=== PATIENT | female | born 1970 | race African-American/Black ===

== ENCOUNTER 2017-11-14 21:54 | Emergency (ER) | payer OTHER ==
[2017-11-14 22:06] VITALS: BP 122/67; PULSE 110; TEMP 98.4; BMI 34.1
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
== END 2017-11-14 22:31 | disposition home or self-care (01) ==
LOC: JERFT 21:54
DX: S29.012A Strain of muscle and tendon of back wall of thorax, initial encounter (principal); S39.011A Strain of muscle, fascia and tendon of abdomen, initial encounter; X50.9XXA Other and unspecified overexertion or strenuous movements or postures, initial encounter; Y93.89 Activity, other specified; Y92.118 Other place in children's home and orphanage as the place of occurrence of the external cause; Y99.0 Civilian activity done for income or pay; I10 Essential (primary) hypertension; E78.5 Hyperlipidemia, unspecified; J45.909 Unspecified asthma, uncomplicated; Z79.82 Long term (current) use of aspirin
CPT/HCPCS: 99281-25

== ENCOUNTER 2018-01-19 10:21 | Emergency (ER) | payer OTHER ==
[2018-01-19 10:33] VITALS: BP 156/93; PULSE 99; TEMP 98.7; BMI 35.1
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
[2018-01-19 12:04] LABS: BASO % 2.1 % (0-2.0); EOS % 3.9 % (0-4.5); HEMATOCRIT 31.5 % (32.4-45.2); LYMPH % 26.4 % (8-40); MCH 24.5 pg (25.7-33.7); MCHC 31.8 g/dl (32.0-36.0); MEAN PLT VOLUME 8.8 fl (7.5-11.1); MONO % 7.7 % (3.8-10.2); NEUT % 59.9 % (42.8-82.8); PLATELET COUNT 195 K/MM3 (134-434); RBC 4.09 M/mm3 (3.60-5.2); RDW 19.9 % (11.6-15.6)
[2018-01-19 13:19] LABS: ALBUMIN 3.8 g/dl (3.4-5.0); ALK PHOS 106 U/L (45-117); ANION GAP 10 (8-16); BILIRUBIN,TOTAL 0.5 mg/dL (0.2-1.0); BLOOD UREA NITROGEN 13 mg/dL (7-18); CALCIUM 9.4 mg/dL (8.5-10.1); CHLORIDE 106 mmol/L (98-107); CHOLESTEROL 228 mg/dL (50-200); CO2 24 mmol/L (21-32); CREATININE 0.9 mg/dL (0.55-1.02); GAMMA GLUTAMYL TRANSPEPTIDASE 30 U/L (5-85); GLUCOSE,RANDOM 92 mg/dL (74-106); LDH 156 U/L (84-246); POTASSIUM 4.1 mmol/L (3.5-5.1); SGOT/AST 21 U/L (15-37); SGPT/ALT 21 U/L (12-78); SODIUM 140 mmol/L (136-145); TOT PROT 8.7 g/dl (6.4-8.2)
[2018-01-20 06:06] LABS: HBsAG SCREEN Negative (Negative)
== END 2018-01-19 12:22 | disposition home or self-care (01) ==
LOC: JERFT 10:21
DX: Z77.21 Contact with and (suspected) exposure to potentially hazardous body fluids (principal); S63.502A Unspecified sprain of left wrist, initial encounter; X58.XXXA Exposure to other specified factors, initial encounter; Y93.89 Activity, other specified; Y92.10 Unspecified residential institution as the place of occurrence of the external cause; Y99.0 Civilian activity done for income or pay; E78.5 Hyperlipidemia, unspecified; F17.210 Nicotine dependence, cigarettes, uncomplicated; Z79.82 Long term (current) use of aspirin
CPT/HCPCS: 36415; 73110-TC-LR-FY; 80053; 82465; 82977; 83615; 85025; 86317; 86706; 86803; 87340; 87389; 99282-25

== ENCOUNTER 2019-04-12 04:41 | Inpatient (IN) | payer OTHER ==
[2019-04-06 15:34] VITALS: BMI 31.6
[2019-04-12] MEDS ORDERED: PHENAZOPYRIDINE HCL 100 MG TABLET (FP) PO ONE ×2 (07:13→07:21)
[2019-04-12] MEDS ORDERED: CEFAZOLIN 2 GM/D5W 2 GM/50 ML ML IVPB ONE (07:13)
[2019-04-12] MEDS ORDERED: PHENAZOPYRIDINE HCL 100 MG TABLET (FP) ONE (07:17)
[2019-04-12] MEDS ORDERED: ONDANSETRON 4 MG/2 ML VIAL IVPUSH PRN ×4 (07:21→18:38)
[2019-04-12] MEDS ORDERED: oxyCODONE HCL 5 MG TABLET PO PRN ×6 (07:21→18:38)
[2019-04-12] MEDS ORDERED: LACTATED RINGERS SOLUTION 1,000 ML IV SCH ×3 (07:30→18:38)
[2019-04-12] MEDS ORDERED: BUPIVACAINE HCL/PF 0.5% (5 MG/ML) 30 ML VIAL IJ ONE ×3 (07:32→10:30)
--- NOTE | 2019-04-12 08:03 | HP ---
History & Physical Update - History History: No Change - Physical Physical: No Change - Assessment Assessment: No Change - Plan Plan: No Change
[2019-04-12] MEDS ORDERED: HEPARIN NA (PORCINE) 5,000 UNITS/ML 1ML VIAL SQ ONE ×3 (08:04→08:38)
[2019-04-12] MEDS ORDERED: ceFAZolin SODIUM 1 GM VIAL IVPB ONE (08:15)
[2019-04-12] MEDS ORDERED: SIMETHICONE 80 MG TAB.CHEW (FP) PO PRN ×2 (11:12→18:38)
[2019-04-12] MEDS ORDERED: BISACODYL 5 MG TABLET.DR (FP) PO PRN ×2 (11:12→18:38)
[2019-04-12] MEDS ORDERED: IBUPROFEN 800 MG/8 ML IJ IVPB PRN ×2 (11:12→18:38)
[2019-04-12] MEDS ORDERED: ACETAMINOPHEN 1000 MG/100 ML VIAL (NON FORMULARY) IVPB ONE (11:16)
--- NOTE | 2019-04-12 11:27 | OP ---
Operative Note - Note: Operative Date: 04/12/19 Pre-Operative Diagnosis: leiomyoma, menorrhagia Operation: robotic assisted hysterectomy and b/l salpingectomy Surgeon: Randi Zuniga Esl Teacher: Isabel Newman Anesthesiologist/ELEVATOR REPAIRER HELPER: Ankit Jordan Anesthesia: General Specimens Removed: uterus/cervix, bilateral saplingx Estimated Blood Loss (mls): 50 Drains, Volume Out (mls): 50 (whitehead) Fluid Volume Replaced (mls): 1,000 Operative Report Dictated: Yes
--- NOTE | 2019-04-12 11:28 | SURG ---
Surgery Cafeteria Or Lunchroom Checker Note Cafeteria Or Lunchroom Checker: Isabel Newman PA-C Date of Service: 04/12/19 Diagnosis: leiomyoma, menorrhagia Procedure: robotic assisted hysterectomy and b/l salpingectomy I was present for the entirety of the operative procedure. For further detail, please refer to operative report. Visit type - Case Type Case Type: Scheduled - Emergency Emergency Visit: No - New patient This patient is new to me today: Yes Date on this admission: 04/12/19
[2019-04-12] MEDS ORDERED: ACETAMINOPHEN INJECTION 100 ML IVPB ONE (11:37)
--- NOTE | 2019-04-12 13:52 | OP ---
DATE OF OPERATION: 04/12/2019 PREOPERATIVE DIAGNOSIS: Leiomyomatous uterus, menorrhagia. OPERATION: Laparoscopic robotic total abdominal hysterectomy and bilateral salpingectomy. SURGEON: Shon Garcia MD WAREHOUSE ASSOCIATE: URBANO Freed. MD segundo. ANESTHESIOLOGIST: Ankit Trinh ANESTHESIA: General. SPECIMEN REMOVED: Uterus, cervix, and bilateral tubes. ESTIMATED BLOOD LOSS: Approximately 50 mL. PROCEDURE: Patient was taken to the operating room. Placed in dorsal lithotomy position, prepped and draped in the usual sterile fashion. Time-out was performed in accordance with hospital regulation. Speculum was placed in the vagina. Anterior lip of the cervix was grasped with single-tooth tenaculum. A large uterine manipulator cannula was then inserted, and cervix was covered with the manipulator. Banks catheter was then inserted. Attention was then drawn to the umbilicus where an 8-mm umbilical incision. Veress needle was inserted into the cavity. Approximately 3-4 L of CO2 was insufflated in the cavity. Veress needle was then removed. An 8-mm trocar was then inserted. Laparoscope and camera revealed normal placement of the trocar without injury to the underlying viscera. Attention was then drawn to the left side where 2 incisions were made, 1 parallel approximately 10 cm apart from the umbilicus. An 8-mm incision was then made, and upper abdomen incision 5 cm was made. AirSeal cannula was inserted into the 5-mm incision, and robotic trocar was inserted into the 8-mm incision. Two trocars were then placed on the right side both parallel to each other about 10 cm apart under direct visualization without injury to the underlying viscera. Da Caleb robot was side docked to the patient's bedside, and trocars were then inserted onto the robot. Placement was then confirmed. Instruments were then placed. Endo Jesse and tenaculum were placed on the right side, and fenestrated bipolar was placed on the left side. AirSeal cannula was then activated. Attention was then drawn to the console where control of the da Caleb robot was then done. Tenaculum was then used to elevate and tilt the uterus to the right side. Utero-ovarian ligament was identified and was clamped using fenestrated bipolar and cut. Round ligament was identified, clamped, and cut. Vesicouterine reflection was then entered, and bladder was bluntly dissected out of the operative field. Uterine artery was identified, coagulated, and cut along with cardinal ligaments down to the level of the cervix. Endo Jesse were then used to open the vagina in a circumferential manner. The same procedure was repeated on the other side, and bladder was bluntly dissected out of the operative field. Ureters were identified and found to have peristalsis bilaterally. The circumferential incision around the vagina was then done, and vagina was cut away from the cervix. Uterus was then removed from the vagina. Tubes were bilaterally grasped and coagulated and cut, and both tubes were also submitted for pathology from the vagina. The 2-0 V- Lock suture was then introduced into the abdomen cavity. Robot was then used to close the vagina in a continuous fashion. Hemostasis was achieved. Ureters identified and both again found to have peristalsis. All bleeding was found to be hemostatic. Needle was then removed through a No. 1 trocar, and all trocars were then removed. Incisions were then closed using 4-0 Biosyn suture in subcuticular fashion after CO2 had been removed from the abdomen. Wound was washed and dressed. The patient had tolerated procedure well. Estimated blood loss was about 50 mL. SHON GARCIA M.D. [id number]
[2019-04-12] MEDS ORDERED: PATIENT'S OWN MEDICATION (NON-FORMULARY) (Iron [Iron] 18 MG) PO SCH (14:00)
--- NOTE | 2019-04-12 15:31 | CON.CARD ---
Consult Consult Specialty:: Cardiology - History of Present Illness History of Present Illness: s/p JOSE developed vpcs PMH elevated tnis [address] as per patient cleared by dr. Boyd 2 weeks ago neg stress test - History Source History Provided By: Patient, Medical Record - Past Medical History ...LMP: 06/18/16 ...LMP Comment: constant ...: No - Alcohol/Substance Use Hx Alcohol Use: No - Smoking History Smoking history: Current every day smoker Have you smoked in the past 12 months: Yes Aproximately how many cigarettes per day: 4 - Social History History of Recent Travel: No Home Medications - Allergies Allergies/Adverse Reactions: Allergies Allergy/AdvReac Type Severity Reaction Status Date / Time No Known Drug Allergies Allergy Verified 01/19/18 10:52 - Home Medications Home Medications: Ambulatory Orders Aspirin [ASA -] 81 mg PO DAILY #30 tab.chew 07/24/16 Iron 18 mg PO TID 04/06/19 Omeprazole 20 mg PO BID 04/06/19 Docusate Sodium [Colace -] 100 mg PO BID #14 capsule 04/12/19 Oxycodone HCl/Acetaminophen [Percocet 5-325 mg Tablet] 1 - 2 tab PO Q6H PRN #30 tab MDD 8 04/12/19 Review of Systems - Review of Systems Constitutional: reports: No Symptoms Eyes: reports: No Symptoms HENT: reports: No Symptoms Neck: reports: No Symptoms Cardiovascular: reports: No Symptoms Respiratory: reports: No Symptoms Gastrointestinal: reports: No Symptoms Genitourinary: reports: No Symptoms Breasts: reports: No Symptoms Reported Musculoskeletal: reports: No Symptoms Integumentary: reports: No Symptoms Neurological: reports: No Symptoms Endocrine: reports: No Symptoms Hematology/Lymphatic: reports: No Symptoms Psychiatric: reports: No Symptoms Vital Signs: Vital Signs Temperature 98.2 F 04/12/19 13:20 Pulse Rate 90 04/12/19 13:20 Respiratory Rate 16 04/12/19 13:20 Blood Pressure 104/65 04/12/19 13:20 O2 Sat by Pulse Oximetry (%) 100 04/12/19 13:20 Constitutional: Yes: Well Nourished, No Distress, Calm Eyes: Yes: WNL, Conjunctiva Clear, EOM Intact HENT: Yes: WNL, Atraumatic, Normocephalic Neck: Yes: WNL, Supple, Trachea Midline Respiratory: Yes: WNL, Regular, CTA Bilaterally Gastrointestinal: Yes: WNL, Normal Bowel Sounds Renal/: Yes: WNL Cardiovascular: Yes: Pulse Irregular Heart Sounds: Yes: S1, S2 Murmur: Yes: Systolic Murmur Musculoskeletal: Yes: WNL Extremities: Yes: WNL Integumentary: Yes: WNL Neurological: Yes: WNL, Alert, Oriented ...Motor Strength: WNL Psychiatric: Yes: WNL, Alert, Oriented Imaging - Results EKG: Image Reviewed (sr rbbb bifascicular block LPHB vpcs) Problem List - Problems (1) Abdominal muscle strain Code(s): S39.011A - STRAIN OF MUSCLE, FASCIA AND TENDON OF ABDOMEN, INIT ENCNTR (2) Anemia Code(s): D64.9 - ANEMIA, UNSPECIFIED (3) Asthma Code(s): J45.909 - UNSPECIFIED ASTHMA, UNCOMPLICATED (4) Back pain Code(s): M54.9 - DORSALGIA, UNSPECIFIED (5) Chronic back pain Code(s): M54.9 - DORSALGIA, UNSPECIFIED; G89.29 - OTHER CHRONIC PAIN (6) Exposure to blood or body fluid Code(s): Z77.21 - CONTACT W AND EXPOSURE TO POTENTIALLY HAZARDOUS BODY FLUIDS (7) Menometrorrhagia Code(s): N92.1 - EXCESSIVE AND FREQUENT MENSTRUATION WITH IRREGULAR CYCLE (8) Multiple thyroid nodules Code(s): E04.2 - NONTOXIC MULTINODULAR GOITER (9) Myocardial infarction Code(s): I21.3 - ST ELEVATION (STEMI) MYOCARDIAL INFARCTION OF [facility] SITE (10) Near syncope Code(s): R55 - SYNCOPE AND COLLAPSE (11) Obesity Code(s): E66.9 - OBESITY, UNSPECIFIED (12) RBBB Code(s): I45.10 - UNSPECIFIED RIGHT BUNDLE-BRANCH BLOCK (13) Sprain of wrist, left Code(s): S63.502A - UNSPECIFIED SPRAIN OF LEFT WRIST, INITIAL ENCOUNTER (14) Strain of mid-back Code(s): S29.012A - STRAIN OF MUSCLE AND TENDON OF BACK WALL OF THORAX, INIT Assessment/Plan s/p JOSE 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 Boyd 2 weeks ago neg stress test Plan transfer to telemetry awaiting records from dr. Boyd office echo f/u ekgs
[2019-04-12 15:36] LABS: BASO % 0.4 % (0-2.0); HEMOGLOBIN 8.5 GM/dL (10.7-15.3); LYMPH % 9.8 % (8-40); MCH 22.5 pg (25.7-33.7); MCHC 29.4 g/dl (32.0-36.0); MEAN CELL VOLUME 76.5 fl (80-96); MEAN PLT VOLUME 9.9 fl (7.5-11.1); MONO % 2.1 % (3.8-10.2); NEUT % 87.7 % (42.8-82.8); PLATELET COUNT 206 K/MM3 (134-434); RBC 3.79 M/mm3 (3.60-5.2); RDW 22.4 % (11.6-15.6); WHITE BLOOD COUNT 6.7 K/mm3 (4.0-10.0)
--- NOTE | 2019-04-12 15:45 | EKG ---
Test Reason : Blood Pressure : / mmHG Vent. Rate : 089 BPM Atrial Rate : 089 BPM P-R Int : 184 ms QRS Dur : 174 ms QT Int : 472 ms P-R-T Axes : 073 -61 087 degrees QTc Int : 574 ms SINUS RHYTHM WITH FREQUENT PREMATURE VENTRICULAR COMPLEXES POSSIBLE LEFT ATRIAL ENLARGEMENT RIGHT BUNDLE BRANCH BLOCK LEFT ANTERIOR FASCICULAR BLOCK BIFASCICULAR BLOCK ABNORMAL ECG WHEN COMPARED WITH ECG OF 23-JUL-2016 06:21, PREMATURE VENTRICULAR COMPLEXES ARE NOW PRESENT T WAVE VARIATION Confirmed by CONOR CASPER MD ([id number]) on 04/12/2019 3:44:33 PM Referred By: Randi Zuniga Confirmed By:CONOR CASPER MD
[2019-04-12] MEDS ORDERED: CEFAZOLIN 1 GM in DEXTROSE 5%-WATER - 50 ML IVPB SCH (16:00)
[2019-04-12 16:11] LABS: BLOOD UREA NITROGEN 9.9 mg/dL (7-18); CALCIUM 8.7 mg/dL (8.5-10.1); CREATININE 0.8 mg/dL (0.55-1.3); POTASSIUM 3.4 mmol/L (3.5-5.1)
[2019-04-12] MEDS ORDERED: ASPIRIN 325 MG TABLET PO ONE (16:48)
[2019-04-12] MEDS ORDERED: ASPIRIN 325 MG ENTERIC COATED TABLET (FP) PO STA (16:50)
--- NOTE | 2019-04-12 16:54 | RAPID ---
Physical Examination Vital Signs: Vital Signs Temperature 97.8 F 04/12/19 13:45 Pulse Rate 86 04/12/19 13:45 Respiratory Rate 20 04/12/19 13:45 Blood Pressure 96/58 L 04/12/19 13:45 O2 Sat by Pulse Oximetry (%) 100 04/12/19 13:45 afeb, HR 93, BP 87/63, 100%(2L) Findings/Remarks: 48F w/ pmh of HLD, OA, Asthma, POD#0 robo-assisted hysterectom + bl salphingectomy complaining of sudden onset substernal CP. Rapid response called for CP + SOB. Described as a crushing pressure radiating to back and Left shoulder. Thinks that her pre-op stress test 2weeks pre-op was normal. Has had neg cath 2ys prior. Cardiology consulted from earlier today for EKG changes post -op(PVCs w/ bifasicular block compared to EKG from 2017). Cardiology recommended cardiac enzymes, echo, transfer to tele. Constitutional: Yes: Mild Distress Eyes: Yes: Conjunctiva Clear. No: Sclera Icterus HENT: Yes: Atraumatic, Normocephalic Neck: Yes: Trachea Midline. No: Lymphadenopathy Cardiovascular: Yes: Regular Rate and Rhythm. No: Murmur, Rub Respiratory: Yes: CTA Bilaterally, On Nasal O2 (2L). No: Accessory Muscle Use Gastrointestinal: Yes: Soft, Abdomen, Obese. No: Hepatomegaly Renal/: Yes: Other (Banks in place with dark orange output(pyridium given earlier)) Extremities: No: Calf Tenderness Edema: No Peripheral Pulses: Left Radial: 2+, Right Radial: 2+ Integumentary: No: Erythema Neurological: Yes: Alert, Oriented Labs: CBC, BMP 04/12/19 15:05 04/12/19 15:05 Rapid Response - Rapid Response Assessment: 48F w/ pmh of HLD, OA, Asthma, POD#0 robo-assisted hysterectomy + bl salphingectomy with CP + SOB concerning for cardiovascular event Outcome: - fu CXR - fu CTA to r/o aortic dissection, PE - stat ASA, - pain control: morphine 2mg, famotidine 20mg BID - electrolyte repletion: MgSO4 2g, KCl 10mEQ x3
[2019-04-12] MEDS ORDERED: MORPHINE SULFATE 2 MG/ML VIAL IVPUSH ONE (16:58)
[2019-04-12] MEDS ORDERED: MAGNESIUM SULF 50% (8.12 MEQ/2 ML-1 GM VIAL) IVPB ONE (17:11)
[2019-04-12] MEDS ORDERED: FAMOTIDINE 20 MG/50 ML IVPB 20 MG/50 ML MG IVPB ONE (17:16)
[2019-04-12 18:00] LABS: ANISOCYTOSIS 2+; MACROCYTOSIS 0; PLATELET ESTIMATE NORMAL
[2019-04-12] MEDS ORDERED: ACETAMINOPHEN 325 MG TABLET (FP) PO SCH (18:00)
--- NOTE | 2019-04-12 18:32 | CONSULT ---
Consultation: REQUESTING PROVIDER: CONSULT REQUEST: We have been asked to medically evaluate this patient for ICU monitoring. HISTORY OF PRESENT ILLNESS: REVIEW OF SYSTEMS: CONSTITUTIONAL: Absent: fever, chills, diaphoresis, generalized weakness, malaise, loss of appetite, weight change HEENT: Absent: rhinorrhea, nasal congestion, throat pain, throat swelling, difficulty swallowing, mouth swelling, ear pain, eye pain, visual changes CARDIOVASCULAR: Absent: chest pain, syncope, palpitations, irregular heart rate, lightheadedness , peripheral edema RESPIRATORY: Absent: cough, shortness of breath, dyspnea with exertion, orthopnea, wheezing, stridor, hemoptysis GASTROINTESTINAL: Absent: abdominal pain, abdominal distension, nausea, vomiting, diarrhea, constipation, melena, hematochezia GENITOURINARY: Absent: dysuria, frequency, urgency, hesitancy, hematuria, flank pain, genital pain MUSCULOSKELETAL: Absent: myalgia, arthralgia, joint swelling, back pain, neck pain SKIN: Absent: rash, itching, pallor HEMATOLOGIC/IMMUNOLOGIC: Absent: easy bleeding, easy bruising, lymphadenopathy, frequent infections ENDOCRINE: Absent: unexplained weight gain, unexplained weight loss, heat intolerance, cold intolerance NEUROLOGIC: Absent: headache, focal weakness or paresthesias, dizziness, unsteady gait, seizure, mental status changes, bladder or bowel incontinence PSYCHIATRIC: Absent: anxiety, depression, suicidal or homicidal ideation, hallucinations. PHYSICAL EXAMINATION Vital Signs - 24 hr 04/12/19 04/12/19 04/12/19 06:35 11:18 11:30 Temperature 98.9 F 97.5 F L Pulse Rate 100 H 88 89 Respiratory 20 18 16 Rate Blood Pressure 113/66 97/58 L 101/60 O2 Sat by Pulse 100 96 99 Oximetry (%) 04/12/19 04/12/19 04/12/19 11:45 12:00 12:15 Temperature Pulse Rate 90 88 89 Respiratory 16 14 16 Rate Blood Pressure 102/54 L 102/60 100/72 O2 Sat by Pulse 98 100 100 Oximetry (%) 04/12/19 04/12/19 04/12/19 12:30 12:45 13:00 Temperature Pulse Rate 85 86 87 Respiratory 16 14 16 Rate Blood Pressure 101/57 L 100/63 105/60 O2 Sat by Pulse 100 100 100 Oximetry (%) 04/12/19 04/12/19 13:20 13:45 Temperature 98.2 F 97.8 F Pulse Rate 90 86 Respiratory 16 20 Rate Blood Pressure 104/65 96/58 L O2 Sat by Pulse 100 100 Oximetry (%) GENERAL: Awake, alert, and fully oriented, in no acute distress. HEAD: Normal with no signs of trauma. EYES: Pupils equal, round and reactive to light, extraocular movements intact, sclera anicteric, conjunctiva clear. No lid lag. EARS, NOSE, THROAT: Ears normal, nares patent, oropharynx clear without exudates. Moist mucous membranes. NECK: Normal range of motion, supple without lymphadenopathy, JVD, or masses. LUNGS: Breath sounds equal, clear to auscultation bilaterally. No wheezes, and no crackles. No accessory muscle use. HEART: Regular rate and rhythm, normal S1 and S2 without murmur, rub or gallop. ABDOMEN: Soft, nontender, not distended, normoactive bowel sounds, no guarding, no rebound, no masses. No hepatomegaly or splenomegaly. MUSCULOSKELETAL: Normal range of motion at all joints. No bony deformities or tenderness. No CVA tenderness. UPPER EXTREMITIES: 2+ pulses, warm, well-perfused. No cyanosis. No clubbing. Cap refill <2 seconds. No peripheral edema. LOWER EXTREMITIES: 2+ pulses, warm, well-perfused. No calf tenderness. No peripheral edema. NEUROLOGICAL: Cranial nerves II-XII intact. Normal speech. Normal gait. PSYCHIATRIC: Cooperative. Good eye contact. Appropriate mood and affect. SKIN: Warm, dry, normal turgor, no rashes or lesions noted. Laboratory Results - last 24 hr 04/12/19 04/12/19 04/12/19 06:10 06:10 15:05 WBC RBC Hgb Hct MCV MCH MCHC RDW Plt Count MPV Absolute Neuts (auto) Neutrophils % Lymphocytes % Monocytes % Eosinophils % Basophils % Nucleated RBC % Hypochromia Platelet Estimate Polychromasia Poikilocytosis Anisocytosis Microcytosis Macrocytosis Sodium 139 Potassium 3.4 L Chloride 105 Carbon Dioxide 26 Anion Gap 8 BUN 9.9 Creatinine 0.8 Est GFR (CKD-EPI)AfAm 101.04 Est GFR (CKD-EPI)NonAf 87.18 Random Glucose 146 H Calcium 8.7 Creatine Kinase 56 Troponin I 0.30 H Beta HCG, Quant < 1.0 Blood Type O POSITIVE Antibody Screen Negative 04/12/19 15:05 WBC 6.7 RBC 3.79 Hgb 8.5 L Hct 29.0 L MCV 76.5 L MCH 22.5 L MCHC 29.4 L RDW 22.4 H Plt Count 206 MPV 9.9 D Absolute Neuts (auto) 5.9 Neutrophils % 87.7 H D Lymphocytes % 9.8 D Monocytes % 2.1 L Eosinophils % 0.0 D Basophils % 0.4 Nucleated RBC % 0 Hypochromia 2+ Platelet Estimate Normal Polychromasia 1+ Poikilocytosis 0 Anisocytosis 2+ Microcytosis 2+ Macrocytosis 0 Sodium Potassium Chloride Carbon Dioxide Anion Gap BUN Creatinine Est GFR (CKD-EPI)AfAm Est GFR (CKD-EPI)NonAf Random Glucose Calcium Creatine Kinase Troponin I Beta HCG, Quant Blood Type Antibody Screen Active Medications Generic Name Dose Route Start Last Admin Trade Name Freq PRN Reason Stop Dose Admin Acetaminophen 650 mg 04/12/19 18:00 Tylenol - PO 04/13/19 02:01 Q4H FILEMON Bisacodyl 10 mg 04/12/19 11:12 Dulcolax - PO ONCE PRN CONSTIPATION Docusate Sodium 100 mg 04/12/19 22:00 Colace - PO TID FILEMON Enoxaparin Sodium 40 mg 04/13/19 10:00 Lovenox - SQ DAILY FILEMON Fentanyl 50 mcg 04/12/19 07:21 04/12/19 11:40 Sublimaze Injection - IVPUSH 50 mcg [id number] PRN Administration PAIN-PACU ORDER X 4 DOSES ONLY Lactated Ringer's 1,000 mls @ 75 mls/hr 04/12/19 07:30 Lactated Ringers Solution IV ASDIR FILEMON Cefazolin Sodium 1 gm/ 50 mls @ 100 mls/hr 04/12/19 16:00 Dextrose IVPB 04/13/19 00:29 Q8H FILEMON Lactated Ringer's 1,000 mls @ 100 mls/hr 04/12/19 11:30 04/12/19 13:20 Lactated Ringers Solution IV 0 mls ASDIR FILEMON Administration Potassium Chloride 10 meq in 100 mls @ 100 mls/hr 04/12/19 17:15 Potassium Chloride 10 Meq Premix Ivpb - IVPB 04/12/19 20:14 Q60M FIELMON Famotidine/Sodium Chloride 20 mg in 50 mls @ 100 mls/hr 04/12/19 22:00 Pepcid 20 Mg Premixed Ivpb - IVPB BID [facility] Ibuprofen 800 mg 04/12/19 11:12 04/12/19 14:15 Caldolor Injection - IVPB 800 mg Q8H PRN Administration PAIN LEVEL 1-5 Non-Formulary Medication 18 mg 04/12/19 14:00 Iron [Iron] PO TID [facility] Ondansetron HCl 4 mg 04/12/19 07:21 Zofran Injection IVPUSH Q6H PRN NAUSEA AND/OR VOMITING Ondansetron HCl 4 mg 04/12/19 11:12 Zofran Injection IVPUSH Q4H PRN NAUSEA AND/OR VOMITING Oxycodone HCl 10 mg 04/12/19 07:21 Roxicodone - PO Q4H PRN PAIN LEVEL 6-10 Oxycodone HCl 5 mg 04/12/19 07:21 Roxicodone - PO Q4H PRN PAIN LEVEL 1-5 Pantoprazole Sodium 20 mg 04/12/19 22:00 Protonix - PO BID [facility] Simethicone 80 mg 04/12/19 11:12 Mylicon - PO Q4H PRN GAS ASSESSMENT/PLAN: Dispo: We will continue to follow the patient. Thank you for this consultative opportunity. Visit type - Emergency Visit Emergency Visit: No - New Patient This patient is new to me today: Yes Date on this admission: 04/12/19 - Critical Care Critical Care patient: Yes Total Critical Care Time (in minutes): 36 Critical Care Statement: The care of this patient involved high complexity decision making to prevent further life threatening deterioration of the patient 's condition and/or to evaluate & treat vital organ system(s) failure or risk of failure. ATTENDING PHYSICIAN STATEMENT I saw and evaluated the patient. I reviewed the resident's note and discussed the case with the resident. I agree with the resident's findings and plan as documented. SUBJECTIVE: OBJECTIVE: ASSESSMENT AND PLAN:
--- NOTE | 2019-04-12 19:07 | CONSULT ---
Consultation: REQUESTING PROVIDER: CONSULT REQUEST: We have been asked to medically evaluate this patient for ICU management. HISTORY OF PRESENT ILLNESS: 48 y/o/f with PMhx of HLD, HTN, GERD, anemia, Fibroids, [place] in 2017 with cardiac cath but no stent placement POD#0 for total abdominal hysterectomy sent to the ICU due to hypotension and chest/back pain. Patient had a total abdominal hysterectomy due to vaginal bleeding that has been ongoing since January of this year. After the surgery the patient was hypotensive and was complaining of chest pain radiating to her back and left shoulder. Patient now complains of intermittent burning/sharp pain under her left breast that is a 7/10 in pain. The pain is worse with deep breaths. She states the back pain and left shoulder pain have resolved. Patient feels better now compared to post-operatively. Patient also complains of some abd pain. Denies SOB, weakness, chills, lightheadedness, headache, rash. As per surgical PA, during surgery the patient was placed in deep trendelenburg and was hypotensive but became more normotensive after being placed in normal position. Patient was hypotensive and complaining of chest pain radiating to her back and left shoulder post-operatively so an EKG was ordered which showed RBBB which is old and a new? left anterior fascicular block. Patient's BP responded well to fluids. Due to patients PMHx and concern for dissection and PE a chest/abd CTA was ordered and Dr. Zambrano was consulted. PMHx: HLD, HTN, GERD, anemia, Fibroids, [place] in 2017 with cardiac cath but no stent placement PSHx: Hernia repair age 6 Social: Tobacco: smokes 1/2 a pack of cigarettes daily Alcohol: social Drugs: denies REVIEW OF SYSTEMS: as per HPI PHYSICAL EXAMINATION Vital Signs - 24 hr 04/12/19 04/12/19 04/12/19 06:35 11:18 11:30 Temperature 98.9 F 97.5 F L Pulse Rate 100 H 88 89 Respiratory 20 18 16 Rate Blood Pressure 113/66 97/58 L 101/60 O2 Sat by Pulse 100 96 99 Oximetry (%) 04/12/19 04/12/19 04/12/19 11:45 12:00 12:15 Temperature Pulse Rate 90 88 89 Respiratory 16 14 16 Rate Blood Pressure 102/54 L 102/60 100/72 O2 Sat by Pulse 98 100 100 Oximetry (%) 04/12/19 04/12/19 04/12/19 12:30 12:45 13:00 Temperature Pulse Rate 85 86 87 Respiratory 16 14 16 Rate Blood Pressure 101/57 L 100/63 105/60 O2 Sat by Pulse 100 100 100 Oximetry (%) 04/12/19 04/12/19 04/12/19 13:20 13:45 18:35 Temperature 98.2 F 97.8 F 98.3 F Pulse Rate 90 86 80 Respiratory 16 20 23 H Rate Blood Pressure 104/65 96/58 L 104/71 O2 Sat by Pulse 100 100 Oximetry (%) GENERAL: mild discomfort due to pain. Awake, alert, and fully oriented HEAD: Normal with no signs of trauma. EYES: PERRL, EOMI, no scleral icterus EARS, NOSE, THROAT: Dry mucous membranes. nares patent NECK: supple, no cervical lymphadenopathy LUNGS: Breath sounds equal, clear to auscultation bilaterally. No wheezes, and no crackles. No accessory muscle use. HEART: systolic murmur noted. Regular rate and rhythm ABDOMEN: Dressings in place over abdominal surgical incisions, mild diffuse tenderness to palpation. hypoactive bowel sounds. soft, non distended. MUSCULOSKELETAL: No bony deformities or tenderness. UPPER EXTREMITIES: 2+ pulses, warm, well-perfused. No cyanosis. No clubbing. Cap refill <2 seconds. No peripheral edema. LOWER EXTREMITIES: 2+ pulses, warm, well-perfused. No calf tenderness. No peripheral edema. NEUROLOGICAL: Cranial nerves II-XII intact. Normal speech. grossly normal sensation. 5/5 strength upper extremities. gait not observed. SKIN: Warm, dry Laboratory Results - last 24 hr 04/12/19 04/12/19 04/12/19 06:10 06:10 15:05 WBC RBC Hgb Hct MCV MCH MCHC RDW Plt Count MPV Absolute Neuts (auto) Neutrophils % Lymphocytes % Monocytes % Eosinophils % Basophils % Nucleated RBC % Hypochromia Platelet Estimate Polychromasia Poikilocytosis Anisocytosis Microcytosis Macrocytosis Sodium 139 Potassium 3.4 L Chloride 105 Carbon Dioxide 26 Anion Gap 8 BUN 9.9 Creatinine 0.8 Est GFR (CKD-EPI)AfAm 101.04 Est GFR (CKD-EPI)NonAf 87.18 Random Glucose 146 H Calcium 8.7 Creatine Kinase 56 Troponin I 0.30 H Beta HCG, Quant < 1.0 Blood Type O POSITIVE Antibody Screen Negative 04/12/19 15:05 WBC 6.7 RBC 3.79 Hgb 8.5 L Hct 29.0 L MCV 76.5 L MCH 22.5 L MCHC 29.4 L RDW 22.4 H Plt Count 206 MPV 9.9 D Absolute Neuts (auto) 5.9 Neutrophils % 87.7 H D Lymphocytes % 9.8 D Monocytes % 2.1 L Eosinophils % 0.0 D Basophils % 0.4 Nucleated RBC % 0 Hypochromia 2+ Platelet Estimate Normal Polychromasia 1+ Poikilocytosis 0 Anisocytosis 2+ Microcytosis 2+ Macrocytosis 0 Sodium Potassium Chloride Carbon Dioxide Anion Gap BUN Creatinine Est GFR (CKD-EPI)AfAm Est GFR (CKD-EPI)NonAf Random Glucose Calcium Creatine Kinase Troponin I Beta HCG, Quant Blood Type Antibody Screen Active Medications Generic Name Dose Route Start Last Admin Trade Name Freq PRN Reason Stop Dose Admin Acetaminophen 650 mg 04/12/19 22:00 Tylenol - PO 04/13/19 10:01 Q4HWA FILEMON Bisacodyl 10 mg 04/12/19 18:38 Dulcolax - PO ONCE PRN CONSTIPATION Docusate Sodium 100 mg 04/12/19 22:00 Colace - PO TID FILEMON Enoxaparin Sodium 40 mg 04/13/19 10:00 Lovenox - SQ DAILY FILE[facility] Potassium Chloride 10 meq in 100 mls @ 100 mls/hr 04/12/19 17:15 Potassium Chloride 10 Meq Premix Ivpb - IVPB 04/12/19 20:14 Q60M FILEMON Famotidine/Sodium Chloride 20 mg in 50 mls @ 100 mls/hr 04/12/19 22:00 Pepcid 20 Mg Premixed Ivpb - IVPB BID FILE[facility] Cefazolin Sodium 1 gm/ 50 mls @ 100 mls/hr 04/13/19 00:00 Dextrose IVPB 04/13/19 00:29 Q8H FILEMON Lactated Ringer's 1,000 mls @ 100 mls/hr 04/12/19 18:38 Lactated Ringers Solution IV ASDIR FILEMON Ibuprofen 800 mg 04/12/19 18:38 Caldolor Injection - IVPB Q8H PRN PAIN LEVEL 1-5 Non-Formulary Medication 18 mg 04/12/19 22:00 Iron [Iron] PO TID FILEMON Ondansetron HCl 4 mg 04/12/19 18:38 Zofran Injection IVPUSH Q6H PRN NAUSEA AND/OR VOMITING Oxycodone HCl 10 mg 04/12/19 18:38 Roxicodone - PO Q4H PRN PAIN LEVEL 6-10 Oxycodone HCl 5 mg 04/12/19 18:38 Roxicodone - PO Q4H PRN PAIN LEVEL 1-5 Pantoprazole Sodium 20 mg 04/12/19 22:00 Protonix - PO BID FILE[facility] Simethicone 80 mg 04/12/19 18:38 Mylicon - PO Q4H PRN GAS ASSESSMENT/PLAN: 48 y/o/f with PMhx of HLD, GERD, Fibroids, [place] in 2017 with cardiac cath but no stent placement POD#0 for total abdominal hysterectomy sent to the ICU due to hypotension and chest/back pain. #Neuro - AAOx3. Continue to monitor #Cardio - EKG: shows old RBBB (present in previous EKGs from 2017), new left anterior fascicular and PVCs. - No pre and post op changes in EKG noted - Stress test on 04/06/19 - ETT 5:01 + 2:27 edvin, no cp, no sob, ecg neg, 4 beats SVT - Chest CTA completed, no evidence of PE or dissection - Troponin elevated at 0.3, however this is lower than the patient's baseline troponin which has been 0.4+ in the past. Will trend - Repeat EKG in the morning - ASA given after the surgery - Spoke with Dr. Zambrano, recommended continuing patient on ASA. - Echocardiogram ordered - cardio on board #Respiratory - Encourage incentive spirometry - On Chest/abd CTA bibasilar opacities consistent with atelectasis and/or infiltrates are seen. #ID - Cefazolin started - give 3 doses post-op - Patient has been afebrile and without a white count #GI - Colace as needed for constipation - Chest/Abd CTA significant for free intraperitoneal air noted in the abdomen, also with visualization of air in the anterior abdominal wall bilaterally. - Findings discussed with Dr. Rhoades, [employer] MANAGER. Confirmed that presence of free air is normal due to recent surgery. # - LMP: 02/16/19 - Last pap smear on 09/10/18 with normal results #Prophylaxis - Lovenox - SCDs #FEN - regular diet - LR @ 100mls/hr - K+ at 3.4, replete & monitor #Disposition - Continue to monitor in ICU overnight Visit type - Emergency Visit Emergency Visit: No - New Patient This patient is new to me today: Yes Date on this admission: 04/13/19 - Critical Care Critical Care patient: Yes Total Critical Care Time (in minutes): 36 Critical Care Statement: The care of this patient involved high complexity decision making to prevent further life threatening deterioration of the patient 's condition and/or to evaluate & treat vital organ system(s) failure or risk of failure. ATTENDING PHYSICIAN STATEMENT I saw and evaluated the patient. I reviewed the resident's note and discussed the case with the resident. I agree with the resident's findings and plan as documented. SUBJECTIVE: OBJECTIVE: ASSESSMENT AND PLAN:
[2019-04-12] MEDS: KCL 10 MEQ IVPB 10 MEQ/100 ML INFUS.BAG IVPB SCH (20:00)
[2019-04-12] MEDS: CEFAZOLIN 1 GM in DEXTROSE 5%-WATER - 50 ML IVPB SCH (21:00)
[2019-04-12] MEDS ORDERED: ceFAZolin SODIUM 1 GM VIAL ONE (21:13)
[2019-04-12] MEDS ORDERED: DEXTROSE 5%-WATER - 50 ML IVPB ONE (21:13)
[2019-04-12] MEDS ORDERED: PANTOPRAZOLE SODIUM 40 MG VIAL IVPUSH ONE (21:15)
[2019-04-12 21:37] LABS: MAGNESIUM 1.8 mg/dL (1.8-2.4); PHOSPHOROUS 4.2 mg/dL (2.5-4.9)
[2019-04-12] MEDS ORDERED: DOCUSATE SODIUM 100 MG CAPSULE (FP) PO SCH (22:00)
[2019-04-12] MEDS ORDERED: PANTOPRAZOLE 20 MG TABLET (FP) PO SCH ×2 (22:00)
[2019-04-12] MEDS: DOCUSATE SODIUM 100 MG CAPSULE (FP) PO SCH (22:06)
[2019-04-12] MEDS: ACETAMINOPHEN 325 MG TABLET (FP) PO SCH (22:06)
[2019-04-12] MEDS ORDERED: ALBUTEROL SO4 2.5/IPRATROPIUM 0.5 INH SOL 3 ML VIAL.NEB. NEB PRN (22:34)
[2019-04-12] MEDS: FAMOTIDINE 20 MG/50 ML IVPB 20 MG/50 ML MG IVPB SCH (22:49)
--- NOTE | 2019-04-12 23:27 | CONSULT ---
Consult - History of Present Illness History of Present Illness: Pt is a 48 y/o female with PMh significant for HLD, HTN, GERD, anemia, uterine fibroids, and [place] in 2017 with cardiac cath but no stent placement. Pt underwent total abdominal hysterectomy sent to the ICU due to hypotension and chest/back pain. Patient had a total abdominal hysterectomy due to vaginal bleeding that has been ongoing since January of this year. After the surgery the patient was hypotensive and was complaining of chest pain radiating to her back and left shoulder. Patient complains of intermittent burning/sharp pain under her left breast that is a 7/10 in pain and is pleuritic in nature. The pain is worse with deep breaths. She states the back pain and left shoulder pain have resolved. As per surgical PA, during surgery the patient was placed in deep trendelenburg and was hypotensive but became more normotensive after being placed in normal position. Post-op a EKG was ordered which showed LBBB. Cardiology was called and pt transferred to ICU. - Past Medical History Cardio/Vascular: Yes: HTN, Hyperlipdemia, [place] Gastrointestinal: Yes: GERD ...LMP: 06/18/16 ...LMP Comment: constant ...: No - Past Surgical History Past Surgical History: Yes: Hysterectomy - Alcohol/Substance Use Hx Alcohol Use: No - Smoking History Smoking history: Current every day smoker Have you smoked in the past 12 months: Yes Aproximately how many cigarettes per day: 4 - Social History History of Recent Travel: No Home Medications - Allergies Allergies/Adverse Reactions: Allergies Allergy/AdvReac Type Severity Reaction Status Date / Time No Known Drug Allergies Allergy Verified 01/19/18 10:52 - Home Medications Home Medications: Ambulatory Orders Aspirin [ASA -] 81 mg PO DAILY #30 tab.chew 07/24/16 Iron 18 mg PO TID 04/06/19 Omeprazole 20 mg PO BID 04/06/19 Docusate Sodium [Colace -] 100 mg PO BID #14 capsule 04/12/19 Oxycodone HCl/Acetaminophen [Percocet 5-325 mg Tablet] 1 - 2 tab PO Q6H PRN #30 tab MDD 8 04/12/19 Family Medical History Family History: Unremarkable Review of Systems - Review of Systems Constitutional: reports: No Symptoms Eyes: reports: No Symptoms HENT: reports: No Symptoms Neck: reports: No Symptoms Cardiovascular: reports: Chest Pain Respiratory: reports: No Symptoms Gastrointestinal: reports: Abdominal Pain Genitourinary: reports: No Symptoms Physical Exam Vital Signs: Vital Signs Temperature 98.3 F 04/12/19 18:35 Pulse Rate 75 04/12/19 19:36 Respiratory Rate 25 H 04/12/19 19:36 Blood Pressure 104/74 04/12/19 19:36 O2 Sat by Pulse Oximetry (%) 100 04/12/19 19:36 Constitutional: Yes: Well Nourished HENT: Yes: WNL Neck: Yes: WNL, Supple Cardiovascular: Yes: WNL, Regular Rate and Rhythm Respiratory: Yes: WNL, Regular, CTA Bilaterally Gastrointestinal: Yes: Other (generalized incisional tenderness (-) guarding/ rebound) Extremities: Yes: WNL Edema: No Labs: CBC, BMP 04/12/19 15:05 04/12/19 15:05 Problem List - Problems (1) Chest pain Assessment/Plan: S/P JOSE Monitor on tele Serial cpk/troponin As per cardio New onset LBBB w/ PVC's Check CTA chest/ct scan abd Code(s): R07.9 - CHEST PAIN, UNSPECIFIED (2) HTN (hypertension) Assessment/Plan: Hold antihpertensives due to hypotension and monitor Code(s): I10 - ESSENTIAL (PRIMARY) HYPERTENSION (3) HLD (hyperlipidemia) Code(s): E78.5 - HYPERLIPIDEMIA, UNSPECIFIED (4) GERD (gastroesophageal reflux disease) Code(s): K21.9 - GASTRO-ESOPHAGEAL REFLUX DISEASE WITHOUT ESOPHAGITIS (5) Asthma Assessment/Plan: Duoneb prn Code(s): J45.909 - UNSPECIFIED ASTHMA, UNCOMPLICATED
[2019-04-13] MEDS: KCL 10 MEQ IVPB 10 MEQ/100 ML INFUS.BAG IVPB SCH ×2 (04:06→04:07)
[2019-04-13] MEDS ORDERED: ceFAZolin SODIUM 1 GM VIAL ONE (05:36)
[2019-04-13] MEDS ORDERED: DEXTROSE 5%-WATER - 50 ML IVPB ONE (05:37)
[2019-04-13] MEDS: DOCUSATE SODIUM 100 MG CAPSULE (FP) PO SCH ×2 (05:40→14:06)
[2019-04-13] MEDS: ACETAMINOPHEN 325 MG TABLET (FP) PO SCH ×2 (05:40→10:30)
[2019-04-13] MEDS: CEFAZOLIN 1 GM in DEXTROSE 5%-WATER - 50 ML IVPB SCH (05:40)
[2019-04-13 06:48] LABS: BASO % 0.7 % (0-2.0); EOS % 0.7 % (0-4.5); HEMATOCRIT 28.5 % (32.4-45.2); HEMOGLOBIN 8.5 GM/dL (10.7-15.3); LYMPH % 34.6 % (8-40); MCH 22.9 pg (25.7-33.7); MCHC 29.7 g/dl (32.0-36.0); MEAN PLT VOLUME 9.8 fl (7.5-11.1); MONO % 6.8 % (3.8-10.2); NEUT % 57.2 % (42.8-82.8); PLATELET COUNT 192 K/MM3 (134-434); RDW 22.6 % (11.6-15.6); WHITE BLOOD COUNT 4.7 K/mm3 (4.0-10.0)
[2019-04-13 07:19] LABS: BLOOD UREA NITROGEN 8.2 mg/dL (7-18); CREATININE 0.7 mg/dL (0.55-1.3); POTASSIUM 3.8 mmol/L (3.5-5.1)
--- NOTE | 2019-04-13 07:30 | PN ---
Physical Exam: SUBJECTIVE: Patient seen and examined by the bedside. Endorses mild chest pain on deep inspiration. OBJECTIVE: Vital Signs Period Temp Pulse Resp BP Sys/Cardenas Pulse Ox Last 24 Hr 97.5 F-98.4 F 75-98 14-25 96-127/54-97 96-100 GENERAL: AOx3, complaining of pain on inspiration HEAD: Normal with no signs of trauma. EYES: PERRL, EOMI, no scleral icterus EARS, NOSE, THROAT: Dry mucous membranes. nares patent NECK: supple, no cervical lymphadenopathy LUNGS: Breath sounds equal, clear to auscultation bilaterally. No wheezes, and no crackles. No accessory muscle use. HEART: 3/6 systolic murmur on right sternal border, Regular rate and rhythm ABDOMEN: Mild diffuse tenderness to palpation. hypoactive bowel sounds. soft, non distended. MUSCULOSKELETAL: No bony deformities or tenderness. UPPER EXTREMITIES: 2+ pulses, warm, well-perfused. No cyanosis. No clubbing. Cap refill <2 seconds. No peripheral edema. LOWER EXTREMITIES: 2+ pulses, warm, well-perfused. No calf tenderness. No peripheral edema. NEUROLOGICAL: Cranial nerves II-XII intact. Normal speech. grossly normal sensation. 5/5 strength upper extremities. gait not observed. SKIN: Warm, dry Laboratory Results - last 24 hr 04/12/19 04/12/19 04/12/19 06:10 15:05 15:05 WBC 6.7 RBC 3.79 Hgb 8.5 L Hct 29.0 L MCV 76.5 L MCH 22.5 L MCHC 29.4 L RDW 22.4 H Plt Count 206 MPV 9.9 D Absolute Neuts (auto) 5.9 Neutrophils % 87.7 H D Lymphocytes % 9.8 D Monocytes % 2.1 L Eosinophils % 0.0 D Basophils % 0.4 Nucleated RBC % 0 Hypochromia 2+ Platelet Estimate Normal Polychromasia 1+ Poikilocytosis 0 Anisocytosis 2+ Microcytosis 2+ Macrocytosis 0 Sodium 139 Potassium 3.4 L Chloride 105 Carbon Dioxide 26 Anion Gap 8 BUN 9.9 Creatinine 0.8 Est GFR (CKD-EPI)AfAm 101.04 Est GFR (CKD-EPI)NonAf 87.18 Random Glucose 146 H Calcium 8.7 Phosphorus 4.2 Magnesium 1.8 Creatine Kinase 56 Troponin I 0.30 H Blood Type O POSITIVE Antibody Screen Negative 04/12/19 04/13/19 04/13/19 21:10 06:00 06:00 WBC 4.7 RBC 3.70 Hgb 8.5 L Hct 28.5 L MCV 77.0 L MCH 22.9 L MCHC 29.7 L RDW 22.6 H Plt Count 192 MPV 9.8 Absolute Neuts (auto) 2.7 Neutrophils % 57.2 D Lymphocytes % 34.6 D Monocytes % 6.8 D Eosinophils % 0.7 D Basophils % 0.7 Nucleated RBC % 0 Hypochromia Platelet Estimate Polychromasia Poikilocytosis Anisocytosis Microcytosis Macrocytosis Sodium 139 Potassium 3.8 Chloride 106 Carbon Dioxide 27 Anion Gap 7 L BUN 8.2 Creatinine 0.7 Est GFR (CKD-EPI)AfAm 118.74 Est GFR (CKD-EPI)NonAf 102.45 Random Glucose 90 Calcium 9.0 Phosphorus Magnesium Creatine Kinase 56 Troponin I 0.29 H Blood Type Antibody Screen Active Medications Generic Name Dose Route Start Last Admin Trade Name Freq PRN Reason Stop Dose Admin Acetaminophen 650 mg 04/12/19 22:00 04/13/19 05:40 Tylenol - PO 04/13/19 10:01 650 mg Q4HWA [facility] Administration Albuterol/Ipratropium 1 amp 04/12/19 22:34 Duoneb - NEB Q6H PRN SHORTNESS OF BREATH Aspirin 81 mg 04/13/19 10:00 Ecotrin - PO DAILY [facility] Bisacodyl 10 mg 04/12/19 18:38 Dulcolax - PO ONCE PRN CONSTIPATION Docusate Sodium 100 mg 04/12/19 22:00 04/13/19 05:40 Colace - PO 100 mg TID [facility] Administration Enoxaparin Sodium 40 mg 04/13/19 10:00 Lovenox - SQ DAILY [facility] Famotidine/Sodium Chloride 20 mg in 50 mls @ 100 mls/hr 04/12/19 22:00 22:49 Pepcid 20 Mg Premixed Ivpb - IVPB 100 mls/hr BID [facility] Administration Lactated Ringer's 1,000 mls @ 100 mls/hr 04/12/19 18:38 04/12/19 19:33 Lactated Ringers Solution IV 100 mls/hr ASDIR [facility] Administration Ibuprofen 800 mg 04/12/19 18:38 Caldolor Injection - IVPB Q8H PRN PAIN LEVEL 1-5 Non-Formulary Medication 18 mg 04/12/19 22:00 Iron [Iron] PO TID [facility] Ondansetron HCl 4 mg 04/12/19 18:38 Zofran Injection IVPUSH Q6H PRN NAUSEA AND/OR VOMITING Oxycodone HCl 10 mg 04/12/19 18:38 04/12/19 22:47 Roxicodone - PO 10 mg Q4H PRN Administration PAIN LEVEL 6-10 Oxycodone HCl 5 mg 04/12/19 18:38 Roxicodone - PO Q4H PRN PAIN LEVEL 1-5 Simethicone 80 mg 04/12/19 18:38 Mylicon - PO Q4H PRN GAS ASSESSMENT/PLAN: 48 year old female with PMH of HLD, GERD, Fibroids, [place] in 2017 (s/p angio, no stents). She is POD#1 after elective total abdominal hysterectomy, and was admitted to the ICU after complaints of hypotension and non specific chest/back pain. #Cardio - EKG: shows old RBBB (present in previous EKGs from 2017), new left anterior fascicular and PVCs - Trops 0.30 -> 0.29 -> 6AM Trops pending - On ASA 81mg PO OD - No pre and post op changes in EKG noted - Stress test (04/06) ETT 5:01 + 2:27 edvin, no cp, no sob, ecg neg, 4 beats SVT - Chest CTA: no evidence of PE or dissection - Spoke with Dr. Owen, approves transfer to med/surg - Echocardiogram ordered #Respiratory - Incentive spirometry - Chest CTA: bibasilar opacities consistent with atelectasis and/or infiltrates are seen - Duonebs Q6H PRN #ID - Cefazolin 3x post-op - Afebrile, WBC wnl #GI - Colace 100mg PO TID - Chest/Abd CTA: Free intraperitoneal air noted in the abdomen, also with visualization of air in the anterior abdominal wall bilaterally. - Findings discussed with Dr. Rhoades, [employer]. Confirmed that presence of free air is normal due to recent surgery. # - LMP: 02/16/19 - Last pap smear on 09/10/18 with normal results #Prophylaxis - Lovenox 40mg SQ OD - SCDs #FEN - RL @ 100 - Regular diet #Disposition - Transfer to med/surg Visit type - Emergency Visit Emergency Visit: No - New Patient This patient is new to me today: Yes Date on this admission: 04/13/19 - Critical Care Critical Care patient: Yes Total Critical Care Time (in minutes): 39 Critical Care Statement: The care of this patient involved high complexity decision making to prevent further life threatening deterioration of the patient 's condition and/or to evaluate & treat vital organ system(s) failure or risk of failure. ATTENDING PHYSICIAN STATEMENT I saw and evaluated the patient. I reviewed the resident's note and discussed the case with the resident. I agree with the resident's findings and plan as documented. SUBJECTIVE: OBJECTIVE: ASSESSMENT AND PLAN:
--- NOTE | 2019-04-13 07:43 | PN ---
Progress Note (short form) - Note Progress Note: Anesthesia Post op Note Pt seen s/p GA for JOSE Pt awake alert denies vomiting -- does have mild nausea tolerating po meds with sips Pt report good pain control VSS Pt has not ambulated yet and whitehead in situ no apparent anesthesia complications Rosio Liu.
--- NOTE | 2019-04-13 09:25 | PN ---
Progress Note (short form) - Note Progress Note: POD 1, s/p robotic assisted hysterectomy and b/l salpingectomy Pt s/p RR yesterday evening for chest pain. Troponins .3, second set trending down to .29. EKG with old RBBB (present in previous EKGs from 2017), new left anterior fascicular and PVCs. Chest CTA with no dissection or PE Pt boarded in ICU for observation. Pt seen and examined. Reports chest pain has improved since yesterday. Currently has minimal cp with deep inhalation. Has not been oob, whitehead still in place. Tolerating clears. Passing flatus. Denies n/v/d. Vital Signs Temp 98.1 F 04/13/19 06:00 Pulse 93 H 04/13/19 08:00 Resp 14 04/13/19 08:00 BP 109/77 04/13/19 08:00 Pulse Ox 100 04/12/19 21:00 Intake & Output 04/12/19 04/12/19 04/13/19 11:59 23:59 11:59 Intake Total 7793 721 4762 Output Total 100 220 Balance 1600 30 1400 Weight 209 lb 8 oz Intake: IV 1700 0 1200 Lactated Ringers Solution 1200 1,000 ml @ 100 mls/hr IV ASDIR FILEMON Rx#: [id number] IVPB 250 200 Output: Urine 50 220 Estimated Blood Loss 50 Other: Voiding Method Indwelling Catheter Weight Measurement Method Built in [facility] CBC, BMP 04/13/19 06:00 04/13/19 06:00 Gen: awake, alert, nad, resting in bed appears comfortable Resp: unlabored on RA Abdo: soft, + ttp at port sites, all bandaids c/d/i with no erythema or drainage noted. + bowel sounds Ext: b/l scds in place and on A/P: 48 y/o F w/ PMHx HLD, GERD, Fibroids, [place] in 2017 with cardiac cath, no stent placement now POD#1 for total abdominal hysterectomy sent to the ICU due to hypotension and chest/back pain. afebrile, bp remains low 100s CP improved per pt Labs stable -Echo pending -Appreciate Cardiology reccs, awaiting plan pending echo -Pain management with Ibuprofen IV 800mg q8h, Oxy 5/10 q4h prn, Tylenol 650mg q4hrs prn -Whitehead out when pt is oob -Low cholestrol diet -OOB with assistance -Zofran 4mg q6hrs prn nausea -Bowel regimen as ordered -Monitor I&Os -VS per prtocol -Incentive spirometer strongly encouraged -DVT prophylaxis with Lovenox 40 qd, scds and early ambulation d/w attending Dr Zuniga
[2019-04-13] MEDS: FAMOTIDINE 20 MG/50 ML IVPB 20 MG/50 ML MG IVPB SCH (09:55)
[2019-04-13] MEDS ORDERED: ASPIRIN COATED 81 MG TABLET.EC PO SCH (10:00)
[2019-04-13] MEDS ORDERED: PT OWN MED DRAWER 7, Y5N ONE (10:00)
[2019-04-13] MEDS ORDERED: ENOXAPARIN NA (PORCINE) 40 MG/0.4 ML DISP.SYRIN SQ SCH ×2 (10:00)
--- NOTE | 2019-04-13 11:04 | EKG ---
Test Reason : Blood Pressure : / mmHG Vent. Rate : 091 BPM Atrial Rate : 091 BPM P-R Int : 170 ms QRS Dur : 162 ms QT Int : 434 ms P-R-T Axes : 060 -40 026 degrees QTc Int : 533 ms NORMAL SINUS RHYTHM LEFT AXIS DEVIATION RIGHT BUNDLE BRANCH BLOCK ABNORMAL ECG WHEN COMPARED WITH ECG OF 12-APR-2019 16:55, NO SIGNIFICANT CHANGE WAS FOUND Confirmed by Calvin Hernandes MD ([id number]) on 04/13/2019 11:04:04 AM Referred By: Randi Zuniga Confirmed By:Calvin Hernandes MD
--- NOTE | 2019-04-13 11:29 | PN ---
Teaching Attending Note Name of Resident: Rui Norman ATTENDING PHYSICIAN STATEMENT I saw and evaluated the patient. I reviewed the resident's note and discussed the case with the resident. I agree with the resident's findings and plan as documented. SUBJECTIVE: Pt seen and examined in the ICU. Chest pain largely resolved, reproducible with palpation. Denies shortness of breath. OBJECTIVE: Vital Signs Period Temp Pulse Resp BP Sys/Cardenas Pulse Ox Last 24 Hr 97.6 F-98.4 F 75-98 14-25 96-127/54-97 98-100 Intake & Output 04/10/19 04/11/19 04/12/19 04/13/19 23:59 23:59 23:59 23:59 Intake Total 1950 1400 Output Total 320 Balance 1630 1400 Weight 95.028 kg Gen: NAD at rest Heart: RRR Lung: decreased breath sounds at the bases Abd: soft, nontender, dressings clean Ext: no edema CBC, BMP 04/13/19 06:00 04/13/19 06:00 Active Medications Albuterol/Ipratropium (Duoneb -) 1 amp NEB Q6H PRN PRN Reason: SHORTNESS OF BREATH Aspirin (Ecotrin -) 81 mg PO DAILY [facility] Bisacodyl (Dulcolax -) 10 mg PO ONCE PRN PRN Reason: CONSTIPATION Docusate Sodium (Colace -) 100 mg PO TID [facility] Last Admin: 04/13/19 05:40 Dose: 100 mg Enoxaparin Sodium (Lovenox -) 40 mg SQ DAILY [facility] Last Admin: 04/13/19 09:57 Dose: 40 mg Famotidine/Sodium Chloride (Pepcid 20 Mg Premixed Ivpb -) 20 mg in 50 mls @ 100 mls/hr IVPB BID [facility] Last Admin: 04/13/19 09:55 Dose: 100 mls/hr Lactated Ringer's (Lactated Ringers Solution) 1,000 mls @ 100 mls/hr IV ASDIR [facility] Last Admin: 04/12/19 19:33 Dose: 100 mls/hr Ibuprofen (Caldolor Injection -) 800 mg IVPB Q8H PRN PRN Reason: PAIN LEVEL 1-5 Last Admin: 04/13/19 09:55 Dose: 800 mg Non-Formulary Medication (Iron [Iron]) 18 mg PO TID [facility] Ondansetron HCl (Zofran Injection) 4 mg IVPUSH Q6H PRN PRN Reason: NAUSEA AND/OR VOMITING Oxycodone HCl (Roxicodone -) 10 mg PO Q4H PRN PRN Reason: PAIN LEVEL 6-10 Last Admin: 04/12/19 22:47 Dose: 10 mg Oxycodone HCl (Roxicodone -) 5 mg PO Q4H PRN PRN Reason: PAIN LEVEL 1-5 Simethicone (Mylicon -) 80 mg PO Q4H PRN PRN Reason: GAS Last Admin: 04/13/19 10:01 Dose: 80 mg ASSESSMENT AND PLAN: Fibroid Uterus s/p Robotic Total Abdominal Hysterectomy CAD +Troponins likely Demand Ischemia Hyperlipidemia GERD Atelectasis Anemia - pain control - incentive spirometry - echocardiogram - IVF - PO as tolerated - DVT prophylaxis - can monitor on floor
--- NOTE | 2019-04-13 12:28 | ECHO ---
Version: 1 Name: MELISSA CH Exam: Adult Echocardiogram Study Date: 04/13/2019, 11:18 AM Age: 48 Years MMode/2D Measurements & Calculations IVSd: 0.92 cm LVIDs: 4.8 cm LVIDd: 6.0 cm LVPWd: 0.84 cm LVOT diam: 2.16 cm Ao root diam: 2.7 cm LA dimension: 4.0 cm Doppler Measurements & Calculations MV E max curtis: 121.4 cm/sec Med E/e': 14.7 MV A max curtis: 23.7 cm/sec Med Peak E' Curtis: 8.3 cm/sec MV E/A: 5.1 Lat E/e': 10.1 Lat Peak E' Curtis: 12.0 cm/sec MR max P.8 mmHg Ao max P.1 mmHg JAMEL(I,D): 0.74 cm Ao mean P.7 mmHg LV V1 mean: 41.8 cm/sec Ao V2 max: 260.4 cm/sec LV V1 mean P.84 mmHg AI P1/2t: 408.9 msec PI end-d curtis: 127.7 cm/sec TR max curtis: 224.0 cm/sec TR max P.2 mmHg Left Ventricle The left ventricle is mildly dilated. Left ventricular systolic function is mildly reduced. Ejection Fraction = 45%.. The transmitral spectral Doppler flow pattern is suggestive of impaired LV relaxation. Parad oxical septal motion. Right Ventricle The right ventricle is normal in size and function. Atria The left atrium is mildly dilated. Right atrial size is normal. Mitral Valve There is moderate mitral valve thickening. There is moderate mitral regurgitation. The mitral regurg itant jet is eccentrically directed. Tricuspid Valve The tricuspid valve is not well visualized, but is grossly normal. There is moderate tricuspid regur gitation. Right ventricular systolic pressure is 27 mmhg. Assuming the RA pressure is 5 mmHg. Aortic Valve Fibrocalcified aortic valve with severe stenosis and moderate regurgitation. JAMEL = 0.9 cm2. Peak gradient 28 mmHg, Mean gradient 18 mmHg. Pulmonic Valve The pulmonic valve is not well seen, but is grossly normal. Great Vessels The aortic root is normal size. Pericardium/Pleura There is no pericardial effusion. Summary Statements The left ventricle is mildly dilated. Paradoxical septal motion. Left ventricular systolic function is mildly reduced. Ejection Fraction = 45%. The right ventricle is normal in size and function. The left atrium is mildly dilated. Right atrial size is normal. Fibrocalcified aortic valve with severe stenosis and moderate regurgitation. JAMEL = 0.9 cm2. Peak gradient 28 mmHg, Mean gradient 18 mmHg. There is moderate mitral valve thickening. There is moderate mitral regurgitation. The mitral regurg itant jet is eccentrically directed. There is moderate tricuspid regurgitation. MD Sharon Glass04/13/2019, 11:27 AM Ordering Physician: Kb Zambrano Referring Physician: LAKIA DUMONT Performed By: Phylicia Trejo
--- NOTE | 2019-04-13 12:48 | PN ---
Progress Note, Physician History of Present Illness: Pt is a 48 y/o black woman with PMh significant for moderate systolic LV dysfunction (nonobstructive CAD on angiogram), HLD, HTN, GERD, anemia, uterine fibroids, and [place] in 2017 with cardiac cath but no stent placement. Pt underwent total abdominal hysterectomy sent to the ICU due to hypotension and chest/back pain. Patient had a total abdominal hysterectomy due to vaginal bleeding that has been ongoing since January of this year. After the surgery the patient was hypotensive and was complaining of chest pain radiating to her back and left shoulder. Patient complains of intermittent burning/sharp pain under her left breast that is a 7/10 in pain and is pleuritic in nature. The pain is worse with deep breaths. She states the back pain and left shoulder pain have resolved. As per surgical PA, during surgery the patient was placed in deep trendelenburg and was hypotensive but became more normotensive after being placed in normal position. Post-op a EKG was ordered which showed LBBB. Cardiology was called and pt transferred to ICU. - Current Medication List Current Medications: Active Medications Albuterol/Ipratropium (Duoneb -) 1 amp NEB Q6H PRN PRN Reason: SHORTNESS OF BREATH Aspirin (Ecotrin -) 81 mg PO DAILY [facility] Bisacodyl (Dulcolax -) 10 mg PO ONCE PRN PRN Reason: CONSTIPATION Docusate Sodium (Colace -) 100 mg PO TID [facility] Last Admin: 04/13/19 05:40 Dose: 100 mg Enoxaparin Sodium (Lovenox -) 40 mg SQ DAILY [facility] Last Admin: 04/13/19 09:57 Dose: 40 mg Famotidine/Sodium Chloride (Pepcid 20 Mg Premixed Ivpb -) 20 mg in 50 mls @ 100 mls/hr IVPB BID [facility] Last Admin: 04/13/19 09:55 Dose: 100 mls/hr Lactated Ringer's (Lactated Ringers Solution) 1,000 mls @ 100 mls/hr IV ASDIR [facility] Last Admin: 04/12/19 19:33 Dose: 100 mls/hr Ibuprofen (Caldolor Injection -) 800 mg IVPB Q8H PRN PRN Reason: PAIN LEVEL 1-5 Last Admin: 04/13/19 09:55 Dose: 800 mg Non-Formulary Medication (Iron [Iron]) 18 mg PO TID [facility] Ondansetron HCl (Zofran Injection) 4 mg IVPUSH Q6H PRN PRN Reason: NAUSEA AND/OR VOMITING Oxycodone HCl (Roxicodone -) 10 mg PO Q4H PRN PRN Reason: PAIN LEVEL 6-10 Last Admin: 04/12/19 22:47 Dose: 10 mg Oxycodone HCl (Roxicodone -) 5 mg PO Q4H PRN PRN Reason: PAIN LEVEL 1-5 Simethicone (Mylicon -) 80 mg PO Q4H PRN PRN Reason: GAS Last Admin: 04/13/19 10:01 Dose: 80 mg - Objective Vital Signs: Vital Signs Temperature 97.6 F 04/13/19 10:00 Pulse Rate 89 04/13/19 10:00 Respiratory Rate 21 H 04/13/19 10:00 Blood Pressure 102/66 04/13/19 10:00 O2 Sat by Pulse Oximetry (%) 100 04/12/19 21:00 Labs: CBC, BMP 04/13/19 06:00 04/13/19 06:00 Problem List - Problems (1) S/P hysterectomy Code(s): Z90.710 - ACQUIRED ABSENCE OF BOTH CERVIX AND UTERUS (2) Nonischemic cardiomyopathy Assessment/Plan: Per pt's adult ministries director (Dr. Haro), pt is to start lisinopril, and, later, metoprolol, post-hysterectomy. Code(s): I42.8 - OTHER CARDIOMYOPATHIES (3) Elevated troponin Assessment/Plan: hx midlly elevated TNI, known since at least 2017, engendering coronary angiogram at that time (nonobstrucitve CAD). Code(s): R79.89 - OTHER SPECIFIED ABNORMAL FINDINGS OF BLOOD CHEMISTRY (4) HLD (hyperlipidemia) Assessment/Plan: f/u lipid profile (LDL> 140 mg/dl in 2017) and start statin if necessary. Code(s): E78.5 - HYPERLIPIDEMIA, UNSPECIFIED (5) HTN (hypertension) Code(s): I10 - ESSENTIAL (PRIMARY) HYPERTENSION (6) Obesity Code(s): E66.9 - OBESITY, UNSPECIFIED (7) RBBB Code(s): I45.10 - UNSPECIFIED RIGHT BUNDLE-BRANCH BLOCK Assessment/Plan CCU time spent: 35 minutes.
[2019-04-13] MEDS ORDERED: RAPID SEQUENCE INTUBATION KIT NR ONE (20:05)
[2019-04-13] MEDS ORDERED: BISACODYL 5 MG TABLET.DR (FP) PO PRN (23:04)
[2019-04-13] MEDS ORDERED: IBUPROFEN 800 MG/8 ML IJ IVPB PRN (23:04)
[2019-04-13] MEDS ORDERED: ALBUTEROL SO4 2.5/IPRATROPIUM 0.5 INH SOL 3 ML VIAL.NEB. NEB PRN (23:04)
[2019-04-13] MEDS ORDERED: ONDANSETRON 4 MG/2 ML VIAL IVPUSH PRN (23:04)
[2019-04-13] MEDS ORDERED: SIMETHICONE 80 MG TAB.CHEW (FP) PO PRN (23:04)
[2019-04-13] MEDS ORDERED: oxyCODONE HCL 5 MG TABLET PO PRN (23:04)
--- NOTE | 2019-04-13 23:30 | PN ---
Progress Note (SOAP) - Subjective Chief Complaint: Pt without chest pain. pt see at bedside - Current Medications Current Medications: Active Medications Albuterol/Ipratropium (Duoneb -) 1 amp NEB Q6H PRN PRN Reason: SHORTNESS OF BREATH Aspirin (Ecotrin -) 81 mg PO DAILY [facility] Bisacodyl (Dulcolax -) 10 mg PO ONCE PRN PRN Reason: CONSTIPATION Docusate Sodium (Colace -) 100 mg PO TID [facility] Enoxaparin Sodium (Lovenox -) 40 mg SQ DAILY [facility] Famotidine/Sodium Chloride (Pepcid 20 Mg Premixed Ivpb -) 20 mg in 50 mls @ 100 mls/hr IVPB BID [facility] Ibuprofen (Caldolor Injection -) 800 mg IVPB Q8H PRN PRN Reason: PAIN LEVEL 1-5 Non-Formulary Medication (Iron [Iron]) 18 mg PO TID [facility] Ondansetron HCl (Zofran Injection) 4 mg IVPUSH Q6H PRN PRN Reason: NAUSEA AND/OR VOMITING Oxycodone HCl (Roxicodone -) 10 mg PO Q4H PRN PRN Reason: PAIN LEVEL 6-10 Oxycodone HCl (Roxicodone -) 5 mg PO Q4H PRN PRN Reason: PAIN LEVEL 1-5 Simethicone (Mylicon -) 80 mg PO Q4H PRN PRN Reason: GAS - Objective Vital Signs: Vital Signs Temperature 97.9 F 04/13/19 23:05 Pulse Rate 90 04/13/19 23:05 Respiratory Rate 21 H 04/13/19 23:05 Blood Pressure 92/49 L 04/13/19 23:05 O2 Sat by Pulse Oximetry (%) 100 04/13/19 16:00 Constitutional: Yes: Well Nourished, No Distress Labs Lab Results: CBC, BMP 04/13/19 06:00 04/13/19 06:00 Assessment/Plan POD 1 SP robotic Laparoscopic hysterectomy bilateral salpingectomy Plan continue present management
--- NOTE | 2019-04-13 23:49 | PN ---
Progress Note, Physician - Current Medication List Current Medications: Active Medications Albuterol/Ipratropium (Duoneb -) 1 amp NEB Q6H PRN PRN Reason: SHORTNESS OF BREATH Aspirin (Ecotrin -) 81 mg PO DAILY [facility] Bisacodyl (Dulcolax -) 10 mg PO ONCE PRN PRN Reason: CONSTIPATION Last Admin: 04/13/19 23:40 Dose: 10 mg Docusate Sodium (Colace -) 100 mg PO TID [facility] Enoxaparin Sodium (Lovenox -) 40 mg SQ DAILY [facility] Famotidine/Sodium Chloride (Pepcid 20 Mg Premixed Ivpb -) 20 mg in 50 mls @ 100 mls/hr IVPB BID [facility] Ibuprofen (Caldolor Injection -) 800 mg IVPB Q8H PRN PRN Reason: PAIN LEVEL 1-5 Non-Formulary Medication (Iron [Iron]) 18 mg PO TID [facility] Ondansetron HCl (Zofran Injection) 4 mg IVPUSH Q6H PRN PRN Reason: NAUSEA AND/OR VOMITING Oxycodone HCl (Roxicodone -) 10 mg PO Q4H PRN PRN Reason: PAIN LEVEL 6-10 Oxycodone HCl (Roxicodone -) 5 mg PO Q4H PRN PRN Reason: PAIN LEVEL 1-5 Last Admin: 04/13/19 23:40 Dose: 5 mg Simethicone (Mylicon -) 80 mg PO Q4H PRN PRN Reason: GAS Last Admin: 04/13/19 23:42 Dose: 80 mg - Objective Vital Signs: Vital Signs Temperature 97.9 F 04/13/19 23:05 Pulse Rate 90 04/13/19 23:05 Respiratory Rate 21 H 04/13/19 23:05 Blood Pressure 92/49 L 04/13/19 23:05 O2 Sat by Pulse Oximetry (%) 100 04/13/19 16:00 Labs: CBC, BMP 04/13/19 06:00 04/13/19 06:00 Problem List - Problems (1) Chest pain Code(s): R07.9 - CHEST PAIN, UNSPECIFIED (2) HTN (hypertension) Code(s): I10 - ESSENTIAL (PRIMARY) HYPERTENSION (3) HLD (hyperlipidemia) Code(s): E78.5 - HYPERLIPIDEMIA, UNSPECIFIED (4) GERD (gastroesophageal reflux disease) Code(s): K21.9 - GASTRO-ESOPHAGEAL REFLUX DISEASE WITHOUT ESOPHAGITIS (5) Asthma Code(s): J45.909 - UNSPECIFIED ASTHMA, UNCOMPLICATED
[2019-04-14] MEDS: oxyCODONE HCL 5 MG TABLET PO PRN ×2 (05:43→21:46)
[2019-04-14] MEDS: DOCUSATE SODIUM 100 MG CAPSULE (FP) PO SCH ×4 (05:44→21:41)
[2019-04-14] MEDS ORDERED: PATIENT'S OWN MEDICATION (NON-FORMULARY) (Iron [Iron] 18 MG) PO SCH (06:00)
[2019-04-14] MEDS: PATIENT'S OWN MEDICATION (NON-FORMULARY) (Iron [Iron] 18 MG) PO SCH (07:59)
[2019-04-14] MEDS: FAMOTIDINE 20 MG/50 ML IVPB 20 MG/50 ML MG IVPB SCH ×3 (08:00→21:41)
[2019-04-14 08:46] LABS: BASO % 0.9 % (0-2.0); EOS % 0.6 % (0-4.5); HEMATOCRIT 26.7 % (32.4-45.2); HEMOGLOBIN 8.2 GM/dL (10.7-15.3); MCH 23.2 pg (25.7-33.7); MCHC 30.9 g/dl (32.0-36.0); MEAN CELL VOLUME 75.2 fl (80-96); MEAN PLT VOLUME 10.1 fl (7.5-11.1); MONO % 5.8 % (3.8-10.2); NEUT % 52.7 % (42.8-82.8); PLATELET COUNT 202 K/MM3 (134-434); RBC 3.55 M/mm3 (3.60-5.2); RDW 22.1 % (11.6-15.6); WHITE BLOOD COUNT 4.1 K/mm3 (4.0-10.0)
--- NOTE | 2019-04-14 08:58 | DS ---
"Physical Exam: SUBJECTIVE: Patient seen and examined POD# 3, s/p robotic assisted hysterectomy and b/l salpingectomy Pt s/p RR POD #0 evening for chest pain. Troponins .3, second set trending down to .29. EKG with old RBBB (present in previous EKGs from 2017), new left anterior fascicular and PVCs. Chest CTA with no dissection or PE Pt boarded in ICU for observation, moved to the floor POD#1. Pt seen and examined at bedside states the pleuritic pain is improved. Patient has been OOb ambulating to bathroom, voiding and moving her bowels. She is tolerating her diet and her pain is controlled. She denies any CP, SOB, N/V, fever or chills. Vital Signs Temp 99.1 F 04/14/19 05:00 Pulse 102 H 04/14/19 05:00 Resp 21 H 04/14/19 05:00 BP 119/68 04/14/19 05:00 Pulse Ox 100 04/13/19 23:00 Intake & Output 04/13/19 04/13/19 04/14/19 11:59 23:59 11:59 Intake Total 1400 1950 Output Total 575 Balance 1400 1375 Weight 209 lb 8 oz 219 lb 6.4 oz Intake: IV 1200 800 Lactated Ringers Solution 1200 800 1,000 ml @ 100 mls/hr IV ASDIR FILEMON Rx#: [id number] IVPB 200 100 Oral 1050 Output: Urine 575 Banks 275 Void 300 Other: Voiding Method Indwelling Catheter Toilet # Unmeasured Voids Void 1 1 Bowel Movement No Yes Height 5 ft 9 in Weight Measurement Method [facility] Built in [facility] Standing Scale CBC, BMP 04/14/19 06:55 04/14/19 06:55 GENERAL: The patient is awake, alert, and fully oriented, in no acute distress. HEAD: Normal with no signs of trauma. Unlabored resp on RA EYE: sclera anicteric, conjunctiva clear. ABDOMEN: Obese, Soft, nontender, nondistended, no guarding, no rebound, no hepatosplenomegaly, no masses. bandaids C/D/I with surrounding tissue intact with no tracking erythema or d/c. EXTREMITIES: 2+ pulses, warm, well-perfused, no edema. NEUROLOGICAL: Cranial nerves II through XII grossly intact. Normal speech, gait not observed. PSYCH: Normal mood, normal affect. SKIN: Warm, dry, normal turgor, no rashes or lesions noted. HOSPITAL COURSE: Date of Admission:04/12/19 The patient was admitted to the Med-Surg Unit after an elective repair of her leiomyomas/pelvic pain. Now, s/p Robotic Assisted laparocsopic abdominal hysterectomy, Bilateral Salpingectomy. POD #0 a rapid response was called on the patient in the evening for chest pain. Troponins .3, second set trending down to .29. EKG with old RBBB (present in previous EKGs from 2017), new left anterior fascicular and PVCs. Chest CTA with no dissection or PE. Pt was moved to the ICU for observation, then moved to the floor POD #1. Cardiology worked up the patient and signed off. POD #2 patient reported pleuritic chest pain and had a RPT chest CTA which was negative for PE however it showed mediastinal lymphadenopathy and b/l pleural effusions. Dr Ybarra evaluated the patient in the evening and spoke to her at length regarding CT findings and that she will need to f/u with pulmonology as out patient. Pain management was achieved with a narcotic and non-narcotic oral and IV regimen. POD #1, the patient passed flatus and diet was advanced. Hemoglobin and hematocrit were monitored as well as vitals and remained stable throughout admission. Alicia-operative IV ABX were administered. DVT prophylaxis was achieved with Lovenox 40mg qd, SCDs and early ambulation. The patient had a PT evaluation and ambulated the halls without issue. Narcotic scripts were checked with [facility] prior to escribe. The discharge instructions and an oral pain management plan were reviewed with the patient. All questions answered. Above plan discussed with Dr. Zuniga and agreed. Date of Discharge: 04/14/19 Minutes to complete discharge: 25 Discharge Summary Problems reviewed: Yes Reason For Visit: FIBROIDS/MENNORHAGIA Current Active Problems Chest pain (Acute) Elevated troponin (Acute) GERD (gastroesophageal reflux disease) (Acute) HLD (hyperlipidemia) (Acute) HTN (hypertension) (Acute) Nonischemic cardiomyopathy (Acute) S/P hysterectomy (Acute) Condition: Good - Instructions Diet, Activity, Other Instructions: Dr. Randi Zuniga Enterprise Architect discharge instructions Physical activity Resume your normal everyday activity as tolerated no heavy lifting or exercise until seen by your surgeon. You may walk unlimited aj of and climb stairs. You may resume driving the car when you feel safe and comfortable behind the wheel. No sexual activity as instructed by Dr. Zuniga. Wound care If you have a bandage, leave it on, and keep dry for 48-72 hours. After that time discard the outer bandage. If they are tapes on the skin under the out of bandage leave them in place. They will peel off in the next 7 to 10 days. Do Not Peel them off. You may shower the day after surgery. If there are tapes present on the skin, you may shower over them. Diet There are no dietary restrictions. Eat healthy, high-fiber foods. Drink 6 to 8 glasses of liquid each day. This will assist in keeping your bowels are regular. Pain management You may take Tylenol or acetaminophen or Ibuprofen (for example, Motrin, Advil etc.) from my pain prescription medication is ordered should be taken as prescribed for moderate to severe pain. Call Dr. Zuniga for any of the following: Severe pain not relieved by medication Fever of 101 or higher Excessive bleeding or drainage on dressing Inability to urinate Follow up with Dr. Ybarra as an outpatient. Call the office at [phone] for an appointment in seven days. This report was requested by: Isabel Newman | Reference #: [id number] Referrals: Melisa Ybarra MD [Staff Physician] - Disposition: HOME - Home Medications Comprehensive Discharge Medication List: Ambulatory Orders Aspirin [ASA -] 81 mg PO DAILY #30 tab.chew 07/24/16 Iron 18 mg PO TID 04/06/19 Omeprazole 20 mg PO BID 04/06/19 Docusate Sodium [Colace -] 100 mg PO BID #14 capsule 04/12/19 Oxycodone HCl/Acetaminophen [Percocet 5-325 mg Tablet] 1 - 2 tab PO Q6H PRN #30 tab MDD 8 04/12/19 Problem List - Problems (1) S/P hysterectomy Assessment/Plan: A/P: 48 y/o F w/ PMHx HLD, GERD, Fibroids, [place] in 2017 with cardiac cath, no stent placement now POD#2 for total abdominal hysterectomy sent to the ICU due to hypotension and chest/back pain. bp stable Labs stable -F/u with Cardiology as outpatient -F/U with pulmonogy as out patient -Pain management as ordered -Low cholestrol diet -OOB as tolerated -Zofran 4mg q6hrs prn nausea -Bowel regimen as ordered -Monitor I&Os -VS per prtocol -Incentive spirometer strongly encouraged -DVT prophylaxis with Lovenox 40 qd, scds and early ambulation -Augmentin 500 once now and BID x 7 days -d/c home today Evaluation and plan discussed with Dr Zuniga Problems reviewed: Yes Code(s): Z90.710 - ACQUIRED ABSENCE OF BOTH CERVIX AND UTERUS This patient is new to me today: Yes Date on this admission: 04/16/19 Emergency Visit: No Critical Care patient: No - Discharge Referral Referred to [facility] No"
[2019-04-14 09:16] LABS: ALBUMIN 2.7 g/dl (3.4-5.0); BILIRUBIN,TOTAL 0.4 mg/dL (0.2-1); BLOOD UREA NITROGEN 9.9 mg/dL (7-18); CALCIUM 8.4 mg/dL (8.5-10.1); CREATININE 0.7 mg/dL (0.55-1.3); MAGNESIUM 1.6 mg/dL (1.8-2.4); PHOSPHOROUS 3.2 mg/dL (2.5-4.9); POTASSIUM 3.8 mmol/L (3.5-5.1); TOT PROT 6.7 g/dl (6.4-8.2)
[2019-04-14] MEDS: diphenhydrAMINE HCL 25 MG CAPSULE (FP) PO PRN (09:32)
[2019-04-14] MEDS: ASPIRIN COATED 81 MG TABLET.EC PO SCH (10:54)
[2019-04-14] MEDS: FERROUS SO4 325 MG TABLET (FP) PO SCH ×2 (10:54→21:41)
[2019-04-14] MEDS: ENOXAPARIN NA (PORCINE) 40 MG/0.4 ML DISP.SYRIN SQ SCH (10:54)
--- NOTE | 2019-04-14 11:35 | PN ---
Progress Note, Physician History of Present Illness: s/p JOSE developed vpcs PMH elevated tnis [address] as per patient cleared by dr. Boyd 2 weeks ago neg stress test - Current Medication List Current Medications: Active Medications Albuterol/Ipratropium (Duoneb -) 1 amp NEB Q6H PRN PRN Reason: SHORTNESS OF BREATH Aspirin (Ecotrin -) 81 mg PO DAILY [facility] Last Admin: 04/14/19 10:54 Dose: 81 mg Bisacodyl (Dulcolax -) 10 mg PO ONCE PRN PRN Reason: CONSTIPATION Last Admin: 04/13/19 23:40 Dose: 10 mg Diphenhydramine HCl (Benadryl -) 25 mg PO Q6H PRN PRN Reason: FOR ITCHING Last Admin: 04/14/19 09:32 Dose: 25 mg Docusate Sodium (Colace -) 100 mg PO TID [facility] Last Admin: 04/14/19 05:44 Dose: 100 mg Enoxaparin Sodium (Lovenox -) 40 mg SQ DAILY [facility] Last Admin: 04/14/19 10:54 Dose: 40 mg Ferrous Sulfate (Feosol -) 325 mg PO BID [facility] Last Admin: 04/14/19 10:54 Dose: 325 mg Famotidine/Sodium Chloride (Pepcid 20 Mg Premixed Ivpb -) 20 mg in 50 mls @ 100 mls/hr IVPB BID [facility] Last Admin: 04/14/19 10:54 Dose: 100 mls/hr Ibuprofen (Caldolor Injection -) 800 mg IVPB Q8H PRN PRN Reason: PAIN LEVEL 1-5 Ondansetron HCl (Zofran Injection) 4 mg IVPUSH Q6H PRN PRN Reason: NAUSEA AND/OR VOMITING Oxycodone HCl (Roxicodone -) 10 mg PO Q4H PRN PRN Reason: PAIN LEVEL 6-10 Last Admin: 04/14/19 05:43 Dose: 10 mg Oxycodone HCl (Roxicodone -) 5 mg PO Q4H PRN PRN Reason: PAIN LEVEL 1-5 Last Admin: 04/13/19 23:40 Dose: 5 mg Simethicone (Mylicon -) 80 mg PO Q4H PRN PRN Reason: GAS Last Admin: 04/13/19 23:42 Dose: 80 mg - Objective Vital Signs: Vital Signs Temperature 98.9 F 04/14/19 09:00 Pulse Rate 108 H 04/14/19 09:00 Respiratory Rate 20 04/14/19 09:00 Blood Pressure 121/75 04/14/19 09:00 O2 Sat by Pulse Oximetry (%) 100 04/13/19 23:00 Eyes: Yes: WNL, Conjunctiva Clear, EOM Intact HENT: Yes: WNL, Atraumatic, Normocephalic Neck: Yes: WNL, Supple, Trachea Midline Cardiovascular: Yes: WNL, Regular Rate and Rhythm Respiratory: Yes: WNL, Regular, CTA Bilaterally Gastrointestinal: Yes: WNL, Normal Bowel Sounds Genitourinary: Yes: WNL Musculoskeletal: Yes: WNL Extremities: Yes: WNL Edema: No Integumentary: Yes: WNL Neurological: Yes: WNL, Alert, Oriented ...Motor Strength: WNL Psychiatric: Yes: WNL Labs: CBC, BMP 04/14/19 06:55 04/14/19 06:55 Problem List - Problems (1) Abdominal muscle strain Code(s): S39.011A - STRAIN OF MUSCLE, FASCIA AND TENDON OF ABDOMEN, INIT ENCNTR (2) Anemia Code(s): D64.9 - ANEMIA, UNSPECIFIED (3) Asthma Code(s): J45.909 - UNSPECIFIED ASTHMA, UNCOMPLICATED (4) Back pain Code(s): M54.9 - DORSALGIA, UNSPECIFIED (5) Chronic back pain Code(s): M54.9 - DORSALGIA, UNSPECIFIED; G89.29 - OTHER CHRONIC PAIN (6) Exposure to blood or body fluid Code(s): Z77.21 - CONTACT W AND EXPOSURE TO POTENTIALLY HAZARDOUS BODY FLUIDS (7) Menometrorrhagia Code(s): N92.1 - EXCESSIVE AND FREQUENT MENSTRUATION WITH IRREGULAR CYCLE (8) Multiple thyroid nodules Code(s): E04.2 - NONTOXIC MULTINODULAR GOITER (9) Myocardial infarction Code(s): I21.3 - ST ELEVATION (STEMI) MYOCARDIAL INFARCTION OF UNSP SITE (10) Near syncope Code(s): R55 - SYNCOPE AND COLLAPSE (11) Obesity Code(s): E66.9 - OBESITY, UNSPECIFIED (12) RBBB Code(s): I45.10 - UNSPECIFIED RIGHT BUNDLE-BRANCH BLOCK (13) Sprain of wrist, left Code(s): S63.502A - UNSPECIFIED SPRAIN OF LEFT WRIST, INITIAL ENCOUNTER (14) Strain of mid-back Code(s): S29.012A - STRAIN OF MUSCLE AND TENDON OF BACK WALL OF THORAX, INIT Assessment/Plan - Problems (1) S/P hysterectomy Code(s): Z90.710 - ACQUIRED ABSENCE OF BOTH CERVIX AND UTERUS (2) Nonischemic cardiomyopathy Assessment/Plan: Per pt's hand shoes sewer (Dr. Haro), pt is to start lisinopril, and, later, metoprolol, post-hysterectomy. Code(s): I42.8 - OTHER CARDIOMYOPATHIES (3) Elevated troponin Assessment/Plan: hx midlly elevated TNI, known since at least 2017, engendering coronary angiogram at that time (nonobstrucitve CAD). Code(s): R79.89 - OTHER SPECIFIED ABNORMAL FINDINGS OF BLOOD CHEMISTRY (4) HLD (hyperlipidemia) Assessment/Plan: f/u lipid profile (LDL> 140 mg/dl in 2017) and start statin if necessary. Code(s): E78.5 - HYPERLIPIDEMIA, UNSPECIFIED (5) HTN (hypertension) Code(s): I10 - ESSENTIAL (PRIMARY) HYPERTENSION (6) Obesity Code(s): E66.9 - OBESITY, UNSPECIFIED (7) RBBB Code(s): I45.10 - UNSPECIFIED RIGHT BUNDLE-BRANCH BLOCK
[2019-04-14] MEDS ORDERED: MAGNESIUM OXIDE 400 MG TABLET (FP) PO ONE (15:27)
--- NOTE | 2019-04-14 16:18 | PN ---
Progress Note (short form) - Note Progress Note: Patient seen and examined this morning on rounds @ 7:30am Patient seen and examined POD# 2, s/p robotic assisted hysterectomy and b/l salpingectomy Pt s/p RR POD #0 evening for chest pain. Troponins .3, second set trending down to .29. EKG with old RBBB (present in previous EKGs from 2017), new left anterior fascicular and PVCs. Chest CTA with no dissection or PE Pt boarded in ICU for observation, moved to the floor yesterday. Pt seen and examined c/o itching. Patient has been OOb ambulating to bathroom, voiding and moving her bowels. She is tolerating her diet and her pain is controlled. She denies any CP, SOB, N/V, fever or chills. Vital Signs Temp 99.1 F 04/14/19 05:00 Pulse 102 H 04/14/19 05:00 Resp 21 H 04/14/19 05:00 BP 119/68 04/14/19 05:00 Pulse Ox 100 04/13/19 23:00 Intake & Output 04/13/19 04/13/19 04/14/19 11:59 23:59 11:59 Intake Total 1400 1950 Output Total 575 Balance 1400 1375 Weight 209 lb 8 oz 219 lb 6.4 oz Intake: IV 1200 800 Lactated Ringers Solution 1200 800 1,000 ml @ 100 mls/hr IV ASDIR FILEMON Rx#: [id number] IVPB 200 100 Oral 1050 Output: Urine 575 Banks 275 Void 300 Other: Voiding Method Indwelling Catheter Toilet # Unmeasured Voids Void 1 1 Bowel Movement No Yes Height 5 ft 9 in Weight Measurement Method [facility] Standing Scale CBC, BMP 04/14/19 06:55 04/14/19 06:55 GENERAL: The patient is awake, alert, and fully oriented, in no acute distress. HEAD: Normal with no signs of trauma. EYE: sclera anicteric, conjunctiva clear. ABDOMEN: Obese, Soft, nontender, nondistended, no guarding, no rebound, no hepatosplenomegaly, no masses. bandaids C/D/I with surrounding tissue intact with no tracking erythema or d/c. EXTREMITIES: 2+ pulses, warm, well-perfused, no edema. NEUROLOGICAL: Cranial nerves II through XII grossly intact. Normal speech, gait not observed. PSYCH: Normal mood, normal affect. SKIN: Warm, dry, normal turgor, no rashes or lesions noted. Problem List - Problems (1) S/P hysterectomy Assessment/Plan: A/P: 48 y/o F w/ PMHx HLD, GERD, Fibroids, [place] in 2017 with cardiac cath, no stent placement now POD#2 for total abdominal hysterectomy sent to the ICU due to hypotension and chest/back pain. afebrile, bp stable Labs stable -F/u with Cardiology as outpatient -Pain management as ordered -Low cholestrol diet -OOB as tolerated -Zofran 4mg q6hrs prn nausea -Bowel regimen as ordered -Monitor I&Os -VS per prtocol -Incentive spirometer strongly encouraged -DVT prophylaxis with Lovenox 40 qd, scds and early ambulation Evaluation and plan discussed with Dr Zuniga Code(s): Z90.710 - ACQUIRED ABSENCE OF BOTH CERVIX AND UTERUS
--- NOTE | 2019-04-14 21:18 | PN ---
Progress Note, Physician History of Present Illness: Pt complains of lt sided pleuritic chest pain - Current Medication List Current Medications: Active Medications Albuterol/Ipratropium (Duoneb -) 1 amp NEB Q6H PRN PRN Reason: SHORTNESS OF BREATH Aspirin (Ecotrin -) 81 mg PO DAILY [facility] Last Admin: 04/14/19 10:54 Dose: 81 mg Bisacodyl (Dulcolax -) 10 mg PO ONCE PRN PRN Reason: CONSTIPATION Last Admin: 04/13/19 23:40 Dose: 10 mg Diphenhydramine HCl (Benadryl -) 25 mg PO Q6H PRN PRN Reason: FOR ITCHING Last Admin: 04/14/19 09:32 Dose: 25 mg Docusate Sodium (Colace -) 100 mg PO TID [facility] Last Admin: 04/14/19 15:17 Dose: 100 mg Enoxaparin Sodium (Lovenox -) 40 mg SQ DAILY [facility] Last Admin: 04/14/19 10:54 Dose: 40 mg Ferrous Sulfate (Feosol -) 325 mg PO BID [facility] Last Admin: 04/14/19 10:54 Dose: 325 mg Famotidine/Sodium Chloride (Pepcid 20 Mg Premixed Ivpb -) 20 mg in 50 mls @ 100 mls/hr IVPB BID [facility] Last Admin: 04/14/19 10:54 Dose: 100 mls/hr Ibuprofen (Caldolor Injection -) 800 mg IVPB Q8H PRN PRN Reason: PAIN LEVEL 1-5 Ondansetron HCl (Zofran Injection) 4 mg IVPUSH Q6H PRN PRN Reason: NAUSEA AND/OR VOMITING Oxycodone HCl (Roxicodone -) 10 mg PO Q4H PRN PRN Reason: PAIN LEVEL 6-10 Last Admin: 04/14/19 05:43 Dose: 10 mg Oxycodone HCl (Roxicodone -) 5 mg PO Q4H PRN PRN Reason: PAIN LEVEL 1-5 Last Admin: 04/13/19 23:40 Dose: 5 mg Simethicone (Mylicon -) 80 mg PO Q4H PRN PRN Reason: GAS Last Admin: 04/13/19 23:42 Dose: 80 mg - Objective Vital Signs: Vital Signs Temperature 98.4 F 04/14/19 18:00 Pulse Rate 101 H 04/14/19 18:00 Respiratory Rate 20 04/14/19 18:00 Blood Pressure 118/80 04/14/19 18:00 O2 Sat by Pulse Oximetry (%) 97 04/14/19 09:00 Neck: Yes: WNL, Supple Cardiovascular: Yes: WNL, Regular Rate and Rhythm Respiratory: Yes: WNL, Regular, CTA Bilaterally Gastrointestinal: Yes: Normal Bowel Sounds, Soft, Other ((+) incisional tenderness) Musculoskeletal: Yes: Other ((+) tenderness on palpation of lt ant chest wall) Labs: CBC, BMP 04/14/19 06:55 04/14/19 06:55 Problem List - Problems (1) Chest pain Assessment/Plan: S/P JOSE Probable muscular skeletal in origin Repeat CT scan chest negative for PE however it showed mediastinal lymphadenopathy and b/l pleural effusions Spoke to pt at length and will need to see pulomonary as outpt Pt medically cleared for discharge Code(s): R07.9 - CHEST PAIN, UNSPECIFIED (2) HTN (hypertension) Assessment/Plan: Hold antihpertensives due to hypotension and monitor Code(s): I10 - ESSENTIAL (PRIMARY) HYPERTENSION (3) HLD (hyperlipidemia) Code(s): E78.5 - HYPERLIPIDEMIA, UNSPECIFIED (4) GERD (gastroesophageal reflux disease) Code(s): K21.9 - GASTRO-ESOPHAGEAL REFLUX DISEASE WITHOUT ESOPHAGITIS (5) Asthma Assessment/Plan: Duoneb prn Code(s): J45.909 - UNSPECIFIED ASTHMA, UNCOMPLICATED
[2019-04-15] MEDS: diphenhydrAMINE HCL 25 MG CAPSULE (FP) PO PRN (00:55)
[2019-04-15] MEDS: DOCUSATE SODIUM 100 MG CAPSULE (FP) PO SCH ×2 (06:24→15:19)
[2019-04-15] MEDS ORDERED: AMOX TR/POT CLAV 500MG/125MG TABLETS (FP) PO ONE (08:15)
[2019-04-15] MEDS: FAMOTIDINE 20 MG/50 ML IVPB 20 MG/50 ML MG IVPB SCH (11:31)
[2019-04-15] MEDS: ENOXAPARIN NA (PORCINE) 40 MG/0.4 ML DISP.SYRIN SQ SCH (11:31)
[2019-04-15] MEDS: FERROUS SO4 325 MG TABLET (FP) PO SCH (11:32)
--- NOTE | 2019-04-15 11:33 | PN ---
Progress Note (short form) - Note Progress Note: Breathing feels better but still with some reproducible chest discomfort with palpation. Denies shortness of breath. CTA: No PE, bilateral pleural effusions, mediastinal goiter, mediastinal adenopathy. Patient reports no previous CT imaging outside the hospital. OBJECTIVE: Intake & Output 04/12/19 04/13/19 04/14/19 04/15/19 23:59 23:59 23:59 23:59 Intake Total 1950 3350 1750 680 Output Total 320 575 Balance 1630 2775 1750 680 Weight 209 lb 8 oz 219 lb 6.4 oz Last Vital Signs Temp Pulse Resp BP Pulse Ox 100.3 F H 103 H 20 104/60 97 04/15/19 05:42 04/15/19 05:42 04/15/19 05:42 04/15/19 05:42 04/14/19 21:00 Active Medications Albuterol/Ipratropium (Duoneb -) 1 amp NEB Q6H PRN PRN Reason: SHORTNESS OF BREATH Aspirin (Ecotrin -) 81 mg PO DAILY [facility] Last Admin: 04/15/19 11:34 Dose: 81 mg Bisacodyl (Dulcolax -) 10 mg PO ONCE PRN PRN Reason: CONSTIPATION Last Admin: 04/13/19 23:40 Dose: 10 mg Diphenhydramine HCl (Benadryl -) 25 mg PO Q6H PRN PRN Reason: FOR ITCHING Last Admin: 04/15/19 00:55 Dose: 25 mg Docusate Sodium (Colace -) 100 mg PO TID [facility] Last Admin: 04/15/19 06:24 Dose: 100 mg Enoxaparin Sodium (Lovenox -) 40 mg SQ DAILY [facility] Last Admin: 04/15/19 11:31 Dose: 40 mg Ferrous Sulfate (Feosol -) 325 mg PO BID [facility] Last Admin: 04/15/19 11:32 Dose: 325 mg Famotidine/Sodium Chloride (Pepcid 20 Mg Premixed Ivpb -) 20 mg in 50 mls @ 100 mls/hr IVPB BID [facility] Last Admin: 04/15/19 11:31 Dose: 100 mls/hr Ibuprofen (Caldolor Injection -) 800 mg IVPB Q8H PRN PRN Reason: PAIN LEVEL 1-5 Ondansetron HCl (Zofran Injection) 4 mg IVPUSH Q6H PRN PRN Reason: NAUSEA AND/OR VOMITING Oxycodone HCl (Roxicodone -) 10 mg PO Q4H PRN PRN Reason: PAIN LEVEL 6-10 Last Admin: 04/14/19 21:46 Dose: 10 mg Oxycodone HCl (Roxicodone -) 5 mg PO Q4H PRN PRN Reason: PAIN LEVEL 1-5 Last Admin: 04/13/19 23:40 Dose: 5 mg Simethicone (Mylicon -) 80 mg PO Q4H PRN PRN Reason: GAS Last Admin: 04/13/19 23:42 Dose: 80 mg Gen: NAD at rest Heart: RRR Lung: decreased breath sounds at the bases Abd: soft, nontender, dressings clean Ext: no edema ASSESSMENT AND PLAN: Fibroid Uterus s/p Robotic Total Abdominal Hysterectomy CAD +Troponins likely Demand Ischemia Hyperlipidemia GERD Atelectasis Anemia Mediastinal Goiter Bilateral pleural effusions Mediastinal Lymphadenopathy: etiology to be determined - Discussed CT findings with the patient at length. I advised follow up with a Thoracic surgeon and can follow with me in the office to help with referral - pain control - incentive spirometry - PO as tolerated - She is currently comfortable on RA. There is no Pulmonary contraindication for DC home. - Should have repeat CT chest as an outpatient Dr Enrique
[2019-04-15] MEDS: ASPIRIN COATED 81 MG TABLET.EC PO SCH (11:34)
[2019-04-15 15:21] VITALS: BP 109/67; PULSE 106; TEMP 99.3
--- NOTE | 2019-04-16 10:15 | PATH ---
Surgical Pathology Report Patient Name: MELISSA CH [facility]. Rec. #: [id number] /Age/Gender: 1970 (Age: 48) / F Account: [id number] Location: [address] [place] [address]/[facility] Taken: 04/12/2019 Received: 04/12/2019 Reported: 04/16/2019 Physicians: Randi Zuniga M.D. Specimen(s) Received A: UTERUS AND CERVIX B: FALLOPIAN TUBE RIGHT C: FALLOPIAN TUBE LEFT Clinical History FIBROIDS, MENORRHAGIA Final Diagnosis A. UTERUS AND CERVIX, ROBOTIC LAPAROSCOPIC TOTAL HYSTERECTOMY: 336 G UTERUS. LEIOMYOMA(TA), INTRAMURAL AND SUBMUCOSAL. MYOMETRIUM WITH ADENOMYOSIS. CERVIX WITH FOCAL SQUAMOUS METAPLASIA. B. FALLOPIAN TUBE, RIGHT, SALPINGECTOMY: UNREMARKABLE FALLOPIAN TUBE (INCLUDING FIMBRIATED END AND FULL LUMINAL PORTION). C. FALLOPIAN TUBE, LEFT, SALPINGECTOMY: FALLOPIAN TUBE WITH PARATUBAL CYSTS (INCLUDING FIMBRIATED END AND FULL LUMINAL PORTION). Electronically Signed Elsa Bermudez M.D. Gross Description A. Received in formalin labeled "uterus and cervix," is a 336 g uterus with an attached cervix and no attached adnexa. The specimen measures 11 cm from superior to inferior, 8 cm from left to right and 8 cm from anterior to posterior. The serosa is guaman-mast and smooth. The attached cervix measures 3 cm in length and averages 3 cm in diameter. The ectocervix is guaman, smooth and glistening. The endocervix is unremarkable. The endometrial cavity measures 6.5 cm in length and measures 4 cm from cornu to cornu. The endometrium is red and averages 0.1 cm in thickness. There are multiple submucosal and intramural nodules present. The largest intramural nodule measures 5.4 cm in greatest dimension. The cut surface of the nodules is guaman and rubbery with whorled architecture. No areas of hemorrhage or necrosis are identified. The remaining myometrium is guaman-pink and measures up to 4.5 cm in thickness. Ironer sections are submitted in 11 cassettes as follows: 1-anterior cervix; 2-posterior cervix; 4-8-jqdybypv endomyometrium; 6-9-sbdqslqet endomyometrium; 5-0-pqxkrgoycq nodules; 5-53-ebbdkxokee nodules; 11-largest intramural nodule. B. Received in formalin labeled "right fallopian tube," is a 2.7 cm in length fimbriated fallopian tube. The outer surface is guaman-mast and smooth. Sectioning reveals an unremarkable lumen. Ironer sections are submitted in 2 cassettes as follows: 1-fimbria; 2-cross sections of fallopian tube. C. Received in formalin labeled "left fallopian tube," is a 3 cm in length fimbriated fallopian tube. The outer surface is guaman lemons and smooth. Sectioning reveals an unremarkable lumen. Ironer sections are submitted in 2 cassettes as follows: 1-fimbria; 2-cross sections of fallopian tube. 04/13/2019 [facility]04/13/2019
== END 2019-04-15 15:58 | disposition home health service (06) | DRG 519 ==
LOC: JASUSAT 04:41 → J3W 13:49 → JASUSAT 13:49 → JICU 13:49 → J5S 04-13 22:58
PROVIDERS: ADMIT Obstetrics & Gynecology; ATTEND Obstetrics & Gynecology
PROC: 8E0W0CZ Robotic Assisted Procedure of Trunk Region, Open Approach (ICD-10-PCS; 2019-04-12)
PROC: 0UT90ZZ Resection of Uterus, Open Approach (ICD-10-PCS; principal; 2019-04-12 08:00)
PROC: 0UT70ZZ Resection of Bilateral Fallopian Tubes, Open Approach (ICD-10-PCS; 2019-04-12 08:00)
DX: D25.1 Intramural leiomyoma of uterus (principal); N92.0 Excessive and frequent menstruation with regular cycle; E78.5 Hyperlipidemia, unspecified; J45.909 Unspecified asthma, uncomplicated; R07.89 Other chest pain; K21.9 Gastro-esophageal reflux disease without esophagitis; D64.9 Anemia, unspecified; I25.10 Atherosclerotic heart disease of native coronary artery without angina pectoris; J98.11 Atelectasis; I95.81 Postprocedural hypotension; I45.10 Unspecified right bundle-branch block; R59.1 Generalized enlarged lymph nodes; I42.8 Other cardiomyopathies; I24.8 Other forms of acute ischemic heart disease; J90 Pleural effusion, not elsewhere classified; E04.8 Other specified nontoxic goiter; E66.9 Obesity, unspecified; Z68.32 Body mass index [BMI] 32.0-32.9, adult; I44.4 Left anterior fascicular block; I25.2 Old myocardial infarction; R79.89 Other specified abnormal findings of blood chemistry; Z90.710 Acquired absence of both cervix and uterus
CPT/HCPCS: 36415; 71045-TC-FY; 71275-TC; 74175-TC; 80048; 80053; 80061; 82550; 83721; 83735; 84100; 84484; 84702; 85025; 86850; 86900; 86901; 88302-TC; 88307-TC; 93005; 93010; 93306-TC; 94010; 94760; 97116-GP; 97161-GP; J0131; J1644; Q9967

== ENCOUNTER 2019-05-05 16:56 | Emergency (ER) | payer OTHER ==
--- NOTE | 2019-05-05 17:00 | PDOC ---
Rapid Medical Evaluation Chief Complaint: Diarrhea Time Seen by Provider: 05/05/19 16:58 Medical Evaluation: Allergies Allergy/AdvReac Type Severity Reaction Status Date / Time No Known Drug Allergies Allergy Verified 01/19/18 10:52 05/05/19 16:59 Pt with complaints of: diarrhea and weakness since last night, no gi hx, recent abx for uti ( finished last week) unable to recall name Pt on brief exam: vss (slightly tachy) pt ordered for: labs, urine pt to proceed to the ED 05/05/19 17:01 Discharge Disposition - Diagnosis Diarrhea Qualifiers: Diarrhea type: unspecified type Qualified Code(s): R19.7 - Diarrhea, unspecified - Discharge Dispostion Disposition: HOME Condition at time of disposition: Fair - Referrals Referrals: Mauro Leon [Primary Care Provider] - - Patient Instructions Additional Instructions: Rest, drink lots of fluids: Teas, water, soups Tara sharon, carbonated beverages for the bubbles May try peppermint teas Avoid heavy , spicy or fatty foods until symptoms have resolved Eat lots of whole grains, fruits and vegetables. Avoid contact with others until fevers and symptoms resolved Lots of handwashing and good hygiene Continue ewyk-yww-[id number] medications for symptomatic relief-Preparation H Tylenol or Motrin for fever and pain Followup with private physician in one to 2 days as needed Return to emergency department for worsened symptoms, fevers, dehydration - Post Discharge Activity
[2019-05-05 17:02] VITALS: BMI 29.8
[2019-05-05] MEDS ORDERED: SODIUM CHLORIDE 1,000 ML IV STA ×2 (17:17→18:57)
[2019-05-05 17:26] LABS: EPI CELLS 5.1 /HPF (0-5/HPF); HYALINE CASTS 10 /lpf (0-8); URINE APPEARANCE CLEAR; URINE BACTERIA 9.6 /hpf (NEGATIVE); URINE BILIRUBIN NEGATIVE (NEGATIVE); URINE COLOR YELLOW; URINE GLUCOSE (UA) NEGATIVE (NEGATIVE); URINE KETONE TRACE (NEGATIVE); URINE LEUK ESTERASE NEGATIVE (NEGATIVE); URINE NITRITE NEGATIVE (NEGATIVE); URINE PROTEIN 1+ (NEGATIVE); URINE RBC 1 /hpf (0-4); URINE UROBILINOGEN 0.2 mg/dL (0.2-1.0); URINE WBC 2 /hpf (0-5)
[2019-05-05 17:31] LABS: RBC 4.16 M/mm3 (3.60-5.2); WHITE BLOOD COUNT 3.8 K/mm3 (4.0-10.0)
[2019-05-05 17:32] LABS: BASO % 1.5 % (0-2.0); EOS % 1.6 % (0-4.5); HEMATOCRIT 32.4 % (32.4-45.2); HEMOGLOBIN 9.9 GM/dL (10.7-15.3); MCH 23.7 pg (25.7-33.7); MCHC 30.4 g/dl (32.0-36.0); MEAN CELL VOLUME 77.8 fl (80-96); MEAN PLT VOLUME 9.4 fl (7.5-11.1); MONO % 6.7 % (3.8-10.2); NEUT % 53.2 % (42.8-82.8); PLATELET COUNT 186 K/MM3 (134-434); RDW 24.5 % (11.6-15.6)
--- NOTE | 2019-05-05 17:35 | PDOC ---
History of Present Illness - General Chief Complaint: Diarrhea Stated Complaint: DIARRHEA/LOW BP Time Seen by Provider: 05/05/19 16:58 History Source: Patient, Old Records Exam Limitations: No Limitations - History of Present Illness Travel History: No Initial Comments: 05/05/19 17:28 HISTORY OF PRESENT ILLNESS: Is a 48-year-old woman presents to the emergency department for evaluation of 30 episodes of dark brown nonbloody stool since this morning. Patient is status post total abdominal hysterectomy 04/12 and was discharged on Augmentin. Patient developed subsequent urinary tract infection was treated with "an antibiotic that begins with an S" (Bactrim on external med review). Patient finished last dose of antibiotics 7 days ago. Patient reports she woke up at approximately 3:00 this morning with some abdominal cramping and loose dark brown stools. 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 Patient was seen by visiting nurse service today for physical therapy and was noted to have hypotension with 90/60 when they discussed with her primary doctor- Dr. Leon, she was referred to the emergency department for evaluation. She denies fevers or chills. No recent travel or sick contacts. PAST MEDICAL HISTORY: See HPI SURGICAL HISTORY: Denies ALLERGIES: No known drug allergies REVIEW OF SYSTEMS General/Constitutional: Denies fever or chills. Denies weakness, weight change. HEENT: Denies change in vision. Denies ear pain or discharge. Denies sore throat. Cardiovascular: Denies chest pain or shortness of breath. Respiratory: Denies cough, wheezing, or hemoptysis. Gastrointestinal: See HPI Genitourinary: Denies dysuria, frequency, or change in urination. Musculoskeletal: Denies joint or muscle swelling or pain. Denies neck or back pain. Skin and breasts: Denies rash or easy bruising. Neurologic: Denies headache, vertigo, loss of consciousness, or loss of sensation. Psychiatric: Denies depression or anxiety. Endocrine: Denies increased thirst. Denies abnormal weight change. Hematologic/Lymphatic: Denies anemia, easy bleeding, or history of blood clots. Allergic/Immunologic: Denies hives or skin allergy. Denies latex allergy. PHYSICAL EXAM General Appearance: Well-appearing, appropriately dressed. No apparent distress , no intoxication. HEENT: EOMI, PERRLA, normal ENT inspection, normal voice, TMs normal, pharynx normal. No conjunctival pallor. No photophobia, scleral icterus. Neck: Supple. Trachea midline. No tenderness, rigidity, carotid bruit, stridor , lymphadenopathy, or thyromegaly. Respiratory/Chest: Lungs CTAB. No shortness of breath, chest tenderness, respiratory distress, accessory muscle use. No crackles, rales, rhonchi, stridor , wheezing, dullness Cardiovascular: RRR. S1, S2. No JVD, murmur, bradycardia, tachycardia. Vascular Pulses: Dorsalis-Pedis (R): 2+, Dorsalis-Pedis (L): 2+ Gastrointestinal/Abdominal: Normal bowel sounds. Abdomen soft, non-distended. LLQ tenderness without guarding. No rebound tenderness. No organomegaly, pulsatile mass, guarding, hernia, hepatomegaly, splenomegaly. Trocar sites without e/o infection. Lymphatic: No adenopathy, tenderness. Musculoskeletal/Extremities: Normal inspection. FROM of all extremities, normal capillary refill. Pelvis Stable. No CVA tenderness. No tenderness to extremities, pedal edema, swelling, erythema or deformity. Integumentary: Appropriate color, dry, warm. 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 Fully oriented, alert. Appropriate mood/affect. Motor strength 5/5. No appreciable EOM palsy, facial droop or sensory deficit. 05/05/19 17:52 Past History - Past Medical History Allergies/Adverse Reactions: Allergies Allergy/AdvReac Type Severity Reaction Status Date / Time No Known Drug Allergies Allergy Verified 05/05/19 17:02 Home Medications: Ambulatory Orders Aspirin [ASA -] 81 mg PO DAILY #30 tab.chew 07/24/16 Iron 18 mg PO TID 04/06/19 Omeprazole 20 mg PO BID 04/06/19 Docusate Sodium [Colace -] 100 mg PO BID #14 capsule 04/12/19 Metoprolol Succinate 12.5 mg PO DAILY 05/05/19 Anemia: Yes Asthma: Yes (exercise induced) Cancer: No Cardiac Disorders: Yes ([place] 2015) CVA: No COPD: No CHF: No Dementia: No Diabetes: No GI Disorders: No Disorders: No HTN: No Hypercholesterolemia: Yes Liver Disease: No Seizures: No Thyroid Disease: No - Surgical History Abdominal Surgery: Yes (HERNIA AT 6 YEARS OLD) Appendectomy: No Cardiac Surgery: Yes (cardiac cath.) Cholecystectomy: No Lung Surgery: No Neurologic Surgery: No Orthopedic Surgery: No - Immunization History Immunization Up to Date: Yes - Psycho Social/Smoking Cessation Hx Smoking History: Current every day smoker Have you smoked in the past 12 months: Yes Number of Cigarettes Smoked Daily: 4 Information on smoking cessation initiated: Yes 'Breaking Loose' booklet given: 04/13/19 Hx Alcohol Use: No Drug/Substance Use Hx: No Substance Use Type: Alcohol Hx Substance Use Treatment: No *Physical Exam - Vital Signs Last Vital Signs Temp Pulse Resp BP Pulse Ox 98.4 F 115 H 18 126/75 100 05/05/19 16:59 05/05/19 16:59 05/05/19 16:59 05/05/19 16:59 05/05/19 16:59 ED Treatment Course - LABORATORY CBC & Chemistry Diagram: 05/05/19 17:11 05/05/19 17:11 - ADDITIONAL ORDERS Additional order review: Laboratory Results 05/05/19 17:11 Urine Color Yellow Urine Appearance Clear Urine pH 5.0 Ur Specific [place] 1.027 Urine Protein 1+ H Urine Glucose (UA) Negative Urine Ketones Trace H Urine Blood Negative Urine Nitrite Negative Urine Bilirubin Negative Urine Urobilinogen 0.2 Ur Leukocyte Esterase Negative Urine WBC (Auto) 2 Urine RBC (Auto) 1 Urine Casts (Auto) 10 U Epithel Cells (Auto) 5.1 Urine Bacteria (Auto) 9.6 Medical Decision Making - Medical Decision Making 05/05/19 17:36 A/P: 48-year-old woman with left lower quadrant pain and multiple episodes of diarrhea throughout the day today Differential diagnosis includes but is not limited to-colitis, diverticulitis, obstruction, appendicitis, perforation, ZEINA, electrolyte abnormality Labs including lipase Urinalysis, urine culture Stool studies EKG Normal saline 1 L IV bolus now Patient is refusing analgesia at this time. Reassess-low threshold for imaging 05/05/19 17:42 EKG sinus rhythm with rate of 98. Frequent PVCs noted. No ischemic changes present. QTc 513 ms. No significant change from EKG performed 04/13/2019. 05/05/19 17:54 05/05/19 20:33 Patient reports stools are starting to form up. Laboratory testing is unremarkable. Patient feels safe going home and understands that she may receive a phone call regarding her C. difficile testing and may be placed on antibiotics going forward. Patient has verbalized understanding of discharge instructions were satisfied with the care received today. Discharge - Discharge Information Problems reviewed: Yes Clinical Impression/Diagnosis: Diarrhea Qualifiers: Diarrhea type: unspecified type Qualified Code(s): R19.7 - Diarrhea, unspecified Condition: Fair Disposition: HOME - Admission No - Follow up/Referral - Patient Discharge Instructions Additional Instructions: Rest, drink lots of fluids: Teas, water, soups Tara sharon, carbonated beverages for the bubbles May try peppermint teas Avoid heavy , spicy or fatty foods until symptoms have resolved Eat lots of whole grains, fruits and vegetables. Avoid contact with others until fevers and symptoms resolved Lots of handwashing and good hygiene Continue [id number] medications for symptomatic relief-Preparation H Tylenol or Motrin for fever and pain Followup with private physician in one to 2 days as needed Return to emergency department for worsened symptoms, fevers, dehydration - Post Discharge Activity
[2019-05-05 17:53] LABS: ALBUMIN 3.1 g/dl (3.4-5.0); BILIRUBIN,TOTAL 0.4 mg/dL (0.2-1); BLOOD UREA NITROGEN 10.5 mg/dL (7-18); CALCIUM 8.9 mg/dL (8.5-10.1); CREATININE 0.7 mg/dL (0.55-1.3); MAGNESIUM 1.8 mg/dL (1.8-2.4); POTASSIUM 3.6 mmol/L (3.5-5.1); TOT PROT 7.4 g/dl (6.4-8.2)
[2019-05-05 18:26] LABS: ANISOCYTOSIS 2+; PLATELET ESTIMATE NORMAL
[2019-05-05 20:29] VITALS: BP 108/73; PULSE 96; TEMP 97.5
--- NOTE | 2019-05-06 12:41 | EKG ---
Test Reason : Blood Pressure : / mmHG Vent. Rate : 098 BPM Atrial Rate : 098 BPM P-R Int : 166 ms QRS Dur : 152 ms QT Int : 402 ms P-R-T Axes : 000 -70 068 degrees QTc Int : 513 ms SINUS RHYTHM WITH FREQUENT PREMATURE VENTRICULAR COMPLEXES RIGHT BUNDLE BRANCH BLOCK LEFT ANTERIOR FASCICULAR BLOCK BIFASCICULAR BLOCK ABNORMAL ECG WHEN COMPARED WITH ECG OF 13-APR-2019 10:19, PREMATURE VENTRICULAR COMPLEXES ARE NOW PRESENT NONSPECIFIC T WAVE ABNORMALITY NO LONGER EVIDENT IN INFERIOR LEADS Confirmed by KANG MISTRY MD ([id number]) on 05/06/2019 12:40:34 PM Referred By: Confirmed By:KANG MISTRY MD
== END 2019-05-05 20:59 | disposition home or self-care (01) ==
LOC: JER 16:56
PROC: 3E0337Z Introduction of Electrolytic and Water Balance Substance into Peripheral Vein, Percutaneous Approach (ICD-10-PCS; principal; 2019-05-05)
DX: R19.7 Diarrhea, unspecified (principal)
CPT/HCPCS: 36415; 80053; 81003; 83735; 85025; 87045; 87046; 87086; 87177; 87209; 87324; 87449; 93005; 93010; 96360; 96361; 99284-25; J7030

== ENCOUNTER 2019-05-17 07:27 | Emergency (ER) | payer OTHER ==
[2019-05-17 07:40] VITALS: BMI 29.9
[2019-05-17] MEDS ORDERED: SODIUM CHLORIDE IV ONE (07:53)
[2019-05-17] MEDS ORDERED: ACETAMINOPHEN 1000 MG/100 ML VIAL (NON FORMULARY) IVPB ONE (07:54)
--- NOTE | 2019-05-17 08:04 | PDOC ---
History of Present Illness - General Chief Complaint: SIRS, Suspected/Possible Stated Complaint: HEADACHE,WEAKNESS Time Seen by Provider: 05/17/19 07:51 History Source: Patient Exam Limitations: No Limitations Past History - Past Medical History Allergies/Adverse Reactions: Allergies Allergy/AdvReac Type Severity Reaction Status Date / Time No Known Drug Allergies Allergy Verified 05/17/19 07:40 Home Medications: Ambulatory Orders Iron 18 mg PO TID 04/06/19 Omeprazole 20 mg PO BID 04/06/19 Docusate Sodium [Colace -] 100 mg PO BID #14 capsule 04/12/19 Metoprolol Succinate 12.5 mg PO DAILY 05/05/19 Albuterol Sulfate Inhaler - [Ventolin HFA Inhaler -] 1 puff IH Q6H PRN #1 inhaler 05/18/19 Anemia: Yes Asthma: Yes (exercise induced) Cancer: No Cardiac Disorders: Yes ([place] 2015) CVA: No COPD: No CHF: No Dementia: No Diabetes: No GI Disorders: No Disorders: No HTN: No Hypercholesterolemia: Yes Liver Disease: No Seizures: No Thyroid Disease: No - Surgical History Abdominal Surgery: Yes (HERNIA AT 6 YEARS OLD) Appendectomy: No Cardiac Surgery: Yes (cardiac cath.) Cholecystectomy: No Lung Surgery: No Neurologic Surgery: No Orthopedic Surgery: No - Immunization History Immunization Up to Date: Yes - Psycho Social/Smoking Cessation Hx Smoking History: Former smoker Have you smoked in the past 12 months: No Number of Cigarettes Smoked Daily: 4 Information on smoking cessation initiated: No 'Breaking Loose' booklet given: 04/13/19 Hx Alcohol Use: No Drug/Substance Use Hx: No Substance Use Type: Alcohol Hx Substance Use Treatment: No *Physical Exam - Vital Signs Last Vital Signs Temp Pulse Resp BP Pulse Ox 99.1 F 118 H 18 115/64 100 05/17/19 07:37 05/17/19 07:37 05/17/19 07:37 05/17/19 07:37 05/17/19 07:37 ED Treatment Course - LABORATORY CBC & Chemistry Diagram: 05/17/19 08:50 05/17/19 08:50 Discharge - Discharge Information Problems reviewed: Yes Clinical Impression/Diagnosis: Shortness of breath, URI (upper respiratory infection), Elevated troponin Condition: Improved Disposition: HOME - Admission No - Additional Discharge Information Prescriptions: Albuterol Sulfate Inhaler - [Ventolin HFA Inhaler -] 1 puff IH Q6H PRN #1 inhaler PRN Reason: Asthma - Follow up/Referral Referrals: Sarath Leon MD [Primary Care Provider] - Mandy Boyd MD [Non Staff, Medical] - - Patient Discharge Instructions Patient Printed Discharge Instructions: DI for Shortness of Breath, DI for Chest Pain Additional Instructions: You were seen for the evaluation of your fever, chest pain, and groin pain. Your imaging was negative for an acute process. There is a cyst on your left ovary without compromise to the blood flow. 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 Please keep to that appointment. Please return to the emergency department if you have worsening symptoms or new concerning symptoms such as worsening chest pain, nausea with vomiting, and worsening shortness of breath. Thank you. Please see your catalyst operator chief within 24 hours after discharge. - Post Discharge Activity
[2019-05-17] MEDS ORDERED: PIPERACILLIN/TAZOB 3.375 GM 3.375 GM in DEXTROSE 5%-WATER - 50 ML IVPB ONE (08:47)
--- NOTE | 2019-05-17 08:50 | PDOC ---
Attending Attestation - Resident Resident Name: HarrisonMicheal - ED Attending Attestation I have performed the following: I have examined & evaluated the patient, The case was reviewed & discussed with the resident, I agree w/resident's findings & plan, Exceptions are as noted - HPI HPI: 05/17/19 09:06 48 years old with past medical history significant for hysterectomy 1028 presents to the emergency department with several day history of fever chills mild headache congestion cough as well as lower abdominal discomfort maximal in the left lower quadrant sharp sudden onset persistent constant however also with no bowel movement x1 week symptoms are persistent constant no exacerbating or alleviating factors subjective fevers at home febrile here in the emergency department 101 - Physicial Exam PE: 1 Vitals: Triage Vital signs reviewed General Appearance: No acute distress, well nourished well developed, Head: Atraumatic, Cardiac: Regular rate and rhythym, no murmurs, no rubs, no gallops, Lungs: Clear to auscultation bilateral, good air movement bilaterally, Abdomen: Soft, non distended, normal bowel sounds, abdomen extremities: Full range of motion to all extremities, no cyanosis, clubbing, or edema Skin: Warm and dry, no rashes or lesions, no rash, no petechiae Left lower quadrant tenderness palpation Psych: Normal mood, normal affect - Medical Decision Making 05/17/19 09:07 48 years old with fever tachycardia abdominal discomfort and URI symptoms Patient meets criteria for sepsis evaluation Sepsis order set initiated Patient given fluids IV Tylenol antibiotics will require chest x-ray as well as CT abdomen pelvis Will observe and reassess. 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
[2019-05-17] MEDS ORDERED: ACETAMINOPHEN INJECTION 100 ML IVPB ONE (08:58)
[2019-05-17 09:06] LABS: BASO % 0.9 % (0-2.0); EOS % 1.3 % (0-4.5); HEMATOCRIT 31.3 % (32.4-45.2); HEMOGLOBIN 9.9 GM/dL (10.7-15.3); LYMPH % 27.6 % (8-40); MCH 24.6 pg (25.7-33.7); MCHC 31.7 g/dl (32.0-36.0); MEAN CELL VOLUME 77.5 fl (80-96); MEAN PLT VOLUME 9.3 fl (7.5-11.1); MONO % 5.6 % (3.8-10.2); NEUT % 64.6 % (42.8-82.8); PLATELET COUNT 241 K/MM3 (134-434); RBC 4.05 M/mm3 (3.60-5.2); RDW 25.8 % (11.6-15.6); WHITE BLOOD COUNT 5.6 K/mm3 (4.0-10.0)
[2019-05-17 09:13] LABS: VENOUS PC02 37.2 mmHg (38-52); VENOUS PH 7.42 (7.31-7.41)
[2019-05-17 09:16] LABS: VENOUS PO2 < 49 mmHg (28-48)
[2019-05-17 09:25] LABS: INR 1.28 (0.83-1.09); PROTHROMBIN TIME (PATIENT) 15.1 SEC (9.7-13.0)
[2019-05-17 09:28] LABS: ACTIVATED PTT 31.1 SECONDS (25.2-36.5)
[2019-05-17 09:34] LABS: ALBUMIN 2.9 g/dl (3.4-5.0); BLOOD UREA NITROGEN 8.6 mg/dL (7-18); CALCIUM 8.6 mg/dL (8.5-10.1); CREATININE 0.7 mg/dL (0.55-1.3); POTASSIUM 4.1 mmol/L (3.5-5.1); TOT PROT 7.5 g/dl (6.4-8.2)
[2019-05-17] MEDS ORDERED: PIPERACILLIN/TAZOB 3.375 GM 3.375 GM/50 ML BAG IVPB ONE (09:34)
--- NOTE | 2019-05-17 10:19 | EKG ---
Test Reason : Blood Pressure : / mmHG Vent. Rate : 102 BPM Atrial Rate : 102 BPM P-R Int : 104 ms QRS Dur : 152 ms QT Int : 524 ms P-R-T Axes : -08 -73 071 degrees QTc Int : 682 ms SINUS TACHYCARDIA WITH SHORT HI RIGHT BUNDLE BRANCH BLOCK LEFT ANTERIOR FASCICULAR BLOCK BIFASCICULAR BLOCK ABNORMAL ECG WHEN COMPARED WITH ECG OF 05-MAY-2019 17:38, PREMATURE VENTRICULAR COMPLEXES ARE NO LONGER PRESENT Confirmed by CONOR CASPER MD ([id number]) on 05/17/2019 10:19:20 AM Referred By: Confirmed By:CONOR CASPER MD
[2019-05-17 11:47] LABS: EPI CELLS 4.3 /HPF (0-5/HPF); HYALINE CASTS 2 /lpf (0-8); PH,URINE 6.5 (5.0-8.0); URINE APPEARANCE CLEAR; URINE BACTERIA 46.1 /hpf (NEGATIVE); URINE BILIRUBIN NEGATIVE (NEGATIVE); URINE COLOR YELLOW; URINE GLUCOSE (UA) NEGATIVE (NEGATIVE); URINE KETONE NEGATIVE (NEGATIVE); URINE LEUK ESTERASE NEGATIVE (NEGATIVE); URINE NITRITE NEGATIVE (NEGATIVE); URINE PROTEIN 1+ (NEGATIVE); URINE RBC 1 /hpf (0-4); URINE WBC 2 /hpf (0-5)
[2019-05-17] MEDS ORDERED: ALBUTEROL SO4 2.5/IPRATROPIUM 0.5 INH SOL 3 ML VIAL.NEB. NEB ONE ×2 (12:17→13:18)
[2019-05-17 13:06] LABS: ANISOCYTOSIS 1+; MACROCYTOSIS 1+; OVALOCYTE 1+; PLATELET ESTIMATE NORMAL; TARGET CELLS 1+
[2019-05-17 16:11] VITALS: BP 130/82; PULSE 90; TEMP 98.5
== END 2019-05-17 16:11 | disposition home or self-care (01) ==
LOC: JER 07:27
PROC: 3E0F7GC Introduction of Other Therapeutic Substance into Respiratory Tract, Via Natural or Artificial Opening (ICD-10-PCS; principal; 2019-05-17)
PROC: 3E0337Z Introduction of Electrolytic and Water Balance Substance into Peripheral Vein, Percutaneous Approach (ICD-10-PCS; 2019-05-17)
PROC: 3E03329 Introduction of Other Anti-infective into Peripheral Vein, Percutaneous Approach (ICD-10-PCS; 2019-05-17)
PROC: 3E033NZ Introduction of Analgesics, Hypnotics, Sedatives into Peripheral Vein, Percutaneous Approach (ICD-10-PCS; 2019-05-17)
DX: J06.9 Acute upper respiratory infection, unspecified (principal); R06.02 Shortness of breath; R74.8 Abnormal levels of other serum enzymes; J45.990 Exercise induced bronchospasm; Z87.891 Personal history of nicotine dependence; E78.00 Pure hypercholesterolemia, unspecified; I25.10 Atherosclerotic heart disease of native coronary artery without angina pectoris; I25.2 Old myocardial infarction; Z98.61 Coronary angioplasty status; N83.202 Unspecified ovarian cyst, left side
CPT/HCPCS: 36415; 71045-TC-FY; 71275-TC; 74177-TC; 76830-TC; 80053; 81003; 82803; 83605; 84484; 85025; 85610; 85730; 87040; 87086; 87186; 87804; 93005; 93010; 94640; 96361; 96365; 96375; 99285-25; J0131; J7030; Q9967

== ENCOUNTER 2019-05-23 14:26 | Emergency (ER) | payer OTHER ==
[2019-05-23 14:33] VITALS: BP 120/74; PULSE 100; TEMP 97.9; BMI 30.8
--- NOTE | 2019-05-23 15:21 | PDOC ---
History of Present Illness - General Chief Complaint: Revisit, Lab Variance Stated Complaint: HEADACHE Time Seen by Provider: 05/23/19 15:07 History Source: Patient - History of Present Illness Initial Comments: 05/23/19 15:40 Chief complaint: Called back for blood culture Patient is a 48-year-old female with a history of hysterectomy in March, and [place] who was seen here on May 17 for fever and chills, had sepsis work-up, CT imaging and was discharged home with working diagnosis of viral upper respiratory infection. Patient was called today because one blood culture was positive for staph epididymis. Patient came back to the ER for reevaluation, repeat blood cultures. Patient feels well, no fever and symptoms have resolved. Patient has followed up with her doctor. GENERAL/CONSTITUTIONAL: No fever, weakness. dizziness HEAD, EYES, EARS, NOSE AND THROAT: No change in vision. No ear pain or discharge. No sore throat. CARDIOVASCULAR: No chest pain RESPIRATORY: No shortness of breath or cough GASTROINTESTINAL: No pain, nausea, vomiting, diarrhea or constipation GENITOURINARY: No dysuria MUSCULOSKELETAL: No neck or back pain SKIN: No rash NEUROLOGIC: No headache, vertigo, loss of consciousness, or loss of sensation. GENERAL: The patient is awake, alert, and fully oriented, in no acute distress. HEAD: Normal with no signs of trauma. EYES: Pupils equal, round and reactive to light, sclera anicteric, conjunctiva clear. ENT: pharynx: no erythema, no exudate, uvula midline NECK: supple CHEST: clear, nontender, rr ABD: soft, nontender BACK: no tenderness or signs of injury EXTREMITIES: Normal range of motion, no edema. NEUROLOGICAL: Normal speech, normal gait. SKIN: Warm, Dry Past History - Past Medical History Allergies/Adverse Reactions: Allergies Allergy/AdvReac Type Severity Reaction Status Date / Time No Known Drug Allergies Allergy Verified 05/23/19 14:32 Home Medications: Ambulatory Orders Iron 18 mg PO TID 04/06/19 Omeprazole 20 mg PO BID 04/06/19 Metoprolol Succinate 12.5 mg PO DAILY 05/05/19 Albuterol Sulfate Inhaler - [Ventolin HFA Inhaler -] 1 puff IH Q6H PRN #1 inhaler 05/18/19 Aspirin 81 mg PO DAILY 05/23/19 Anemia: Yes Asthma: Yes (exercise induced) Cancer: No Cardiac Disorders: Yes ([place] 2015) CVA: No COPD: No CHF: No Dementia: No Diabetes: No GI Disorders: No Disorders: No HTN: No Hypercholesterolemia: Yes Liver Disease: No Seizures: No Thyroid Disease: No - Surgical History Abdominal Surgery: Yes (HERNIA AT 6 YEARS OLD) Appendectomy: No Cardiac Surgery: Yes (cardiac cath.) Cholecystectomy: No Lung Surgery: No Neurologic Surgery: No Orthopedic Surgery: No - Immunization History Immunization Up to Date: Yes - Psycho Social/Smoking Cessation Hx Smoking History: Current every day smoker Have you smoked in the past 12 months: No Number of Cigarettes Smoked Daily: 4 Information on smoking cessation initiated: No 'Breaking Loose' booklet given: 04/13/19 Hx Alcohol Use: No Drug/Substance Use Hx: No Substance Use Type: Alcohol Hx Substance Use Treatment: No *Physical Exam - Vital Signs Last Vital Signs Temp Pulse Resp BP Pulse Ox 97.9 F 100 H 18 120/74 98 05/23/19 14:30 05/23/19 14:30 05/23/19 14:30 05/23/19 14:30 05/23/19 14:30 Medical Decision Making - Medical Decision Making 05/23/19 15:52 48-year-old female with history of hysterectomy in March, who was seen here for sepsis work-up on May 17. Patient feels well. She had one blood culture that was positive, other showed no growth. No indication for further work-up other than repeating blood cultures. Patient's heart rate was 100 but patient is not ill Discussed issues, findings, results, applicable medications and treatments and follow-up. All these were understood and all questions were answered Discharge - Discharge Information Problems reviewed: Yes Clinical Impression/Diagnosis: Positive blood culture Condition: Stable Disposition: HOME - Admission No - Follow up/Referral Referrals: Sarath Leon MD [Primary Care Provider] - - Patient Discharge Instructions Additional Instructions: You will get a phone call if there is any abnormal result. You should return to the ER if you have any fever or feel ill If you have not heard by next Friday and you still feel well, you can call me at [phone] after 11 AM - Post Discharge Activity
== END 2019-05-23 15:51 | disposition home or self-care (01) ==
LOC: JER 14:26 → JERFT 14:26
DX: R79.9 Abnormal finding of blood chemistry, unspecified (principal); I25.2 Old myocardial infarction
CPT/HCPCS: 87040; 99282-25

== ENCOUNTER 2019-07-20 22:04 | Inpatient (IN) | payer OTHER ==
[2019-07-20 23:01] VITALS: BMI 39.9
--- NOTE | 2019-07-20 23:48 | PDOC ---
Documentation entered by Denise Clemente SCRIBE, acting as scribe for Kalee Michelle MD. Kalee Michelle MD: This documentation has been prepared by the Bryn mendoza Nirvannie, SCRIBE, under my direction and personally reviewed by me in its entirety. I confirm that the documentation accurately reflects all work, treatment, procedures, and medical decision making performed by me. Attending Attestation - Resident Resident Name: Rom Harris - ED Attending Attestation I have performed the following: I have examined & evaluated the patient, The case was reviewed & discussed with the resident, I agree w/resident's findings & plan, Exceptions are as noted - HPI HPI: 07/20/19 23:46 48-year-old female presents with constipation and abdominal pain last bowel movement was 1 week ago HPI she had a total hysterectomy for menorrhagia fibroids in March and since then has had issues with constipation. Typically she will take stool softeners and enema in the past for constipation 07/20/19 23:47 - Physicial Exam PE: 07/20/19 23:48 Alert and conversant 48-year-old female with complaint of constipation Abdomen tympanic distended and tender - Medical Decision Making 07/21/19 00:51 CAT scan abdomen and pelvis without contrast findings small bilateral pleural effusions Heart is enlarged Small to moderate amount of ascites No fluid loculation or free air Liver is not cirrhotic There are small bilateral renal stones Normal unenhanced liver, gallbladder, pancreas, spleen, adrenal glands Stomach and abdominal small and large bowels are normal Is no aortic aneurysm There is no significant retroperitoneal lymphadenopathy No evidence of appendicitis that is post hysterectomy Urinary bladder is unremarkable No discrete pelvic lymphadenopathy identified Diffuse subcutaneous edema may represent anasarca 07/21/19 03:07 This 48-year-old female who initially presented with complaint of constipation was found to have elevated liver function tests, elevated total bili, elevated troponin, acute renal failure with a creatinine equal to 1.6 Reviewing her old reports it appears in 2017 she did have an [facility] lab that was positive CAT scan does show ascites Patient needs to be admitted to trend her troponin, for GI consult and further medical evaluation
[2019-07-21 01:02] LABS: MEAN CELL VOLUME 76.6 fl (80-96); MEAN PLT VOLUME 9.4 fl (7.5-11.1); WHITE BLOOD COUNT 4.6 K/mm3 (4.0-10.0)
[2019-07-21 01:10] LABS: BASO % 1.7 % (0-2.0); EOS % 0.6 % (0-4.5); HEMOGLOBIN 8.9 GM/dL (10.7-15.3); LYMPH % 40.6 % (8-40); MCH 23.6 pg (25.7-33.7); MCHC 30.8 g/dl (32.0-36.0); MONO % 7.9 % (3.8-10.2); NEUT % 49.2 % (42.8-82.8); PLATELET COUNT 174 K/MM3 (134-434); RBC 3.79 M/mm3 (3.60-5.2)
[2019-07-21 01:19] LABS: INR 1.47 (0.83-1.09); PROTHROMBIN TIME (PATIENT) 17.4 SEC (9.7-13.0)
[2019-07-21 01:33] LABS: ALBUMIN 2.9 g/dl (3.4-5.0); BILIRUBIN,TOTAL 1.9 mg/dL (0.2-1); BLOOD UREA NITROGEN 30.7 mg/dL (7-18); CALCIUM 8.4 mg/dL (8.5-10.1); CREATININE 1.6 mg/dL (0.55-1.3); POTASSIUM 3.7 mmol/L (3.5-5.1); TOT PROT 7.8 g/dl (6.4-8.2)
--- NOTE | 2019-07-21 01:38 | PDOC ---
History of Present Illness - General Chief Complaint: Pain Stated Complaint: ABDOMINAL PAIN Time Seen by Provider: 07/20/19 23:39 History Source: Patient Exam Limitations: No Limitations - History of Present Illness Initial Comments: 07/21/19 01:52 48 yo F with a hx of asthma, CAD (2015), HLD, and anemia presents to the emergency department with 1 week of inability to defecate. Pt states she took laxatives and an enema without relief. Pt admits to her abdomen being diffusely distended and painful, daughter at bedside agrees the abdomen appears distended. Pt denies CP, SOB, back pain, F/C/N/V, recent travel or sick contacts Past History - Past Medical History Allergies/Adverse Reactions: Allergies Allergy/AdvReac Type Severity Reaction Status Date / Time No Known Drug Allergies Allergy Verified 07/20/19 23:01 Home Medications: Ambulatory Orders Iron 18 mg PO TID 04/06/19 Omeprazole 20 mg PO BID 04/06/19 Metoprolol Succinate 12.5 mg PO DAILY 05/05/19 Albuterol Sulfate Inhaler - [Ventolin HFA Inhaler -] 1 puff IH Q6H PRN #1 inhaler 05/18/19 Aspirin 81 mg PO DAILY 05/23/19 Furosemide [Lasix -] 0 mg PO DAILY 07/21/19 Anemia: Yes Asthma: Yes (exercise induced) Cancer: No Cardiac Disorders: Yes ([place] 2015) CVA: No COPD: No CHF: No Dementia: No Diabetes: No GI Disorders: No Disorders: No HTN: No Hypercholesterolemia: Yes Liver Disease: No Seizures: No Thyroid Disease: No - Surgical History Abdominal Surgery: Yes (HERNIA AT 6 YEARS OLD) Appendectomy: No Cardiac Surgery: Yes (cardiac cath.) Cholecystectomy: No Lung Surgery: No Neurologic Surgery: No Orthopedic Surgery: No - Immunization History Immunization Up to Date: Yes - Psycho Social/Smoking Cessation Hx Smoking History: Never smoked Have you smoked in the past 12 months: No Number of Cigarettes Smoked Daily: 4 'Breaking Loose' booklet given: 04/13/19 Hx Alcohol Use: No Drug/Substance Use Hx: No Substance Use Type: Alcohol Hx Substance Use Treatment: No Review of Systems - Review of Systems Constitutional: Yes: See HPI HEENTM: Yes: See HPI Respiratory: Yes: See HPI Cardiac (ROS): Yes: See HPI ABD/GI: Yes: See HPI : Yes: See HPI Musculoskeletal: Yes: See HPI Integumentary: Yes: See HPI Neurological: Yes: See HPI *Physical Exam - Vital Signs Last Vital Signs Temp Pulse Resp BP Pulse Ox 98.8 F 110 H 19 138/82 99 07/20/19 22:10 07/20/19 22:10 07/20/19 22:10 07/20/19 22:10 07/20/19 22:10 - Physical Exam General Appearance: Yes: Nourished, Appropriately Dressed HEENT: positive: EOMI Neck: positive: Supple. negative: Carotid bruit Respiratory/Chest: positive: Lungs Clear, Normal Breath Sounds. negative: Respiratory Distress, Accessory Muscle Use, Crackles, Rales, Rhonchi, Stridor, Wheezing Cardiovascular: positive: Regular Rhythm, S1, S2, Tachycardia. negative: Edema , JVD, Murmur Vascular Pulses: Dorsalis-Pedis (R): 4+, Doralis-Pedis (L): 4+ Gastrointestinal/Abdominal: positive: Protuberent, Distended, Tenderness ( diffuse). negative: Guarding, Rebound Musculoskeletal: negative: CVA Tenderness Extremity: positive: Normal Capillary Refill, Normal Inspection Integumentary: positive: Normal Color, Dry, Warm Neurologic: positive: Fully Oriented, Alert, Normal Mood/Affect ED Treatment Course - LABORATORY CBC & Chemistry Diagram: 07/21/19 00:30 07/21/19 00:30 - ADDITIONAL ORDERS Additional order review: Laboratory Results 07/21/19 07/21/19 07/21/19 00:30 00:30 00:30 PT with INR 17.40 H INR 1.47 H Sodium 138 Potassium 3.7 Chloride 104 Carbon Dioxide 26 Anion Gap 8 BUN 30.7 H Creatinine 1.6 H Est GFR (CKD-EPI)AfAm 43.71 Est GFR (CKD-EPI)NonAf 37.71 Random Glucose 91 Lactic Acid 2.0 Calcium 8.4 L Total Bilirubin 1.9 H AST 122 H ALT 103 H Alkaline Phosphatase 166 H Creatine Kinase 99 Troponin I 0.44 H Total Protein 7.8 Albumin 2.9 L 07/21/19 00:30 RBC 3.79 MCV 76.6 L MCHC 30.8 L RDW 21.0 H MPV 9.4 Neutrophils % 49.2 D Lymphocytes % 40.6 H D Monocytes % 7.9 Eosinophils % 0.6 Basophils % 1.7 - RADIOLOGY Radiology Studies Ordered: Category Date Time Status ABDOMEN & PELVIS CT W/O CONTR [CT] Stat CT Scan 07/21/19 00:04 Ordered ABDOMEN FLAT & UPRIGHT [RAD] Stat Radiology 07/20/19 23:47 Taken CHEST X-RAY PORTABLE* [RAD] Stat Radiology 07/21/19 00:04 Taken Medical Decision Making - Medical Decision Making 07/21/19 01:52 48 yo F with a hx of asthma, CAD ([place] 2015), HLD, and anemia presents to the emergency department with 1 week of inability to defecate. Pt states she took laxatives and an enema without relief. Pt admits to her abdomen being diffusely distended and painful, daughter at bedside agrees the abdomen appears distended. Pt denies CP, SOB, back pain, F/C/N/V, recent travel or sick contacts vitals show elevated HR otherwise WNL Abdomen protuberant and distended, tympanic. Rushed to flat and upright and CT CT scan shows ascities (new onset) Labs show ZEINA, elevated LFTs and bumped trop (pt always has mild elevation in trop, more so today) Discussed with pt regarding past hx of potential autoimmune disorder after ANCA blood work in system found positive, states blood work prior to hysterectomy should possible lupus, never completely worked up and not treated Pt has multiple organ disfunction requiring admission for complete workup likely renal, GI and Rheum 07/21/19 07:[address] Ybarra, will see in the AM, would like Cards consult placed in the ED Discharge - Discharge Information Problems reviewed: Yes Clinical Impression/Diagnosis: Constipation, Abdominal pain Condition: Fair - Admission Yes - Follow up/Referral - Patient Discharge Instructions - Post Discharge Activity
[2019-07-21 02:25] LABS: ANISOCYTOSIS 2+; TEAR DROP CELLS OCCASIONAL
[2019-07-21 02:26] LABS: PLATELET ESTIMATE ADEQUATE
[2019-07-21] MEDS ORDERED: ALBUTEROL SO4 HFA INHALER IH PRN (02:32)
[2019-07-21] MEDS ORDERED: PATIENT'S OWN MEDICATION (NON-FORMULARY) (Iron [Iron] 18 MG) PO SCH (06:00)
[2019-07-21 07:01] LABS: BASO % 0.6 % (0-2.0); EOS % 0.3 % (0-4.5); HEMATOCRIT 27.4 % (32.4-45.2); HEMOGLOBIN 8.6 GM/dL (10.7-15.3); LYMPH % 40.7 % (8-40); MCH 23.9 pg (25.7-33.7); MCHC 31.4 g/dl (32.0-36.0); MEAN CELL VOLUME 76.3 fl (80-96); MEAN PLT VOLUME 9.1 fl (7.5-11.1); MONO % 8.4 % (3.8-10.2); PLATELET COUNT 168 K/MM3 (134-434); RDW 21.3 % (11.6-15.6); WHITE BLOOD COUNT 4.5 K/mm3 (4.0-10.0)
[2019-07-21] MEDS ORDERED: SODIUM PHOSPHATE/NA BIPHOS 133 ML ENEMA PR ONE (07:05)
[2019-07-21 07:29] LABS: ALBUMIN 2.8 g/dl (3.4-5.0); BILIRUBIN,TOTAL 1.8 mg/dL (0.2-1); BLOOD UREA NITROGEN 30.2 mg/dL (7-18); CALCIUM 8.4 mg/dL (8.5-10.1); CREATININE 1.5 mg/dL (0.55-1.3); POTASSIUM 3.6 mmol/L (3.5-5.1); TOT PROT 7.7 g/dl (6.4-8.2)
[2019-07-21 08:14] LABS: ERYTHROCYTE SEDIMENTATION RATE 26 mm/hr (0-20)
[2019-07-21] MEDS: ASPIRIN 81 MG CHEWABLE TABLETS PO SCH (10:58)
[2019-07-21] MEDS: HEPARIN NA (PORCINE) 5,000 UNITS/ML 1ML VIAL SQ SCH (10:58)
[2019-07-21] MEDS: PANTOPRAZOLE 20 MG TABLET PO SCH (10:58)
[2019-07-21] MEDS: metoPROLOL SUCCINATE 25 MG TAB.SR.24H (FP) PO SCH (10:59)
--- NOTE | 2019-07-21 11:35 | CON.CARD ---
Consult Consult Specialty:: Cardiology - History of Present Illness Chief Complaint: constipation /leg swelling History of Present Illness: 48 yo F with a hx of asthma, CAD ([place] 2015),Non-obstructive CAD, HLD, and anemia presents to the emergency department with 1 week of inability to defecate. Pt states she took laxatives and an enema without relief. Pt admits to her abdomen being diffusely distended and painful, daughter at bedside agrees the abdomen appears distended. Pt denies CP, SOB, back pain, F/C/N/V, recent travel or sick contacts. - History Source History Provided By: Patient, Medical Record - Past Medical History Cardio/Vascular: Yes: HTN, Hyperlipdemia, [place] Gastrointestinal: Yes: GERD ...LMP: 02/12/19 - Past Surgical History Past Surgical History: Yes: Hysterectomy - Alcohol/Substance Use Hx Alcohol Use: No - Smoking History Smoking history: Never smoked Have you smoked in the past 12 months: No Aproximately how many cigarettes per day: 4 - Social History History of Recent Travel: No Home Medications - Allergies Allergies/Adverse Reactions: Allergies Allergy/AdvReac Type Severity Reaction Status Date / Time No Known Drug Allergies Allergy Verified 07/20/19 23:01 - Home Medications Home Medications: Ambulatory Orders Iron 18 mg PO TID 04/06/19 Omeprazole 20 mg PO BID 04/06/19 Metoprolol Succinate 12.5 mg PO DAILY 05/05/19 Albuterol Sulfate Inhaler - [Ventolin HFA Inhaler -] 1 puff IH Q6H PRN #1 inhaler 05/18/19 Aspirin 81 mg PO DAILY 05/23/19 Furosemide [Lasix -] 0 mg PO DAILY 07/21/19 Review of Systems - Review of Systems Constitutional: reports: No Symptoms Eyes: reports: No Symptoms HENT: reports: No Symptoms Neck: reports: No Symptoms Cardiovascular: reports: Edema Respiratory: reports: No Symptoms Gastrointestinal: reports: Constipation Genitourinary: reports: No Symptoms Breasts: reports: No Symptoms Reported Musculoskeletal: reports: No Symptoms Integumentary: reports: No Symptoms Neurological: reports: No Symptoms Endocrine: reports: No Symptoms Hematology/Lymphatic: reports: No Symptoms Psychiatric: reports: No Symptoms Vital Signs: Vital Signs Temperature 98.6 F 07/21/19 08:00 Pulse Rate 98 H 07/21/19 08:00 Respiratory Rate 20 07/21/19 08:00 Blood Pressure 110/80 07/21/19 08:00 O2 Sat by Pulse Oximetry (%) 99 07/21/19 06:01 Constitutional: Yes: Well Nourished, No Distress, Calm Eyes: Yes: WNL, Conjunctiva Clear, EOM Intact HENT: Yes: WNL, Atraumatic, Normocephalic Neck: Yes: WNL, Supple, Trachea Midline Respiratory: Yes: WNL, Regular, CTA Bilaterally Gastrointestinal: Yes: WNL, Normal Bowel Sounds Renal/: Yes: WNL Cardiovascular: Yes: WNL, Regular Rate and Rhythm Murmur: Yes: Systolic Murmur, Grade 2 Musculoskeletal: Yes: WNL Edema: Yes Edema: LLE: 2+, RLE: 2+ Integumentary: Yes: WNL Neurological: Yes: WNL, Alert, Oriented ...Motor Strength: WNL Psychiatric: Yes: WNL, Alert, Oriented - Other Data Labs, Other Data: CBC, BMP 07/21/19 06:08 07/21/19 06:08 INR, PTT INR 1.47 (0.83-1.09) H 07/21/19 00:30 Troponin, BNP 07/21/19 07/21/19 00:30 04:05 Troponin I 0.44 H 0.41 H Troponin, BNP 07/21/19 07/21/19 00:30 04:05 Troponin I 0.44 H 0.41 H Imaging - Results Chest X-ray: Image Reviewed (no i/e) EKG: Pending Problem List - Problems (1) Abdominal pain Code(s): R10.9 - UNSPECIFIED ABDOMINAL PAIN (2) Constipation Code(s): K59.00 - CONSTIPATION, UNSPECIFIED (3) Elevated LFTs Code(s): R94.5 - ABNORMAL RESULTS OF LIVER FUNCTION STUDIES (4) Abdominal muscle strain Code(s): S39.011A - STRAIN OF MUSCLE, FASCIA AND TENDON OF ABDOMEN, INIT ENCNTR (5) Anemia Code(s): D64.9 - ANEMIA, UNSPECIFIED (6) Asthma Code(s): J45.909 - UNSPECIFIED ASTHMA, UNCOMPLICATED (7) Back pain Code(s): M54.9 - DORSALGIA, UNSPECIFIED (8) Chest pain Code(s): R07.9 - CHEST PAIN, UNSPECIFIED (9) Chronic back pain Code(s): M54.9 - DORSALGIA, UNSPECIFIED; G89.29 - OTHER CHRONIC PAIN (10) Diarrhea Code(s): R19.7 - DIARRHEA, UNSPECIFIED Qualifiers: Diarrhea type: unspecified type Qualified Code(s): R19.7 - Diarrhea, unspecified (11) Elevated troponin Code(s): R79.89 - OTHER SPECIFIED ABNORMAL FINDINGS OF BLOOD CHEMISTRY (12) Exposure to blood or body fluid Code(s): Z77.21 - CONTACT W AND EXPOSURE TO POTENTIALLY HAZARDOUS BODY FLUIDS (13) GERD (gastroesophageal reflux disease) Code(s): K21.9 - GASTRO-ESOPHAGEAL REFLUX DISEASE WITHOUT ESOPHAGITIS (14) HLD (hyperlipidemia) Code(s): E78.5 - HYPERLIPIDEMIA, UNSPECIFIED (15) HTN (hypertension) Code(s): I10 - ESSENTIAL (PRIMARY) HYPERTENSION (16) Menometrorrhagia Code(s): N92.1 - EXCESSIVE AND FREQUENT MENSTRUATION WITH IRREGULAR CYCLE (17) Multiple thyroid nodules Code(s): E04.2 - NONTOXIC MULTINODULAR GOITER (18) Myocardial infarction Code(s): I21.3 - ST ELEVATION (STEMI) MYOCARDIAL INFARCTION OF UNS SITE (19) Near syncope Code(s): R55 - SYNCOPE AND COLLAPSE (20) Nonischemic cardiomyopathy Code(s): I42.8 - OTHER CARDIOMYOPATHIES (21) Obesity Code(s): E66.9 - OBESITY, UNSPECIFIED (22) Positive blood culture Code(s): R78.81 - BACTEREMIA (23) RBBB Code(s): I45.10 - UNSPECIFIED RIGHT BUNDLE-BRANCH BLOCK (24) S/P hysterectomy Code(s): Z90.710 - ACQUIRED ABSENCE OF BOTH CERVIX AND UTERUS (25) Shortness of breath Code(s): R06.02 - SHORTNESS OF BREATH (26) Sprain of wrist, left Code(s): S63.502A - UNSPECIFIED SPRAIN OF LEFT WRIST, INITIAL ENCOUNTER (27) Strain of mid-back Code(s): S29.012A - STRAIN OF MUSCLE AND TENDON OF BACK WALL OF THORAX, INIT (28) URI (upper respiratory infection) Code(s): J06.9 - ACUTE UPPER RESPIRATORY INFECTION, UNSPECIFIED Assessment/Plan 48 yo F with a hx of asthma, CAD ([place] 2016),Non-obstructive CAD, CRI, HLD, and anemia presents to the emergency department with 1 week of inability to defecate. Also reports l ext edema. Was found to have elevated TNIs (seen in the past) and severely reduced systolic function as well as worsening aortic stenosis with mean gradient of 23 mmHg. EKG pending Plan; BNP telemetry serial CE if bnp elevated will need lasix May need repeated c. cath and evaluation for AVR
--- NOTE | 2019-07-21 11:42 | CON.GI ---
Consult Consult Specialty:: Gastroenterology Reason for Consultation:: Elevated LFTs - History of Present Illness Chief Complaint: Abdominal pain History of Present Illness: 48yo female h/o hysterectomy presenting with increased abdominal pain and distension asked to evaluate for elevated LFTs. Pt reports altered bowel pattern since hysterectomy in 03/2019. Previously reported regular daily bm, now more constipation, moving bowels every 4-5 days, last bm 1 week ago per pt, denies blood in stools. Took laxatives at home without significant relief (unclear which one she took). Just received enema in ED and had small loose bm, feels she may need to move bowels again soon. Also reporting increased abdominal pain and distension over the past week prompting ED evaluation, mostly gas and bloating sensation. Notes increased LE edema also. Denies nausea/vomiting, fever/chills. Denies prior endoscopy. States she has been undergoing evaluation for possible lupus in view of complaints of dry mouth and eye irritation. No known prior h/o liver disease. Drinks 2-3 vodkas/juice every 2 weeks, uses cocaine (last used 3 days ago), smokes 1-2 cigarettes daily, denies IVDA. No known family h/o GI or liver disease. - History Source History Provided By: Patient, Family Member, Medical Record - Past Medical History Cardio/Vascular: Yes: HTN, Hyperlipdemia, [place] Gastrointestinal: Yes: GERD ...LMP: 02/12/19 - Past Surgical History Past Surgical History: Yes: Hysterectomy - Alcohol/Substance Use Hx Alcohol Use: No - Smoking History Smoking history: Never smoked Have you smoked in the past 12 months: No Aproximately how many cigarettes per day: 4 - Social History History of Recent Travel: No Home Medications - Allergies Allergies/Adverse Reactions: Allergies Allergy/AdvReac Type Severity Reaction Status Date / Time No Known Drug Allergies Allergy Verified 07/20/19 23:01 - Home Medications Home Medications: Ambulatory Orders Iron 18 mg PO TID 04/06/19 Omeprazole 20 mg PO BID 04/06/19 Metoprolol Succinate 12.5 mg PO DAILY 05/05/19 Albuterol Sulfate Inhaler - [Ventolin HFA Inhaler -] 1 puff IH Q6H PRN #1 inhaler 05/18/19 Aspirin 81 mg PO DAILY 05/23/19 Furosemide [Lasix -] 0 mg PO DAILY 07/21/19 Review of Systems - Review of Systems Constitutional: reports: Weakness Cardiovascular: reports: No Symptoms Respiratory: reports: No Symptoms Physical Exam-GI Vital Signs: Vital Signs Temperature 98.6 F 07/21/19 08:00 Pulse Rate 98 H 07/21/19 08:00 Respiratory Rate 20 07/21/19 08:00 Blood Pressure 110/80 07/21/19 08:00 O2 Sat by Pulse Oximetry (%) 99 07/21/19 06:01 Constitutional: Yes: No Distress, Calm Cardiovascular: Yes: WNL, Regular Rate and Rhythm Respiratory: Yes: WNL, Regular, CTA Bilaterally ...Palpate: Yes: Other (Abd softly distended, mildly tender in lower abdomen on palpation, flank dullness appreciated, no rebound, guarding or rigidity) ...Rectal Exam: Yes: Other (pt refused rectal exam and attempt for possible disimpaction) Edema: Yes (+LE pitting edema b/l) Labs: CBC, BMP 07/21/19 06:08 07/21/19 06:08 INR, PTT INR 1.47 (0.83-1.09) H 07/21/19 00:30 Imaging - Results Cat Scan: Report Reviewed, Image Reviewed Problem List - Problems (1) Elevated LFTs Assessment/Plan: 48yo female h/o hysterectomy presenting with increased abdominal pain and distension asked to evaluate for elevated LFTs with mixed hepatocellular/ cholestatic pattern. CT imaging revealing enlarged liver and ascites. LFTs normal in 05/2019, no prior h/o liver disease. Exact etiology unclear and may be multifactorial, including congestive hepatopathy, medications, alcoholic vs nonalcoholic fatty liver disease, cannot exclude underlying early cirrhosis based on imaging and lab parameters. -Recommend continue to closely monitor LFT trend -Check hepatitis serologies -Check ASMA, and await PAM for ongoing workup for underlying possible autoimmune disease -Await echo and further cardiology recommendations -Pt should undergo diagnostic paracentesis when able and send studies for cell count, albumin, total protein, cytology, to further elucidate etiologies including cardiac or renal dysfunction -Start miralax for constipation and monitor bms Code(s): R94.5 - ABNORMAL RESULTS OF LIVER FUNCTION STUDIES
--- NOTE | 2019-07-21 13:39 | CONSULT ---
Consult Consult Specialty:: Nephrology Reason for Consultation:: ZEINA - History of Present Illness Chief Complaint: constipation History of Present Illness: Pt is a 48 year old female with pmhx of asthma, anemia, cad, and hld who presents to the ER with contipation. SHe says that she has not had a bowel movement in over a week. SHe says that she has taken enemas and laxitives without help. She was found to be in acute renal failure and I was called to evaluate her. She denies dysuria or hematuria. She denies history of ckd. She denies nsaid use. - History Source History Provided By: Patient - Past Medical History Cardio/Vascular: Yes: HTN, Hyperlipdemia, [place] Gastrointestinal: Yes: GERD ...LMP: 02/12/19 - Past Surgical History Past Surgical History: Yes: Hysterectomy - Alcohol/Substance Use Hx Alcohol Use: No - Smoking History Smoking history: Never smoked Have you smoked in the past 12 months: No Aproximately how many cigarettes per day: 4 - Social History History of Recent Travel: No Home Medications - Allergies Allergies/Adverse Reactions: Allergies Allergy/AdvReac Type Severity Reaction Status Date / Time No Known Drug Allergies Allergy Verified 07/20/19 23:01 - Home Medications Home Medications: Ambulatory Orders Iron 18 mg PO TID 04/06/19 Omeprazole 20 mg PO BID 04/06/19 Metoprolol Succinate 12.5 mg PO DAILY 05/05/19 Albuterol Sulfate Inhaler - [Ventolin HFA Inhaler -] 1 puff IH Q6H PRN #1 inhaler 05/18/19 Aspirin 81 mg PO DAILY 05/23/19 Furosemide [Lasix -] 0 mg PO DAILY 07/21/19 Family Medical History Family History: Denies Review of Systems - Review of Systems Constitutional: reports: No Symptoms Eyes: reports: No Symptoms HENT: reports: No Symptoms Neck: reports: No Symptoms Cardiovascular: reports: No Symptoms Respiratory: reports: No Symptoms Gastrointestinal: reports: Bloating, Constipation Genitourinary: reports: No Symptoms Musculoskeletal: reports: No Symptoms Integumentary: reports: No Symptoms Neurological: reports: No Symptoms Endocrine: reports: No Symptoms Hematology/Lymphatic: reports: No Symptoms Psychiatric: reports: No Symptoms Physical Exam Vital Signs: Vital Signs Temperature 98.6 F 07/21/19 08:00 Pulse Rate 98 H 07/21/19 08:00 Respiratory Rate 20 07/21/19 08:00 Blood Pressure 110/80 07/21/19 08:00 O2 Sat by Pulse Oximetry (%) 99 07/21/19 06:01 Constitutional: Yes: Calm Eyes: Yes: Conjunctiva Clear HENT: Yes: Atraumatic Cardiovascular: Yes: S1, S2 Respiratory: Yes: CTA Bilaterally Gastrointestinal: Yes: Distention Renal/: Yes: WNL Musculoskeletal: Yes: WNL Edema: Yes Edema: LLE: 1+, RLE: 1+ Neurological: Yes: Oriented Psychiatric: Yes: Oriented Labs: CBC, BMP 07/21/19 06:08 07/21/19 06:08 Laboratory Tests 05/17/19 07/21/19 07/21/19 08:50 00:30 06:08 Hgb 8.6 L Creatinine 0.7 1.6 H DANI Screen 07/21/19 07/21/19 06:08 06:08 Hgb Creatinine 1.5 H DANI Screen Pending Imaging - Results Cat Scan: Report Reviewed Ultrasound: Report Reviewed Problem List - Problems (1) ZEINA (acute kidney injury) Code(s): N17.9 - ACUTE KIDNEY FAILURE, UNSPECIFIED (2) Abdominal pain Code(s): R10.9 - UNSPECIFIED ABDOMINAL PAIN (3) Constipation Code(s): K59.00 - CONSTIPATION, UNSPECIFIED Assessment/Plan Current Medications Generic Name Dose Route Start Last Admin Trade Name Freq PRN Reason Stop Dose Admin Albuterol Sulfate 1 puff 07/21/19 02:32 Ventolin Hfa Inhaler - IH Q6H PRN ASTHMA Aspirin 81 mg 07/21/19 10:00 07/21/19 10:58 Asa - PO 81 mg DAILY FILEMON Administration Heparin Sodium (Porcine) 5,000 unit 07/21/19 10:00 07/21/19 10:58 Heparin - SQ 5,000 unit BID FILEMON Administration Metoprolol Succinate 12.5 mg 07/21/19 10:00 07/21/19 10:59 Toprol Xl - PO 12.5 mg DAILY FILEMON Administration Non-Formulary Medication 18 mg 07/21/19 06:00 Iron [Iron] PO TID FILEMON Pantoprazole Sodium 20 mg 07/21/19 10:00 07/21/19 10:58 Protonix - PO 20 mg BID FILEMON Administration Impression 1. ZEINA 2. constipation 3. anasarca 4. asthma 5. 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
--- NOTE | 2019-07-21 13:51 | ECHO ---
Version: 1 Name: MELISSA CH Exam: Adult Echocardiogram Study Date: 07/21/2019, 12:01 PM Age: 48 Years MMode/2D Measurements & Calculations IVSd: 1.14 cm LVIDs: 5.1 cm LVIDd: 6.0 cm LVPWd: 1.16 cm LAV (MOD-bp): 129.0 ml ACS: 1.11 cm Ao root diam: 2.8 cm LVOT diam: 1.77 cm LA dimension: 5.0 cm Doppler Measurements & Calculations MV E max curtis: 72.6 cm/sec Med E/e': 28.6 MV A max curtis: 125.4 cm/sec Med Peak E' Curtis: 2.5 cm/sec MV E/A: 0.58 Lat E/e': 4.7 Lat Peak E' Curtis: 15.6 cm/sec MR max P.7 mmHg Ao max P.9 mmHg JAMEL(I,D): 0.39 cm Ao mean P.5 mmHg LV V1 mean: 44.1 cm/sec Ao V2 max: 275.5 cm/sec LV V1 mean P.91 mmHg TR max curtis: 174.7 cm/sec TR max P.4 mmHg Procedure The study was technically difficult with many images being suboptimal in quality. Left Ventricle The left ventricle is normal in size. Left ventricular systolic function is severely reduced. Ejecti on Fraction = 25%. The transmitral spectral Doppler flow pattern is suggestive of restrictive physiolog y. There is septal dyskinesis. Right Ventricle The right ventricle is moderately dilated. The right ventricular systolic function is normal. Atria The left atrium is moderately dilated. The right atrium is moderately dilated. Mitral Valve There is moderate mitral annular calcification. There is moderate mitral regurgitation. Tricuspid Valve There is mild to moderate tricuspid valve thickening. There is moderate tricuspid regurgitation. Aortic Valve The aortic valve is not heavily calcified. Moderate valvular aortic stenosis. Pulmonic Valve The pulmonic valve is not well seen, but is grossly normal. Great Vessels The aortic root is normal size. Normal aortic arch, descending and ascending aorta. Pericardium/Pleura There is a mild pericardial effusion. Summary Statements The study was technically difficult with many images being suboptimal in quality. The left ventricle is normal in size. Left ventricular systolic function is severely reduced. Ejection Fraction = 25%. The transmitral spectral Doppler flow pattern is suggestive of restrictive physiology. There is septal dyskinesis. The right ventricle is moderately dilated. The right ventricular systolic function is normal. The left atrium is moderately dilated. The right atrium is moderately dilated. There is moderate mitral annular calcification. There is moderate mitral regurgitation. There is mild to moderate tricuspid valve thickening. There is moderate tricuspid regurgitation. The aortic valve is not heavily calcified. Moderate valvular aortic stenosis. The pulmonic valve is not well seen, but is grossly normal. The aortic root is normal size. Normal aortic arch, descending and ascending aorta There is a mild pericardial effusion. Aortic max pressure gradient= 22.5 [place] 07/21/2019, 1:50 PM Ordering Physician: Melisa Ybarra Referring Physician: MELISA YBARRA Performed By: Dana Spicer
--- NOTE | 2019-07-21 14:40 | HP ---
Admitting History and Physical - Admission History of Present Illness: Pt is a 48 year old female with pmhx of asthma, anemia, cad, and hld who presents to the ER with contipation. SHe says that she has not had a bowel movement in over a week. SHe says that she has taken enemas and laxitives without help. Pt states that since she had JOSE in 05/04 she hasn't been feeling fine. In the ER pt found to have elevated BNP/troponin/LFTS. Pt had ct scan abd wc showed ascites. She was also found to be in acute renal failure. Pt states that she has noted increased dyspnea in the past 1-2 weeks. Pt admitted to [facility]. - Past Medical History Cardiovascular: Yes: HTN, Hyperlipdemia, IN Gastrointestinal: Yes: GERD ...LMP: 02/12/19 Heme/Onc: Yes: Anemia - Past Surgical History Past Surgical History: Yes: Hysterectomy - Smoking History Smoking history: Never smoked Have you smoked in the past 12 months: No Aproximately how many cigarettes per day: 4 - Alcohol/Substance Use Hx Alcohol Use: No - Social History History of Recent Travel: No Home Medications - Allergies Allergies/Adverse Reactions: Allergies Allergy/AdvReac Type Severity Reaction Status Date / Time No Known Drug Allergies Allergy Verified 07/20/19 23:01 - Home Medications Home Medications: Ambulatory Orders Iron 18 mg PO TID 04/06/19 Omeprazole 20 mg PO BID 04/06/19 Metoprolol Succinate 12.5 mg PO DAILY 05/05/19 Albuterol Sulfate Inhaler - [Ventolin HFA Inhaler -] 1 puff IH Q6H PRN #1 inhaler 05/18/19 Aspirin 81 mg PO DAILY 05/23/19 Furosemide [Lasix -] 0 mg PO DAILY 07/21/19 Family Medical History Family History: Unremarkable Review of Systems - Review of Systems Constitutional: reports: Loss of Appetite, Weakness Eyes: reports: No Symptoms HENT: reports: No Symptoms Neck: reports: No Symptoms Cardiovascular: reports: Shortness of Breath Respiratory: reports: SOB Gastrointestinal: reports: Bloating Genitourinary: reports: No Symptoms Physical Examination Vital Signs: Vital Signs Temperature 98.6 F 07/21/19 08:00 Pulse Rate 98 H 07/21/19 08:00 Respiratory Rate 20 07/21/19 08:00 Blood Pressure 110/80 07/21/19 08:00 O2 Sat by Pulse Oximetry (%) 99 07/21/19 06:01 Constitutional: Yes: Obese Eyes: Yes: WNL HENT: Yes: WNL Neck: Yes: WNL, Supple Cardiovascular: Yes: Tachycardia Respiratory: Yes: Rales Gastrointestinal: Yes: WNL, Normal Bowel Sounds, Soft, Abdomen, Obese Edema: LLE: 1+, RLE: 1+ Neurological: Yes: WNL, Alert, Oriented ...Motor Strength: WNL Labs: CBC, BMP 07/21/19 06:08 07/21/19 06:08 Problem List - Problems (1) Acute on chronic systolic heart failure Assessment/Plan: Will speak to cardio about IV lasix BNP > 4000 Echo showed EF of 25% Code(s): I50.23 - ACUTE ON CHRONIC SYSTOLIC (CONGESTIVE) HEART FAILURE (2) Elevated troponin Assessment/Plan: Cont asa Monitor troponin Echo showed EF 25% Code(s): R79.89 - OTHER SPECIFIED ABNORMAL FINDINGS OF BLOOD CHEMISTRY (3) ZEINA (acute kidney injury) Assessment/Plan: Renal US unremarkable Cont to monitor labs As per renal Code(s): N17.9 - ACUTE KIDNEY FAILURE, UNSPECIFIED (4) Constipation Code(s): K59.00 - CONSTIPATION, UNSPECIFIED (5) Elevated LFTs Assessment/Plan: LFT's remain elevated GI consult noted CT scan abd showed ascites Will need paracentesis(diagnostic) once stable Code(s): R94.5 - ABNORMAL RESULTS OF LIVER FUNCTION STUDIES (6) Morbid obesity Code(s): E66.01 - MORBID (SEVERE) OBESITY DUE TO EXCESS CALORIES (7) Anemia Code(s): D64.9 - ANEMIA, UNSPECIFIED (8) Asthma Code(s): J45.909 - UNSPECIFIED ASTHMA, UNCOMPLICATED (9) HLD (hyperlipidemia) Code(s): E78.5 - HYPERLIPIDEMIA, UNSPECIFIED (10) Cocaine abuse Code(s): F14.10 - COCAINE ABUSE, UNCOMPLICATED
[2019-07-21 20:10] LABS: METHADONE, UR NEGATIVE ng/ml (CUTOFF=300); OPIATES, URI NEGATIVE ng/ml (CUTOFF=300); PHENCYCLIDINE,URINE NEGATIVE ng/ml (CUTOFF=25); URINE AMPHETAMINES NEGATIVE ng/ml (CUTOFF=500); URINE BARBITURATES NEGATIVE ng/ml (CUTOFF=200); URINE BENZODIAZEPINES NEGATIVE ng/ml (CUTOFF=200)
[2019-07-21 20:18] LABS: COCAINE, UR POSITIVE ng/ml (CUTOFF=300)
[2019-07-22] MEDS: HEPARIN NA (PORCINE) 5,000 UNITS/ML 1ML VIAL SQ SCH ×3 (00:31→21:07)
[2019-07-22] MEDS: PANTOPRAZOLE 20 MG TABLET PO SCH ×3 (00:31→21:07)
[2019-07-22] MEDS ORDERED: ASPIRIN 81 MG CHEWABLE TABLETS PO ONE (01:04)
--- NOTE | 2019-07-22 01:06 | PN ---
Progress Note (short form) - Note Progress Note: Paged by RN that patient was experiencing chest pain. Physical examination: Tachycardic, S1S2 CTAB Obese, NDNT 2+ pitting edema bilaterally VS upon examination: 100/73 21 RR 100 HR 97% O2 STAT EKG ordered. Troponin ordered. EKG: Unchanged from previous EKG Troponin pending Ordered one time dose of ASA 162 in meantime.
[2019-07-22 06:39] LABS: BASO % 0.6 % (0-2.0); EOS % 0.1 % (0-4.5); HEMOGLOBIN 8.8 GM/dL (10.7-15.3); LYMPH % 46.5 % (8-40); MCHC 31.3 g/dl (32.0-36.0); MEAN CELL VOLUME 76.7 fl (80-96); MEAN PLT VOLUME 9.6 fl (7.5-11.1); MONO % 10.3 % (3.8-10.2); NEUT % 42.5 % (42.8-82.8); PLATELET COUNT 167 K/MM3 (134-434); RBC 3.66 M/mm3 (3.60-5.2); RDW 21.5 % (11.6-15.6); WHITE BLOOD COUNT 4.8 K/mm3 (4.0-10.0)
[2019-07-22 07:14] LABS: ALBUMIN 2.9 g/dl (3.4-5.0); BILIRUBIN,TOTAL 1.9 mg/dL (0.2-1); BLOOD UREA NITROGEN 33.8 mg/dL (7-18); CALCIUM 8.4 mg/dL (8.5-10.1); CREATININE 1.7 mg/dL (0.55-1.3); POTASSIUM 3.9 mmol/L (3.5-5.1); TOT PROT 7.6 g/dl (6.4-8.2)
[2019-07-22] MEDS: metoPROLOL SUCCINATE 25 MG TAB.SR.24H (FP) PO SCH (09:32)
[2019-07-22] MEDS: ASPIRIN 81 MG CHEWABLE TABLETS PO SCH (09:33)
--- NOTE | 2019-07-22 13:02 | PN ---
Progress Note, Physician Chief Complaint: Pt A&OX3; wants to eat; denies chest pain, dyspnea, palpitations, or dizziness. History of Present Illness: 48 yo black woman with a hx of severely reduced LVEF--systolic CHF (2019: ECHO also showed moderate , which may be underestimated due to poor LVEF; moderately dilated RV with normal RVEF; mild pericardial effusion), substance abuse (+cocaine on tox screen 07/2019), "asthma", CAD (VT 2015; reportedly non- obstructive CAD on angiogram at [facility] then), HLD, and anemia, now presents to the emergency department with 1 week of inability to defecate. Pt states she took laxatives and an enema without relief. Pt admits to her abdomen being diffusely distended and painful, daughter at bedside agrees the abdomen appears distended. Pt denies CP, SOB, back pain, F/C/N/V, recent travel or sick contacts. - Current Medication List Current Medications: Active Medications Albuterol Sulfate (Ventolin Hfa Inhaler -) 1 puff IH Q6H PRN PRN Reason: ASTHMA Aspirin (Asa -) 81 mg PO DAILY [facility] Last Admin: 07/22/19 09:33 Dose: 81 mg Heparin Sodium (Porcine) (Heparin -) 5,000 unit SQ BID [facility] Last Admin: 07/22/19 09:33 Dose: 5,000 unit Metoprolol Succinate (Toprol Xl -) 12.5 mg PO DAILY [facility] Last Admin: 07/22/19 09:32 Dose: 12.5 mg Pantoprazole Sodium (Protonix -) 20 mg PO BID [facility] Last Admin: 07/22/19 09:32 Dose: 20 mg - Objective Vital Signs: Vital Signs Temperature 98.1 F 07/22/19 09:00 Pulse Rate 96 H 07/22/19 09:00 Respiratory Rate 18 07/22/19 09:00 Blood Pressure 95/56 L 07/22/19 09:00 O2 Sat by Pulse Oximetry (%) 88 L 07/22/19 00:55 Constitutional: Yes: Calm Eyes: Yes: WNL Cardiovascular: Yes: Varicosities Respiratory: Yes: Regular Gastrointestinal: Yes: Soft. No: Tenderness ...Rectal Exam: Yes: Deferred Genitourinary: No: Anuria Breast(s): Yes: WNL Musculoskeletal: Yes: Muscle Weakness Extremities: Yes: Cool Edema: Yes Edema: LLE: 1+, RLE: 1+ Peripheral Pulses WNL: Yes Integumentary: Yes: WNL Neurological: Yes: Alert, Oriented Psychiatric: Yes: Alert, Oriented, Other (substance abuse) Labs: CBC, BMP 07/22/19 05:25 07/22/19 05:25 INR, PTT INR 1.47 (0.83-1.09) H 07/21/19 00:30 Abnormal Lab Results 07/21/19 07/22/19 07/22/19 06:08 01:40 05:25 BUN 33.8 H Creatinine 1.7 H Calcium 8.4 L Iron 27 L Iron Saturation 8 L Unsaturated IBC 308 H Total Bilirubin 1.9 H AST 134 H ALT 102 H Alkaline Phosphatase 151 H Troponin I 0.44 H Albumin 2.9 L HDL Cholesterol Urine Protein Ur Random Potassium Ur Random Chloride PAM Screen Positive H PAM Nuclear Membr Pat 1:320 H PAM Centromere Pattern >1:1280 H 07/22/19 07/22/19 07/22/19 05:25 21:15 21:15 BUN Creatinine Calcium Iron Iron Saturation Unsaturated IBC Total Bilirubin AST ALT Alkaline Phosphatase Troponin I 0.44 H Albumin HDL Cholesterol 22 L Urine Protein 2+ H Ur Random Potassium 21.0 L Ur Random Chloride 85 L PAM Screen PAM Nuclear Membr Pat PAM Centromere Pattern 07/23/19 07/23/19 05:20 05:20 BUN 38.2 H Creatinine 1.8 H Calcium 8.4 L Iron Iron Saturation Unsaturated IBC Total Bilirubin 2.2 H AST 174 H ALT 121 H Alkaline Phosphatase 148 H Troponin I 0.56 H Albumin 2.9 L HDL Cholesterol Urine Protein Ur Random Potassium Ur Random Chloride PAM Screen PAM Nuclear Membr Pat PAM Centromere Pattern - ....Imaging Chest X-ray: Image Reviewed EKG: Image Reviewed Other: Image Reviewed (telemetry: NSR) Problem List - Problems (1) Chronic systolic CHF (congestive heart failure) Assessment/Plan: Pt has been on metoprolol ER, but needs to be stopped due to active cocaine abuser. Will start lisinopril; f/u BUN/Cr, electrolytes, and BP. Is and Os, daily weight. Discussed pt with her fine craft artist, Dr. Boyd. LVEF has apparently worsened, and is now severely reduced, with at least moderate , as well as moderately dilated RV. Pt had planned to undergo repeat coronary angiogram, as well as right-sided cath , aortic valve evaluation, and possible MRI. I have put out call to [facility], where procedures are to be done, for possible transfer. Addendum: Pt will be transferred to [facility] for above workup. Code(s): I50.22 - CHRONIC SYSTOLIC (CONGESTIVE) HEART FAILURE (2) Aortic stenosis Assessment/Plan: "moderate" , which may be underestimated due to poor LVEF. Being followed for this by Dr. Mandy Boyd, fine craft artist. Code(s): I35.0 - NONRHEUMATIC AORTIC (VALVE) STENOSIS (3) Constipation Code(s): K59.00 - CONSTIPATION, UNSPECIFIED (4) Asthma Code(s): J45.909 - UNSPECIFIED ASTHMA, UNCOMPLICATED (5) Back pain Code(s): M54.9 - DORSALGIA, UNSPECIFIED (6) HLD (hyperlipidemia) Code(s): E78.5 - HYPERLIPIDEMIA, UNSPECIFIED (7) HTN (hypertension) Code(s): I10 - ESSENTIAL (PRIMARY) HYPERTENSION (8) Myocardial infarction Code(s): I21.3 - ST ELEVATION (STEMI) MYOCARDIAL INFARCTION OF [facility] SITE (9) Nonischemic cardiomyopathy Code(s): I42.8 - OTHER CARDIOMYOPATHIES (10) Obesity Code(s): E66.9 - OBESITY, UNSPECIFIED (11) S/P hysterectomy Code(s): Z90.710 - ACQUIRED ABSENCE OF BOTH CERVIX AND UTERUS (12) Cocaine abuse Assessment/Plan: + Code(s): F14.10 - COCAINE ABUSE, UNCOMPLICATED (13) Morbid obesity Code(s): E66.01 - MORBID (SEVERE) OBESITY DUE TO EXCESS CALORIES Assessment/Plan + cocaine in tox screen.; Will discontinue metoprolol, despite its benefit with systolic CHF> Would start lisinopril; consider hydralazine + Imdur. As discussed today with pt's caridologist, pt was to be catheterized to reassess coronary arteries (though nonischemic in the past; and may be due to cocaine abuse). Once issue of constipation is resolved, pt will be followed as an outpatient by her cardiac team.
--- NOTE | 2019-07-22 14:26 | EKG ---
Test Reason : Blood Pressure : / mmHG Vent. Rate : 098 BPM Atrial Rate : 098 BPM P-R Int : 152 ms QRS Dur : 158 ms QT Int : 434 ms P-R-T Axes : 068 -64 084 degrees QTc Int : 554 ms NORMAL SINUS RHYTHM RIGHT BUNDLE BRANCH BLOCK LEFT ANTERIOR FASCICULAR BLOCK BIFASCICULAR BLOCK T WAVE ABNORMALITY, CONSIDER LATERAL ISCHEMIA ABNORMAL ECG WHEN COMPARED WITH ECG OF 21-JUL-2019 16:33, PREVIOUS ECG HAS UNDETERMINED RHYTHM, NEEDS REVIEW Confirmed by KANG MISTRY MD ([id number]) on 07/22/2019 2:26:27 PM Referred By: ELTON Confirmed By:KANG MISTRY MD
--- NOTE | 2019-07-22 14:28 | EKG ---
Test Reason : Blood Pressure : / mmHG Vent. Rate : 106 BPM Atrial Rate : 106 BPM P-R Int : 000 ms QRS Dur : 170 ms QT Int : 430 ms P-R-T Axes : 000 -64 121 degrees QTc Int : 571 ms SINUS RHYTHM PREMATURE VENTRICULAR COMPLEXES RIGHT BUNDLE BRANCH BLOCK LEFT ANTERIOR FASCICULAR BLOCK BIFASCICULAR BLOCK T WAVE ABNORMALITY, CONSIDER LATERAL ISCHEMIA ABNORMAL ECG Confirmed by KANG MISTRY MD ([id number]) on 07/22/2019 2:28:02 PM Referred By: Confirmed By:KANG MISTRY MD
--- NOTE | 2019-07-22 14:33 | PN ---
Progress Note, Physician History of Present Illness: Pt seen and examined at bedside. She is awake and alert. She complains of shortness of breath on exertion. - Current Medication List Current Medications: Active Medications Albuterol Sulfate (Ventolin Hfa Inhaler -) 1 puff IH Q6H PRN PRN Reason: ASTHMA Aspirin (Asa -) 81 mg PO DAILY [facility] Last Admin: 07/22/19 09:33 Dose: 81 mg Heparin Sodium (Porcine) (Heparin -) 5,000 unit SQ BID [facility] Last Admin: 07/22/19 09:33 Dose: 5,000 unit Pantoprazole Sodium (Protonix -) 20 mg PO BID [facility] Last Admin: 07/22/19 09:32 Dose: 20 mg - Objective Vital Signs: Vital Signs Temperature 99 F 07/22/19 13:44 Pulse Rate 96 H 07/22/19 13:44 Respiratory Rate 18 07/22/19 13:44 Blood Pressure 101/49 L 07/22/19 13:44 O2 Sat by Pulse Oximetry (%) 88 L 07/22/19 00:55 Constitutional: Yes: Calm Eyes: Yes: Conjunctiva Clear HENT: Yes: Atraumatic Neck: Yes: Supple Cardiovascular: Yes: S1, S2 Respiratory: Yes: CTA Bilaterally Gastrointestinal: Yes: Soft Genitourinary: Yes: WNL Musculoskeletal: Yes: WNL Edema: Yes Edema: LLE: 1+, RLE: 1+ Neurological: Yes: Oriented Psychiatric: Yes: Oriented Labs: CBC, BMP 07/22/19 05:25 07/22/19 05:25 INR, PTT INR 1.47 (0.83-1.09) H 07/21/19 00:30 Problem List - Problems (1) ZEINA (acute kidney injury) Code(s): N17.9 - ACUTE KIDNEY FAILURE, UNSPECIFIED (2) Abdominal pain Code(s): R10.9 - UNSPECIFIED ABDOMINAL PAIN (3) Constipation Code(s): K59.00 - CONSTIPATION, UNSPECIFIED Assessment/Plan Current Medications Generic Name Dose Route Start Last Admin Trade Name Freq PRN Reason Stop Dose Admin Albuterol Sulfate 1 puff 07/21/19 02:32 Ventolin Hfa Inhaler - IH Q6H PRN ASTHMA Aspirin 81 mg 07/21/19 10:00 07/22/19 09:33 Asa - PO 81 mg DAILY [facility] Administration Heparin Sodium (Porcine) 5,000 unit 07/21/19 10:00 07/22/19 09:33 Heparin - SQ 5,000 unit BID [facility] Administration Pantoprazole Sodium 20 mg 07/21/19 10:00 07/22/19 09:32 Protonix - PO 20 mg BID [facility] Administration Impression 1. ZEINA 2. constipation 3. anasarca 4. asthma 5. anemia 6. cocaine use Plan - re-ordered urine studies - will send ckd workup as coverstitch binder is worsening - will give a dose of lasix as she appears overloaded - GI eval for bowel regimen - check urine lytes and coverstitch binder
[2019-07-22] MEDS ORDERED: FUROSEMIDE 40 MG/4 ML INJECTABLE VIAL IVPUSH ONE (14:43)
--- NOTE | 2019-07-22 18:00 | PN.GI ---
GI Progress Note Subjective: 26 y/o F ith cocaine abuse, CHF, ,poor LV function, anasarca was admitted because of severe constipation and abdominal pain associated withelevated liver enzyme. Abdominal ultrasound revealed minimal amount of ascitis and normal CBD. CT and FUA was noted to have a nonspecific gas pattern and no evidence of colon retention and markedly distended stomach. - Objective Vital Signs: Vital Signs Temperature 99 F 07/22/19 14:00 Pulse Rate 96 H 07/22/19 14:00 Respiratory Rate 18 07/22/19 14:00 Blood Pressure 101/49 L 07/22/19 14:00 O2 Sat by Pulse Oximetry (%) 88 L 07/22/19 00:55 Labs: CBC, BMP 07/22/19 05:25 07/22/19 05:25 INR, PTT INR 1.47 (0.83-1.09) H 07/21/19 00:30
[2019-07-22 23:01] LABS: EPI CELLS 1.6 /HPF (0-5/HPF); HYALINE CASTS 7 /lpf (0-8); URINE APPEARANCE CLEAR; URINE BILIRUBIN NEGATIVE (NEGATIVE); URINE COLOR YELLOW; URINE GLUCOSE (UA) NEGATIVE (NEGATIVE); URINE KETONE NEGATIVE (NEGATIVE); URINE LEUK ESTERASE NEGATIVE (NEGATIVE); URINE NITRITE NEGATIVE (NEGATIVE); URINE PROTEIN 2+ (NEGATIVE); URINE RBC 3 /hpf (0-4); URINE WBC 3 /hpf (0-5)
--- NOTE | 2019-07-22 23:14 | PN ---
Progress Note, Physician History of Present Illness: Pt with increased urination - Current Medication List Current Medications: Active Medications Albuterol Sulfate (Ventolin Hfa Inhaler -) 1 puff IH Q6H PRN PRN Reason: ASTHMA Aspirin (Asa -) 81 mg PO DAILY [facility] Last Admin: 07/22/19 09:33 Dose: 81 mg Heparin Sodium (Porcine) (Heparin -) 5,000 unit SQ BID [facility] Last Admin: 07/22/19 21:07 Dose: 5,000 unit Pantoprazole Sodium (Protonix -) 20 mg PO BID [facility] Last Admin: 07/22/19 21:07 Dose: 20 mg - Objective Vital Signs: Vital Signs Temperature 99 F 07/22/19 14:00 Pulse Rate 100 H 07/22/19 22:00 Respiratory Rate 18 07/22/19 22:00 Blood Pressure 99/59 L 07/22/19 22:00 O2 Sat by Pulse Oximetry (%) 95 07/22/19 21:00 Constitutional: Yes: Well Nourished Neck: Yes: WNL, Supple Cardiovascular: Yes: WNL, Regular Rate and Rhythm Respiratory: Yes: Diminished Gastrointestinal: Yes: Normal Bowel Sounds, Soft, Abdomen, Obese Edema: LLE: Trace, RLE: Trace Labs: CBC, BMP 07/22/19 05:25 07/22/19 05:25 INR, PTT INR 1.47 (0.83-1.09) H 07/21/19 00:30 Problem List - Problems (1) Acute on chronic systolic heart failure Assessment/Plan: Pt given dose of IV lasix today BNP > 4000 Echo showed EF of 25% Will need to continue to monitor Monitor electrolytes Code(s): I50.23 - ACUTE ON CHRONIC SYSTOLIC (CONGESTIVE) HEART FAILURE (2) Elevated troponin Assessment/Plan: Cont asa Monitor troponin Echo showed EF 25% Code(s): R79.89 - OTHER SPECIFIED ABNORMAL FINDINGS OF BLOOD CHEMISTRY (3) Elevated LFTs Assessment/Plan: LFT's remain elevated GI consult noted Code(s): R94.5 - ABNORMAL RESULTS OF LIVER FUNCTION STUDIES (4) ZEINA (acute kidney injury) Assessment/Plan: Renal US unremarkable Cont to monitor labs As per renal Code(s): N17.9 - ACUTE KIDNEY FAILURE, UNSPECIFIED (5) Constipation Code(s): K59.00 - CONSTIPATION, UNSPECIFIED (6) Anemia Code(s): D64.9 - ANEMIA, UNSPECIFIED (7) Asthma Assessment/Plan: Cont ventolin prn Code(s): J45.909 - UNSPECIFIED ASTHMA, UNCOMPLICATED (8) HTN (hypertension) Assessment/Plan: Pt is hypotensive Cont to monitor BP Code(s): I10 - ESSENTIAL (PRIMARY) HYPERTENSION (9) Obesity Code(s): E66.9 - OBESITY, UNSPECIFIED (10) Cocaine abuse Code(s): F14.10 - COCAINE ABUSE, UNCOMPLICATED
[2019-07-23 06:54] LABS: ALBUMIN 2.9 g/dl (3.4-5.0); BILIRUBIN,TOTAL 2.2 mg/dL (0.2-1); BLOOD UREA NITROGEN 38.2 mg/dL (7-18); CALCIUM 8.4 mg/dL (8.5-10.1); CREATININE 1.8 mg/dL (0.55-1.3); POTASSIUM 3.6 mmol/L (3.5-5.1); TOT PROT 7.5 g/dl (6.4-8.2)
[2019-07-23] MEDS: HEPARIN NA (PORCINE) 5,000 UNITS/ML 1ML VIAL SQ SCH (09:03)
[2019-07-23] MEDS: ASPIRIN 81 MG CHEWABLE TABLETS PO SCH (09:04)
[2019-07-23] MEDS: PANTOPRAZOLE 20 MG TABLET PO SCH (09:04)
--- NOTE | 2019-07-23 09:38 | PN.GI ---
GI Progress Note Subjective: C/O constipation that has improved No abdominal pain Plan for transfer given cardiac dysfunction, + cocaine screen per cardiology - Objective Vital Signs: Vital Signs Temperature 98.2 F 07/23/19 06:00 Pulse Rate 101 H 07/23/19 06:00 Respiratory Rate 13 07/23/19 06:00 Blood Pressure 92/67 07/23/19 06:00 O2 Sat by Pulse Oximetry (%) 95 07/22/19 21:00 Constitutional: Calm Eyes: No: Sclera Icterus Cardiovascular: Yes: Tachycardia Respiratory: Yes: CTA Bilaterally ...Auscultate: Yes: Normoactive Bowel Sounds ...Palpate: Yes: Soft. No: Hepatomegaly, Splenomegaly, Tenderness Edema: LLE: Trace, RLE: Trace Neurological: Yes: Alert Labs: CBC, BMP 07/22/19 05:25 07/23/19 05:20 INR, PTT INR 1.47 (0.83-1.09) H 07/21/19 00:30 Hepatic Panel Total Bilirubin 2.2 mg/dL (0.2-1) H 07/23/19 05:20 AST 174 U/L (15-37) H 07/23/19 05:20 ALT 121 U/L (13-61) H 07/23/19 05:20 Alkaline Phosphatase 148 U/L (45-117) H 07/23/19 05:20 Albumin 2.9 g/dl (3.4-5.0) L 07/23/19 05:20 Problem List - Problems (1) Elevated LFTs Assessment/Plan: Question if related to cardiac dysfunction with pasive congestion, cocaine use. Normal LFTs 04/03 Hepatitis serologies are pending Added miraLAX 17g once daily Continued evaluation of abnormal liver chemistries upon transfer Abdominal paracentesis when able as outlined in Dr. Perez's initial consultation from 07/21/19 Code(s): R94.5 - ABNORMAL RESULTS OF LIVER FUNCTION STUDIES
[2019-07-23] MEDS ORDERED: PANTOPRAZOLE 20 MG TABLET PO SCH (10:00)
[2019-07-23] MEDS ORDERED: POLYETHYLENE GLYCOL 3350 119 GM BTL PO SCH (10:00)
--- NOTE | 2019-07-23 12:20 | EKG ---
Test Reason : Blood Pressure : / mmHG Vent. Rate : 119 BPM Atrial Rate : 119 BPM P-R Int : 120 ms QRS Dur : 164 ms QT Int : 394 ms P-R-T Axes : -32 -44 186 degrees QTc Int : 554 ms UNUSUAL P AXIS, POSSIBLE ECTOPIC ATRIAL TACHYCARDIA LEFT AXIS DEVIATION RIGHT BUNDLE BRANCH BLOCK NONSPECIFIC ST ABNORMALITY ABNORMAL ECG Confirmed by DARCY SANCHEZ MD ([id number]) on 07/23/2019 12:19:45 PM Referred By: Confirmed By:DARCY SANCHEZ MD
[2019-07-23 13:11] VITALS: TEMP 98.6
[2019-07-23] MEDS ORDERED: FUROSEMIDE 40 MG/4 ML INJECTABLE VIAL IVPUSH SCH (15:00)
--- NOTE | 2019-07-23 16:31 | PN ---
Progress Note, Physician History of Present Illness: Pt seen and examined at bedside. She is awake and alert. She says that she has had bowel movements. - Current Medication List Current Medications: Active Medications Albuterol Sulfate (Ventolin Hfa Inhaler -) 1 puff IH Q6H PRN PRN Reason: ASTHMA Aspirin (Asa -) 81 mg PO DAILY [facility] Last Admin: 07/23/19 09:04 Dose: 81 mg Furosemide (Lasix Injection -) 40 mg IVPUSH DAILY [facility] Last Admin: 07/23/19 15:31 Dose: 40 mg Heparin Sodium (Porcine) (Heparin -) 5,000 unit SQ BID [facility] Last Admin: 07/23/19 09:03 Dose: 5,000 unit Pantoprazole Sodium (Protonix -) 20 mg PO DAILY [facility] Last Admin: 07/23/19 11:59 Dose: 20 mg Polyethylene Glycol (Miralax (For Daily Use) -) 17 gm PO DAILY [facility] Last Admin: 07/23/19 11:59 Dose: 17 grams - Objective Vital Signs: Vital Signs Temperature 98.6 F 07/23/19 13:10 Pulse Rate 102 H 07/23/19 13:10 Respiratory Rate 25 H 07/23/19 13:10 Blood Pressure 119/77 07/23/19 13:10 O2 Sat by Pulse Oximetry (%) 95 07/23/19 09:00 Constitutional: Yes: Calm Eyes: Yes: Conjunctiva Clear HENT: Yes: Atraumatic Neck: Yes: Supple Cardiovascular: Yes: S1, S2 Respiratory: Yes: CTA Bilaterally Gastrointestinal: Yes: Soft, Abdomen, Obese Genitourinary: Yes: WNL Edema: Yes Edema: LLE: 2+, RLE: 2+ Neurological: Yes: Oriented Psychiatric: Yes: Oriented Labs: CBC, BMP 07/22/19 05:25 07/23/19 05:20 INR, PTT INR 1.47 (0.83-1.09) H 07/21/19 00:30 Problem List - Problems (1) ZEINA (acute kidney injury) Code(s): N17.9 - ACUTE KIDNEY FAILURE, UNSPECIFIED (2) Abdominal pain Code(s): R10.9 - UNSPECIFIED ABDOMINAL PAIN (3) Constipation Code(s): K59.00 - CONSTIPATION, UNSPECIFIED Assessment/Plan Current Medications Generic Name Dose Route Start Last Admin Trade Name Freq PRN Reason Stop Dose Admin Albuterol Sulfate 1 puff 07/21/19 02:32 Ventolin Hfa Inhaler - IH Q6H PRN ASTHMA Aspirin 81 mg 07/21/19 10:00 07/23/19 09:04 Asa - PO 81 mg DAILY [facility] Administration Furosemide 40 mg 07/23/19 15:00 07/23/19 15:31 Lasix Injection - IVPUSH 40 mg DAILY [facility] Administration Heparin Sodium (Porcine) 5,000 unit 07/21/19 10:00 07/23/19 09:03 Heparin - SQ 5,000 unit BID [facility] Administration Pantoprazole Sodium 20 mg 07/23/19 10:00 07/23/19 11:59 Protonix - PO 20 mg DAILY [facility] Administration Polyethylene Glycol 17 gm 07/23/19 10:00 07/23/19 11:59 Miralax (For Daily Use) - PO 17 grams DAILY [facility] Administration Laboratory Tests 07/21/19 07/22/19 07/22/19 06:08 18:15 21:15 Urine Protein 2+ H Urine Blood Negative DANI Screen Positive H c-ANCA Pending Proteinase 3 (PR3) Pending p-ANCA Pending Atypical p-ANCA Pending Myeloperoxidase Ab Pending Glomerular Base Memb Ab Pending Impression 1. ZEINA 2. constipation 3. anasarca 4. asthma 5. anemia 6. cocaine use 7. CHF with severely reduced EF Plan - follow serologies - rheum eval for elevated dani - pt with severely reduced ef - cont lasix - cardio follow up
[2019-07-23 18:07] VITALS: BP 129/72; PULSE 80
[2019-07-24 00:06] LABS: HEP B CORE AB, TOT Negative (Negative)
[2019-07-24] MEDS ORDERED: FUROSEMIDE 40 MG/4 ML INJECTABLE VIAL IVPUSH SCH (06:00)
[2019-07-26 11:07] LABS: ANTIGLOMERULAR BASEMENT MEN.AB 3 units (0-20)
[2019-07-27 17:08] LABS: ATYPICAL pANCA <1:20 titer (Neg:<1:20); C-ANCA <1:20 titer (Neg:<1:20)
== END 2019-07-24 08:31 | disposition short-term general hospital (02) | DRG 194 ==
LOC: JER 22:04 → JERBED 07-21 01:53 → J2W 07-22 00:09
PROVIDERS: ADMIT Internal Medicine; ATTEND Internal Medicine
DX: I13.0 Hypertensive heart and chronic kidney disease with heart failure and stage 1 through stage 4 chronic kidney disease, or unspecified chronic kidney disease (principal); I25.10 Atherosclerotic heart disease of native coronary artery without angina pectoris; D64.9 Anemia, unspecified; E78.5 Hyperlipidemia, unspecified; R94.5 Abnormal results of liver function studies; R10.9 Unspecified abdominal pain; F14.10 Cocaine abuse, uncomplicated; E66.01 Morbid (severe) obesity due to excess calories; J45.909 Unspecified asthma, uncomplicated; Z68.39 Body mass index [BMI] 39.0-39.9, adult; I35.0 Nonrheumatic aortic (valve) stenosis; K59.00 Constipation, unspecified; I50.23 Acute on chronic systolic (congestive) heart failure; N17.9 Acute kidney failure, unspecified; R18.8 Other ascites; K21.9 Gastro-esophageal reflux disease without esophagitis
CPT/HCPCS: 36415; 71045-TC-FY; 74019-TC-FY; 74176-TC; 76700-TC; 76775-TC; 80053; 80061; 80307; 81003; 82150; 82436; 82550; 82565; 82728; 83516; 83520; 83540; 83550; 83605; 83690; 83721; 83880; 84133; 84155; 84165; 84300; 84439; 84443; 84484; 85025; 85610; 85651; 86038; 86140; 86256; 86704; 86706; 86707; 86708; 86709; 86850; 86900; 86901; 87340; 87522; 93005; 93010; 93306-TC; 93976; 99285-25; J1644

== ENCOUNTER 2019-08-09 11:41 | Inpatient (IN) | payer OTHER ==
--- NOTE | 2019-08-09 12:40 | PDOC ---
History of Present Illness - General Chief Complaint: Chest Pain Stated Complaint: CP Time Seen by Provider: 08/09/19 12:14 History Source: Patient Exam Limitations: No Limitations - History of Present Illness Initial Comments: 08/09/19 12:33 48 yo female pmh asthma, CAD (2015), HLD, HTN, CHF, paroxsysmal afib and anemia presents to ED from home for low BP and lightheadedness. Pt states she was recently DC for CHF exacerbation, after waking up today she noted she was very lightheaded and a visiting nurse came to the house, found her systolic BP to be 86 and was sent to the ED. Pt took her lisinopril this am around 7 am and BP was taken around 11 am. Pt admits to darker stools than normal over the past few days. Pt denies CP, SOB, palpitations, abdominal pain, changes in urinary habits, back pain, FAUST, LOC, F/C/N/V. Pt also complains of 3 weeks of bilateral intermittent breast pain without discharge. 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/2019 Past History - Past Medical History Allergies/Adverse Reactions: Allergies Allergy/AdvReac Type Severity Reaction Status Date / Time No Known Drug Allergies Allergy Verified 08/09/19 11:58 Home Medications: Ambulatory Orders Iron 18 mg PO TID 04/06/19 Omeprazole 20 mg PO BID 04/06/19 Metoprolol Succinate 12.5 mg PO DAILY 05/05/19 Albuterol Sulfate Inhaler - [Ventolin HFA Inhaler -] 1 puff IH Q6H PRN #1 inhaler 05/18/19 Aspirin 81 mg PO DAILY 05/23/19 Furosemide [Lasix -] 0 mg PO DAILY 07/21/19 Anemia: Yes Asthma: Yes (exercise induced) Cancer: No Cardiac Disorders: Yes (2015) CVA: No COPD: No CHF: No Dementia: No Diabetes: No GI Disorders: No Disorders: No HTN: No Hypercholesterolemia: Yes Liver Disease: No Seizures: No Thyroid Disease: No - Surgical History Abdominal Surgery: Yes (HERNIA AT 6 YEARS OLD) Appendectomy: No Cardiac Surgery: Yes (cardiac cath.) Cholecystectomy: No Lung Surgery: No Neurologic Surgery: No Orthopedic Surgery: No - Immunization History Immunization Up to Date: Yes - Psycho Social/Smoking Cessation Hx Smoking History: Never smoked Have you smoked in the past 12 months: No Number of Cigarettes Smoked Daily: 4 Information on smoking cessation initiated: No 'Breaking Loose' booklet given: 04/13/19 Hx Alcohol Use: No Drug/Substance Use Hx: No Substance Use Type: Alcohol Hx Substance Use Treatment: No Review of Systems - Review of Systems Constitutional: No: Chills, Fever HEENTM: No: Eye Pain, Double Vision Respiratory: No: Shortness of Breath Cardiac (ROS): Yes: Lightheadedness. No: Chest Pain, Palpitations, Syncope ABD/GI: No: Constipated, Diarrhea, Nausea, Vomiting : No: Burning, Frequency, Flank Pain Musculoskeletal: No: Back Pain Integumentary: No: Bruising, Change in Color Neurological: Yes: Dizziness. No: Headache, Numbness, Paresthesia, Weakness, Unsteady Gait, Ataxia *Physical Exam - Vital Signs Last Vital Signs Temp Pulse Resp BP Pulse Ox 98.0 F 98 H 16 96/64 100 08/09/19 11:45 08/09/19 11:45 08/09/19 11:45 08/09/19 11:45 08/09/19 11:45 - Physical Exam General Appearance: Yes: Nourished, Appropriately Dressed. No: Apparent Distress HEENT: positive: EOMI Neck: positive: Supple. negative: Carotid bruit Respiratory/Chest: positive: Lungs Clear, Normal Breath Sounds. negative: Respiratory Distress, Accessory Muscle Use, Rapid RR, Crackles, Rales, Rhonchi, Stridor, Wheezing Cardiovascular: positive: Regular Rhythm, Regular Rate, S1, S2, Edema ( bilateral 1+). negative: JVD, Murmur Vascular Pulses: Dorsalis-Pedis (R): 3+, Doralis-Pedis (L): 3+ Gastrointestinal/Abdominal: positive: Flat, Soft. negative: Pulsatile Mass, Protuberent, Distended, Guarding, Rebound, Tenderness Musculoskeletal: negative: CVA Tenderness Extremity: positive: Normal Capillary Refill, Normal Inspection, Normal Range of Motion Integumentary: positive: Normal Color, Dry, Warm Neurologic: positive: Fully Oriented, Alert, Normal Mood/Affect, Normal Response ED Treatment Course - LABORATORY CBC & Chemistry Diagram: 08/09/19 13:00 08/09/19 13:00 - RADIOLOGY Radiology Studies Ordered: Category Date Time Status CHEST X-RAY PORTABLE* [RAD] Stat Radiology 08/09/19 12:22 Ordered Medical Decision Making - Medical Decision Making 08/09/19 13:33 48 yo female pmh asthma, CAD ([place] 2015), HLD, HTN, CHF, paroxsysmal afib and anemia presents to ED from home for low BP and lightheadedness. Pt states she was recently DC for CHF exacerbation, after waking up today she noted she was very lightheaded and a visiting nurse came to the house, found her systolic BP to be 86 and was sent to the ED. Pt took her lisinopril this am around 7 am and BP was taken around 11 am. Pt admits to darker stools than normal over the past few days. Pt denies CP, SOB, palpitations, abdominal pain, changes in urinary habits, back pain, FAUST, LOC, F/C/N/V. Pt also complains of 3 weeks of bilateral intermittent breast pain without discharge. 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 Pt requires admission tele obs EKG NSR vent rate 98, no sig changes from EKG 08/0508/09/19 14:[address] Ybarra, agrees to tele obs admission Discharge - Discharge Information Problems reviewed: Yes Clinical Impression/Diagnosis: Pre-syncope, Hypotension Condition: Stable - Admission Yes - Follow up/Referral Referrals: Sarath Leon MD [Primary Care Provider] - - Patient Discharge Instructions - Post Discharge Activity
[2019-08-09 13:30] LABS: BASO % 0.9 % (0-2.0); EOS % 1.4 % (0-4.5); HEMATOCRIT 28.9 % (32.4-45.2); LYMPH % 39.6 % (8-40); MCH 24.9 pg (25.7-33.7); MCHC 31.2 g/dl (32.0-36.0); MEAN CELL VOLUME 79.9 fl (80-96); MEAN PLT VOLUME 9.2 fl (7.5-11.1); MONO % 10.3 % (3.8-10.2); NEUT % 47.8 % (42.8-82.8); PLATELET COUNT 166 K/MM3 (134-434); RBC 3.61 M/mm3 (3.60-5.2); RDW 27.3 % (11.6-15.6); WHITE BLOOD COUNT 3.9 K/mm3 (4.0-10.0)
[2019-08-09 13:55] LABS: ALBUMIN 2.7 g/dl (3.4-5.0); BILIRUBIN,TOTAL 1.3 mg/dL (0.2-1); CALCIUM 8.4 mg/dL (8.5-10.1); CREATININE 0.7 mg/dL (0.55-1.3); MAGNESIUM 1.8 mg/dL (1.8-2.4); POTASSIUM 3.3 mmol/L (3.5-5.1); TOT PROT 7.7 g/dl (6.4-8.2)
[2019-08-09 14:28] LABS: ANISOCYTOSIS 2+; PLATELET ESTIMATE ADEQUATE
--- NOTE | 2019-08-09 15:01 | PDOC ---
Documentation entered by Adriana Bolton SCRIBE, acting as scribe for Deyvi Fuentes MD. Deyvi Fuentes MD: This documentation has been prepared by the Hoang mendoza Xhesika, SCRIBE, under my direction and personally reviewed by me in its entirety. I confirm that the documentation accurately reflects all work, treatment, procedures, and medical decision making performed by me. Attending Attestation - Resident Resident Name: Rom Harris - ED Attending Attestation I have performed the following: I have examined & evaluated the patient, The case was reviewed & discussed with the resident, I agree w/resident's findings & plan, Exceptions are as noted - HPI HPI: 08/09/19 13:47 The patient is a 48 year old female, with a significant past medical history of asthma, CAD ([place] 2016), HLD, HTN, CHF (2 admissions in the last 20 days), paroxysmal afib and anemia who presents to the emergency department for lightheadedness and dizziness after waking up this morning to use the restroom. Pt states her symptoms are worse when standing/ sitting up. Pt states her health aid came to visit her this morning and her BP was in the low 80's. The patient denies fever, chills, cough, nausea, vomiting, and constipation. Denies dysuria, frequency, urgency and hematuria. Allergy: NKDA Social: Denies alcohol, cigarette or drug use. - Physicial Exam PE: 08/09/19 13:49 Vitals: Triage Vital signs reviewed General Appearance: no acute distress, well nourished well developed, Neck: Supple;No Nuchal rigidity Chest Wall: Nontender Cardiac: Regular rate and rhythm, no murmurs, no rubs, no gallops, Lungs: Clear to auscultation bilateral, good air movement bilaterally, Abdomen: Soft, nondistended, normal bowel sounds, nontender to palpation Extremities: Full range of motion to all extremities, no cyanosis, clubbing, or edema Skin: Warm and dry, no rashes or lesions, no petechiae Psych: normal mood, normal affect - Medical Decision Making 08/09/19 15:02 EKG performed at 1239 demonstrates sinus rhythm with premature atrial complexes right bundle branch block, left anterior fascicular block, Interpreted by me 08/09/19 15:03 48 years old multiple medical problems recent admission for CHF exacerbation multiple changes to her medications Now with dizziness lightheadedness and hypotension Likely secondary to polypharmacy We will gently hydrate and observe overnight for further management.
[2019-08-09] MEDS ORDERED: SODIUM CHLORIDE 0.9% 1000 ML INFUS.BAG IV ONE (15:03)
[2019-08-09 15:59] LABS: INR 1.66 (0.83-1.09); PROTHROMBIN TIME (PATIENT) 19.7 SEC (9.7-13.0)
[2019-08-09 16:02] LABS: ACTIVATED PTT 39.3 SECONDS (25.2-36.5)
--- NOTE | 2019-08-09 21:45 | HP ---
Admitting History and Physical - Past Medical History Cardiovascular: Yes: HTN, Hyperlipdemia, [place] Gastrointestinal: Yes: GERD ...LMP: 02/12/19 Heme/Onc: Yes: Anemia - Past Surgical History Past Surgical History: Yes: Hysterectomy - Smoking History Smoking history: Never smoked Have you smoked in the past 12 months: No Aproximately how many cigarettes per day: 4 - Alcohol/Substance Use Hx Alcohol Use: No - Social History History of Recent Travel: No Home Medications - Allergies Allergies/Adverse Reactions: Allergies Allergy/AdvReac Type Severity Reaction Status Date / Time No Known Drug Allergies Allergy Verified 08/09/19 11:58 - Home Medications Home Medications: Ambulatory Orders Omeprazole 20 mg PO BID 04/06/19 Albuterol Sulfate Inhaler - [Ventolin HFA Inhaler -] 1 puff IH Q6H PRN #1 inhaler 05/18/19 Aspirin 81 mg PO DAILY 05/23/19 Furosemide [Lasix -] 40 mg PO DAILY 07/21/19 Apixaban [Eliquis] 5 mg PO DAILY 08/09/19 Atorvastatin Calcium [Lipitor] 20 mg PO HS 08/09/19 Digoxin [Digitek] 250 mcg PO DAILY 08/09/19 Ferrous Sulfate [Feosol] 75 mg PO TID 08/09/19 Lisinopril [Zestril] 2.5 mg PO DAILY 08/09/19 Magnesium Oxide [Mag-Ox -] 400 mg PO DAILY 08/09/19 Physical Examination Vital Signs: Vital Signs Temperature 97.6 F 08/09/19 15:54 Pulse Rate 106 H 08/09/19 19:26 Respiratory Rate 18 08/09/19 19:26 Blood Pressure 103/48 L 08/09/19 19:26 O2 Sat by Pulse Oximetry (%) 98 08/09/19 19:26 Labs: CBC, BMP 08/09/19 13:00 08/09/19 13:00
--- NOTE | 2019-08-09 22:05 | CON.CARD ---
Consult Consult Specialty:: Cardiology - History of Present Illness History of Present Illness: The patient is a 48 year old black woman, with a significant past medical history of asthma, CAD ([place] 2016; pt reports having coronary angiogram during that admission that showed "only 30% block"), HLD, HTN, severe systolic CHF (2 admissions in the last 20 days for CHF; ECHO 07/21/2019 showed severely reduced LVEF; moderate MR; moderate ), paroxysmal afib, and anemia, who presents to the emergency department for lightheadedness and dizziness after waking up this morning to use the restroom. Pt states her symptoms are worse when standing/ sitting up. Pt states her health aide came to visit her this morning and her BP was in the low 80's systolic. The patient denies fever, chills, cough, nausea, vomiting, and constipation. Denies dysuria, frequency, urgency and hematuria. Allergy: NKDA Social: Denies alcohol, cigarette or drug use. Pt was recently admitted to [facility]; she was tranferred to [facility]; she reports having had a coronary angiogram there that did not require PCI. She was sent home on "a lot of medications for the heart". - History Source History Provided By: Medical Record - Past Medical History Cardio/Vascular: Yes: HTN, Hyperlipdemia, [place] Gastrointestinal: Yes: GERD ...LMP: 02/12/19 - Past Surgical History Past Surgical History: Yes: Hysterectomy - Alcohol/Substance Use Hx Alcohol Use: No - Smoking History Smoking history: Never smoked Have you smoked in the past 12 months: No Aproximately how many cigarettes per day: 4 - Social History History of Recent Travel: No Home Medications - Allergies Allergies/Adverse Reactions: Allergies Allergy/AdvReac Type Severity Reaction Status Date / Time No Known Drug Allergies Allergy Verified 08/09/19 11:58 - Home Medications Home Medications: Ambulatory Orders Omeprazole 20 mg PO BID 04/06/19 Albuterol Sulfate Inhaler - [Ventolin HFA Inhaler -] 1 puff IH Q6H PRN #1 inhaler 05/18/19 Aspirin 81 mg PO DAILY 05/23/19 Furosemide [Lasix -] 40 mg PO DAILY 07/21/19 Apixaban [Eliquis] 5 mg PO DAILY 08/09/19 Atorvastatin Calcium [Lipitor] 20 mg PO HS 08/09/19 Digoxin [Digitek] 250 mcg PO DAILY 08/09/19 Ferrous Sulfate [Feosol] 75 mg PO TID 08/09/19 Lisinopril [Zestril] 2.5 mg PO DAILY 08/09/19 Magnesium Oxide [Mag-Ox -] 400 mg PO DAILY 08/09/19 Review of Systems - Review of Systems Constitutional: reports: Weakness Eyes: reports: No Symptoms HENT: reports: No Symptoms Neck: reports: No Symptoms Cardiovascular: reports: No Symptoms Gastrointestinal: reports: No Symptoms Genitourinary: reports: No Symptoms Breasts: reports: No Symptoms Reported Musculoskeletal: reports: No Symptoms Integumentary: reports: No Symptoms Neurological: reports: Weakness Endocrine: reports: No Symptoms Hematology/Lymphatic: reports: No Symptoms Psychiatric: reports: No Symptoms Vital Signs: Vital Signs Temperature 97.6 F 08/09/19 15:54 Pulse Rate 106 H 08/09/19 19:26 Respiratory Rate 18 08/09/19 19:26 Blood Pressure 103/48 L 08/09/19 19:26 O2 Sat by Pulse Oximetry (%) 98 08/09/19 19:26 Constitutional: Yes: Well Nourished, No Distress, Calm Eyes: Yes: WNL, Conjunctiva Clear, EOM Intact HENT: Yes: WNL, Atraumatic, Normocephalic Neck: Yes: WNL, Supple, Trachea Midline Respiratory: Yes: WNL, Regular, CTA Bilaterally Gastrointestinal: Yes: WNL, Normal Bowel Sounds Renal/: Yes: WNL Cardiovascular: Yes: WNL, Regular Rate and Rhythm Musculoskeletal: Yes: WNL Extremities: Yes: WNL Integumentary: Yes: WNL Neurological: Yes: WNL, Alert, Oriented ...Motor Strength: WNL Psychiatric: Yes: WNL, Alert, Oriented - Other Data Labs, Other Data: CBC, BMP 08/09/19 13:00 08/09/19 13:00 INR, PTT INR 1.66 (0.83-1.09) H 08/09/19 15:08 Troponin, BNP 08/09/19 08/09/19 13:00 18:50 Troponin I 0.34 H 0.36 H Troponin, BNP 08/09/19 08/09/19 13:00 18:50 Troponin I 0.34 H 0.36 H Imaging - Results Chest X-ray: Image Reviewed (no i/e) EKG: Image Reviewed (sr segundo wray) Problem List - Problems (1) Hypotension Code(s): I95.9 - HYPOTENSION, UNSPECIFIED (2) Near syncope Code(s): R55 - SYNCOPE AND COLLAPSE (3) ZEINA (acute kidney injury) Code(s): N17.9 - ACUTE KIDNEY FAILURE, UNSPECIFIED (4) Abdominal muscle strain Code(s): S39.011A - STRAIN OF MUSCLE, FASCIA AND TENDON OF ABDOMEN, INIT ENCNTR (5) Abdominal pain Code(s): R10.9 - UNSPECIFIED ABDOMINAL PAIN (6) Acute on chronic systolic heart failure Code(s): I50.23 - ACUTE ON CHRONIC SYSTOLIC (CONGESTIVE) HEART FAILURE (7) Anemia Code(s): D64.9 - ANEMIA, UNSPECIFIED (8) Aortic stenosis Code(s): I35.0 - NONRHEUMATIC AORTIC (VALVE) STENOSIS (9) Asthma Code(s): J45.909 - UNSPECIFIED ASTHMA, UNCOMPLICATED (10) Back pain Code(s): M54.9 - DORSALGIA, UNSPECIFIED (11) Chest pain Code(s): R07.9 - CHEST PAIN, UNSPECIFIED (12) Chronic back pain Code(s): M54.9 - DORSALGIA, UNSPECIFIED; G89.29 - OTHER CHRONIC PAIN (13) Chronic systolic CHF (congestive heart failure) Code(s): I50.22 - CHRONIC SYSTOLIC (CONGESTIVE) HEART FAILURE (14) Cocaine abuse Code(s): F14.10 - COCAINE ABUSE, UNCOMPLICATED (15) Constipation Code(s): K59.00 - CONSTIPATION, UNSPECIFIED (16) Diarrhea Code(s): R19.7 - DIARRHEA, UNSPECIFIED Qualifiers: Diarrhea type: unspecified type Qualified Code(s): R19.7 - Diarrhea, unspecified (17) Elevated LFTs Code(s): R94.5 - ABNORMAL RESULTS OF LIVER FUNCTION STUDIES (18) Elevated troponin Code(s): R79.89 - OTHER SPECIFIED ABNORMAL FINDINGS OF BLOOD CHEMISTRY (19) Exposure to blood or body fluid Code(s): Z77.21 - CONTACT W AND EXPOSURE TO POTENTIALLY HAZARDOUS BODY FLUIDS (20) GERD (gastroesophageal reflux disease) Code(s): K21.9 - GASTRO-ESOPHAGEAL REFLUX DISEASE WITHOUT ESOPHAGITIS (21) HLD (hyperlipidemia) Code(s): E78.5 - HYPERLIPIDEMIA, UNSPECIFIED (22) HTN (hypertension) Code(s): I10 - ESSENTIAL (PRIMARY) HYPERTENSION (23) Menometrorrhagia Code(s): N92.1 - EXCESSIVE AND FREQUENT MENSTRUATION WITH IRREGULAR CYCLE (24) Morbid obesity Code(s): E66.01 - MORBID (SEVERE) OBESITY DUE TO EXCESS CALORIES (25) Multiple thyroid nodules Code(s): E04.2 - NONTOXIC MULTINODULAR GOITER (26) Myocardial infarction Code(s): I21.3 - ST ELEVATION (STEMI) MYOCARDIAL INFARCTION OF [facility] SITE (27) Nonischemic cardiomyopathy Code(s): I42.8 - OTHER CARDIOMYOPATHIES (28) Obesity Code(s): E66.9 - OBESITY, UNSPECIFIED (29) Positive blood culture Code(s): R78.81 - BACTEREMIA (30) RBBB Code(s): I45.10 - UNSPECIFIED RIGHT BUNDLE-BRANCH BLOCK (31) S/P hysterectomy Code(s): Z90.710 - ACQUIRED ABSENCE OF BOTH CERVIX AND UTERUS (32) Shortness of breath Code(s): R06.02 - SHORTNESS OF BREATH (33) Sprain of wrist, left Code(s): S63.502A - UNSPECIFIED SPRAIN OF LEFT WRIST, INITIAL ENCOUNTER (34) Strain of mid-back Code(s): S29.012A - STRAIN OF MUSCLE AND TENDON OF BACK WALL OF THORAX, INIT (35) URI (upper respiratory infection) Code(s): J06.9 - ACUTE UPPER RESPIRATORY INFECTION, UNSPECIFIED Assessment/Plan - Problems (1) Moderate aortic stenosis Assessment/Plan: May be underestimated due to poor LVEF. F/u workup done at [facility] recently, including coronary angiogram, ?valvular evaluation, ? right-heart cath. Code(s): I35.0 - NONRHEUMATIC AORTIC (VALVE) STENOSIS (2) Breast pain Assessment/Plan: Pt believes this pain began after she underwent a hysterectomy 03/2019. Code(s): N64.4 - MASTODYNIA (3) Acute on chronic systolic heart failure Assessment/Plan: ECHO : severely reduced LVEF; moderate and MR; small pericardial effusion. On lisinopril and furosemide. Start carvedilol (pt had been using beta blockers, which were stopped last admission, early July, due to continue cocaine use; now says she has "stopped completely"; f/u toxicology screen). Plan to add spironolactone if BP, BUN/Cr and electrolytes allow. F/u BUN/Cr, electrolytes dailyh weight, Is and Os. F/u recent workup done at [facility] (pt was transferred at that time for CHF, hypotension). Code(s): I50.23 - ACUTE ON CHRONIC SYSTOLIC (CONGESTIVE) HEART FAILURE (4) Obesity Code(s): E66.9 - OBESITY, UNSPECIFIED (5) S/P hysterectomy Code(s): Z90.710 - ACQUIRED ABSENCE OF BOTH CERVIX AND UTERUS (6) Anemia Code(s): D64.9 - ANEMIA, UNSPECIFIED (7) Elevated troponin Assessment/Plan: Chronic elevation to 0.4 since at least 2016. Reportedly non-obstructive CAD on coronary angiograms 2015 (?[place] at that time) and 2019. Code(s): R79.89 - OTHER SPECIFIED ABNORMAL FINDINGS OF BLOOD CHEMISTRY
[2019-08-09] MEDS ORDERED: ALBUTEROL SO4 HFA INHALER IH PRN (22:06)
--- NOTE | 2019-08-10 03:31 | PDOC ---
*Physical Exam - Vital Signs Last Vital Signs Temp Pulse Resp BP Pulse Ox 97.5 F L 106 H 18 111/78 100 08/10/19 01:22 08/10/19 01:22 08/10/19 01:22 08/10/19 01:22 08/10/19 01:22 ED Treatment Course - LABORATORY CBC & Chemistry Diagram: 08/10/19 06:02 08/10/19 06:02 - ADDITIONAL ORDERS Additional order review: Laboratory Results 08/09/19 08/09/19 08/09/19 18:50 18:21 15:08 PT with INR 19.70 H INR 1.66 H PTT (Actin FS) 39.3 H POC Glucometer 114 Troponin I 0.36 H 08/09/19 08/09/19 18:21 13:00 RBC 3.61 MCV 79.9 L MCHC 31.2 L RDW 27.3 H MPV 9.2 Neutrophils % 47.8 Lymphocytes % 39.6 Monocytes % 10.3 H Eosinophils % 1.4 D Basophils % 0.9 POC Glucometer 114 - Medications Given in the ED: ED Medications Discontinued Medications Generic Name Dose Route Start Last Admin Trade Name Freq PRN Reason Stop Dose Admin Sodium Chloride 1,000 ml 08/09/19 15:03 08/09/19 15:05 Normal Saline - IV 08/09/19 15:04 1,000 ml ONCE ONE Administration Medical Decision Making - Medical Decision Making 08/10/19 03:30 RN Shlomo notified me of patient complaining of chest pain. Pt states that she feels sharp pain in her retrosternal area that is nonreproducible and pleuritic. Will obtain EKG and troponin. Dr. Ybarra pagekierra. Discharge - Discharge Information Problems reviewed: Yes Clinical Impression/Diagnosis: Pre-syncope, Hypotension Condition: Stable - Follow up/Referral - Patient Discharge Instructions - Post Discharge Activity
[2019-08-10] MEDS ORDERED: FERROUS SULFATE PO SCH (06:00)
[2019-08-10] MEDS ORDERED: FERROUS SO4 325 MG TABLET (FP) ONE (06:40)
[2019-08-10 06:46] LABS: BASO % 0.8 % (0-2.0); HEMATOCRIT 27.8 % (32.4-45.2); HEMOGLOBIN 8.7 GM/dL (10.7-15.3); LYMPH % 37.5 % (8-40); MCH 25.3 pg (25.7-33.7); MCHC 31.5 g/dl (32.0-36.0); MEAN CELL VOLUME 80.4 fl (80-96); MEAN PLT VOLUME 9.8 fl (7.5-11.1); MONO % 9.5 % (3.8-10.2); NEUT % 51.2 % (42.8-82.8); PLATELET COUNT 164 K/MM3 (134-434); RBC 3.46 M/mm3 (3.60-5.2); RDW 27.3 % (11.6-15.6); WHITE BLOOD COUNT 4.6 K/mm3 (4.0-10.0)
[2019-08-10] MEDS: FERROUS SO4 325 MG TABLET (FP) PO SCH ×3 (06:49→21:16)
[2019-08-10 07:15] LABS: ALBUMIN 2.6 g/dl (3.4-5.0); BILIRUBIN,TOTAL 1.1 mg/dL (0.2-1); BLOOD UREA NITROGEN 10.5 mg/dL (7-18); CALCIUM 8.4 mg/dL (8.5-10.1); CREATININE 0.8 mg/dL (0.55-1.3); POTASSIUM 3.5 mmol/L (3.5-5.1); TOT PROT 7.7 g/dl (6.4-8.2)
--- NOTE | 2019-08-10 09:40 | EKG ---
Test Reason : Blood Pressure : / mmHG Vent. Rate : 104 BPM Atrial Rate : 104 BPM P-R Int : 152 ms QRS Dur : 156 ms QT Int : 340 ms P-R-T Axes : 064 -59 108 degrees QTc Int : 447 ms SINUS TACHYCARDIA WITH FREQUENT PREMATURE VENTRICULAR COMPLEXES RIGHT BUNDLE BRANCH BLOCK LEFT ANTERIOR FASCICULAR BLOCK BIFASCICULAR BLOCK ABNORMAL ECG Confirmed by Calvin Hernandes MD ([id number]) on 08/10/2019 9:40:20 AM Referred By: Confirmed By:Calvin Hernandes MD
--- NOTE | 2019-08-10 09:40 | EKG ---
Test Reason : Blood Pressure : / mmHG Vent. Rate : 107 BPM Atrial Rate : 107 BPM P-R Int : 166 ms QRS Dur : 158 ms QT Int : 470 ms P-R-T Axes : 088 -62 096 degrees QTc Int : 627 ms SINUS TACHYCARDIA WITH FREQUENT PREMATURE VENTRICULAR COMPLEXES AND FUSION COMPLEXES RIGHT BUNDLE BRANCH BLOCK LEFT ANTERIOR FASCICULAR BLOCK BIFASCICULAR BLOCK ABNORMAL ECG Confirmed by Calvin Hernandes MD ([id number]) on 08/10/2019 9:39:37 AM Referred By: Confirmed By:Calvin Hernandes MD
--- NOTE | 2019-08-10 09:41 | EKG ---
Test Reason : Blood Pressure : / mmHG Vent. Rate : 098 BPM Atrial Rate : 098 BPM P-R Int : 182 ms QRS Dur : 164 ms QT Int : 426 ms P-R-T Axes : 063 -55 097 degrees QTc Int : 543 ms SINUS RHYTHM WITH PREMATURE ATRIAL COMPLEXES RIGHT BUNDLE BRANCH BLOCK LEFT ANTERIOR FASCICULAR BLOCK BIFASCICULAR BLOCK ABNORMAL ECG Confirmed by Calvin Hernandes MD ([id number]) on 08/10/2019 9:41:10 AM Referred By: Confirmed By:Calvin Hernandes MD
[2019-08-10] MEDS: ASPIRIN 81 MG CHEWABLE TABLETS PO SCH (09:53)
[2019-08-10] MEDS: APIXABAN 5 MG TABLET PO SCH (09:53)
[2019-08-10] MEDS: MAGNESIUM OXIDE 400 MG TABLET (FP) PO SCH (09:53)
[2019-08-10] MEDS: FUROSEMIDE 20 MG TABLET (FP) PO SCH (09:53)
[2019-08-10] MEDS: DIGOXIN 0.25 MG TABLET (FP) PO SCH (09:53)
[2019-08-10] MEDS: LISINOPRIL 5 MG TABLET (FP) PO SCH (09:53)
[2019-08-10] MEDS ORDERED: PATIENT'S OWN MEDICATION (NON-FORMULARY) (Lisinopril [Zestril] 2.5 MG) PO SCH (10:00)
--- NOTE | 2019-08-10 12:39 | PN ---
Progress Note, Physician Chief Complaint: Pt A&Ox3; sitting in chair; c/o continued pain in both breasts. History of Present Illness: The patient is a 48 year old black woman, with a significant past medical history of asthma, CAD (DE 2015; pt reports having coronary angiogram during that admission that showed "only 30% block"), HLD, HTN, severe systolic CHF (2 admissions in the last 20 days for CHF; ECHO 07/21/2019 showed severely reduced LVEF; moderate MR; moderate ), paroxysmal afib, and anemia, who presents to the emergency department for lightheadedness and dizziness after waking up this morning to use the restroom. Pt states her symptoms are worse when standing/ sitting up. Pt states her health aide came to visit her this morning and her BP was in the low 80's systolic. The patient denies fever, chills, cough, nausea, vomiting, and constipation. Denies dysuria, frequency, urgency and hematuria. Allergy: NKDA Social: Denies alcohol, cigarette or drug use. Pt was recently admitted to [facility]; she was tranferred to [facility]; she reports having had a coronary angiogram there that did not require PCI. She was sent home on "a lot of medications for the heart". - Current Medication List Current Medications: Active Medications Albuterol Sulfate (Ventolin Hfa Inhaler -) 1 puff IH Q6H PRN PRN Reason: ASTHMA Apixaban (Eliquis -) 5 mg PO DAILY [facility] Last Admin: 08/10/19 09:53 Dose: 5 mg Aspirin (Asa -) 81 mg PO DAILY [facility] Last Admin: 08/10/19 09:53 Dose: 81 mg Atorvastatin Calcium (Lipitor -) 20 mg PO HS [facility] Digoxin (Lanoxin -) 0.25 mg PO DAILY [facility] Last Admin: 08/10/19 09:53 Dose: 0.25 mg Ferrous Sulfate (Feosol -) 325 mg PO TID [facility] Last Admin: 08/10/19 06:49 Dose: 325 mg Furosemide (Lasix -) 40 mg PO DAILY [facility] Last Admin: 08/10/19 09:53 Dose: 40 mg Lisinopril (Prinivil) 2.5 mg PO DAILY [facility] Last Admin: 08/10/19 09:53 Dose: 2.5 mg Magnesium Oxide (Mag-Ox -) 400 mg PO DAILY [facility] Last Admin: 08/10/19 09:53 Dose: 400 mg - Objective Vital Signs: Vital Signs Temperature 97.6 F 08/10/19 09:41 Pulse Rate 10 L 08/10/19 09:41 Respiratory Rate 16 08/10/19 09:41 Blood Pressure 103/74 08/10/19 09:41 O2 Sat by Pulse Oximetry (%) 98 08/10/19 09:41 Constitutional: Yes: Calm, Obese Eyes: Yes: WNL HENT: Yes: WNL Neck: Yes: WNL Cardiovascular: Yes: Murmur (2/6 systolic murmur, RSB-->apex), S1, S2 Respiratory: Yes: SOB on Exertion Gastrointestinal: Yes: Soft ...Rectal Exam: Yes: Deferred Genitourinary: No: Anuria Breast(s): Yes: Other (pain in both breasts on palpation). No: Discharge from Nipple, Skin Changes Musculoskeletal: Yes: Back Pain Edema: No Peripheral Pulses WNL: Yes Integumentary: Yes: WNL Neurological: Yes: Alert, Oriented Psychiatric: Yes: Alert, Oriented Labs: CBC, BMP 08/10/19 06:02 08/10/19 06:02 INR, PTT INR 1.66 (0.83-1.09) H 08/09/19 15:08 - ....Imaging Chest X-ray: Image Reviewed (no acute pathology) EKG: Image Reviewed Problem List - Problems (1) Moderate aortic stenosis Assessment/Plan: May be underestimated due to poor LVEF. F/u workup done at [facility] recently, including coronary angiogram, ?valvular evaluation, ? right-heart cath. Code(s): I35.0 - NONRHEUMATIC AORTIC (VALVE) STENOSIS (2) Breast pain Assessment/Plan: Pt believes this pain began after she underwent a hysterectomy 03/2019. Code(s): N64.4 - MASTODYNIA (3) Acute on chronic systolic heart failure Assessment/Plan: ECHO : severely reduced LVEF; moderate and MR; small pericardial effusion. On lisinopril and furosemide. Start carvedilol (pt had been using beta blockers, which were stopped last admission, early July, due to continue cocaine use; now says she has "stopped completely"; f/u toxicology screen). Plan to add spironolactone if BP, BUN/Cr and electrolytes allow. F/u BUN/Cr, electrolytes dailyh weight, Is and Os. F/u recent workup done at [facility] (pt was transferred at that time for CHF, hypotension). Code(s): I50.23 - ACUTE ON CHRONIC SYSTOLIC (CONGESTIVE) HEART FAILURE (4) Obesity Code(s): E66.9 - OBESITY, UNSPECIFIED (5) S/P hysterectomy Code(s): Z90.710 - ACQUIRED ABSENCE OF BOTH CERVIX AND UTERUS (6) Anemia Code(s): D64.9 - ANEMIA, UNSPECIFIED (7) Elevated troponin Assessment/Plan: Chronic elevation to 0.4 since at least 2017. Reportedly non-obstructive CAD on coronary angiograms 2016 (?[place] at that time) and 2019. Code(s): R79.89 - OTHER SPECIFIED ABNORMAL FINDINGS OF BLOOD CHEMISTRY
[2019-08-10 14:43] VITALS: BMI 33.3
[2019-08-10] MEDS: ATORVASTATIN CA 20 MG TABLET (FP) PO SCH (21:16)
[2019-08-10] MEDS: ACETAMINOPHEN 325 MG TABLET (FP) PO PRN (22:10)
--- NOTE | 2019-08-10 23:38 | PN ---
Progress Note, Physician History of Present Illness: Pt complains of b/l breast pain - Current Medication List Current Medications: Active Medications Acetaminophen (Tylenol -) 650 mg PO Q6H PRN PRN Reason: PAIN Last Admin: 08/10/19 22:10 Dose: 650 mg Albuterol Sulfate (Ventolin Hfa Inhaler -) 1 puff IH Q6H PRN PRN Reason: ASTHMA Apixaban (Eliquis -) 5 mg PO DAILY [facility] Last Admin: 08/10/19 09:53 Dose: 5 mg Aspirin (Asa -) 81 mg PO DAILY [facility] Last Admin: 08/10/19 09:53 Dose: 81 mg Atorvastatin Calcium (Lipitor -) 20 mg PO HS [facility] Last Admin: 08/10/19 21:16 Dose: 20 mg Digoxin (Lanoxin -) 0.25 mg PO DAILY [facility] Last Admin: 08/10/19 09:53 Dose: 0.25 mg Ferrous Sulfate (Feosol -) 325 mg PO TID [facility] Last Admin: 08/10/19 21:16 Dose: 325 mg Furosemide (Lasix -) 40 mg PO DAILY [facility] Last Admin: 08/10/19 09:53 Dose: 40 mg Lisinopril (Prinivil) 2.5 mg PO DAILY [facility] Last Admin: 08/10/19 09:53 Dose: 2.5 mg Magnesium Oxide (Mag-Ox -) 400 mg PO DAILY [facility] Last Admin: 08/10/19 09:53 Dose: 400 mg - Objective Vital Signs: Vital Signs Temperature 98.6 F 08/10/19 22:00 Pulse Rate 98 H 08/10/19 22:00 Respiratory Rate 20 08/10/19 22:00 Blood Pressure 105/72 08/10/19 22:00 O2 Sat by Pulse Oximetry (%) 100 08/10/19 21:00 Neck: Yes: WNL, Supple Cardiovascular: Yes: WNL, Regular Rate and Rhythm, Murmur Respiratory: Yes: WNL, Regular, CTA Bilaterally Gastrointestinal: Yes: WNL, Normal Bowel Sounds, Soft, Abdomen, Obese Labs: CBC, BMP 08/10/19 06:02 08/10/19 06:02 INR, PTT INR 1.66 (0.83-1.09) H 08/09/19 15:08 Problem List - Problems (1) Near syncope Assessment/Plan: ?Due to hypotension BP improved Code(s): R55 - SYNCOPE AND COLLAPSE (2) Acute on chronic systolic heart failure Assessment/Plan: Cont lasix Meds to be adjusted as per cardio as BP allows Code(s): I50.23 - ACUTE ON CHRONIC SYSTOLIC (CONGESTIVE) HEART FAILURE (3) Breast pain Code(s): N64.4 - MASTODYNIA (4) Aortic stenosis Code(s): I35.0 - NONRHEUMATIC AORTIC (VALVE) STENOSIS (5) Asthma Assessment/Plan: Cont nebulizer Code(s): J45.909 - UNSPECIFIED ASTHMA, UNCOMPLICATED (6) Elevated troponin Assessment/Plan: Due to demand ischemia Code(s): R79.89 - OTHER SPECIFIED ABNORMAL FINDINGS OF BLOOD CHEMISTRY (7) HLD (hyperlipidemia) Assessment/Plan: Cont lipitor Code(s): E78.5 - HYPERLIPIDEMIA, UNSPECIFIED (8) Paroxysmal A-fib Assessment/Plan: Cont eliquis Heart rate controlled Cont coreg/dig Code(s): I48.0 - PAROXYSMAL ATRIAL FIBRILLATION (9) Anemia Code(s): D64.9 - ANEMIA, UNSPECIFIED (10) Nonischemic cardiomyopathy Code(s): I42.8 - OTHER CARDIOMYOPATHIES
[2019-08-11] MEDS: CARVEDILOL 3.125 MG TABLET (FP) PO SCH ×3 (00:03→21:09)
[2019-08-11] MEDS: FERROUS SO4 325 MG TABLET (FP) PO SCH ×3 (06:42→21:09)
[2019-08-11 07:55] LABS: BASO % 0.6 % (0-2.0); HEMATOCRIT 26.6 % (32.4-45.2); HEMOGLOBIN 8.5 GM/dL (10.7-15.3); LYMPH % 40.9 % (8-40); MCH 25.5 pg (25.7-33.7); MCHC 31.8 g/dl (32.0-36.0); MEAN CELL VOLUME 80.2 fl (80-96); MEAN PLT VOLUME 9.7 fl (7.5-11.1); MONO % 7.5 % (3.8-10.2); PLATELET COUNT 150 K/MM3 (134-434); RBC 3.31 M/mm3 (3.60-5.2); RDW 27.6 % (11.6-15.6); WHITE BLOOD COUNT 4.1 K/mm3 (4.0-10.0)
[2019-08-11 08:22] LABS: ALBUMIN 2.4 g/dl (3.4-5.0); BILIRUBIN,TOTAL 0.9 mg/dL (0.2-1); BLOOD UREA NITROGEN 12.2 mg/dL (7-18); CREATININE 0.9 mg/dL (0.55-1.3); POTASSIUM 3.4 mmol/L (3.5-5.1); TOT PROT 7.1 g/dl (6.4-8.2)
[2019-08-11] MEDS: LISINOPRIL 5 MG TABLET (FP) PO SCH (09:50)
[2019-08-11] MEDS: MAGNESIUM OXIDE 400 MG TABLET (FP) PO SCH (09:51)
[2019-08-11] MEDS: DIGOXIN 0.25 MG TABLET (FP) PO SCH (09:51)
[2019-08-11] MEDS: FUROSEMIDE 20 MG TABLET (FP) PO SCH (09:51)
[2019-08-11] MEDS: APIXABAN 5 MG TABLET PO SCH (09:51)
[2019-08-11] MEDS: ASPIRIN 81 MG CHEWABLE TABLETS PO SCH (09:51)
[2019-08-11] MEDS: ACETAMINOPHEN 325 MG TABLET (FP) PO PRN ×2 (12:09→21:09)
--- NOTE | 2019-08-11 12:27 | PN ---
Progress Note, Physician History of Present Illness: The patient is a 48 year old black woman, with a significant past medical history of asthma, CAD ([place] 2016; pt reports having coronary angiogram during that admission that showed "only 30% block"), HLD, HTN, severe systolic CHF (2 admissions in the last 20 days for CHF; ECHO 07/21/2019 showed severely reduced LVEF; moderate MR; moderate ), paroxysmal afib, and anemia, who presents to the emergency department for lightheadedness and dizziness after waking up this morning to use the restroom. Pt states her symptoms are worse when standing/ sitting up. Pt states her health aide came to visit her this morning and her BP was in the low 80's systolic. The patient denies fever, chills, cough, nausea, vomiting, and constipation. Denies dysuria, frequency, urgency and hematuria. Allergy: NKDA Social: Denies alcohol, cigarette or drug use. Pt was recently admitted to [facility]; she was tranferred to [facility]; she reports having had a coronary angiogram there that did not require PCI. She was sent home on "a lot of medications for the heart". - Current Medication List Current Medications: Active Medications Acetaminophen (Tylenol -) 650 mg PO Q6H PRN PRN Reason: PAIN Last Admin: 08/11/19 12:09 Dose: 650 mg Albuterol Sulfate (Ventolin Hfa Inhaler -) 1 puff IH Q6H PRN PRN Reason: ASTHMA Apixaban (Eliquis -) 5 mg PO DAILY [facility] Last Admin: 08/11/19 09:51 Dose: 5 mg Aspirin (Asa -) 81 mg PO DAILY [facility] Last Admin: 08/11/19 09:51 Dose: 81 mg Atorvastatin Calcium (Lipitor -) 20 mg PO HS [facility] Last Admin: 08/10/19 21:16 Dose: 20 mg Carvedilol (Coreg -) 3.125 mg PO BID [facility] Last Admin: 08/11/19 09:51 Dose: 3.125 mg Digoxin (Lanoxin -) 0.25 mg PO DAILY [facility] Last Admin: 08/11/19 09:51 Dose: 0.25 mg Ferrous Sulfate (Feosol -) 325 mg PO TID [facility] Last Admin: 08/11/19 06:42 Dose: 325 mg Furosemide (Lasix -) 40 mg PO DAILY [facility] Last Admin: 08/11/19 09:51 Dose: 40 mg Lisinopril (Prinivil) 2.5 mg PO DAILY [facility] Last Admin: 08/11/19 09:50 Dose: 2.5 mg Magnesium Oxide (Mag-Ox -) 400 mg PO DAILY [facility] Last Admin: 08/11/19 09:51 Dose: 400 mg - Objective Vital Signs: Vital Signs Temperature 97.8 F 08/11/19 09:45 Pulse Rate 98 H 08/11/19 09:51 Respiratory Rate 08/11/19 09:45 Blood Pressure 106/74 08/11/19 09:45 O2 Sat by Pulse Oximetry (%) 100 08/10/19 21:00 Eyes: Yes: WNL, Conjunctiva Clear, EOM Intact HENT: Yes: WNL, Atraumatic, Normocephalic Neck: Yes: WNL, Supple, Trachea Midline Cardiovascular: Yes: WNL, Regular Rate and Rhythm, Murmur, S1, S2 Respiratory: Yes: WNL, Regular, CTA Bilaterally Gastrointestinal: Yes: WNL, Normal Bowel Sounds Genitourinary: Yes: WNL Musculoskeletal: Yes: WNL Extremities: Yes: WNL Edema: Yes Integumentary: Yes: WNL Neurological: Yes: WNL, Alert, Oriented ...Motor Strength: WNL Psychiatric: Yes: WNL Labs: CBC, BMP 08/11/19 06:45 08/11/19 06:45 INR, PTT INR 1.66 (0.83-1.09) H 08/09/19 15:08 Problem List - Problems (1) Hypotension Code(s): I95.9 - HYPOTENSION, UNSPECIFIED (2) Near syncope Code(s): R55 - SYNCOPE AND COLLAPSE (3) ZEINA (acute kidney injury) Code(s): N17.9 - ACUTE KIDNEY FAILURE, UNSPECIFIED (4) Abdominal muscle strain Code(s): S39.011A - STRAIN OF MUSCLE, FASCIA AND TENDON OF ABDOMEN, INIT ENCNTR (5) Abdominal pain Code(s): R10.9 - UNSPECIFIED ABDOMINAL PAIN (6) Acute on chronic systolic heart failure Code(s): I50.23 - ACUTE ON CHRONIC SYSTOLIC (CONGESTIVE) HEART FAILURE (7) Anemia Code(s): D64.9 - ANEMIA, UNSPECIFIED (8) Aortic stenosis Code(s): I35.0 - NONRHEUMATIC AORTIC (VALVE) STENOSIS (9) Asthma Code(s): J45.909 - UNSPECIFIED ASTHMA, UNCOMPLICATED (10) Back pain Code(s): M54.9 - DORSALGIA, UNSPECIFIED (11) Chest pain Code(s): R07.9 - CHEST PAIN, UNSPECIFIED (12) Chronic back pain Code(s): M54.9 - DORSALGIA, UNSPECIFIED; G89.29 - OTHER CHRONIC PAIN (13) Chronic systolic CHF (congestive heart failure) Code(s): I50.22 - CHRONIC SYSTOLIC (CONGESTIVE) HEART FAILURE (14) Cocaine abuse Code(s): F14.10 - COCAINE ABUSE, UNCOMPLICATED (15) Constipation Code(s): K59.00 - CONSTIPATION, UNSPECIFIED (16) Diarrhea Code(s): R19.7 - DIARRHEA, UNSPECIFIED Qualifiers: Diarrhea type: unspecified type Qualified Code(s): R19.7 - Diarrhea, unspecified (17) Elevated LFTs Code(s): R94.5 - ABNORMAL RESULTS OF LIVER FUNCTION STUDIES (18) Elevated troponin Code(s): R79.89 - OTHER SPECIFIED ABNORMAL FINDINGS OF BLOOD CHEMISTRY (19) Exposure to blood or body fluid Code(s): Z77.21 - CONTACT W AND EXPOSURE TO POTENTIALLY HAZARDOUS BODY FLUIDS (20) GERD (gastroesophageal reflux disease) Code(s): K21.9 - GASTRO-ESOPHAGEAL REFLUX DISEASE WITHOUT ESOPHAGITIS (21) HLD (hyperlipidemia) Code(s): E78.5 - HYPERLIPIDEMIA, UNSPECIFIED (22) HTN (hypertension) Code(s): I10 - ESSENTIAL (PRIMARY) HYPERTENSION (23) Menometrorrhagia Code(s): N92.1 - EXCESSIVE AND FREQUENT MENSTRUATION WITH IRREGULAR CYCLE (24) Morbid obesity Code(s): E66.01 - MORBID (SEVERE) OBESITY DUE TO EXCESS CALORIES (25) Multiple thyroid nodules Code(s): E04.2 - NONTOXIC MULTINODULAR GOITER (26) Myocardial infarction Code(s): I21.3 - ST ELEVATION (STEMI) MYOCARDIAL INFARCTION OF UNSP SITE (27) Nonischemic cardiomyopathy Code(s): I42.8 - OTHER CARDIOMYOPATHIES (28) Obesity Code(s): E66.9 - OBESITY, UNSPECIFIED (29) Positive blood culture Code(s): R78.81 - BACTEREMIA (30) RBBB Code(s): I45.10 - UNSPECIFIED RIGHT BUNDLE-BRANCH BLOCK (31) S/P hysterectomy Code(s): Z90.710 - ACQUIRED ABSENCE OF BOTH CERVIX AND UTERUS (32) Shortness of breath Code(s): R06.02 - SHORTNESS OF BREATH (33) Sprain of wrist, left Code(s): S63.502A - UNSPECIFIED SPRAIN OF LEFT WRIST, INITIAL ENCOUNTER (34) Strain of mid-back Code(s): S29.012A - STRAIN OF MUSCLE AND TENDON OF BACK WALL OF THORAX, INIT (35) URI (upper respiratory infection) Code(s): J06.9 - ACUTE UPPER RESPIRATORY INFECTION, UNSPECIFIED Assessment/Plan - Problems (1) Moderate aortic stenosis Assessment/Plan: May be underestimated due to poor LVEF. F/u workup done at [facility] recently, including coronary angiogram, ?valvular evaluation, ? right-heart cath. Code(s): I35.0 - NONRHEUMATIC AORTIC (VALVE) STENOSIS (2) Breast pain Assessment/Plan: Pt believes this pain began after she underwent a hysterectomy 03/2019. Code(s): N64.4 - MASTODYNIA (3) Acute on chronic systolic heart failure Assessment/Plan: ECHO : severely reduced LVEF; moderate and MR; small pericardial effusion. On lisinopril and furosemide. Start carvedilol (pt had been using beta blockers, which were stopped last admission, early July, due to continue cocaine use; now says she has "stopped completely"; f/u toxicology screen). Plan to add spironolactone if BP, BUN/Cr and electrolytes allow. F/u BUN/Cr, electrolytes dailyh weight, Is and Os. F/u recent workup done at [facility] (pt was transferred at that time for CHF, hypotension). Code(s): I50.23 - ACUTE ON CHRONIC SYSTOLIC (CONGESTIVE) HEART FAILURE (4) Obesity Code(s): E66.9 - OBESITY, UNSPECIFIED (5) S/P hysterectomy Code(s): Z90.710 - ACQUIRED ABSENCE OF BOTH CERVIX AND UTERUS (6) Anemia Code(s): D64.9 - ANEMIA, UNSPECIFIED (7) Elevated troponin Assessment/Plan: Chronic elevation to 0.4 since at least 2016. Reportedly non-obstructive CAD on coronary angiograms 2016 (?[place] at that time) and 2019. Code(s): R79.89 - OTHER SPECIFIED ABNORMAL FINDINGS OF BLOOD CHEMISTRY
[2019-08-11] MEDS: ATORVASTATIN CA 20 MG TABLET (FP) PO SCH (21:09)
[2019-08-11] MEDS ORDERED: POTASSIUM CHLORIDE TABS 20 MEQ TABLET.ER (FP) PO ONE (23:26)
--- NOTE | 2019-08-11 23:26 | PN ---
Progress Note, Physician - Current Medication List Current Medications: Active Medications Acetaminophen (Tylenol -) 650 mg PO Q6H PRN PRN Reason: PAIN Last Admin: 08/11/19 21:09 Dose: 650 mg Albuterol Sulfate (Ventolin Hfa Inhaler -) 1 puff IH Q6H PRN PRN Reason: ASTHMA Apixaban (Eliquis -) 5 mg PO DAILY [facility] Last Admin: 08/11/19 09:51 Dose: 5 mg Aspirin (Asa -) 81 mg PO DAILY [facility] Last Admin: 08/11/19 09:51 Dose: 81 mg Atorvastatin Calcium (Lipitor -) 20 mg PO HS [facility] Last Admin: 08/11/19 21:09 Dose: 20 mg Carvedilol (Coreg -) 3.125 mg PO BID [facility] Last Admin: 08/11/19 21:09 Dose: 3.125 mg Digoxin (Lanoxin -) 0.25 mg PO DAILY [facility] Last Admin: 08/11/19 09:51 Dose: 0.25 mg Ferrous Sulfate (Feosol -) 325 mg PO TID [facility] Last Admin: 08/11/19 21:09 Dose: 325 mg Furosemide (Lasix -) 40 mg PO DAILY [facility] Last Admin: 08/11/19 09:51 Dose: 40 mg Lisinopril (Prinivil) 2.5 mg PO DAILY [facility] Last Admin: 08/11/19 09:50 Dose: 2.5 mg Magnesium Oxide (Mag-Ox -) 400 mg PO DAILY [facility] Last Admin: 08/11/19 09:51 Dose: 400 mg - Objective Vital Signs: Vital Signs Temperature 97.8 F 08/11/19 19:55 Pulse Rate 96 H 08/11/19 19:55 Respiratory Rate 20 08/11/19 21:00 Blood Pressure 100/69 08/11/19 19:55 O2 Sat by Pulse Oximetry (%) 100 08/11/19 21:00 Labs: CBC, BMP 08/11/19 06:45 08/11/19 06:45 INR, PTT INR 1.66 (0.83-1.09) H 08/09/19 15:08 Problem List - Problems (1) Near syncope Code(s): R55 - SYNCOPE AND COLLAPSE (2) Acute on chronic systolic heart failure Code(s): I50.23 - ACUTE ON CHRONIC SYSTOLIC (CONGESTIVE) HEART FAILURE (3) Breast pain Code(s): N64.4 - MASTODYNIA (4) Aortic stenosis Code(s): I35.0 - NONRHEUMATIC AORTIC (VALVE) STENOSIS (5) Asthma Code(s): J45.909 - UNSPECIFIED ASTHMA, UNCOMPLICATED (6) Elevated troponin Code(s): R79.89 - OTHER SPECIFIED ABNORMAL FINDINGS OF BLOOD CHEMISTRY (7) HLD (hyperlipidemia) Code(s): E78.5 - HYPERLIPIDEMIA, UNSPECIFIED (8) Paroxysmal A-fib Code(s): I48.0 - PAROXYSMAL ATRIAL FIBRILLATION (9) Anemia Code(s): D64.9 - ANEMIA, UNSPECIFIED (10) Nonischemic cardiomyopathy Code(s): I42.8 - OTHER CARDIOMYOPATHIES
[2019-08-12] MEDS: FERROUS SO4 325 MG TABLET (FP) PO SCH ×3 (06:24→21:45)
[2019-08-12 07:20] LABS: BASO % 0.8 % (0-2.0); EOS % 1.6 % (0-4.5); HEMOGLOBIN 9.1 GM/dL (10.7-15.3); LYMPH % 37.5 % (8-40); MCH 25.5 pg (25.7-33.7); MCHC 31.5 g/dl (32.0-36.0); MEAN CELL VOLUME 81.2 fl (80-96); MEAN PLT VOLUME 9.8 fl (7.5-11.1); MONO % 7.4 % (3.8-10.2); NEUT % 52.7 % (42.8-82.8); PLATELET COUNT 160 K/MM3 (134-434); RBC 3.57 M/mm3 (3.60-5.2); WHITE BLOOD COUNT 4.5 K/mm3 (4.0-10.0)
[2019-08-12 08:39] LABS: ALBUMIN 2.8 g/dl (3.4-5.0); BILIRUBIN,TOTAL 1.1 mg/dL (0.2-1); BLOOD UREA NITROGEN 14.3 mg/dL (7-18); CALCIUM 8.8 mg/dL (8.5-10.1); CREATININE 0.9 mg/dL (0.55-1.3); TOT PROT 7.8 g/dl (6.4-8.2)
[2019-08-12] MEDS: LISINOPRIL 5 MG TABLET (FP) PO SCH (09:28)
[2019-08-12] MEDS: DIGOXIN 0.25 MG TABLET (FP) PO SCH (09:28)
[2019-08-12] MEDS: CARVEDILOL 3.125 MG TABLET (FP) PO SCH ×2 (09:28→21:45)
[2019-08-12] MEDS: APIXABAN 5 MG TABLET PO SCH ×2 (09:29→21:45)
[2019-08-12] MEDS: MAGNESIUM OXIDE 400 MG TABLET (FP) PO SCH (09:29)
[2019-08-12] MEDS: ASPIRIN 81 MG CHEWABLE TABLETS PO SCH (09:29)
[2019-08-12] MEDS: FUROSEMIDE 20 MG TABLET (FP) PO SCH (09:29)
--- NOTE | 2019-08-12 09:46 | PN ---
Progress Note, Physician Chief Complaint: Pt A&Ox3; she gets anxious sometimes because she feels the medications make her feel weak, and her BP is at time "low". She has lost her appetite since coming into the hospital. 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 No shortness of breath or chest pain. History of Present Illness: The patient is a 48 year old black woman, with a significant past medical history of asthma, CAD ([place] 2016 form ? cocaine abuse and morbid obesity-- weighed over 300 lbs at the time; pt reports having coronary angiogram during that admission that showed "only 30% block"), HLD, HTN, severe systolic CHF (2 admissions in the last 20 days for CHF; ECHO 07/21/2019 showed severely reduced LVEF; moderate MR; moderate ), paroxysmal afib, and anemia, who presents to the emergency department for lightheadedness and dizziness after waking up this morning to use the restroom. Pt states her symptoms are worse when standing/ sitting up. Pt states her health aide came to visit her this morning and her BP was in the low 80's systolic. The patient denies fever, chills, cough, nausea, vomiting, and constipation. Denies dysuria, frequency, urgency and hematuria. Allergy: NKDA Social: Denies alcohol, cigarette or drug use. Pt was recently admitted to [facility]; she was tranferred to [facility]; she reports having had a coronary angiogram there that did not require PCI. She was sent home on "a lot of medications for the heart". - Current Medication List Current Medications: Active Medications Acetaminophen (Tylenol -) 650 mg PO Q6H PRN PRN Reason: PAIN Last Admin: 08/11/19 21:09 Dose: 650 mg Albuterol Sulfate (Ventolin Hfa Inhaler -) 1 puff IH Q6H PRN PRN Reason: ASTHMA Aspirin (Asa -) 81 mg PO DAILY [facility] Last Admin: 08/11/19 09:51 Dose: 81 mg Atorvastatin Calcium (Lipitor -) 20 mg PO HS [facility] Last Admin: 08/11/19 21:09 Dose: 20 mg Carvedilol (Coreg -) 3.125 mg PO BID [facility] Last Admin: 08/11/19 21:09 Dose: 3.125 mg Digoxin (Lanoxin -) 0.25 mg PO DAILY [facility] Last Admin: 08/11/19 09:51 Dose: 0.25 mg Ferrous Sulfate (Feosol -) 325 mg PO TID [facility] Last Admin: 08/12/19 06:24 Dose: 325 mg Furosemide (Lasix -) 40 mg PO DAILY [facility] Last Admin: 08/11/19 09:51 Dose: 40 mg Lisinopril (Prinivil) 2.5 mg PO DAILY [facility] Last Admin: 08/11/19 09:50 Dose: 2.5 mg Magnesium Oxide (Mag-Ox -) 400 mg PO DAILY [facility] Last Admin: 08/11/19 09:51 Dose: 400 mg - Objective Vital Signs: Vital Signs Temperature 97.6 F 08/12/19 06:00 Pulse Rate 94 H 08/12/19 06:00 Respiratory Rate 20 08/12/19 08:28 Blood Pressure 119/65 08/12/19 06:00 O2 Sat by Pulse Oximetry (%) 100 08/12/19 08:28 Constitutional: Yes: Anxious Eyes: Yes: WNL HENT: Yes: WNL Neck: Yes: WNL Cardiovascular: Yes: S1, S2 Respiratory: Yes: Regular Gastrointestinal: Yes: Soft, Abdomen, Obese ...Rectal Exam: Yes: Deferred Genitourinary: No: Anuria Breast(s): Yes: Other. No: Discharge from Nipple Musculoskeletal: Yes: Back Pain, Muscle Weakness Extremities: Yes: Cool Edema: Yes Edema: LLE: 1+, RLE: 1+ Peripheral Pulses WNL: Yes Integumentary: Yes: WNL Neurological: Yes: WNL Psychiatric: Yes: WNL Labs: CBC, BMP 08/12/19 06:20 08/12/19 06:20 INR, PTT INR 1.66 (0.83-1.09) H 08/09/19 15:08 Abnormal Lab Results 08/12/19 08/12/19 06:20 06:20 RBC 3.57 L Hgb 9.1 L Hct 29.0 L MCH 25.5 L MCHC 31.5 L RDW 28.0 H Total Bilirubin 1.1 H Alkaline Phosphatase 185 H Albumin 2.8 L - ....Imaging Chest X-ray: Image Reviewed Other: Image Reviewed (telemetry: NSR;) Problem List - Problems (1) Moderate aortic stenosis Assessment/Plan: May be underestimated due to poor LVEF. F/u workup done at [facility] recently, including coronary angiogram, ?valvular evaluation, ? right-heart cath. Code(s): I35.0 - NONRHEUMATIC AORTIC (VALVE) STENOSIS (2) Breast pain Assessment/Plan: Pt believes this pain began after she underwent a hysterectomy 03/2019. Code(s): N64.4 - MASTODYNIA (3) Acute on chronic systolic heart failure Assessment/Plan: ECHO : severely reduced LVEF; moderate and MR; small pericardial effusion. On lisinopril and furosemide. On carvedilol (pt had been using beta blockers, which were stopped last admission, early July, due to continue cocaine use; now says she has "stopped completely" since that admission, and has also stopped cigarettes at that time. She says, " I have changed; I want to live for my babies". Plan to add spironolactone if BP, BUN/Cr and electrolytes allow (explained to pt that BP may be on the low-normal side with medications; if asymptomatic clinically, this may be acceptable, given need for multiple medications for severe systolic heart failure). F/u BUN/Cr, electrolytes (repeat magnesium level), daily weight, Is and Os. F/u recent workup done at [facility] (pt was transferred at that time for CHF, hypotension), valve status (at least moderate by ECHO; may be underestimated due to poor LVEF). 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 Code(s): Z90.710 - ACQUIRED ABSENCE OF BOTH CERVIX AND UTERUS (6) Anemia Code(s): D64.9 - ANEMIA, UNSPECIFIED (7) Elevated troponin Assessment/Plan: Chronic elevation to 0.4 since at least 2016. Reportedly non-obstructive CAD on coronary angiograms 2015 (?[place] at that time) and 2019. Code(s): R79.89 - OTHER SPECIFIED ABNORMAL FINDINGS OF BLOOD CHEMISTRY (8) Atrial fibrillation Assessment/Plan: On carvedilol for HR, BP, and systolic LV dysfunction. Change apixaban to 5 mg bid F/u digoxin level; if this medication is continued, keep level 0.4-0.8. Code(s): I48.91 - UNSPECIFIED ATRIAL FIBRILLATION
--- NOTE | 2019-08-12 11:52 | EKG ---
Test Reason : Blood Pressure : / mmHG Vent. Rate : 089 BPM Atrial Rate : 089 BPM P-R Int : 178 ms QRS Dur : 156 ms QT Int : 412 ms P-R-T Axes : 063 -43 109 degrees QTc Int : 501 ms NORMAL SINUS RHYTHM LEFT AXIS DEVIATION RIGHT BUNDLE BRANCH BLOCK T WAVE ABNORMALITY, CONSIDER LATERAL ISCHEMIA ABNORMAL ECG WHEN COMPARED WITH ECG OF 10-AUG-2019 03:36, FUSION COMPLEXES ARE NO LONGER PRESENT PREMATURE VENTRICULAR COMPLEXES ARE NO LONGER PRESENT NONSPECIFIC T WAVE ABNORMALITY NO LONGER EVIDENT IN INFERIOR LEADS QT HAS SHORTENED Confirmed by KANG MISTRY MD ([id number]) on 08/12/2019 11:51:54 AM Referred By: SAM PERKINS DR Confirmed By:KANG MISTRY MD
[2019-08-12 12:41] LABS: MAGNESIUM 1.6 mg/dL (1.8-2.4)
[2019-08-12] MEDS: ATORVASTATIN CA 20 MG TABLET (FP) PO SCH (21:45)
[2019-08-12] MEDS: ACETAMINOPHEN 325 MG TABLET (FP) PO PRN (21:45)
--- NOTE | 2019-08-12 23:20 | PN ---
Progress Note, Physician - Current Medication List Current Medications: Active Medications Acetaminophen (Tylenol -) 650 mg PO Q6H PRN PRN Reason: PAIN Last Admin: 08/12/19 21:45 Dose: 650 mg Albuterol Sulfate (Ventolin Hfa Inhaler -) 1 puff IH Q6H PRN PRN Reason: ASTHMA Apixaban (Eliquis -) 5 mg PO BID [facility] Last Admin: 08/12/19 21:45 Dose: 5 mg Aspirin (Asa -) 81 mg PO DAILY [facility] Last Admin: 08/12/19 09:29 Dose: 81 mg Atorvastatin Calcium (Lipitor -) 20 mg PO HS [facility] Last Admin: 08/12/19 21:45 Dose: 20 mg Carvedilol (Coreg -) 3.125 mg PO BID [facility] Last Admin: 08/12/19 21:45 Dose: 3.125 mg Digoxin (Lanoxin -) 0.25 mg PO DAILY [facility] Last Admin: 08/12/19 09:28 Dose: 0.25 mg Ferrous Sulfate (Feosol -) 325 mg PO TID [facility] Last Admin: 08/12/19 21:45 Dose: 325 mg Furosemide (Lasix -) 40 mg PO DAILY [facility] Last Admin: 08/12/19 09:29 Dose: 40 mg Lisinopril (Prinivil) 2.5 mg PO DAILY [facility] Last Admin: 08/12/19 09:28 Dose: 2.5 mg Magnesium Oxide (Mag-Ox -) 400 mg PO DAILY [facility] Last Admin: 08/12/19 09:29 Dose: 400 mg - Objective Vital Signs: Vital Signs Temperature 97.8 F 08/12/19 21:19 Pulse Rate 94 H 08/12/19 21:19 Respiratory Rate 18 08/12/19 21:19 Blood Pressure 103/56 L 08/12/19 21:19 O2 Sat by Pulse Oximetry (%) 100 08/12/19 21:00 Labs: CBC, BMP 08/12/19 06:20 08/12/19 06:20 INR, PTT INR 1.66 (0.83-1.09) H 08/09/19 15:08 Problem List - Problems (1) Near syncope Code(s): R55 - SYNCOPE AND COLLAPSE (2) Acute on chronic systolic heart failure Code(s): I50.23 - ACUTE ON CHRONIC SYSTOLIC (CONGESTIVE) HEART FAILURE (3) Breast pain Code(s): N64.4 - MASTODYNIA (4) Aortic stenosis Code(s): I35.0 - NONRHEUMATIC AORTIC (VALVE) STENOSIS (5) Asthma Code(s): J45.909 - UNSPECIFIED ASTHMA, UNCOMPLICATED (6) Elevated troponin Code(s): R79.89 - OTHER SPECIFIED ABNORMAL FINDINGS OF BLOOD CHEMISTRY (7) HLD (hyperlipidemia) Code(s): E78.5 - HYPERLIPIDEMIA, UNSPECIFIED (8) Paroxysmal A-fib Code(s): I48.0 - PAROXYSMAL ATRIAL FIBRILLATION (9) Anemia Code(s): D64.9 - ANEMIA, UNSPECIFIED (10) Nonischemic cardiomyopathy Code(s): I42.8 - OTHER CARDIOMYOPATHIES
[2019-08-13] MEDS: FERROUS SO4 325 MG TABLET (FP) PO SCH ×2 (06:01→15:23)
[2019-08-13] MEDS ORDERED: DIGOXIN 0.125 MG TABLET (FP) PO SCH (06:15)
[2019-08-13] MEDS ORDERED: PT OWN MED DRAWER 7, Y5N ONE (09:51)
[2019-08-13] MEDS: MAGNESIUM OXIDE 400 MG TABLET (FP) PO SCH (10:29)
[2019-08-13] MEDS: FUROSEMIDE 20 MG TABLET (FP) PO SCH (10:30)
[2019-08-13] MEDS: LISINOPRIL 5 MG TABLET (FP) PO SCH (10:30)
[2019-08-13] MEDS: APIXABAN 5 MG TABLET PO SCH (10:30)
[2019-08-13] MEDS: ASPIRIN 81 MG CHEWABLE TABLETS PO SCH (10:30)
[2019-08-13] MEDS: CARVEDILOL 3.125 MG TABLET (FP) PO SCH (10:30)
--- NOTE | 2019-08-13 10:59 | PN ---
Progress Note, Physician History of Present Illness: The patient is a 48 year old black woman, with a significant past medical history of asthma, CAD ([place] 2016; pt reports having coronary angiogram during that admission that showed "only 30% block"), HLD, HTN, severe systolic CHF (2 admissions in the last 20 days for CHF; ECHO 07/21/2019 showed severely reduced LVEF; moderate MR; moderate ), paroxysmal afib, and anemia, who presents to the emergency department for lightheadedness and dizziness after waking up this morning to use the restroom. Pt states her symptoms are worse when standing/ sitting up. Pt states her health aide came to visit her this morning and her BP was in the low 80's systolic. The patient denies fever, chills, cough, nausea, vomiting, and constipation. Denies dysuria, frequency, urgency and hematuria. Allergy: NKDA Social: Denies alcohol, cigarette or drug use. Pt was recently admitted to [facility]; she was tranferred to [facility]; she reports having had a coronary angiogram there that did not require PCI. She was sent home on "a lot of medications for the heart". - Current Medication List Current Medications: Active Medications Acetaminophen (Tylenol -) 650 mg PO Q6H PRN PRN Reason: PAIN Last Admin: 08/12/19 21:45 Dose: 650 mg Albuterol Sulfate (Ventolin Hfa Inhaler -) 1 puff IH Q6H PRN PRN Reason: ASTHMA Apixaban (Eliquis -) 5 mg PO BID [facility] Last Admin: 08/13/19 10:30 Dose: 5 mg Aspirin (Asa -) 81 mg PO DAILY [facility] Last Admin: 08/13/19 10:30 Dose: 81 mg Atorvastatin Calcium (Lipitor -) 20 mg PO HS [facility] Last Admin: 08/12/19 21:45 Dose: 20 mg Carvedilol (Coreg -) 3.125 mg PO BID [facility] Last Admin: 08/13/19 10:30 Dose: 3.125 mg Digoxin (Lanoxin -) 0.125 mg PO Q48H [facility] Last Admin: 08/13/19 06:26 Dose: 0.125 mg Ferrous Sulfate (Feosol -) 325 mg PO TID [facility] Last Admin: 08/13/19 06:01 Dose: 325 mg Furosemide (Lasix -) 40 mg PO DAILY [facility] Last Admin: 08/13/19 10:30 Dose: 40 mg Lisinopril (Prinivil) 2.5 mg PO DAILY [facility] Last Admin: 08/13/19 10:30 Dose: 2.5 mg Magnesium Oxide (Mag-Ox -) 400 mg PO DAILY [facility] Last Admin: 08/13/19 10:29 Dose: 400 mg - Objective Vital Signs: Vital Signs Temperature 97.7 F 08/13/19 10:00 Pulse Rate 92 H 08/13/19 10:00 Respiratory Rate 08/13/19 10:00 Blood Pressure 100/60 08/13/19 10:00 O2 Sat by Pulse Oximetry (%) 100 08/12/19 21:00 Eyes: Yes: WNL, Conjunctiva Clear, EOM Intact HENT: Yes: WNL, Atraumatic, Normocephalic Neck: Yes: WNL, Supple, Trachea Midline Cardiovascular: Yes: WNL, Pulse Irregular, Murmur, S1, S2 Respiratory: Yes: WNL, Regular, CTA Bilaterally Gastrointestinal: Yes: WNL, Normal Bowel Sounds Genitourinary: Yes: WNL Musculoskeletal: Yes: WNL Extremities: Yes: WNL Edema: Yes Integumentary: Yes: WNL Neurological: Yes: WNL, Alert, Oriented ...Motor Strength: WNL Psychiatric: Yes: WNL Labs: CBC, BMP 08/12/19 06:20 08/12/19 06:20 INR, PTT INR 1.66 (0.83-1.09) H 08/09/19 15:08 Problem List - Problems (1) Hypotension Code(s): I95.9 - HYPOTENSION, UNSPECIFIED (2) Near syncope Code(s): R55 - SYNCOPE AND COLLAPSE (3) ZEINA (acute kidney injury) Code(s): N17.9 - ACUTE KIDNEY FAILURE, UNSPECIFIED (4) Abdominal muscle strain Code(s): S39.011A - STRAIN OF MUSCLE, FASCIA AND TENDON OF ABDOMEN, INIT ENCNTR (5) Abdominal pain Code(s): R10.9 - UNSPECIFIED ABDOMINAL PAIN (6) Acute on chronic systolic heart failure Code(s): I50.23 - ACUTE ON CHRONIC SYSTOLIC (CONGESTIVE) HEART FAILURE (7) Anemia Code(s): D64.9 - ANEMIA, UNSPECIFIED (8) Aortic stenosis Code(s): I35.0 - NONRHEUMATIC AORTIC (VALVE) STENOSIS (9) Asthma Code(s): J45.909 - UNSPECIFIED ASTHMA, UNCOMPLICATED (10) Back pain Code(s): M54.9 - DORSALGIA, UNSPECIFIED (11) Chest pain Code(s): R07.9 - CHEST PAIN, UNSPECIFIED (12) Chronic back pain Code(s): M54.9 - DORSALGIA, UNSPECIFIED; G89.29 - OTHER CHRONIC PAIN (13) Chronic systolic CHF (congestive heart failure) Code(s): I50.22 - CHRONIC SYSTOLIC (CONGESTIVE) HEART FAILURE (14) Cocaine abuse Code(s): F14.10 - COCAINE ABUSE, UNCOMPLICATED (15) Constipation Code(s): K59.00 - CONSTIPATION, UNSPECIFIED (16) Diarrhea Code(s): R19.7 - DIARRHEA, UNSPECIFIED Qualifiers: Diarrhea type: unspecified type Qualified Code(s): R19.7 - Diarrhea, unspecified (17) Elevated LFTs Code(s): R94.5 - ABNORMAL RESULTS OF LIVER FUNCTION STUDIES (18) Elevated troponin Code(s): R79.89 - OTHER SPECIFIED ABNORMAL FINDINGS OF BLOOD CHEMISTRY (19) Exposure to blood or body fluid Code(s): Z77.21 - CONTACT W AND EXPOSURE TO POTENTIALLY HAZARDOUS BODY FLUIDS (20) GERD (gastroesophageal reflux disease) Code(s): K21.9 - GASTRO-ESOPHAGEAL REFLUX DISEASE WITHOUT ESOPHAGITIS (21) HLD (hyperlipidemia) Code(s): E78.5 - HYPERLIPIDEMIA, UNSPECIFIED (22) HTN (hypertension) Code(s): I10 - ESSENTIAL (PRIMARY) HYPERTENSION (23) Menometrorrhagia Code(s): N92.1 - EXCESSIVE AND FREQUENT MENSTRUATION WITH IRREGULAR CYCLE (24) Morbid obesity Code(s): E66.01 - MORBID (SEVERE) OBESITY DUE TO EXCESS CALORIES (25) Multiple thyroid nodules Code(s): E04.2 - NONTOXIC MULTINODULAR GOITER (26) Myocardial infarction Code(s): I21.3 - ST ELEVATION (STEMI) MYOCARDIAL INFARCTION OF UNSP SITE (27) Nonischemic cardiomyopathy Code(s): I42.8 - OTHER CARDIOMYOPATHIES (28) Obesity Code(s): E66.9 - OBESITY, UNSPECIFIED (29) Positive blood culture Code(s): R78.81 - BACTEREMIA (30) RBBB Code(s): I45.10 - UNSPECIFIED RIGHT BUNDLE-BRANCH BLOCK (31) S/P hysterectomy Code(s): Z90.710 - ACQUIRED ABSENCE OF BOTH CERVIX AND UTERUS (32) Shortness of breath Code(s): R06.02 - SHORTNESS OF BREATH (33) Sprain of wrist, left Code(s): S63.502A - UNSPECIFIED SPRAIN OF LEFT WRIST, INITIAL ENCOUNTER (34) Strain of mid-back Code(s): S29.012A - STRAIN OF MUSCLE AND TENDON OF BACK WALL OF THORAX, INIT (35) URI (upper respiratory infection) Code(s): J06.9 - ACUTE UPPER RESPIRATORY INFECTION, UNSPECIFIED Assessment/Plan - Problems (1) Moderate aortic stenosis Assessment/Plan: May be underestimated due to poor LVEF. F/u workup done at [facility] recently, including coronary angiogram, ?valvular evaluation, ? right-heart cath. Code(s): I35.0 - NONRHEUMATIC AORTIC (VALVE) STENOSIS (2) Breast pain Assessment/Plan: Pt believes this pain began after she underwent a hysterectomy 03/2019. Code(s): N64.4 - MASTODYNIA (3) Acute on chronic systolic heart failure Assessment/Plan: ECHO : severely reduced LVEF; moderate and MR; small pericardial effusion. On lisinopril and furosemide. On carvedilol (pt had been using beta blockers, which were stopped last admission, early July, due to continue cocaine use; now says she has "stopped completely" since that admission, and has also stopped cigarettes at that time. She says, " I have changed; I want to live for my babies". Plan to add spironolactone if BP, BUN/Cr and electrolytes allow (explained to pt that BP may be on the low-normal side with medications; if asymptomatic clinically, this may be acceptable, given need for multiple medications for severe systolic heart failure). F/u BUN/Cr, electrolytes (repeat magnesium level), daily weight, Is and Os. F/u recent workup done at [facility] (pt was transferred at that time for CHF, hypotension), valve status (at least moderate by ECHO; may be underestimated due to poor LVEF). Code(s): I50.23 - ACUTE ON CHRONIC SYSTOLIC (CONGESTIVE) HEART FAILURE (4) Obesity Code(s): E66.9 - OBESITY, UNSPECIFIED (5) S/P hysterectomy Assessment/Plan: Pt awaits cook ice cream. Code(s): Z90.710 - ACQUIRED ABSENCE OF BOTH CERVIX AND UTERUS (6) Anemia Code(s): D64.9 - ANEMIA, UNSPECIFIED (7) Elevated troponin Assessment/Plan: Chronic elevation to 0.4 since at least 2016. Reportedly non-obstructive CAD on coronary angiograms 2015 (?[place] at that time) and 2019. Code(s): R79.89 - OTHER SPECIFIED ABNORMAL FINDINGS OF BLOOD CHEMISTRY (8) Atrial fibrillation Assessment/Plan: On carvedilol for HR, BP, and systolic LV dysfunction. Change apixaban to 5 mg bid F/u digoxin level; if this medication is continued, keep level 0.4-0.8. Code(s): I48.91 - UNSPECIFIED ATRIAL FIBRILLATION
[2019-08-13] MEDS: ACETAMINOPHEN 325 MG TABLET (FP) PO PRN (12:10)
[2019-08-13 13:33] LABS: COCAINE, UR NEGATIVE ng/ml (CUTOFF=300); METHADONE, UR NEGATIVE ng/ml (CUTOFF=300); OPIATES, URI NEGATIVE ng/ml (CUTOFF=300); PHENCYCLIDINE,URINE NEGATIVE ng/ml (CUTOFF=25); URINE AMPHETAMINES NEGATIVE ng/ml (CUTOFF=500); URINE BARBITURATES NEGATIVE ng/ml (CUTOFF=200); URINE BENZODIAZEPINES NEGATIVE ng/ml (CUTOFF=200)
[2019-08-13 15:03] VITALS: BP 100/69; PULSE 84; TEMP 98
== END 2019-08-13 17:09 | disposition home or self-care (01) | DRG 200 ==
LOC: JER 11:41 → JERBED 14:09 → OBSVTOIN 22:06 → J4W 08-10 14:12
PROVIDERS: ADMIT Internal Medicine; ATTEND Internal Medicine
DX: I35.0 Nonrheumatic aortic (valve) stenosis (principal); R55 Syncope and collapse; E78.5 Hyperlipidemia, unspecified; I25.10 Atherosclerotic heart disease of native coronary artery without angina pectoris; J45.909 Unspecified asthma, uncomplicated; I48.0 Paroxysmal atrial fibrillation; D64.9 Anemia, unspecified; I25.2 Old myocardial infarction; I95.9 Hypotension, unspecified; K21.9 Gastro-esophageal reflux disease without esophagitis; N64.4 Mastodynia; R79.89 Other specified abnormal findings of blood chemistry; I11.0 Hypertensive heart disease with heart failure; I50.23 Acute on chronic systolic (congestive) heart failure; I42.8 Other cardiomyopathies; E66.9 Obesity, unspecified; Z68.33 Body mass index [BMI] 33.0-33.9, adult; Z90.710 Acquired absence of both cervix and uterus
CPT/HCPCS: 36415; 71045-TC-FY; 80053; 80162; 80307; 82550; 82962; 83735; 84484; 85025; 85610; 85730; 93005; 93010; 99285-25; G0378; J7030

== ENCOUNTER 2020-03-22 16:36 | Inpatient (IN) | payer OTHER ==
[2020-03-22] MEDS ORDERED: FUROSEMIDE 40 MG/4 ML INJECTABLE VIAL IVPUSH ONE (17:26)
[2020-03-22] MEDS ORDERED: NITROGLYCERIN SUBLINGUAL 1/150 0.4 MG TAB SL ONE (17:26)
[2020-03-22] MEDS ORDERED: ASPIRIN 81 MG CHEWABLE TABLETS PO ONE (17:26)
--- NOTE | 2020-03-22 17:26 | PDOC ---
History of Present Illness - General Stated Complaint: DIFFICULTY BREATHING, CHEST PAIN Time Seen by Provider: 03/22/20 17:17 - History of Present Illness Initial Comments: HPI: 03/22/20 17:25 49 yo F PMH severely reduced LVEF of about 25% (07/21/2019 echo also showing moderate , which may be underestimated due to poor LVEF; moderately dilated RV with normal RVEF; mild pericardial effusion), substance abuse (+cocaine on tox screen 07/2019), asthma, CAD ([place] 2016; reportedly non-obstructive CAD on angiogram at [facility] at that time), HLD, anemia, current smoker, presenting with CP and SOB. States that she has been feeling increasing ly short of breath over the past three days, and has also been experiencing intermittent sharp 8/10 sternal chest pain radiating into bilateral breasts, which she states feels similar to the symptoms she had with her IN. Notes that she has gained approximately 30 pounds over the past month. Denies N/V and diaphoresis. ROS: GENERAL/CONSTITUTIONAL: endorses weight gain. Denies fever, chills, diaphoresis, generalized weakness HEAD, EYES, EARS, NOSE AND THROAT: denies rhinorrhea, nasal congestion, throat pain, throat swelling NEUROLOGIC: denies headache, focal weakness, dizziness, unsteady gait, seizure, mental status changes CARDIOVASCULAR: endorses chest pain and peripheral edema. Denies syncope, palpitations, irregular heart rate, lightheadedness RESPIRATORY: endorses shortness of breath, dyspnea with exertion, and orthopnea. Denies cough, wheezing GASTROINTESTINAL: endorses abdominal distension. Denies abdominal pain, nausea, vomiting, diarrhea, constipation, melena, hematochezia GENITOURINARY: denies dysuria, frequency, urgency MUSCULOSKELETAL: denies myalgia, arthralgia SKIN: denies rash, itching PE: Gen: well-developed, well-nourished, NAD Neuro: AAOX4, CN II-XII intact HEENT: atraumatic, normocephalic Neck: trachea midline, supple CV: tachycardic to 110s, regular rhythm, no murmurs, rubs, or gallops Pulm: CTA b/l, no wheezing Abd: soft, mildly distended, epigastric and LLQ abdominal tenderness. Negative Mckinney's. MSK: full ROM, intact pulses Extr: 1+ edema to the knees, no deformities Skin: warm, dry MDM: Differential includes ACS vs PE vs CHF exacerbation. Possible CT abd/pelvis w/ contrast pending Cr considering epigastric and LLQ abd tenderness. - CBC, CMP - mag - EKG, CXR - pro-BNP - cardiac profile - nitroglycerin - furosemide - aspirin 325 - reassess - admit 03/22/20 19:31 EKG sinus tachycardia with PACs at 103 bpm, RBBB with LAFB (bifascicular block), ND 156, QRS 166, QTc 516. Appears similar to recent EKG on August 10. 03/22/20 19:42 D-dimer 1691, will get chest CTA. Will also get CT abd/pelvis with contrast considering tenderness. Patient endorsed to night team. Past History - Medical History Allergies/Adverse Reactions: Allergies Allergy/AdvReac Type Severity Reaction Status Date / Time No Known Drug Allergies Allergy Verified 08/09/19 11:58 Home Medications: Ambulatory Orders Omeprazole 20 mg PO BID 04/06/19 Albuterol Sulfate Inhaler - [Ventolin HFA Inhaler -] 1 puff IH Q6H PRN #1 inhaler 05/18/19 Aspirin 81 mg PO DAILY 05/23/19 Furosemide [Lasix -] 40 mg PO DAILY 07/21/19 Atorvastatin Calcium [Lipitor] 20 mg PO HS 08/09/19 Digoxin [Digitek] 250 mcg PO DAILY 08/09/19 Lisinopril [Zestril] 2.5 mg PO DAILY 08/09/19 Magnesium Oxide [Mag-Ox -] 400 mg PO DAILY 08/09/19 Apixaban [Eliquis -] 5 mg PO BID tablet 08/13/19 Carvedilol [Coreg -] 3.125 mg PO BID #60 tablet 08/13/19 Digoxin [Lanoxin -] 0.125 mg PO Q48H #30 tablet 08/13/19 Ferrous Sulfate [Feosol] 325 mg PO DAILY #30 ud 08/13/19 Anemia: Yes Asthma: Yes (exercise induced) Cancer: No Cardiac Disorders: Yes (IN 2015) CVA: No COPD: No CHF: No Dementia: No Diabetes: No GI Disorders: No Disorders: No HTN: No Hypercholesterolemia: Yes Liver Disease: No Seizures: No Thyroid Disease: No - Surgical History Abdominal Surgery: Yes (HERNIA AT 6 YEARS OLD) Appendectomy: No Cardiac Surgery: Yes (cardiac cath.) Cholecystectomy: No Lung Surgery: No Neurologic Surgery: No Orthopedic Surgery: No - Immunization History Immunization Up to Date: Yes - Psycho-Social/Smoking History Smoking History: Never smoked Have you smoked in the past 12 months: No Number of Cigarettes Smoked Daily: 4 'Breaking Loose' booklet given: 04/13/19 ED Treatment Course - LABORATORY CBC & Chemistry Diagram: 03/24/20 06:55 03/24/20 06:55 Discharge - Discharge Information Problems reviewed: Yes Clinical Impression/Diagnosis: Shortness of breath CHF exacerbation Qualifiers: Heart failure type: unspecified Qualified Code(s): I50.9 - Heart failure, unspecified Chest pain Qualifiers: Chest pain type: unspecified Qualified Code(s): R07.9 - Chest pain, unspecified Condition: Stable - Follow up/Referral - Patient Discharge Instructions - Post Discharge Activity
[2020-03-22] MEDS ORDERED: ASPIRIN 81 MG CHEWABLE TABLETS ONE (17:45)
[2020-03-22] MEDS ORDERED: NITROGLYCERIN SUBLINGUAL 1/150 0.4 MG TAB ONE (17:45)
--- NOTE | 2020-03-22 18:50 | PDOC ---
Documentation entered by Payton Lock SCRIBE, acting as scribe for Tobi Quinones MD. Tobi Quinones MD: This documentation has been prepared by the Ashvin mendoza Ana, SCRIBE, under my direction and personally reviewed by me in its entirety. I confirm that the documentation accurately reflects all work, treatment, procedures, and medical decision making performed by me. Attending Attestation - Resident Resident Name: Dov Banks - ED Attending Attestation I have performed the following: I have examined & evaluated the patient, The case was reviewed & discussed with the resident, I agree w/resident's findings & plan, Exceptions are as noted - HPI HPI: 03/22/20 17:24 Patient is a 49 year old female with a significant past medical history of smoking, substance abuse, asthma, anemia, hyperlipidemia, CAD, IA, reduced LVEF, who presents to the ED with SOB and chest pain x3 days. Patient described her chest pain as intermittent with a pain level of 8/10 which radiates to her breasts bilaterally - said her symptoms feel similar to when she had her IA. Endorses BLE swelling and BANKS. Patient endorses: gaining approximately 30 pounds within the past month. Patient denies: diaphoresis, nausea, vomiting, or any other related symptoms Allergies: NKDA - Physicial Exam PE: 03/22/20 17:24 See resident exam. - Medical Decision Making 03/22/20 18:50 49 F with chest pain, SOB. Clinically appears volume overloaded. - Labs, trop, BNP - CXR - Nitro, aspirin, lasix - Admit Discharge - Discharge Information Problems reviewed: Yes Clinical Impression/Diagnosis: Shortness of breath CHF exacerbation Qualifiers: Heart failure type: unspecified Qualified Code(s): I50.9 - Heart failure, unspecified Chest pain Qualifiers: Chest pain type: unspecified Qualified Code(s): R07.9 - Chest pain, unspecified Condition: Stable - Follow up/Referral - Patient Discharge Instructions - Post Discharge Activity
[2020-03-22 19:23] LABS: BASO % 1.2 % (0-2.0); EOS % 1.3 % (0-4.5); HEMATOCRIT 39.4 % (32.4-45.2); HEMOGLOBIN 12.4 GM/dL (10.7-15.3); LYMPH % 35.3 % (8-40); MCH 30.3 pg (25.7-33.7); MCHC 31.5 g/dl (32.0-36.0); MEAN CELL VOLUME 96.4 fl (80-96); MEAN PLT VOLUME 9.9 fl (7.5-11.1); MONO % 8.3 % (3.8-10.2); NEUT % 53.9 % (42.8-82.8); PLATELET COUNT 133 K/MM3 (134-434); RBC 4.09 M/mm3 (3.60-5.2); RDW 17.4 % (11.6-15.6); WHITE BLOOD COUNT 3.8 K/mm3 (4.0-10.0)
[2020-03-22 20:11] LABS: ALBUMIN 2.8 g/dl (3.4-5.0); BILIRUBIN,TOTAL 2.7 mg/dL (0.2-1); BLOOD UREA NITROGEN 16.4 mg/dL (7-18); CREATININE 0.8 mg/dL (0.55-1.3); MAGNESIUM 1.5 mg/dL (1.8-2.4); N-TERMINAL BNP 3127.4 pg/ml (5-125); PHOSPHOROUS 3.5 mg/dL (2.5-4.9); POTASSIUM 4.4 mmol/L (3.5-5.1); TOT PROT 8.5 g/dl (6.4-8.2)
[2020-03-22] MEDS ORDERED: MAGNESIUM SULF 50% (8.12 MEQ/2 ML-1 GM VIAL) IVPB ONE (23:13)
--- NOTE | 2020-03-22 23:13 | PDOC ---
*Physical Exam - Vital Signs Last Vital Signs Temp Pulse Resp BP Pulse Ox 97.9 F 109 H 23 H 134/105 H 99 03/22/20 17:22 03/22/20 17:22 03/22/20 17:22 03/22/20 17:22 03/22/20 17:22 ED Treatment Course - LABORATORY CBC & Chemistry Diagram: 03/22/20 17:50 03/22/20 17:50 - ADDITIONAL ORDERS Additional order review: Laboratory Results 03/22/20 03/22/20 03/22/20 17:50 17:50 17:50 D-Dimer 1691 H Sodium Potassium Chloride Carbon Dioxide Anion Gap BUN Creatinine Est GFR (CKD-EPI)AfAm Est GFR (CKD-EPI)NonAf Random Glucose Calcium Phosphorus Magnesium Total Bilirubin AST ALT Alkaline Phosphatase Creatine Kinase Troponin I B-Natriuretic Peptide Total Protein Albumin Serum , Qual Negative Digoxin 0.44 L 03/22/20 17:50 D-Dimer Sodium 142 Potassium 4.4 Chloride 108 H Carbon Dioxide 27 Anion Gap 8 BUN 16.4 Creatinine 0.8 Est GFR (CKD-EPI)AfAm 100.33 Est GFR (CKD-EPI)NonAf 86.57 Random Glucose 88 Calcium 9.0 Phosphorus 3.5 Magnesium 1.5 L Total Bilirubin 2.7 H AST 44 H ALT 24 Alkaline Phosphatase 299 H Creatine Kinase 124 Troponin I 0.21 H B-Natriuretic Peptide 3127.4 H Total Protein 8.5 H Albumin 2.8 L Serum , Qual Digoxin 03/22/20 17:50 RBC 4.09 MCV 96.4 H MCHC 31.5 L RDW 17.4 H MPV 9.9 Neutrophils % 53.9 Lymphocytes % 35.3 Monocytes % 8.3 Eosinophils % 1.3 Basophils % 1.2 - RADIOLOGY Radiology Studies Ordered: Category Date Time Status ABDOMEN & PELVIS CT WITH CONTR [CT] Stat CT Scan 03/22/20 19:56 Completed ABDOMEN US -LIMITED [US] Stat Ultrasound 03/22/20 20:16 Completed - Medications Given in the ED: ED Medications Discontinued Medications Generic Name Dose Route Start Last Admin Trade Name Freq PRN Reason Stop Dose Admin Aspirin 324 mg 03/22/20 17:26 03/22/20 17:45 Asa - PO 03/22/20 17:27 324 mg ONCE ONE Administration Furosemide 80 mg 03/22/20 17:26 03/22/20 17:45 Lasix Injection - IVPUSH 03/22/20 17:27 80 mg ONCE ONE Administration Nitroglycerin 0.4 mg 03/22/20 17:26 03/22/20 17:40 Nitrostat - SL 03/22/20 17:27 0.4 mg ONCE ONE Administration Medical Decision Making - Medical Decision Making 03/22/20 23:10 Received on signout from Dr Banks 49 yo F PMH severely reduced LVEF of about 25% (07/21/2019 echo also showing moderate , which may be underestimated due to poor LVEF; moderately dilated RV with normal RVEF; mild pericardial effusion), substance abuse (+cocaine on tox screen 07/2019), asthma, CAD ([place] 2015; reportedly non-obstructive CAD on angiogram at [facility] at that time), HLD, anemia, current smoker, presenting with CP and SOB. Signed out to f/u labs, CTA results 03/22/20 23:11 Cr normal trop elevated bnp elevated tbili 2.7 will proceed with CTA chest and CT abd/pel will order RUQ US 03/22/20 23:11 no pe no acute cynthia SOB improved following lasix will admit to Dr Ybarra for chf exac Discharge - Discharge Information Problems reviewed: Yes Clinical Impression/Diagnosis: CHF exacerbation Condition: Stable - Admission Yes - Follow up/Referral - Patient Discharge Instructions - Post Discharge Activity
[2020-03-22] MEDS ORDERED: MAGNESIUM SULFATE IN WATER 2 GM/50 ML IVPB IVPB ONE (23:22)
--- OUTSIDE RECORDS SUMMARY | 2020-03-23 06:35 | XMS ---
:1970 Author Organization [facility] Care Team Providers Name Role Phone YAZMIN GREEN Unavailable Unavailable Re-disclosure Warning The records that you are about to access may contain information from federally- assisted alcohol or drug abuse programs. If such information is present, then the following federally mandated warning applies: This information has been disclosed to you from records protected by federal confidentiality rules (42 CFR part 2). The federal rules prohibit you from making any further disclosure of this information unless further disclosure is expressly permitted by the written consent of the person to whom it pertains or as otherwise permitted by 42 CFR part 2. A general authorization for the release of medical or other information is NOT sufficient for this purpose. The Federal rules restrict any use of the information to criminally investigate or prosecute any alcohol or drug abuse patient.The records that you are about to access may contain highly sensitive health information, the redisclosure of which is protected by Article 27-F of the [facility] Public Health law. If you continue you may haveaccess to information: Regarding HIV / AIDS; Provided by facilities licensed or operated by the [facility] Office of Mental Health; or Provided by the [facility] Office for People With Developmental Disabilities. If such information is present, then the following [facility] mandated warning applies: This information has been disclosed to you from confidential records which are protected by state law. State law prohibits you from making any further disclosure of this information without the specific written consent of the person to whom it pertains, or as otherwise permitted by law. Any unauthorized further disclosure in violation of state law may result in a fine or usp sentence or both. A general authorization for the release of medical or other information is NOT sufficient authorization for further disclosure. Encounters Encounter Providers Location Date Indications Data Source(s ) Outpatient Attender: 06/02/2019 I25.10 I35.0 [facility] KIMBERRupesh, 06:00:00 AM [facility] ROBERTAdmitter: [facility] YAZMIN GREENReferrer: YAZMIN GREEN I25.10 I35.0 Outpatient Attender: NORMA 05/25/2019 I25.10 I35.0 [facility] ROBERTAdmitter: 05:00:00 AM [facility] ROBERTReferrer: YAZMIN GREEN I25.10 I35.0 Insurance Providers Payer name Policy type Policy ID Covered Covered constitution party's Policy P essence / Coverage constitution party ID relationship to Jacobo Inf ormation type jacobo [facility] [id number] SP [id number] MEDICAID [id number] SP [id number] [facility] [place]ICAID [id number] [place] [id number] [facility] MEDICAID [id number] [place] [id number] [facility] MED[place] [id number] SP [id number]
[2020-03-23] MEDS ORDERED: ALBUTEROL SO4 HFA INHALER IH PRN (12:21)
[2020-03-23] MEDS ORDERED: CARVEDILOL 3.125 MG TABLET (FP) PO SCH (12:30)
--- NOTE | 2020-03-23 13:07 | CON.PULM ---
Consult Consult Specialty:: PULMONARY Referred by:: Dr Ybarra Reason for Consultation:: shortness of breath - History of Present Illness Chief Complaint: shortness of breath History of Present Illness: 49yo female with h/o hyperlipidemia, asthma, CAD, cocaine use, severe LV systolic dysfunction, moderate aortic stenosis who was admitted with worsening shortness of breath for the past 10 days. Does report some chest discomfort, no palpitations. No fevers, chills or sweats. No cough or wheezing. She does report worsening orthopnea, leg swelling and PND. She has to sleep upright. She also reports unintentional weight gain. - History Source History Provided By: Patient, Medical Record Limitations to Obtaining History: No Limitations - Past Medical History Cardio/Vascular: Yes: HTN, Hyperlipdemia, [place] Gastrointestinal: Yes: GERD ...LMP: 03/16/19 ...: No - Past Surgical History Past Surgical History: Yes: Hysterectomy - Alcohol/Substance Use Hx Alcohol Use: No - Smoking History Smoking history: Never smoked Have you smoked in the past 12 months: No Aproximately how many cigarettes per day: 4 - Social History History of Recent Travel: No Home Medications - Allergies Allergies/Adverse Reactions: Allergies Allergy/AdvReac Type Severity Reaction Status Date / Time No Known Drug Allergies Allergy Verified 08/09/19 11:58 - Home Medications Home Medications: Ambulatory Orders Omeprazole 20 mg PO BID 04/06/19 Albuterol Sulfate Inhaler - [Ventolin HFA Inhaler -] 1 puff IH Q6H PRN #1 inhaler 05/18/19 Aspirin 81 mg PO DAILY 05/23/19 Furosemide [Lasix -] 40 mg PO DAILY 07/21/19 Apixaban [Eliquis] 5 mg PO DAILY 08/09/19 Atorvastatin Calcium [Lipitor] 20 mg PO HS 08/09/19 Digoxin [Digitek] 250 mcg PO DAILY 08/09/19 Ferrous Sulfate [Feosol] 75 mg PO TID 08/09/19 Lisinopril [Zestril] 2.5 mg PO DAILY 08/09/19 Magnesium Oxide [Mag-Ox -] 400 mg PO DAILY 08/09/19 Apixaban [Eliquis -] 5 mg PO BID tablet 08/13/19 Carvedilol [Coreg -] 3.125 mg PO BID #60 tablet 02/28/20 Digoxin [Lanoxin -] 0.125 mg PO Q48H #30 tablet 08/13/19 Ferrous Sulfate [Feosol] 325 mg PO DAILY #30 ud 08/13/19 Review of Systems - Review of Systems Constitutional: denies: Chills, Fever Eyes: denies: Recent Change in Vision HENT: denies: Nasal Congestion, Throat Pain Neck: denies: Stiffness, Tenderness Cardiovascular: reports: Chest Pain, Edema, Shortness of Breath. denies: Palpitations Respiratory: reports: Exercise Intolerance, SOB on Exertion. denies: Cough, Hemoptysis, Wheezing Gastrointestinal: reports: Bloating. denies: Abdominal Pain, Nausea, Vomiting Genitourinary: denies: Dysuria, Hematuria Neurological: denies: Dizziness, Headache Endocrine: reports: Unexplained Weight Gain Physical Exam Vital Sings: Vital Signs Temperature 98 F 03/23/20 10:09 Pulse Rate 108 H 03/23/20 10:09 Respiratory Rate 20 03/23/20 10:09 Blood Pressure 115/58 L 03/23/20 10:09 O2 Sat by Pulse Oximetry (%) 100 03/23/20 07:23 Constitutional: Yes: Calm Eyes: Yes: Conjunctiva Clear, EOM Intact HENT: Yes: Atraumatic, Normocephalic Neck: Yes: Supple, Trachea Midline Cardiovascular: Yes: Regular Rate and Rhythm Respiratory: Yes: Rales ...Clubbing: No Gastrointestinal: Yes: Normal Bowel Sounds, Soft. No: Tenderness Edema: Yes Labs: CBC, BMP 03/22/20 17:50 03/22/20 17:50 Imaging - Results Chest X-ray: Report Reviewed, Image Reviewed (pulmonary vascular congestion) Assessment/Plan Acute on Chronic Systolic Heart Failure Aortic Stenosis CAD Hyperlipidemia Asthma h/o Cocaine use Smoker - IV lasix - monitor urine output, creatinine - daily weights - O2 to keep SpO2 >90% - beta magen, JACKIE-I - smoking cessation - DVT prophylaxis Thank you for this consult Edgar Pinzon MD
--- NOTE | 2020-03-23 13:15 | CON.CARD ---
Consult Consult Specialty:: cardiology Reason for Consultation:: substance abuse; SOB; chest pain; elevated TNI - History of Present Illness Chief Complaint: Pt A&Ox3; SOB on minimal exertion; no chest pain. History of Present Illness: Ms. Walton is a 49 year old black woman with a significant past medical history of cigarette smoking, substance abuse (including cocaine), asthma, anemia, hyperlipidemia, CAD, [place], severely reduced LVEF, chronically elevated TNi (since at least 2016),overweight, who presents to the ED with SOB and chest pain x3 days. Patient described her chest pain as intermittent with a pain level of 8/10 which radiates to her breasts bilaterally - said her symptoms feel similar to when she had her [place]. Endorses BLE swelling and BANKS. Patient endorses: gaining approximately 30 pounds within the past month. Patient denies: diaphoresis, nausea, vomiting, or any other related symptoms Allergies: NKDA - History Source History Provided By: Patient, Medical Record Limitations to Obtaining History: No Limitations - Past Medical History Cardio/Vascular: Yes: CHF, HTN, Hyperlipdemia, [place] Pulmonary: Yes: Asthma Gastrointestinal: Yes: GERD Reproductive: Yes: Postmenopausal ...LMP: 03/16/19 ...: No Heme/Onc: No: Anemia Psych: Yes: Other (addictions) Rheumatology: Yes: Sarcoidosis - Past Surgical History Past Surgical History: Yes: Hysterectomy - Alcohol/Substance Use Hx Alcohol Use: No History of Substance Use: reports: Cocaine - Smoking History Smoking history: Never smoked Have you smoked in the past 12 months: No Aproximately how many cigarettes per day: 4 - Social History History of Recent Travel: No Home Medications - Allergies Allergies/Adverse Reactions: Allergies Allergy/AdvReac Type Severity Reaction Status Date / Time No Known Drug Allergies Allergy Verified 08/09/19 11:58 - Home Medications Home Medications: Ambulatory Orders Omeprazole 20 mg PO BID 04/06/19 Albuterol Sulfate Inhaler - [Ventolin HFA Inhaler -] 1 puff IH Q6H PRN #1 inhaler 05/18/19 Aspirin 81 mg PO DAILY 05/23/19 Furosemide [Lasix -] 40 mg PO DAILY 07/21/19 Atorvastatin Calcium [Lipitor] 20 mg PO HS 08/09/19 Digoxin [Digitek] 250 mcg PO DAILY 08/09/19 Lisinopril [Zestril] 2.5 mg PO DAILY 08/09/19 Magnesium Oxide [Mag-Ox -] 400 mg PO DAILY 08/09/19 Apixaban [Eliquis -] 5 mg PO BID tablet 08/13/19 Carvedilol [Coreg -] 3.125 mg PO BID #60 tablet 08/13/19 Digoxin [Lanoxin -] 0.125 mg PO Q48H #30 tablet 08/13/19 Ferrous Sulfate [Feosol] 325 mg PO DAILY #30 ud 08/13/19 Review of Systems - Review of Systems Constitutional: reports: Weakness Eyes: reports: No Symptoms HENT: reports: No Symptoms Neck: reports: No Symptoms Cardiovascular: reports: Chest Pain Respiratory: reports: Exercise Intolerance, SOB Gastrointestinal: reports: No Symptoms Genitourinary: reports: No Symptoms Breasts: reports: No Symptoms Reported Musculoskeletal: reports: Muscle Weakness Integumentary: reports: No Symptoms Neurological: reports: No Symptoms Endocrine: reports: No Symptoms Hematology/Lymphatic: reports: No Symptoms Psychiatric: reports: Anxiety, Other (addictions) - Risk Factors Known Risk Factors: Yes: Age, Diabetes Mellitus, Hypercholesterolemia, Hypertension, Physical Inactivity, Race Vital Signs: Vital Signs Temperature 98 F 03/23/20 10:09 Pulse Rate 108 H 03/23/20 10:09 Respiratory Rate 20 03/23/20 10:09 Blood Pressure 115/58 L 03/23/20 10:09 O2 Sat by Pulse Oximetry (%) 100 03/23/20 07:23 Constitutional: Yes: Obese Eyes: Yes: WNL HENT: Yes: WNL Neck: Yes: WNL Respiratory: Yes: Diminished, SOB Gastrointestinal: Yes: Soft, Abdomen, Obese Renal/: No: Anuria Cardiovascular: Yes: Tachycardia JVD: Yes Carotid Bruit: No PMI: Displaced Heart Sounds: Yes: S1, S2 Murmur: Yes: Systolic Murmur, Grade 2 Musculoskeletal: Yes: Muscle Weakness Extremities: Yes: Cool Edema: Yes Edema: LLE: 2+, RLE: 2+ Peripheral Pulses WNL: Yes Integumentary: Yes: Venous Stasis Changes Neurological: Yes: Alert, Oriented, Weakness Psychiatric: Yes: Alert, Oriented, Other - Other Data Labs, Other Data: CBC, BMP 03/22/20 17:50 03/22/20 17:50 Troponin, BNP 03/22/20 17:50 Troponin I 0.21 H B-Natriuretic Peptide 3127.4 H Troponin, BNP 03/22/20 17:50 Troponin I 0.21 H B-Natriuretic Peptide 3127.4 H Echo: Report Reviewed Ejection Fraction %: LVEF < 40 % Imaging - Results Chest X-ray: Image Reviewed EKG: Image Reviewed Assessment/Plan Acute substance abuse, including cocaine severe systolic LV dsyfunction obese hypomagnesemia leukopenia chronic elevation of TNI, with mutiple contributors to demand ischemia, includin g CHF, AF, substance abuse (cocaine). Rec: Discontinued beta blockers initially(cocaine abuse; ?asthma). Pt, however, says she stopped cocaine on last admission 4 months ago after being told of inability to use. She had undegone cardiac angiogram then; pt says arteries were non- obstructive. Continue lisinopril; on furosemide. Plan on spironolactone if BUN/Cr, electrolytes, BP allow, and if pt is compliant to serial f/u. On digoxin; keep level 0.4-0.8 (presently 0.44). F/u BUN/Cr, electrolytes, daily weight, Is and Os. f/u lipids, TSH. Replete Mg, and keep 2.0-2.4 f/u Toxicology screen F/u prior cardiac w/u. Unclear if pt has been considered for ICD, though noncompliance to Rx, risks from substance abuse make potential complications forbidding. Addendum: Dr. Boyd, teacher of the deaf/hard of hearing, following her as outpt and last saw her 01/2020; workup in progress, including consideration of ICD (LV dysfunction since at least 2016); possible cardiac MRI to r/o sarcoid. Entresto was also being considered, though she had had issues with hypotension in the past. 07/2019: coronary angiogram: non-obstructive CAD.
--- NOTE | 2020-03-23 13:22 | EKG ---
Test Reason : Blood Pressure : / mmHG Vent. Rate : 103 BPM Atrial Rate : 103 BPM P-R Int : 156 ms QRS Dur : 166 ms QT Int : 394 ms P-R-T Axes : 075 -61 078 degrees QTc Int : 516 ms SINUS TACHYCARDIA WITH PREMATURE ATRIAL COMPLEXES POSSIBLE LEFT ATRIAL ENLARGEMENT RIGHT BUNDLE BRANCH BLOCK LEFT ANTERIOR FASCICULAR BLOCK BIFASCICULAR BLOCK ABNORMAL ECG WHEN COMPARED WITH ECG OF 12-AUG-2019 10:33, PREMATURE ATRIAL COMPLEXES ARE NOW PRESENT T WAVE INVERSION LESS EVIDENT IN ANTEROLATERAL LEADS Confirmed by KANG MISTRY MD ([id number]) on 03/23/2020 1:22:43 PM Referred By: Confirmed By:KANG MISTRY MD
[2020-03-23] MEDS ORDERED: ASPIRIN 81 MG CHEWABLE TABLETS ONE (13:45)
[2020-03-23] MEDS ORDERED: DIGOXIN 0.25 MG TABLET (FP) ONE (13:45)
[2020-03-23] MEDS ORDERED: APIXABAN 5 MG TABLET ONE (13:46)
[2020-03-23] MEDS ORDERED: FERROUS SO4 325 MG TABLET (FP) ONE (13:46)
[2020-03-23] MEDS: ASPIRIN 81 MG CHEWABLE TABLETS PO SCH (14:27)
[2020-03-23] MEDS: FERROUS SO4 325 MG TABLET (FP) PO SCH (14:27)
[2020-03-23] MEDS: APIXABAN 5 MG TABLET PO SCH ×2 (14:27→21:26)
[2020-03-23] MEDS: DOCUSATE SODIUM 100 MG CAPSULE (FP) PO SCH ×2 (14:28→21:26)
[2020-03-23] MEDS: DIGOXIN 0.25 MG TABLET (FP) PO SCH (14:28)
[2020-03-23] MEDS ORDERED: CARVEDILOL 3.125 MG TABLET (FP) ONE (14:48)
--- NOTE | 2020-03-23 16:39 | HP ---
Admitting History and Physical - Past Medical History Cardiovascular: Yes: HTN, Hyperlipdemia, [place] Pulmonary: Yes: Asthma Gastrointestinal: Yes: GERD ...LMP: 03/16/19 ...: No Heme/Onc: Yes: Anemia - Past Surgical History Past Surgical History: Yes: Hysterectomy - Smoking History Smoking history: Never smoked Have you smoked in the past 12 months: No Aproximately how many cigarettes per day: 4 - Alcohol/Substance Use Hx Alcohol Use: No - Social History History of Recent Travel: No Home Medications - Allergies Allergies/Adverse Reactions: Allergies Allergy/AdvReac Type Severity Reaction Status Date / Time No Known Drug Allergies Allergy Verified 08/09/19 11:58 - Home Medications Home Medications: Ambulatory Orders Omeprazole 20 mg PO BID 04/06/19 Albuterol Sulfate Inhaler - [Ventolin HFA Inhaler -] 1 puff IH Q6H PRN #1 inhaler 05/18/19 Aspirin 81 mg PO DAILY 05/23/19 Furosemide [Lasix -] 40 mg PO DAILY 07/21/19 Apixaban [Eliquis] 5 mg PO DAILY 08/09/19 Atorvastatin Calcium [Lipitor] 20 mg PO HS 08/09/19 Digoxin [Digitek] 250 mcg PO DAILY 08/09/19 Ferrous Sulfate [Feosol] 75 mg PO TID 08/09/19 Lisinopril [Zestril] 2.5 mg PO DAILY 08/09/19 Magnesium Oxide [Mag-Ox -] 400 mg PO DAILY 08/09/19 Apixaban [Eliquis -] 5 mg PO BID tablet 08/13/19 Carvedilol [Coreg -] 3.125 mg PO BID #60 tablet 08/13/19 Digoxin [Lanoxin -] 0.125 mg PO Q48H #30 tablet 08/13/19 Ferrous Sulfate [Feosol] 325 mg PO DAILY #30 ud 08/13/19 Physical Examination Vital Signs: Vital Signs Temperature 98.4 F 03/23/20 15:30 Pulse Rate 96 H 03/23/20 15:30 Respiratory Rate 16 03/23/20 15:30 Blood Pressure 138/83 03/23/20 15:30 O2 Sat by Pulse Oximetry (%) 98 03/23/20 15:30 Labs: CBC, BMP 03/22/20 17:50 03/22/20 17:50
[2020-03-23] MEDS: ATORVASTATIN CA 20 MG TABLET (FP) PO SCH (21:26)
[2020-03-24] MEDS: DOCUSATE SODIUM 100 MG CAPSULE (FP) PO SCH ×4 (06:16→21:03)
--- NOTE | 2020-03-24 07:35 | PN ---
Progress Note, Physician History of Present Illness: pulmonary alert,feeling better,less dyspneic - Current Medication List Current Medications: Active Medications Albuterol Sulfate (Ventolin Hfa Inhaler -) 2 puff IH Q4H PRN PRN Reason: SHORT OF BREATH/WHEEZING Apixaban (Eliquis -) 5 mg PO BID [facility] Last Admin: 03/23/20 21:26 Dose: 5 mg Documented by: Aspirin (Asa -) 81 mg PO DAILY [facility] Last Admin: 03/23/20 14:27 Dose: 81 mg Documented by: Atorvastatin Calcium (Lipitor -) 20 mg PO HS [facility] Last Admin: 03/23/20 21:26 Dose: 20 mg Documented by: Digoxin (Lanoxin -) 0.25 mg PO DAILY [facility] Last Admin: 03/23/20 14:28 Dose: 0.25 mg Documented by: Docusate Sodium (Colace -) 100 mg PO TID [facility] Last Admin: 03/24/20 06:16 Dose: 100 mg Documented by: Ferrous Sulfate (Feosol -) 325 mg PO DAILY [facility] Last Admin: 03/23/20 14:27 Dose: 325 mg Documented by: Furosemide (Lasix Injection -) 40 mg IVPUSH DAILY [facility] Influenza Virus Vaccine (Flulaval Quad [id number] Syr) 60 mcg IM .ONCE ONE Stop: 03/24/20 02:32 Lisinopril (Prinivil) 2.5 mg PO DAILY [facility] - Objective Vital Signs: Vital Signs Temperature 97.7 F 03/24/20 02:00 Pulse Rate 97 H 03/24/20 02:00 Respiratory Rate 18 03/24/20 02:00 Blood Pressure 107/53 L 03/24/20 02:00 O2 Sat by Pulse Oximetry (%) 98 03/23/20 22:00 Constitutional: Yes: Well Nourished, Calm Eyes: Yes: WNL HENT: Yes: WNL Neck: Yes: WNL Cardiovascular: Yes: Regular Rate and Rhythm, S1, S2 Respiratory: Yes: CTA Bilaterally Gastrointestinal: Yes: Normal Bowel Sounds, Soft Extremities: Yes: WNL Edema: Yes Assessment/Plan Assessment/Plan Acute on Chronic Systolic Heart Failure Aortic Stenosis CAD Hyperlipidemia Asthma h/o Cocaine use Smoker - continue IV lasix - monitor urine output, creatinine - daily weights - O2 to keep SpO2 >90% - beta magen, JACKIE-I - smoking cessation - DVT prophylaxis DR MARIA
[2020-03-24 07:50] LABS: BASO % 0.7 % (0-2.0); HEMATOCRIT 36.6 % (32.4-45.2); HEMOGLOBIN 11.9 GM/dL (10.7-15.3); LYMPH % 30.4 % (8-40); MCH 30.8 pg (25.7-33.7); MCHC 32.5 g/dl (32.0-36.0); MEAN CELL VOLUME 94.7 fl (80-96); MONO % 9.7 % (3.8-10.2); NEUT % 58.2 % (42.8-82.8); PLATELET COUNT 126 K/MM3 (134-434); RBC 3.86 M/mm3 (3.60-5.2); RDW 17.9 % (11.6-15.6); WHITE BLOOD COUNT 3.6 K/mm3 (4.0-10.0)
--- NOTE | 2020-03-24 08:02 | PN ---
Progress Note, Physician History of Present Illness: Ms. Walton is a 49 year old female with a significant past medical history of cigarette smoking, substance abuse (including cocaine), asthma, anemia, hyperlipidemia, CAD, [place], severely reduced LVEF, chronically elevated TNi (since at least 2017),overweight, who presents to the ED with SOB and chest pain x3 days. Patient described her chest pain as intermittent with a pain level of 8/10 which radiates to her breasts bilaterally - said her symptoms feel similar to when she had her [place]. Endorses BLE swelling and BANKS. Patient endorses: gaining approximately 30 pounds within the past month. Patient denies: diaphoresis, nausea, vomiting, or any other related symptoms - Current Medication List Current Medications: Active Medications Albuterol Sulfate (Ventolin Hfa Inhaler -) 2 puff IH Q4H PRN PRN Reason: SHORT OF BREATH/WHEEZING Apixaban (Eliquis -) 5 mg PO BID [facility] Last Admin: 03/23/20 21:26 Dose: 5 mg Documented by: Aspirin (Asa -) 81 mg PO DAILY [facility] Last Admin: 03/23/20 14:27 Dose: 81 mg Documented by: Atorvastatin Calcium (Lipitor -) 20 mg PO HS [facility] Last Admin: 03/23/20 21:26 Dose: 20 mg Documented by: Digoxin (Lanoxin -) 0.25 mg PO DAILY [facility] Last Admin: 03/23/20 14:28 Dose: 0.25 mg Documented by: Docusate Sodium (Colace -) 100 mg PO TID [facility] Last Admin: 03/24/20 06:16 Dose: 100 mg Documented by: Ferrous Sulfate (Feosol -) 325 mg PO DAILY [facility] Last Admin: 03/23/20 14:27 Dose: 325 mg Documented by: Furosemide (Lasix Injection -) 40 mg IVPUSH DAILY [facility] Influenza Virus Vaccine (Flulaval Quad [id number] Syr) 60 mcg IM .ONCE ONE Stop: 03/24/20 02:32 Lisinopril (Prinivil) 2.5 mg PO DAILY [facility] - Objective Vital Signs: Vital Signs Temperature 97.7 F 03/24/20 02:00 Pulse Rate 97 H 03/24/20 02:00 Respiratory Rate 18 03/24/20 02:00 Blood Pressure 107/53 L 03/24/20 02:00 O2 Sat by Pulse Oximetry (%) 98 03/23/20 22:00 Eyes: Yes: WNL, Conjunctiva Clear, EOM Intact HENT: Yes: WNL, Atraumatic, Normocephalic Neck: Yes: WNL, Supple, Trachea Midline Cardiovascular: Yes: WNL, Regular Rate and Rhythm Respiratory: Yes: WNL, Regular, CTA Bilaterally Gastrointestinal: Yes: WNL, Normal Bowel Sounds Genitourinary: Yes: WNL Musculoskeletal: Yes: WNL Extremities: Yes: WNL Edema: No Integumentary: Yes: WNL Neurological: Yes: WNL, Alert, Oriented ...Motor Strength: WNL Psychiatric: Yes: WNL Assessment/Plan Acute substance abuse, including cocaine severe systolic LV dsyfunction obese hypomagnesemia chronic elevation of TNI, with mutiple contributors to demand ischemia, including CHF, AF, substance abuse (cocaine). Rec: Discontinue beta blockers (cocaine abuse; asthma) Continue lisinopril; on furosemide On digoxin; keep level 0.4-0.8 (presently 0.44). F/u BUN/Cr, electrolytes, daily weight, Is and Os. f/u lipids, TSH. Replete Mg, and keep 2.0-2.4 Toxicology screen F/u prior cardiac w/u. Unclear if pt has been considered for ICD, though noncompliance to Rx, risks from substance abuse make potential complications forbidding.
[2020-03-24 08:04] VITALS: BMI 33.5
[2020-03-24 08:05] LABS: BILIRUBIN,TOTAL 2.2 mg/dL (0.2-1); BLOOD UREA NITROGEN 17.1 mg/dL (7-18); CALCIUM 9.1 mg/dL (8.5-10.1); CREATININE 0.9 mg/dL (0.55-1.3); POTASSIUM 3.9 mmol/L (3.5-5.1); TOT PROT 8.3 g/dl (6.4-8.2)
[2020-03-24 08:40] LABS: ALBUMIN 2.8 g/dl (3.4-5.0)
[2020-03-24] MEDS: APIXABAN 5 MG TABLET PO SCH ×2 (10:15→21:03)
[2020-03-24] MEDS: LISINOPRIL 5 MG TABLET PO SCH (10:15)
[2020-03-24] MEDS: ASPIRIN 81 MG CHEWABLE TABLETS PO SCH (10:15)
[2020-03-24] MEDS: FERROUS SO4 325 MG TABLET (FP) PO SCH (10:17)
[2020-03-24] MEDS: DIGOXIN 0.25 MG TABLET (FP) PO SCH (10:17)
[2020-03-24] MEDS: FUROSEMIDE 40 MG/4 ML INJECTABLE VIAL IVPUSH SCH (10:18)
[2020-03-24] MEDS ORDERED: FLU VACCINE (FLULAVAL) PF 60 MCG/0.5 ML SYRINGE 2020-2021 IM ONE (18:00)
[2020-03-24] MEDS: ATORVASTATIN CA 20 MG TABLET (FP) PO SCH (21:03)
--- NOTE | 2020-03-24 21:46 | PN ---
Progress Note, Physician History of Present Illness: Pt still feels SOB - Current Medication List Current Medications: Active Medications Albuterol Sulfate (Ventolin Hfa Inhaler -) 2 puff IH Q4H PRN PRN Reason: SHORT OF BREATH/WHEEZING Last Admin: 03/24/20 21:03 Dose: 2 puff Documented by: Apixaban (Eliquis -) 5 mg PO BID [facility] Last Admin: 03/24/20 21:03 Dose: 5 mg Documented by: Aspirin (Asa -) 81 mg PO DAILY [facility] Last Admin: 03/24/20 10:15 Dose: 81 mg Documented by: Atorvastatin Calcium (Lipitor -) 20 mg PO HS [facility] Last Admin: 03/24/20 21:03 Dose: 20 mg Documented by: Digoxin (Lanoxin -) 0.25 mg PO DAILY [facility] Last Admin: 03/24/20 10:17 Dose: 0.25 mg Documented by: Docusate Sodium (Colace -) 100 mg PO TID [facility] Last Admin: 03/24/20 21:03 Dose: 100 mg Documented by: Ferrous Sulfate (Feosol -) 325 mg PO DAILY [facility] Last Admin: 03/24/20 10:17 Dose: 325 mg Documented by: Furosemide (Lasix Injection -) 40 mg IVPUSH DAILY [facility] Last Admin: 03/24/20 10:18 Dose: 40 mg Documented by: Lisinopril (Prinivil) 2.5 mg PO DAILY [facility] Last Admin: 03/24/20 10:15 Dose: 2.5 mg Documented by: - Objective Vital Signs: Vital Signs Temperature 98.1 F 03/24/20 18:00 Pulse Rate 99 H 03/24/20 18:00 Respiratory Rate 20 03/24/20 18:00 Blood Pressure 109/80 03/24/20 18:00 O2 Sat by Pulse Oximetry (%) 100 03/24/20 18:00 Neck: Yes: Other ((+) JVD) Cardiovascular: Yes: WNL, Regular Rate and Rhythm Respiratory: Yes: Other (Fine bibasilar rales) Gastrointestinal: Yes: Normal Bowel Sounds, Soft, Distention Edema: Yes Edema: LLE: Trace, RLE: Trace Labs: CBC, BMP 03/24/20 06:55 03/24/20 06:55 Problem List - Problems (1) Acute on chronic systolic heart failure Assessment/Plan: Cont IV lasix Monitor electrolytes Cannot tolerate BB due to cocaine use Code(s): I50.23 - ACUTE ON CHRONIC SYSTOLIC (CONGESTIVE) HEART FAILURE (2) CAD (coronary artery disease) Assessment/Plan: Cont asa Code(s): I25.10 - ATHSCL HEART DISEASE OF [place] CORONARY ARTERY W/O ANG PCTRS (3) Anemia Assessment/Plan: H/H stable Cont Feosol Code(s): D64.9 - ANEMIA, UNSPECIFIED (4) Asthma Assessment/Plan: Cont albuterol inhaler Code(s): J45.909 - UNSPECIFIED ASTHMA, UNCOMPLICATED (5) Paroxysmal A-fib Assessment/Plan: Heart rate controlled Cont dig/eliquis Code(s): I48.0 - PAROXYSMAL ATRIAL FIBRILLATION (6) Elevated troponin Assessment/Plan: Demand ischemia Code(s): R79.89 - OTHER SPECIFIED ABNORMAL FINDINGS OF BLOOD CHEMISTRY (7) HLD (hyperlipidemia) Assessment/Plan: Cont lipitor Code(s): E78.5 - HYPERLIPIDEMIA, UNSPECIFIED (8) Cocaine abuse Code(s): F14.10 - COCAINE ABUSE, UNCOMPLICATED
[2020-03-25] MEDS: DOCUSATE SODIUM 100 MG CAPSULE (FP) PO SCH ×3 (05:59→21:27)
--- NOTE | 2020-03-25 07:15 | PN ---
Progress Note (short form) - Note Progress Note: Coverage for Dr. Pradeep Zambrano Chief Complaint: Events noted, notes reviewed, resting in bed reports weight gain, denies dyspnea or orthopnea, denies any chest discomfort History of Present Illness: Seen and examined on telemetry. Events noted, notes reviewed, resting in bed reports weight gain, denies dyspnea or orthopnea, denies any chest discomfort - Current Medication List Current Medications Generic Name Dose Route Start Last Admin Trade Name Freq PRN Reason Stop Dose Admin Albuterol Sulfate 2 puff 03/23/20 12:21 03/24/20 21:03 Ventolin Hfa Inhaler - IH 2 puff Q4H PRN Administration SHORT OF BREATH/WHEEZING Apixaban 5 mg 03/23/20 13:30 03/24/20 21:03 Eliquis - PO 5 mg BID [facility] Administration Aspirin 81 mg 03/23/20 13:30 03/24/20 10:15 Asa - PO 81 mg DAILY [facility] Administration Atorvastatin Calcium 20 mg 03/23/20 22:00 03/24/20 21:03 Lipitor - PO 20 mg HS [facility] Administration Digoxin 0.25 mg 03/23/20 13:30 03/24/20 10:17 Lanoxin - PO 0.25 mg DAILY [facility] Administration Docusate Sodium 100 mg 03/23/20 14:00 03/25/20 05:59 Colace - PO 100 mg TID [facility] Administration Ferrous Sulfate 325 mg 03/23/20 13:30 03/24/20 10:17 Feosol - PO 325 mg DAILY [facility] Administration Furosemide 40 mg 03/24/20 10:00 03/24/20 10:18 Lasix Injection - IVPUSH 40 mg DAILY [facility] Administration Lisinopril 2.5 mg 03/24/20 10:00 03/24/20 10:15 Prinivil PO 2.5 mg DAILY [facility] Administration - Review of Systems Constitutional: denies: Chills, Fever Cardiovascular: As noted above Respiratory: denies: Cough or Sputum Production Gastrointestinal: denies: Abdominal Pain, Constipation, Melena, Nausea, Rectal Bleeding, Vomiting Genitourinary: denies: Dysuria, Hematuria Musculoskeletal: denies: Back Pain, Joint Pain Neurological: denies: Dizziness, Syncope, Confusion, Headache, Numbness, Seizure, Unsteady Gait - Objective Vital Signs: Last Vital Signs Temp Pulse Resp BP Pulse Ox 98.5 F 96 H 18 93/59 L 100 03/25/20 02:24 03/25/20 02:24 03/25/20 02:24 03/25/20 02:24 03/24/20 21:00 Intake & Output 03/22/20 03/23/20 03/24/20 03/25/20 23:59 23:59 23:59 23:59 Intake Total 120 360 Balance 120 360 Weight 202 lb 227 lb 227 lb 224 lb 8 oz Neck: Supple Negative JVD Cardiovascular: S1 S2 Regular Rate and Rhythm Respiratory: Clear Bilaterally Gastrointestinal: Soft Benign Normal Bowel Sounds Ext: Trace Edema Labs: Troponin, BNP 03/24/20 12:32 Troponin I 0.21 H CBC, BMP 03/24/20 06:55 03/24/20 06:55 Hepatic Panel Total Bilirubin 2.2 mg/dL (0.2-1) H 03/24/20 06:55 AST 41 U/L (15-37) H 03/24/20 06:55 ALT 23 U/L (13-61) 03/24/20 06:55 Alkaline Phosphatase 302 U/L (45-117) H 03/24/20 06:55 Albumin 2.8 g/dl (3.4-5.0) L 03/24/20 06:55 Assessment/Plan ASSESSMENT: 1. Systolic LV dysfunction/dilated cardiomyopathy with clinical class II-III NYHA classification LV failure, resolving 2. Evidence of demand ischemia related to the above noted cardiomyopathy 3. Paroxysmal atrial fibrillation [id number] score of 2 on A/C therapy 4. Substance abuse/Cocaine 5. Neutropenia and thrombocytopenia PLAN: 1. Ideally patient should be on Coreg or Toprol XL therapy with caution considering her Cocaine abuse- outcome data 2. Ideally patient should be on Entresto therapy in substitution for Lisinopril- favorable outcome data 3. Continue Digoxin- no outcome data 4. Continue Lasix therapy 5. Counselled substance abuse cessation 6. group home management including prophylactic ICD implant is to be deferred until patient demonstrates compliance with therapy- F/U and substance abuse cessation Rickey Jimenez MD
[2020-03-25] MEDS: FUROSEMIDE 40 MG/4 ML INJECTABLE VIAL IVPUSH SCH (10:09)
[2020-03-25] MEDS: DIGOXIN 0.25 MG TABLET (FP) PO SCH (10:09)
[2020-03-25] MEDS: APIXABAN 5 MG TABLET PO SCH ×2 (10:10→21:26)
[2020-03-25] MEDS: ASPIRIN 81 MG CHEWABLE TABLETS PO SCH (10:10)
[2020-03-25] MEDS: FERROUS SO4 325 MG TABLET (FP) PO SCH (10:10)
[2020-03-25] MEDS: LISINOPRIL 5 MG TABLET PO SCH (10:10)
--- NOTE | 2020-03-25 13:47 | PN ---
Progress Note (short form) - Note Progress Note: Resting in bed in NAD on RA. Less dyspnea and CP. No acute events overnight. Intake & Output 03/22/20 03/23/20 03/24/20 03/25/20 23:59 23:59 23:59 23:59 Intake Total 120 360 570 Balance 120 360 570 Weight 202 lb 227 lb 227 lb 224 lb 8 oz Last Vital Signs Temp Pulse Resp BP Pulse Ox 98.8 F 99 H 18 105/65 99 03/25/20 10:00 03/25/20 10:09 03/25/20 10:00 03/25/20 10:00 03/25/20 10:00 Active Medications Albuterol Sulfate (Ventolin Hfa Inhaler -) 2 puff IH Q4H PRN PRN Reason: SHORT OF BREATH/WHEEZING Last Admin: 03/24/20 21:03 Dose: 2 puff Documented by: Apixaban (Eliquis -) 5 mg PO BID [facility] Last Admin: 03/25/20 10:10 Dose: 5 mg Documented by: Aspirin (Asa -) 81 mg PO DAILY [facility] Last Admin: 03/25/20 10:10 Dose: 81 mg Documented by: Atorvastatin Calcium (Lipitor -) 20 mg PO HS [facility] Last Admin: 03/24/20 21:03 Dose: 20 mg Documented by: Digoxin (Lanoxin -) 0.25 mg PO DAILY [facility] Last Admin: 03/25/20 10:09 Dose: 0.25 mg Documented by: Docusate Sodium (Colace -) 100 mg PO TID [facility] Last Admin: 03/25/20 05:59 Dose: 100 mg Documented by: Ferrous Sulfate (Feosol -) 325 mg PO DAILY [facility] Last Admin: 03/25/20 10:10 Dose: 325 mg Documented by: Furosemide (Lasix Injection -) 40 mg IVPUSH DAILY [facility] Last Admin: 03/25/20 10:09 Dose: 40 mg Documented by: Lisinopril (Prinivil) 2.5 mg PO DAILY [facility] Last Admin: 03/25/20 10:10 Dose: 2.5 mg Documented by: Constitutional: Yes: Well Nourished, Calm Eyes: Yes: WNL HENT: Yes: WNL Neck: Yes: WNL Cardiovascular: Yes: Regular Rate and Rhythm, S1, S2 Respiratory: Yes: Diminished at the bases Gastrointestinal: Yes: Normal Bowel Sounds, Soft Extremities: Yes: WNL Edema: Yes Laboratory Results - last 24 hr 03/23/20 03/25/20 09:00 12:41 Creatine Kinase 107 Troponin I 0.20 H COVID-19 (HUAMIRA) Not detected Assessment/Plan Acute on Chronic Systolic Heart Failure Aortic Stenosis CAD Hyperlipidemia Asthma h/o Cocaine use Smoker - IV lasix - monitor urine output, creatinine - Daily weights - O2 to keep SpO2 >90% - Beta magen, JACKIE-I - smoking cessation - DVT prophylaxis Dr Enrique DOMINGO Screen - DOMINGO History Previously diagnosed with Sleep Apnea: No If Yes, currently using CPAP to treat your DOMINGO: No - SNORING Do you snore loudly (enough to be heard thru closed doors)?: Yes - TIRED Do you often feel tired, fatigued, or sleepy during daytime?: Yes - OBSERVED Has anyone observed you stop breathing during your sleep?: Yes - BLOOD PRESSURE Do you have or are being treated for high blood pressure?: Yes - BMI Answer Y if weight exceeds amount listed for your height: Yes .: HEIGHT & WEIGHT (lbs): 4'10" 167lbs; 4'11" 175 lbs; 5'0" 179lbs;. 5'1" 185lbs; 5'2" 191lbs; 5'3" 197lbs;. 5'4" 204lbs; 5'5" 210lbs; 5'6" 216lbs;. 5'7" 223lbs; 5'8" 230lbs; 5'9" 237lbs;. 5'10" 243lbs; 5'11" 250lbs; 6' 258lbs;. 6'1" 265lbs; 6'2" 272lbs; 6'3" 279lbs;. 6'4" 287lbs; 6'5" 295lbs - AGE Is your age over 50 yrs old?: No - NECK CIRCUMFERENCE Neck Circumference 40cm: Yes - GENDER Male: No - SCORE Total Score: 6 Score Interpretation: High Risk of DOMINGO .: Interpretation: Score 0-2: Low Risk DOMINGO. Score 3-4: Intermediate Risk DOMINGO. Score 5-8: High Risk DOMINGO
--- NOTE | 2020-03-25 15:47 | PN ---
Progress Note, Physician History of Present Illness: stable - Current Medication List Current Medications: Active Medications Albuterol Sulfate (Ventolin Hfa Inhaler -) 2 puff IH Q4H PRN PRN Reason: SHORT OF BREATH/WHEEZING Last Admin: 03/24/20 21:03 Dose: 2 puff Documented by: Apixaban (Eliquis -) 5 mg PO BID [facility] Last Admin: 03/25/20 10:10 Dose: 5 mg Documented by: Aspirin (Asa -) 81 mg PO DAILY [facility] Last Admin: 03/25/20 10:10 Dose: 81 mg Documented by: Atorvastatin Calcium (Lipitor -) 20 mg PO HS [facility] Last Admin: 03/24/20 21:03 Dose: 20 mg Documented by: Digoxin (Lanoxin -) 0.25 mg PO DAILY [facility] Last Admin: 03/25/20 10:09 Dose: 0.25 mg Documented by: Docusate Sodium (Colace -) 100 mg PO TID [facility] Last Admin: 03/25/20 13:59 Dose: Not Given Documented by: Ferrous Sulfate (Feosol -) 325 mg PO DAILY [facility] Last Admin: 03/25/20 10:10 Dose: 325 mg Documented by: Furosemide (Lasix Injection -) 40 mg IVPUSH DAILY [facility] Last Admin: 03/25/20 10:09 Dose: 40 mg Documented by: Lisinopril (Prinivil) 2.5 mg PO DAILY [facility] Last Admin: 03/25/20 10:10 Dose: 2.5 mg Documented by: - Objective Vital Signs: Vital Signs Temperature 99.6 F 03/25/20 14:00 Pulse Rate 106 H 03/25/20 14:00 Respiratory Rate 16 03/25/20 14:00 Blood Pressure 99/75 03/25/20 14:00 O2 Sat by Pulse Oximetry (%) 99 03/25/20 10:00 Constitutional: Yes: No Distress HENT: Yes: Atraumatic Neck: Yes: Supple Cardiovascular: Yes: Regular Rate and Rhythm Respiratory: Yes: Rales, Rhonchi Gastrointestinal: Yes: Normal Bowel Sounds Extremities: Yes: WNL Neurological: Yes: Alert, Oriented Labs: CBC, BMP 03/24/20 06:55 03/24/20 06:55 Problem List - Problems (1) CHF exacerbation Assessment/Plan: on iv lasix cardiology on board on other po meds Code(s): I50.9 - HEART FAILURE, UNSPECIFIED Qualifiers: Heart failure type: unspecified Qualified Code(s): I50.9 - Heart failure, unspecified (2) Shortness of breath Assessment/Plan: improving Code(s): R06.02 - SHORTNESS OF BREATH (3) Acute on chronic systolic heart failure Code(s): I50.23 - ACUTE ON CHRONIC SYSTOLIC (CONGESTIVE) HEART FAILURE (4) Asthma Assessment/Plan: stable Code(s): J45.909 - UNSPECIFIED ASTHMA, UNCOMPLICATED (5) Atrial fibrillation Assessment/Plan: on AC and other cardiac meds Code(s): I48.91 - UNSPECIFIED ATRIAL FIBRILLATION (6) Elevated troponin Code(s): R79.89 - OTHER SPECIFIED ABNORMAL FINDINGS OF BLOOD CHEMISTRY (7) HLD (hyperlipidemia) Assessment/Plan: on meds Code(s): E78.5 - HYPERLIPIDEMIA, UNSPECIFIED (8) HTN (hypertension) Assessment/Plan: on meds monitor Code(s): I10 - ESSENTIAL (PRIMARY) HYPERTENSION Assessment/Plan covering for dr jennifer de leon
[2020-03-25] MEDS: ATORVASTATIN CA 20 MG TABLET (FP) PO SCH (21:26)
[2020-03-26] MEDS: DOCUSATE SODIUM 100 MG CAPSULE (FP) PO SCH ×3 (05:32→21:13)
--- NOTE | 2020-03-26 06:37 | PN ---
Progress Note (short form) - Note Progress Note: Coverage for Dr. Pradeep Zambrano Chief Complaint: Events noted, notes reviewed, resting in bed, denies dyspnea or orthopnea, denies any chest discomfort, weights noted probable error in yesterday's measurement History of Present Illness: Seen and examined on telemetry. Events noted, notes reviewed, resting in bed, denies dyspnea or orthopnea, denies any chest discomfort, weights noted probable error in yesterday's measurement - Current Medication List Current Medications Generic Name Dose Route Start Last Admin Trade Name Freq PRN Reason Stop Dose Admin Albuterol Sulfate 2 puff 03/23/20 12:21 03/24/20 21:03 Ventolin Hfa Inhaler - IH 2 puff Q4H PRN Administration SHORT OF BREATH/WHEEZING Apixaban 5 mg 03/23/20 13:30 03/25/20 21:26 Eliquis - PO 5 mg BID [facility] Administration Aspirin 81 mg 03/23/20 13:30 03/25/20 10:10 Asa - PO 81 mg DAILY [facility] Administration Atorvastatin Calcium 20 mg 03/23/20 22:00 03/25/20 21:26 Lipitor - PO 20 mg HS [facility] Administration Digoxin 0.25 mg 03/23/20 13:30 03/25/20 10:09 Lanoxin - PO 0.25 mg DAILY [facility] Administration Docusate Sodium 100 mg 03/23/20 14:00 03/26/20 05:32 Colace - PO Not Given TID [facility] Ferrous Sulfate 325 mg 03/23/20 13:30 03/25/20 10:10 Feosol - PO 325 mg DAILY [facility] Administration Furosemide 40 mg 03/24/20 10:00 03/25/20 10:09 Lasix Injection - IVPUSH 40 mg DAILY [facility] Administration Lisinopril 2.5 mg 03/24/20 10:00 03/25/20 10:10 Prinivil PO 2.5 mg DAILY [facility] Administration - Review of Systems Constitutional: denies: Chills, Fever Cardiovascular: As noted above Respiratory: denies: Cough or Sputum Production Gastrointestinal: denies: Abdominal Pain, Constipation, Melena, Nausea, Rectal Bleeding, Vomiting Genitourinary: denies: Dysuria, Hematuria Musculoskeletal: denies: Back Pain, Joint Pain Neurological: denies: Dizziness, Syncope, Confusion, Headache, Numbness, Seizur e, Unsteady Gait - Objective Vital Signs: Last Vital Signs Temp Pulse Resp BP Pulse Ox 98.5 F 99 H 16 116/77 100 03/26/20 05:30 03/26/20 05:30 03/26/20 05:30 03/26/20 05:30 03/26/20 05:30 Intake & Output 03/23/20 03/24/20 03/25/20 03/26/20 23:59 23:59 23:59 23:59 Intake Total 904 356 6710 240 Balance 581 875 8562 240 Weight 227 lb 227 lb 224 lb 8 oz Neck: Supple Negative JVD Cardiovascular: S1 S2 Regular Rate and Rhythm Respiratory: Clear Bilaterally Gastrointestinal: Soft Benign Normal Bowel Sounds Ext: Trace Edema Labs: CBC, BMP 03/24/20 06:55 03/24/20 06:55 Hepatic Panel Total Bilirubin 2.2 mg/dL (0.2-1) H 03/24/20 06:55 AST 41 U/L (15-37) H 03/24/20 06:55 ALT 23 U/L (13-61) 03/24/20 06:55 Alkaline Phosphatase 302 U/L (45-117) H 03/24/20 06:55 Albumin 2.8 g/dl (3.4-5.0) L 03/24/20 06:55 Assessment/Plan ASSESSMENT: 1. Systolic LV dysfunction/dilated cardiomyopathy with clinical class II-III NYHA classification LV failure, resolving 2. Evidence of demand ischemia related to the above noted cardiomyopathy 3. Paroxysmal atrial fibrillation [id number] score of 2 on A/C therapy 4. Substance abuse/Cocaine 5. Neutropenia and thrombocytopenia PLAN: 1. Ideally patient should be on Coreg or Toprol XL therapy with caution considering her Cocaine abuse- outcome data 2. Ideally patient should be on Entresto therapy in substitution for Lisinopril- favorable outcome data 3. Continue Digoxin- no outcome data 4. Continue Lasix therapy 5. Counselled substance abuse cessation 6. [facility] management including prophylactic ICD implant is to be deferred until patient demonstrates compliance with therapy, F/U and substance abuse cessation Rickey Jimenez MD
[2020-03-26] MEDS: DIGOXIN 0.25 MG TABLET (FP) PO SCH (09:01)
[2020-03-26] MEDS: FUROSEMIDE 40 MG/4 ML INJECTABLE VIAL IVPUSH SCH (09:01)
[2020-03-26] MEDS: ASPIRIN 81 MG CHEWABLE TABLETS PO SCH (09:02)
[2020-03-26] MEDS: APIXABAN 5 MG TABLET PO SCH ×2 (09:02→21:19)
[2020-03-26] MEDS: LISINOPRIL 5 MG TABLET PO SCH (09:02)
[2020-03-26] MEDS: FERROUS SO4 325 MG TABLET (FP) PO SCH (09:02)
[2020-03-26] MEDS: ACETAMINOPHEN 325 MG TABLET (FP) PO PRN ×2 (09:31→18:41)
--- NOTE | 2020-03-26 12:56 | PN ---
Progress Note (short form) - Note Progress Note: Resting in bed in NAD on RA. Less dyspnea and CP. No acute events overnight. Intake & Output 03/23/20 03/24/20 03/25/20 03/26/20 23:59 23:59 23:59 23:59 Intake Total 744 530 5033 610 Balance 607 084 1027 610 Weight 227 lb 227 lb 224 lb 8 oz 218 lb 3.2 oz Last Vital Signs Temp Pulse Resp BP Pulse Ox 98.6 F 97 H 17 108/69 97 03/26/20 10:06 03/26/20 10:06 03/26/20 10:06 03/26/20 10:06 03/26/20 10:06 Active Medications Acetaminophen (Tylenol -) 650 mg PO Q6H PRN PRN Reason: PAIN 5-10 Last Admin: 03/26/20 09:31 Dose: 650 mg Documented by: Albuterol Sulfate (Ventolin Hfa Inhaler -) 2 puff IH Q4H PRN PRN Reason: SHORT OF BREATH/WHEEZING Last Admin: 03/24/20 21:03 Dose: 2 puff Documented by: Apixaban (Eliquis -) 5 mg PO BID [facility] Last Admin: 03/26/20 09:02 Dose: 5 mg Documented by: Aspirin (Asa -) 81 mg PO DAILY [facility] Last Admin: 03/26/20 09:02 Dose: 81 mg Documented by: Atorvastatin Calcium (Lipitor -) 20 mg PO HS [facility] Last Admin: 03/25/20 21:26 Dose: 20 mg Documented by: Digoxin (Lanoxin -) 0.25 mg PO DAILY [facility] Last Admin: 03/26/20 09:01 Dose: 0.25 mg Documented by: Docusate Sodium (Colace -) 100 mg PO TID [facility] Last Admin: 03/26/20 05:32 Dose: Not Given Documented by: Ferrous Sulfate (Feosol -) 325 mg PO DAILY [facility] Last Admin: 03/26/20 09:02 Dose: 325 mg Documented by: Furosemide (Lasix Injection -) 40 mg IVPUSH DAILY [facility] Last Admin: 03/26/20 09:01 Dose: 40 mg Documented by: Lisinopril (Prinivil) 2.5 mg PO DAILY [facility] Last Admin: 03/26/20 09:02 Dose: 2.5 mg Documented by: Constitutional: Yes: Well Nourished, Calm Eyes: Yes: WNL HENT: Yes: WNL Neck: Yes: WNL Cardiovascular: Yes: Regular Rate and Rhythm, S1, S2 Respiratory: Yes: Diminished at the bases Gastrointestinal: Yes: Normal Bowel Sounds, Soft Extremities: Yes: WNL Edema: Yes Laboratory Results - last 24 hr 03/25/20 12:41 Creatine Kinase 107 Troponin I 0.20 H Assessment/Plan Acute on Chronic Systolic Heart Failure Aortic Stenosis CAD Hyperlipidemia Asthma h/o Cocaine use Smoker Likely OSAS - IV lasix - monitor urine output, creatinine - Daily weights - O2 to keep SpO2 >90% - Beta magen, JACKIE-I - smoking cessation - DVT prophylaxis - Sleep screen Dr Enrique
[2020-03-26] MEDS: ATORVASTATIN CA 20 MG TABLET (FP) PO SCH (21:19)
--- NOTE | 2020-03-26 22:55 | PN ---
Progress Note, Physician History of Present Illness: No new complaints - Current Medication List Current Medications: Active Medications Acetaminophen (Tylenol -) 650 mg PO Q6H PRN PRN Reason: PAIN 5-10 Last Admin: 03/26/20 18:41 Dose: 650 mg Documented by: Albuterol Sulfate (Ventolin Hfa Inhaler -) 2 puff IH Q4H PRN PRN Reason: SHORT OF BREATH/WHEEZING Last Admin: 03/24/20 21:03 Dose: 2 puff Documented by: Apixaban (Eliquis -) 5 mg PO BID [facility] Last Admin: 03/26/20 21:19 Dose: 5 mg Documented by: Aspirin (Asa -) 81 mg PO DAILY [facility] Last Admin: 03/26/20 09:02 Dose: 81 mg Documented by: Atorvastatin Calcium (Lipitor -) 20 mg PO HS [facility] Last Admin: 03/26/20 21:19 Dose: 20 mg Documented by: Digoxin (Lanoxin -) 0.25 mg PO DAILY [facility] Last Admin: 03/26/20 09:01 Dose: 0.25 mg Documented by: Docusate Sodium (Colace -) 100 mg PO TID [facility] Last Admin: 03/26/20 21:13 Dose: Not Given Documented by: Ferrous Sulfate (Feosol -) 325 mg PO DAILY [facility] Last Admin: 03/26/20 09:02 Dose: 325 mg Documented by: Furosemide (Lasix Injection -) 40 mg IVPUSH DAILY [facility] Last Admin: 03/26/20 09:01 Dose: 40 mg Documented by: Lisinopril (Prinivil) 2.5 mg PO DAILY [facility] Last Admin: 03/26/20 09:02 Dose: 2.5 mg Documented by: - Objective Vital Signs: Vital Signs Temperature 98.1 F 03/26/20 17:53 Pulse Rate 105 H 03/26/20 17:53 Respiratory Rate 17 03/26/20 17:53 Blood Pressure 119/62 03/26/20 17:53 O2 Sat by Pulse Oximetry (%) 98 03/26/20 17:53 Cardiovascular: Yes: WNL, Regular Rate and Rhythm Respiratory: Yes: Diminished Gastrointestinal: Yes: WNL, Normal Bowel Sounds, Soft Edema: LLE: Trace, RLE: Trace Labs: CBC, BMP 03/24/20 06:55 03/24/20 06:55 Problem List - Problems (1) Acute on chronic systolic heart failure Assessment/Plan: Cont IV lasix Monitor electrolytes Cannot tolerate BB due to cocaine use Cont lisinopril Code(s): I50.23 - ACUTE ON CHRONIC SYSTOLIC (CONGESTIVE) HEART FAILURE (2) CAD (coronary artery disease) Assessment/Plan: Cont asa Code(s): I25.10 - ATHSCL HEART DISEASE OF [place] CORONARY ARTERY W/O ANG PCTRS (3) Anemia Assessment/Plan: H/H stable Cont Feosol Code(s): D64.9 - ANEMIA, UNSPECIFIED (4) Asthma Assessment/Plan: Cont albuterol inhaler Code(s): J45.909 - UNSPECIFIED ASTHMA, UNCOMPLICATED (5) Paroxysmal A-fib Assessment/Plan: Heart rate controlled Cont dig/eliquis Code(s): I48.0 - PAROXYSMAL ATRIAL FIBRILLATION (6) Elevated troponin Assessment/Plan: Demand ischemia Code(s): R79.89 - OTHER SPECIFIED ABNORMAL FINDINGS OF BLOOD CHEMISTRY (7) HLD (hyperlipidemia) Assessment/Plan: Cont lipitor Code(s): E78.5 - HYPERLIPIDEMIA, UNSPECIFIED (8) Cocaine abuse Code(s): F14.10 - COCAINE ABUSE, UNCOMPLICATED
--- NOTE | 2020-03-27 00:39 | PN ---
Progress Note, Physician History of Present Illness: No new complaints - Current Medication List Current Medications: Active Medications Acetaminophen (Tylenol -) 650 mg PO Q6H PRN PRN Reason: PAIN 5-10 Last Admin: 03/26/20 18:41 Dose: 650 mg Documented by: Albuterol Sulfate (Ventolin Hfa Inhaler -) 2 puff IH Q4H PRN PRN Reason: SHORT OF BREATH/WHEEZING Last Admin: 03/24/20 21:03 Dose: 2 puff Documented by: Apixaban (Eliquis -) 5 mg PO BID [facility] Last Admin: 03/26/20 21:19 Dose: 5 mg Documented by: Aspirin (Asa -) 81 mg PO DAILY [facility] Last Admin: 03/26/20 09:02 Dose: 81 mg Documented by: Atorvastatin Calcium (Lipitor -) 20 mg PO HS [facility] Last Admin: 03/26/20 21:19 Dose: 20 mg Documented by: Digoxin (Lanoxin -) 0.25 mg PO DAILY [facility] Last Admin: 03/26/20 09:01 Dose: 0.25 mg Documented by: Docusate Sodium (Colace -) 100 mg PO TID [facility] Last Admin: 03/26/20 21:13 Dose: Not Given Documented by: Ferrous Sulfate (Feosol -) 325 mg PO DAILY [facility] Last Admin: 03/26/20 09:02 Dose: 325 mg Documented by: Furosemide (Lasix Injection -) 40 mg IVPUSH DAILY [facility] Last Admin: 03/26/20 09:01 Dose: 40 mg Documented by: Lisinopril (Prinivil) 2.5 mg PO DAILY [facility] Last Admin: 03/26/20 09:02 Dose: 2.5 mg Documented by: - Objective Vital Signs: Vital Signs Temperature 98.1 F 03/26/20 17:53 Pulse Rate 105 H 03/26/20 17:53 Respiratory Rate 17 03/26/20 17:53 Blood Pressure 119/62 03/26/20 17:53 O2 Sat by Pulse Oximetry (%) 98 03/26/20 17:53 Cardiovascular: Yes: WNL, Regular Rate and Rhythm Respiratory: Yes: Diminished Gastrointestinal: Yes: WNL, Normal Bowel Sounds, Soft, Abdomen, Obese Edema: LLE: Trace, RLE: Trace Labs: CBC, BMP 03/24/20 06:55 10/09/20 06:55 Problem List - Problems (1) Acute on chronic systolic heart failure Assessment/Plan: Cont IV lasix Monitor electrolytes Cannot tolerate BB due to cocaine use Code(s): I50.23 - ACUTE ON CHRONIC SYSTOLIC (CONGESTIVE) HEART FAILURE (2) CAD (coronary artery disease) Code(s): I25.10 - ATHSCL HEART DISEASE OF [place] CORONARY ARTERY W/O ANG PCTRS (3) Anemia Code(s): D64.9 - ANEMIA, UNSPECIFIED (4) Asthma Code(s): J45.909 - UNSPECIFIED ASTHMA, UNCOMPLICATED (5) Paroxysmal A-fib Code(s): I48.0 - PAROXYSMAL ATRIAL FIBRILLATION (6) Elevated troponin Code(s): R79.89 - OTHER SPECIFIED ABNORMAL FINDINGS OF BLOOD CHEMISTRY (7) HLD (hyperlipidemia) Code(s): E78.5 - HYPERLIPIDEMIA, UNSPECIFIED (8) Cocaine abuse Code(s): F14.10 - COCAINE ABUSE, UNCOMPLICATED
[2020-03-27] MEDS: DOCUSATE SODIUM 100 MG CAPSULE (FP) PO SCH ×3 (06:37→21:08)
[2020-03-27 06:45] LABS: BASO % 0.8 % (0-2.0); EOS % 2.5 % (0-4.5); HEMATOCRIT 36.7 % (32.4-45.2); HEMOGLOBIN 12.2 GM/dL (10.7-15.3); LYMPH % 30.9 % (8-40); MCH 31.1 pg (25.7-33.7); MCHC 33.1 g/dl (32.0-36.0); MEAN CELL VOLUME 93.8 fl (80-96); MEAN PLT VOLUME 9.4 fl (7.5-11.1); NEUT % 49.8 % (42.8-82.8); PLATELET COUNT 125 K/MM3 (134-434); RBC 3.91 M/mm3 (3.60-5.2); RDW 17.7 % (11.6-15.6); WHITE BLOOD COUNT 2.8 K/mm3 (4.0-10.0)
[2020-03-27 07:37] LABS: ALBUMIN 2.6 g/dl (3.4-5.0); BILIRUBIN,TOTAL 1.6 mg/dL (0.2-1); BLOOD UREA NITROGEN 11.9 mg/dL (7-18); CALCIUM 8.6 mg/dL (8.5-10.1); CREATININE 0.7 mg/dL (0.55-1.3); POTASSIUM 4.1 mmol/L (3.5-5.1); TOT PROT 7.7 g/dl (6.4-8.2)
--- NOTE | 2020-03-27 08:18 | PN ---
Progress Note, Physician History of Present Illness: Ms. Walton is a 49 year old female with a significant past medical history of cigarette smoking, substance abuse (including cocaine), asthma, anemia, hyperlipidemia, CAD, CA, severely reduced LVEF, chronically elevated TNi (since at least 2017),overweight, who presents to the ED with SOB and chest pain x3 days. Patient described her chest pain as intermittent with a pain level of 8/10 which radiates to her breasts bilaterally - said her symptoms feel similar to when she had her CA. Endorses BLE swelling and BANKS. Patient endorses: gaining approximately 30 pounds within the past month. Patient denies: diaphoresis, nausea, vomiting, or any other related symptoms - Current Medication List Current Medications: Active Medications Acetaminophen (Tylenol -) 650 mg PO Q6H PRN PRN Reason: PAIN 5-10 Last Admin: 03/26/20 18:41 Dose: 650 mg Documented by: Albuterol Sulfate (Ventolin Hfa Inhaler -) 2 puff IH Q4H PRN PRN Reason: SHORT OF BREATH/WHEEZING Last Admin: 03/24/20 21:03 Dose: 2 puff Documented by: Apixaban (Eliquis -) 5 mg PO BID [facility] Last Admin: 03/26/20 21:19 Dose: 5 mg Documented by: Aspirin (Asa -) 81 mg PO DAILY [facility] Last Admin: 03/26/20 09:02 Dose: 81 mg Documented by: Atorvastatin Calcium (Lipitor -) 20 mg PO HS [facility] Last Admin: 03/26/20 21:19 Dose: 20 mg Documented by: Digoxin (Lanoxin -) 0.25 mg PO DAILY [facility] Last Admin: 03/26/20 09:01 Dose: 0.25 mg Documented by: Docusate Sodium (Colace -) 100 mg PO TID [facility] Last Admin: 03/27/20 06:37 Dose: Not Given Documented by: Ferrous Sulfate (Feosol -) 325 mg PO DAILY [facility] Last Admin: 03/26/20 09:02 Dose: 325 mg Documented by: Furosemide (Lasix Injection -) 40 mg IVPUSH DAILY [facility] Last Admin: 03/26/20 09:01 Dose: 40 mg Documented by: Lisinopril (Prinivil) 2.5 mg PO DAILY [facility] Last Admin: 03/26/20 09:02 Dose: 2.5 mg Documented by: - Objective Vital Signs: Vital Signs Temperature 98.7 F 03/27/20 06:00 Pulse Rate 96 H 03/27/20 06:00 Respiratory Rate 20 03/27/20 06:00 Blood Pressure 110/70 03/27/20 06:00 O2 Sat by Pulse Oximetry (%) 99 03/27/20 06:00 Eyes: Yes: WNL, Conjunctiva Clear, EOM Intact HENT: Yes: WNL, Atraumatic, Normocephalic Neck: Yes: WNL, Supple, Trachea Midline Cardiovascular: Yes: WNL, Regular Rate and Rhythm Respiratory: Yes: WNL, Regular, CTA Bilaterally Gastrointestinal: Yes: WNL, Normal Bowel Sounds Genitourinary: Yes: WNL Musculoskeletal: Yes: WNL Extremities: Yes: WNL Edema: No Integumentary: Yes: WNL Neurological: Yes: WNL, Alert, Oriented ...Motor Strength: WNL Psychiatric: Yes: WNL Labs: CBC, BMP 03/27/20 06:14 03/27/20 06:14 Assessment/Plan 1. Systolic LV dysfunction/dilated cardiomyopathy with clinical class II-III NYHA classification LV failure, resolving 2. Evidence of demand ischemia related to the above noted cardiomyopathy 3. Paroxysmal atrial fibrillation [id number] score of 2 on A/C therapy 4. Substance abuse/Cocaine 5. Neutropenia and thrombocytopenia PLAN: 1. Ideally patient should be on Coreg or Toprol XL therapy with caution considering her Cocaine abuse- outcome data 2. Ideally patient should be on Entresto therapy in substitution for Lisinopril- favorable outcome data 3. Continue Digoxin- no outcome data 4. Continue Lasix therapy 5. Counselled substance abuse cessation 6. superintendent terminal management including prophylactic ICD implant is to be deferred until patient demonstrates compliance with therapy, F/U and substance abuse cessation
[2020-03-27] MEDS: APIXABAN 5 MG TABLET PO SCH ×2 (09:30→21:08)
[2020-03-27] MEDS: ASPIRIN 81 MG CHEWABLE TABLETS PO SCH (09:30)
[2020-03-27] MEDS: FUROSEMIDE 40 MG/4 ML INJECTABLE VIAL IVPUSH SCH (09:30)
[2020-03-27] MEDS: LISINOPRIL 5 MG TABLET PO SCH (09:30)
[2020-03-27] MEDS: FERROUS SO4 325 MG TABLET (FP) PO SCH (09:30)
[2020-03-27] MEDS: DIGOXIN 0.25 MG TABLET (FP) PO SCH (09:30)
--- NOTE | 2020-03-27 12:44 | PN ---
Progress Note (short form) - Note Progress Note: Resting in bed in NAD on RA. Less dyspnea and CP. No acute events overnight. Intake & Output 03/24/20 03/25/20 03/26/20 03/27/20 23:59 23:59 23:59 23:59 Intake Total 360 1190 1610 100 Balance 360 1190 1610 100 Weight 227 lb 224 lb 8 oz 218 lb 3.2 oz Last Vital Signs Temp Pulse Resp BP Pulse Ox 98.7 F 93 H 16 111/62 97 03/27/20 09:24 03/27/20 09:30 03/27/20 09:24 03/27/20 09:24 03/27/20 09:24 Active Medications Acetaminophen (Tylenol -) 650 mg PO Q6H PRN PRN Reason: PAIN 5-10 Last Admin: 03/26/20 18:41 Dose: 650 mg Documented by: Albuterol Sulfate (Ventolin Hfa Inhaler -) 2 puff IH Q4H PRN PRN Reason: SHORT OF BREATH/WHEEZING Last Admin: 03/24/20 21:03 Dose: 2 puff Documented by: Apixaban (Eliquis -) 5 mg PO BID [facility] Last Admin: 03/27/20 09:30 Dose: 5 mg Documented by: Aspirin (Asa -) 81 mg PO DAILY [facility] Last Admin: 03/27/20 09:30 Dose: 81 mg Documented by: Atorvastatin Calcium (Lipitor -) 20 mg PO HS [facility] Last Admin: 03/26/20 21:19 Dose: 20 mg Documented by: Digoxin (Lanoxin -) 0.25 mg PO DAILY [facility] Last Admin: 03/27/20 09:30 Dose: 0.25 mg Documented by: Docusate Sodium (Colace -) 100 mg PO TID [facility] Last Admin: 03/27/20 06:37 Dose: Not Given Documented by: Ferrous Sulfate (Feosol -) 325 mg PO DAILY [facility] Last Admin: 03/27/20 09:30 Dose: 325 mg Documented by: Furosemide (Lasix Injection -) 40 mg IVPUSH DAILY [facility] Last Admin: 03/27/20 09:30 Dose: 40 mg Documented by: Lisinopril (Prinivil) 2.5 mg PO DAILY [facility] Last Admin: 03/27/20 09:30 Dose: 2.5 mg Documented by: Constitutional: Yes: Well Nourished, Calm Eyes: Yes: WNL HENT: Yes: WNL Neck: Yes: WNL Cardiovascular: Yes: Regular Rate and Rhythm, S1, S2 Respiratory: Yes: Diminished at the bases Gastrointestinal: Yes: Normal Bowel Sounds, Soft Extremities: Yes: WNL Edema: Yes Laboratory Results - last 24 hr 03/27/20 03/27/20 06:14 06:14 WBC 2.8 L RBC 3.91 Hgb 12.2 Hct 36.7 MCV 93.8 MCH 31.1 MCHC 33.1 RDW 17.7 H Plt Count 125 L MPV 9.4 Absolute Neuts (auto) 1.4 L Neutrophils % 49.8 Lymphocytes % 30.9 Monocytes % 16.0 H Eosinophils % 2.5 D Basophils % 0.8 Nucleated RBC % 0 Sodium 137 Potassium 4.1 Chloride 105 Carbon Dioxide 28 Anion Gap 5 L BUN 11.9 Creatinine 0.7 Est GFR (CKD-EPI)AfAm 117.91 Est GFR (CKD-EPI)NonAf 101.74 Random Glucose 86 Calcium 8.6 Total Bilirubin 1.6 H AST 50 H ALT 32 Alkaline Phosphatase 330 H Total Protein 7.7 Albumin 2.6 L Assessment/Plan Acute on Chronic Systolic Heart Failure Aortic Stenosis CAD Hyperlipidemia Asthma h/o Cocaine use Smoker Likely OSAS - IV lasix - monitor urine output, creatinine - Beta magen, JACKIE-I - smoking cessation - DVT prophylaxis - Sleep screen - DC planning Dr Enrique
[2020-03-27] MEDS: ACETAMINOPHEN 325 MG TABLET (FP) PO PRN (20:40)
[2020-03-27] MEDS: ATORVASTATIN CA 20 MG TABLET (FP) PO SCH (21:08)
--- NOTE | 2020-03-27 21:50 | PN ---
Progress Note, Physician History of Present Illness: No new complaints - Current Medication List Current Medications: Active Medications Acetaminophen (Tylenol -) 650 mg PO Q6H PRN PRN Reason: PAIN 5-10 Last Admin: 03/27/20 20:40 Dose: 650 mg Documented by: Albuterol Sulfate (Ventolin Hfa Inhaler -) 2 puff IH Q4H PRN PRN Reason: SHORT OF BREATH/WHEEZING Last Admin: 03/24/20 21:03 Dose: 2 puff Documented by: Apixaban (Eliquis -) 5 mg PO BID [facility] Last Admin: 03/27/20 21:08 Dose: 5 mg Documented by: Aspirin (Asa -) 81 mg PO DAILY [facility] Last Admin: 03/27/20 09:30 Dose: 81 mg Documented by: Atorvastatin Calcium (Lipitor -) 20 mg PO HS [facility] Last Admin: 03/27/20 21:08 Dose: 20 mg Documented by: Digoxin (Lanoxin -) 0.25 mg PO DAILY [facility] Last Admin: 03/27/20 09:30 Dose: 0.25 mg Documented by: Docusate Sodium (Colace -) 100 mg PO TID [facility] Last Admin: 03/27/20 21:08 Dose: 100 mg Documented by: Ferrous Sulfate (Feosol -) 325 mg PO DAILY [facility] Last Admin: 03/27/20 09:30 Dose: 325 mg Documented by: Furosemide (Lasix Injection -) 40 mg IVPUSH DAILY [facility] Last Admin: 03/27/20 09:30 Dose: 40 mg Documented by: Lisinopril (Prinivil) 2.5 mg PO DAILY [facility] Last Admin: 03/27/20 09:30 Dose: 2.5 mg Documented by: - Objective Vital Signs: Vital Signs Temperature 98.5 F 03/27/20 18:00 Pulse Rate 105 H 03/27/20 18:00 Respiratory Rate 20 03/27/20 18:00 Blood Pressure 105/68 03/27/20 18:00 O2 Sat by Pulse Oximetry (%) 97 03/27/20 09:24 Cardiovascular: Yes: WNL, Regular Rate and Rhythm Respiratory: Yes: WNL, Regular, CTA Bilaterally Gastrointestinal: Yes: WNL, Normal Bowel Sounds, Soft Labs: CBC, BMP 03/27/20 06:14 03/27/20 06:14 Problem List - Problems (1) Acute on chronic systolic heart failure Assessment/Plan: Cont IV lasix Monitor electrolytes Cannot tolerate BB due to cocaine use DC planning for am Code(s): I50.23 - ACUTE ON CHRONIC SYSTOLIC (CONGESTIVE) HEART FAILURE (2) CAD (coronary artery disease) Assessment/Plan: Cont asa Code(s): I25.10 - ATHSCL HEART DISEASE OF [place] CORONARY ARTERY W/O ANG PCTRS (3) Anemia Assessment/Plan: H/H stable Cont Feosol Code(s): D64.9 - ANEMIA, UNSPECIFIED (4) Asthma Assessment/Plan: Cont albuterol inhaler Code(s): J45.909 - UNSPECIFIED ASTHMA, UNCOMPLICATED (5) Paroxysmal A-fib Assessment/Plan: Heart rate controlled Cont dig/eliquis Code(s): I48.0 - PAROXYSMAL ATRIAL FIBRILLATION (6) Elevated troponin Assessment/Plan: Demand ischemia Code(s): R79.89 - OTHER SPECIFIED ABNORMAL FINDINGS OF BLOOD CHEMISTRY (7) HLD (hyperlipidemia) Assessment/Plan: Cont lipitor Code(s): E78.5 - HYPERLIPIDEMIA, UNSPECIFIED (8) Cocaine abuse Code(s): F14.10 - COCAINE ABUSE, UNCOMPLICATED
[2020-03-28] MEDS: DOCUSATE SODIUM 100 MG CAPSULE (FP) PO SCH (05:15)
--- NOTE | 2020-03-28 07:19 | PN ---
Progress Note, Physician History of Present Illness: PULMONARY ALERT,COMFORTABLE,-CP,-SOB - Current Medication List Current Medications: Active Medications Acetaminophen (Tylenol -) 650 mg PO Q6H PRN PRN Reason: PAIN 5-10 Last Admin: 03/27/20 20:40 Dose: 650 mg Documented by: Albuterol Sulfate (Ventolin Hfa Inhaler -) 2 puff IH Q4H PRN PRN Reason: SHORT OF BREATH/WHEEZING Last Admin: 03/24/20 21:03 Dose: 2 puff Documented by: Apixaban (Eliquis -) 5 mg PO BID [facility] Last Admin: 03/27/20 21:08 Dose: 5 mg Documented by: Aspirin (Asa -) 81 mg PO DAILY [facility] Last Admin: 03/27/20 09:30 Dose: 81 mg Documented by: Atorvastatin Calcium (Lipitor -) 20 mg PO HS [facility] Last Admin: 03/27/20 21:08 Dose: 20 mg Documented by: Digoxin (Lanoxin -) 0.25 mg PO DAILY [facility] Last Admin: 03/27/20 09:30 Dose: 0.25 mg Documented by: Docusate Sodium (Colace -) 100 mg PO TID [facility] Last Admin: 03/28/20 05:15 Dose: Not Given Documented by: Ferrous Sulfate (Feosol -) 325 mg PO DAILY [facility] Last Admin: 03/27/20 09:30 Dose: 325 mg Documented by: Furosemide (Lasix Injection -) 40 mg IVPUSH DAILY [facility] Last Admin: 03/27/20 09:30 Dose: 40 mg Documented by: Lisinopril (Prinivil) 2.5 mg PO DAILY [facility] Last Admin: 03/27/20 09:30 Dose: 2.5 mg Documented by: - Objective Vital Signs: Vital Signs Temperature 97.6 F 03/28/20 01:53 Pulse Rate 93 H 03/28/20 01:53 Respiratory Rate 18 03/28/20 01:53 Blood Pressure 101/68 03/28/20 01:53 O2 Sat by Pulse Oximetry (%) 99 03/28/20 01:53 Constitutional: Yes: Well Nourished, Calm Eyes: Yes: WNL HENT: Yes: WNL Cardiovascular: Yes: Regular Rate and Rhythm, S1, S2 Respiratory: Yes: CTA Bilaterally Gastrointestinal: Yes: Normal Bowel Sounds, Soft Extremities: Yes: WNL Edema: Yes Labs: CBC, BMP Problem List - Problems (1) CAD (coronary artery disease) Code(s): I25.10 - ATHSCL HEART DISEASE OF [place] CORONARY ARTERY W/O ANG PCTRS (2) CHF exacerbation Code(s): I50.9 - HEART FAILURE, UNSPECIFIED Qualifiers: Heart failure type: unspecified Qualified Code(s): I50.9 - Heart failure, unspecified (3) Shortness of breath Code(s): R06.02 - SHORTNESS OF BREATH (4) Acute on chronic systolic heart failure Code(s): I50.23 - ACUTE ON CHRONIC SYSTOLIC (CONGESTIVE) HEART FAILURE (5) Aortic stenosis Code(s): I35.0 - NONRHEUMATIC AORTIC (VALVE) STENOSIS (6) Atrial fibrillation Code(s): I48.91 - UNSPECIFIED ATRIAL FIBRILLATION (7) Cocaine abuse Code(s): F14.10 - COCAINE ABUSE, UNCOMPLICATED (8) GERD (gastroesophageal reflux disease) Code(s): K21.9 - GASTRO-ESOPHAGEAL REFLUX DISEASE WITHOUT ESOPHAGITIS (9) HLD (hyperlipidemia) Code(s): E78.5 - HYPERLIPIDEMIA, UNSPECIFIED (10) HTN (hypertension) Code(s): I10 - ESSENTIAL (PRIMARY) HYPERTENSION Assessment/Plan Assessment/Plan Acute on Chronic Systolic Heart Failure improving Aortic Stenosis CAD Hyperlipidemia Asthma h/o Cocaine use Smoker - lasix - monitor urine output, creatinine - daily weights - O2 to keep SpO2 >90% - beta magen, JACKIE-I - smoking cessation - DVT prophylaxis DR MARIA
[2020-03-28 09:12] VITALS: TEMP 97.5
[2020-03-28] MEDS: DIGOXIN 0.25 MG TABLET (FP) PO SCH (09:12)
[2020-03-28] MEDS: FERROUS SO4 325 MG TABLET (FP) PO SCH (09:12)
[2020-03-28] MEDS: ASPIRIN 81 MG CHEWABLE TABLETS PO SCH (09:12)
[2020-03-28] MEDS: APIXABAN 5 MG TABLET PO SCH (09:12)
[2020-03-28 10:33] VITALS: BP 106/68; PULSE 93
[2020-03-28] MEDS: FUROSEMIDE 40 MG/4 ML INJECTABLE VIAL IVPUSH SCH (10:40)
[2020-03-28] MEDS: LISINOPRIL 5 MG TABLET PO SCH (10:40)
--- NOTE | 2020-03-28 10:48 | PN ---
Progress Note, Physician Chief Complaint: Pt A&Ox3; sitting up in bed; no chest pain; + dyspnea on mild exertion History of Present Illness: Ms. Walton is a 49 year old black woman with a significant past medical history of cigarette smoking, substance abuse (including cocaine), asthma, anemia, hyperlipidemia, CAD, ID, severely reduced LVEF, chronically elevated TNi (since at least 2016),overweight, who presents to the ED with SOB and chest pain x3 days. Patient described her chest pain as intermittent with a pain level of 8/10 which radiates to her breasts bilaterally - said her symptoms feel similar to when she had her ID. Endorses BLE swelling and BANKS. Patient endorses: gaining approximately 30 pounds within the past month. Patient denies: diaphoresis, nausea, vomiting, or any other related symptoms Allergies: NKDA - Current Medication List Current Medications: Active Medications Acetaminophen (Tylenol -) 650 mg PO Q6H PRN PRN Reason: PAIN 5-10 Last Admin: 03/27/20 20:40 Dose: 650 mg Documented by: Albuterol Sulfate (Ventolin Hfa Inhaler -) 2 puff IH Q4H PRN PRN Reason: SHORT OF BREATH/WHEEZING Last Admin: 03/24/20 21:03 Dose: 2 puff Documented by: Apixaban (Eliquis -) 5 mg PO BID [facility] Last Admin: 03/28/20 09:12 Dose: 5 mg Documented by: Aspirin (Asa -) 81 mg PO DAILY [facility] Last Admin: 03/28/20 09:12 Dose: 81 mg Documented by: Atorvastatin Calcium (Lipitor -) 20 mg PO HS [facility] Last Admin: 03/27/20 21:08 Dose: 20 mg Documented by: Digoxin (Lanoxin -) 0.25 mg PO DAILY [facility] Last Admin: 03/28/20 09:12 Dose: 0.25 mg Documented by: Docusate Sodium (Colace -) 100 mg PO TID [facility] Last Admin: 03/28/20 05:15 Dose: Not Given Documented by: Ferrous Sulfate (Feosol -) 325 mg PO DAILY [facility] Last Admin: 03/28/20 09:12 Dose: 325 mg Documented by: Furosemide (Lasix Injection -) 40 mg IVPUSH DAILY [facility] Last Admin: 03/27/20 09:30 Dose: 40 mg Documented by: Lisinopril (Prinivil) 2.5 mg PO DAILY [facility] Last Admin: 03/27/20 09:30 Dose: 2.5 mg Documented by: - Objective Vital Signs: Vital Signs Temperature 97.5 F L 03/28/20 09:10 Pulse Rate 93 H 03/28/20 10:33 Respiratory Rate 18 03/28/20 10:33 Blood Pressure 106/68 03/28/20 10:33 O2 Sat by Pulse Oximetry (%) 98 03/28/20 09:10 Labs: CBC, BMP 03/27/20 06:14 03/27/20 06:14 Assessment/Plan Acute substance abuse, including cocaine severe systolic LV dsyfunction obese hypomagnesemia leukopenia chronic elevation of TNI, with mutiple contributors to demand ischemia, including CHF, AF, substance abuse (cocaine). anxiety (e.g., issues with living condition) Rec: Discontinued beta blockers initially(cocaine abuse; ?asthma). Pt, however, says she stopped cocaine on last admission 4 months ago after being told of inability to use. She had undegone cardiac angiogram then; pt says arteries were non- obstructive. Continue lisinopril; on furosemide. Plan on spironolactone if BUN/Cr, electrolytes, BP allow, and if pt is compliant to serial f/u. On digoxin; keep level 0.4-0.8 (presently 0.44). F/u BUN/Cr, electrolytes, daily weight, Is and Os. f/u lipids, TSH. Replete Mg, and keep 2.0-2.4 f/u Toxicology screen Addendum: Dr. Boyd, patrol sergeant, following her as outpt and last saw her 01/2020; workup in progress, including consideration of ICD (LV dysfunction since at least 2016); possible cardiac MRI to r/o sarcoid. Entresto was also being considered (presently on lisinopril), though she had had issues with hypotension in the past. 07/2019: coronary angiogram done at [facility]: non-obstructive CAD. Discussed pt with Drs. Sarath Leon and Carson Rosa: plan for transfer to [facility] Heart Failure team; hx sarcoid, severely reduced LVEF restrictive physiology on ECHO, nonobstructive CAD; for optimization of medications, cardiac MRI. Pt also reportedly developed AF 07/2019; she was put on digoxin and apixaban.
--- NOTE | 2020-03-29 15:05 | EKG ---
Test Reason : Blood Pressure : / mmHG Vent. Rate : 102 BPM Atrial Rate : 102 BPM P-R Int : 174 ms QRS Dur : 168 ms QT Int : 410 ms P-R-T Axes : 067 -54 101 degrees QTc Int : 534 ms SINUS TACHYCARDIA RIGHT BUNDLE BRANCH BLOCK LEFT ANTERIOR FASCICULAR BLOCK BIFASCICULAR BLOCK ABNORMAL ECG WHEN COMPARED WITH ECG OF 22-MAR-2020 19:31, PREMATURE ATRIAL COMPLEXES ARE NO LONGER PRESENT Confirmed by MD Servin Daniel ([id number]) on 03/29/2020 3:04:53 PM Referred By: Confirmed By:Tray Servin MD
== END 2020-03-28 14:17 | disposition short-term general hospital (02) | DRG 194 ==
LOC: JER 16:36 → JERBED 23:13 → J4S 03-23 20:22
PROVIDERS: ADMIT Internal Medicine; ATTEND Internal Medicine
DX: I11.0 Hypertensive heart disease with heart failure (principal); I50.23 Acute on chronic systolic (congestive) heart failure; E78.5 Hyperlipidemia, unspecified; I25.10 Atherosclerotic heart disease of native coronary artery without angina pectoris; I25.2 Old myocardial infarction; J45.909 Unspecified asthma, uncomplicated; D64.9 Anemia, unspecified; E83.42 Hypomagnesemia; R00.0 Tachycardia, unspecified; D69.6 Thrombocytopenia, unspecified; I45.10 Unspecified right bundle-branch block; K21.9 Gastro-esophageal reflux disease without esophagitis; I35.0 Nonrheumatic aortic (valve) stenosis; F14.10 Cocaine abuse, uncomplicated; I48.0 Paroxysmal atrial fibrillation; I45.2 Bifascicular block; E66.9 Obesity, unspecified; Z68.33 Body mass index [BMI] 33.0-33.9, adult; I42.0 Dilated cardiomyopathy; I24.8 Other forms of acute ischemic heart disease; D70.9 Neutropenia, unspecified; R79.89 Other specified abnormal findings of blood chemistry; G47.33 Obstructive sleep apnea (adult) (pediatric); F41.9 Anxiety disorder, unspecified
CPT/HCPCS: 36415; 71045-TC-FY; 71275-TC; 74177-TC; 76705-TC; 80053; 80061; 80162; 82550; 83036; 83721; 83735; 83880; 84100; 84443; 84484; 84703; 85025; 85379; 93005; 93010; 99285-25; C9803; Q2036; Q9967; U0003

== ENCOUNTER 2020-04-18 23:44 | Inpatient (IN) | payer OTHER ==
--- NOTE | 2020-04-19 00:04 | PDOC ---
History of Present Illness - General Chief Complaint: Nasal Bleeding Stated Complaint: EPISTAXIS Time Seen by Provider: 04/19/20 00:03 History Source: Patient - History of Present Illness Initial Comments: 04/19/20 00:06 49 year old female with a significant past medical history of cigarette smoking, substance abuse (including cocaine), asthma, anemia, hyperlipidemia, CAD, [place], chf, ,overweight, recent defibillator placed on 03/31/20 currently pn eliquis c/o nose bleeding for 30 mins prior to arrival. patient BIBA reports once she got to the ED she started feeling tugging feeling to the left side of chest. patient reports shortness of breath since last night. denies dizziness, nausea, vomiting Past History - Medical History Allergies/Adverse Reactions: Allergies Allergy/AdvReac Type Severity Reaction Status Date / Time No Known Drug Allergies Allergy Verified 08/09/19 11:58 Home Medications: Ambulatory Orders Omeprazole 20 mg PO BID 04/06/19 Albuterol Sulfate Inhaler - [Ventolin HFA Inhaler -] 1 puff IH Q6H PRN #1 inhaler 05/18/19 Aspirin 81 mg PO DAILY 05/23/19 Furosemide [Lasix -] 40 mg PO DAILY 07/21/19 Atorvastatin Calcium [Lipitor] 20 mg PO HS 08/09/19 Digoxin [Digitek] 250 mcg PO DAILY 08/09/19 Lisinopril [Zestril] 2.5 mg PO DAILY 08/09/19 Magnesium Oxide [Mag-Ox -] 400 mg PO DAILY 08/09/19 Apixaban [Eliquis -] 5 mg PO BID tablet 08/13/19 Carvedilol [Coreg -] 3.125 mg PO BID #60 tablet 08/13/19 Digoxin [Lanoxin -] 0.125 mg PO Q48H #30 tablet 08/13/19 Ferrous Sulfate [Feosol] 325 mg PO DAILY #30 ud 08/13/19 Metoprolol Succinate 25 mg PO DAILY 04/19/20 Anemia: Yes Asthma: Yes (exercise induced) Cancer: No Cardiac Disorders: Yes (IN 2015) CVA: No COPD: No CHF: No Dementia: No Diabetes: No GI Disorders: No Disorders: No HTN: No Hypercholesterolemia: Yes Liver Disease: No Seizures: No Thyroid Disease: No - Surgical History Abdominal Surgery: Yes (HERNIA AT 6 YEARS OLD) Appendectomy: No Cardiac Surgery: Yes (cardiac cath.) Cholecystectomy: No Lung Surgery: No Neurologic Surgery: No Orthopedic Surgery: No - Immunization History Immunization Up to Date: Yes - Psycho-Social/Smoking History Smoking History: Never smoked Have you smoked in the past 12 months: No Number of Cigarettes Smoked Daily: 4 If you are a former smoker, when did you quit?: 03/19/2020 'Breaking Loose' booklet given: 04/13/19 Review of Systems - Review of Systems Able to Perform ROS?: Yes Is the patient limited Hungarian proficient: No HEENTM: Yes: Nose Bleeding Respiratory: Yes: Shortness of Breath. No: Symptoms reported, See HPI, Cough, Orthopnea, SOB with Exertion, SOB at Rest, Stridor, Wheezing, Productive cough, Hemoptysis, Other Cardiac (ROS): Yes: Chest Pain, Edema *Physical Exam - Vital Signs 04/19/20 00:37 Last Vital Signs Temp Pulse Resp BP Pulse Ox 98.5 F 89 18 114/58 L 99 04/19/20 00:08 04/19/20 00:08 04/19/20 00:08 04/19/20 00:08 04/19/20 00:08 - Physical Exam General Appearance: Yes: Appropriately Dressed HEENT: positive: Other (right nostril no active bleeding. clot visualized) Respiratory/Chest: positive: Lungs Clear, Normal Breath Sounds, Other (tenderness to left side of chest. no bogginess to the defibrillator site) Cardiovascular: positive: Regular Rhythm, Regular Rate Extremity: positive: Normal Capillary Refill, Normal Inspection, Normal Range of Motion, Pedal Edema (b/l), Swelling Integumentary: positive: Normal Color, Dry, Warm Neurologic: positive: Fully Oriented, Alert, Normal Mood/Affect Heart Score/ECG Review - History History: Slightly suspicious - Electrocardiogram EKG: Normal - Age Age: 45-65 - Risk Factors Risk Factors Heart Score: Yes Hx Hypertension, Yes Smoking History Based on the list above the patient has:: 1-2 risk factors - Troponin Troponin: >/=3x normal limit - Score Heart Score - Total: 4 - ECG Intrepretation Rhythm: Regular Rhythm Comment:: 04/19/20 02:46 Bifasicular heart block ED Treatment Course - LABORATORY CBC & Chemistry Diagram: 04/19/20 00:52 04/19/20 00:52 Medical Decision Making - Medical Decision Making A: chest pain; SHOrtness of breath ; epistaxis P: cardiac troponin : 0.17 cbc cmp bnp chest xray epistaxis: controlled. afrin given 04/19/20 02:36 [employer] [phone] called to interrogate the defibrillator. request placed to interrogate the defibrillator, pending evaluation, 04/19/20 02:[address] to Dr[address] rodriguez. patient to be admitted for further management of care. 04/19/20 02:47 04/19/20 02:50 04/19/20 05:05 received call from neurology technician. defibrillator will be interrogated today. Discharge - Discharge Information Problems reviewed: Yes Clinical Impression/Diagnosis: Anterior epistaxis, Elevated troponin, Chronic systolic CHF (congestive heart failure), Shortness of breath Chest pain Qualifiers: Chest pain type: unspecified Qualified Code(s): R07.9 - Chest pain, unspecified - Admission Yes - Follow up/Referral - Patient Discharge Instructions - Post Discharge Activity
--- NOTE | 2020-04-19 00:05 | PDOC ---
ED Treatment Course - LABORATORY CBC & Chemistry Diagram: 04/19/20 00:52 04/19/20 00:52 Medical Decision Making - Medical Decision Making 04/19/20 00:05 Patient seen by the advanced practice provider under my supervision. Ancillary testing reviewed as necessary. I agree with plan as outlined by the advanced practice provider. Discharge - Discharge Information Problems reviewed: Yes Clinical Impression/Diagnosis: Anterior epistaxis, Elevated troponin, Chronic systolic CHF (congestive heart failure), Shortness of breath Chest pain Qualifiers: Chest pain type: unspecified Qualified Code(s): R07.9 - Chest pain, unspecified - Follow up/Referral - Patient Discharge Instructions - Post Discharge Activity
--- OUTSIDE RECORDS SUMMARY | 2020-04-19 00:12 | XMS ---
[...] is protected by Article 27-F of the [facility] Public Health law. If you continue you may haveaccess to information: Regarding HIV / AIDS; Provided by facilities licensed or operated by the [facility] Office of Mental Health; or Provided by the [facility] Office for People With Developmental Disabilities. If such information is present, then the following [facility] mandated warning applies: This information has [...] law may result in a fine or long term sentence or both. A general authorization for the release of medical or other information is NOT sufficient authorization for further disclosure. Encounters Encounter Providers Location Date Indications Data Source(s ) Outpatient Attender: 06/02/2019 I25.10 I35.0 [facility] NORMA, 06:00:00 AM Health Care ROBERTAdmitter: EST Corpor[employer] on YAZMIN GREENReferrer: YAZMIN GREEN I25.10 I35.0 Outpatient Attender: KIMBERRupesh, 05/25/2019 I25.10 I35.0 [facility] ROBERTAdmitter: 05:00:00 AM EST [facility] NORMAAk?Lex ROBERTReferrer: YAZMIN GREEN I25.10 I35.0 Insurance Providers Payer name Policy type Policy ID Covered Covered republican's Policy P essence / Coverage republican ID relationship to Jacobo Inf ormation type jacobo [facility] MEDICA[facility] [id number] SP [id number] [facility] [id number] SP [id number] CARE MEDICAID [id number] SP [id number] [facility] MEDICA[facility] [id number] SP [id number] [facility] [place] MED[place] [id number] SP [id number] Results ID Date Data Source [id number] 03/28/2020 02:18:00 PM EDT [facility] Name Value Range Interpretation Description Data Sup porting Code Source(s) Document(s ) 2019 Novel [facility] Coronavirus RNA Interpretation Unspecified Specimen Qualitative HUMAIRA Probe Detection This lab was ordered by [facility]-[id number] [facility]. ID Date Data Source [id number] 03/23/2020 09:00:00 AM EDT [facility] Name Value Range Interpretation Description Data Sup porting Code Source(s) Document(s ) SARS [facility] coronavirus 2 RNA This lab was ordered by [facility] and reported by [facility]. Procedure
[2020-04-19] MEDS ORDERED: ASPIRIN 81 MG CHEWABLE TABLETS PO ONE (00:34)
[2020-04-19] MEDS ORDERED: OXYMETAZOLINE 0.05% NASAL SOLUTION 15 ML BOTTLE NS ONE (00:37)
[2020-04-19 01:20] LABS: BASO % 0.4 % (0-2.0); EOS % 3.6 % (0-4.5); HEMATOCRIT 33.2 % (32.4-45.2); HEMOGLOBIN 10.6 GM/dL (10.7-15.3); MCH 29.5 pg (25.7-33.7); MCHC 31.8 g/dl (32.0-36.0); MEAN CELL VOLUME 92.8 fl (80-96); MEAN PLT VOLUME 9.5 fl (7.5-11.1); MONO % 10.3 % (3.8-10.2); NEUT % 56.7 % (42.8-82.8); PLATELET COUNT 146 K/MM3 (134-434); RBC 3.58 M/mm3 (3.60-5.2); RDW 17.2 % (11.6-15.6); WHITE BLOOD COUNT 3.7 K/mm3 (4.0-10.0)
[2020-04-19 01:28] LABS: MAGNESIUM 1.9 mg/dL (1.8-2.4)
[2020-04-19 01:36] LABS: N-TERMINAL BNP 3091.3 pg/ml (5-125); POTASSIUM 3.6 mmol/L (3.5-5.1)
[2020-04-19 01:40] LABS: ALBUMIN 2.5 g/dl (3.4-5.0); BLOOD UREA NITROGEN 9.4 mg/dL (7-18); CALCIUM 9.4 mg/dL (8.5-10.1)
[2020-04-19 01:43] LABS: CREATININE 0.7 mg/dL (0.55-1.3)
[2020-04-19 01:45] LABS: BILIRUBIN,TOTAL 1.2 mg/dL (0.2-1); TOT PROT 7.7 g/dl (6.4-8.2)
[2020-04-19 02:02] LABS: INR 1.72 (0.83-1.09); PROTHROMBIN TIME (PATIENT) 20.8 SEC (9.7-13.0)
[2020-04-19 02:04] LABS: ACTIVATED PTT 39.4 SECONDS (25.2-36.5)
[2020-04-19] MEDS ORDERED: FUROSEMIDE 40 MG TABLET (FP) PO ONE (02:24)
[2020-04-19] MEDS ORDERED: FUROSEMIDE 40 MG TABLET (FP) ONE (02:36)
[2020-04-19] MEDS ORDERED: FUROSEMIDE 20 MG TABLET (FP) PO ONE (02:37)
--- OUTSIDE RECORDS SUMMARY | 2020-04-19 03:00 | XMS ---
[...] is protected by Article 27-F of the [facility] Public Health law. If you continue you may haveaccess to information: Regarding HIV / AIDS; Provided by facilities licensed or operated by the [facility] Office of Mental Health; or Provided by the [facility] Office for People With Developmental Disabilities. If such information is present, then the following [facility] mandated warning applies: This information has [...] law may result in a fine or fci sentence or both. A general authorization for the release of medical or other information is NOT sufficient authorization for further disclosure. Encounters Encounter Providers Location Date Indications Data Source(s ) Outpatient Attender: 06/02/2019 I25.10 I35.0 [facility] NORMA, 06:00:00 AM Health Care ROBERTAdmitter: EST [employer] YAZMIN GREENReferrer: YAZMIN GREEN I25.10 I35.0 Outpatient Attender: KIMBERRupesh, 05/25/2019 I25.10 I35.0 [facility] ROBERTAdmitter: 05:00:00 AM EST [facility] [employer] ROBERTReferrer: YAZMIN GREEN I25.10 I35.0 Insurance Providers Payer name Policy type Policy ID Covered Covered green party's Policy P essence / Coverage green party ID relationship to Jacobo Inf ormation type jacobo [facility] MEDICAID [id number] SP [id number] [facility] [id number] SP [id number] CARE MEDICAID [id number] SP [id number] [facility] MEDICAID [id number] SP [id number] [facility] MEDICAID [id number] SP [id number] Results ID Date Data Source [id number] 03/28/2020 02:18:00 PM EDT [facility] Name Value Range Interpretation Description Data Sup porting Code Source(s) Document(s ) 2019 Novel [facility] Coronavirus RNA Interpretation Unspecified Specimen Qualitative HUMAIRA Probe Detection This lab was ordered by [facility]-[id number] and reported by [facility] at [facility]. ID Date Data Source [id number] 03/23/2020 09:00:00 AM EDT [facility] Name Value Range Interpretation Description Data Sup porting Code Source(s) Document(s ) SARS [facility] coronavirus 2 RNA This lab was ordered by [facility] and reported by [facility]. Procedure
--- NOTE | 2020-04-19 09:04 | EKG ---
Test Reason : Blood Pressure : / mmHG Vent. Rate : 092 BPM Atrial Rate : 092 BPM P-R Int : 190 ms QRS Dur : 164 ms QT Int : 434 ms P-R-T Axes : 049 -57 000 degrees QTc Int : 536 ms NORMAL SINUS RHYTHM POSSIBLE LEFT ATRIAL ENLARGEMENT RIGHT BUNDLE BRANCH BLOCK LEFT ANTERIOR FASCICULAR BLOCK BIFASCICULAR BLOCK POSSIBLE LATERAL INFARCT , AGE UNDETERMINED ABNORMAL ECG WHEN COMPARED WITH ECG OF 23-MAR-2020 11:33, NONSPECIFIC T WAVE ABNORMALITY, IMPROVED IN LATERAL LEADS Confirmed by MD EFREN, WALLACE ([id number]) on 04/19/2020 9:04:33 AM Referred By: Confirmed By:WALLACE SCHWARTZ MD
--- NOTE | 2020-04-19 09:30 | CON.CARD ---
Consult Consult Specialty:: Cardiology - History of Present Illness History of Present Illness: The patient is a 48 year old black woman, with a significant past medical history of asthma, CAD ([place] 2016; pt reports having coronary angiogram during that admission that showed "only 30% block"), HLD, HTN, severe systolic CHF (2 admissions in the last 20 days for CHF; ECHO 07/21/2019 showed severely reduced LVEF; moderate MR; moderate ), paroxysmal afib, and anemia, cigarette smoking, substance abuse (including cocaine), asthma, anemia, hyperlipidemia, CAD, [place], chf, ,overweight, recent defibillator placed on 03/31/20 currently pn eliquis c/o nose bleeding for 30 mins prior to arrival. - History Source History Provided By: Patient, Medical Record - Past Medical History Cardio/Vascular: Yes: CHF, HTN, Hyperlipdemia, [place] Pulmonary: Yes: Asthma Gastrointestinal: Yes: GERD ...LMP: 04/19/20 ...: No Psych: Yes: Other (addictions) Rheumatology: Yes: Sarcoidosis - Past Surgical History Past Surgical History: Yes: Hysterectomy - Alcohol/Substance Use Hx Alcohol Use: No History of Substance Use: reports: Cocaine - Smoking History Smoking history: Never smoked Have you smoked in the past 12 months: No Aproximately how many cigarettes per day: 4 If you are a former smoker, when did you quit?: 03/19/2020 - Social History History of Recent Travel: No Home Medications - Allergies Allergies/Adverse Reactions: Allergies Allergy/AdvReac Type Severity Reaction Status Date / Time No Known Drug Allergies Allergy Verified 08/09/19 11:58 - Home Medications Home Medications: Ambulatory Orders Omeprazole 20 mg PO BID 04/06/19 Albuterol Sulfate Inhaler - [Ventolin HFA Inhaler -] 1 puff IH Q6H PRN #1 inhaler 05/18/19 Aspirin 81 mg PO DAILY 05/23/19 Furosemide [Lasix -] 40 mg PO DAILY 07/21/19 Atorvastatin Calcium [Lipitor] 20 mg PO HS 08/09/19 Digoxin [Digitek] 250 mcg PO DAILY 08/09/19 Lisinopril [Zestril] 2.5 mg PO DAILY 08/09/19 Magnesium Oxide [Mag-Ox -] 400 mg PO DAILY 08/09/19 Apixaban [Eliquis -] 5 mg PO BID tablet 08/13/19 Carvedilol [Coreg -] 3.125 mg PO BID #60 tablet 08/13/19 Digoxin [Lanoxin -] 0.125 mg PO Q48H #30 tablet 08/13/19 Ferrous Sulfate [Feosol] 325 mg PO DAILY #30 ud 08/13/19 Metoprolol Succinate 25 mg PO DAILY 04/19/20 Review of Systems - Review of Systems Constitutional: reports: No Symptoms Eyes: reports: No Symptoms HENT: reports: Epistaxis Neck: reports: No Symptoms Cardiovascular: reports: No Symptoms Gastrointestinal: reports: No Symptoms Genitourinary: reports: No Symptoms Breasts: reports: No Symptoms Reported Musculoskeletal: reports: No Symptoms Integumentary: reports: No Symptoms Neurological: reports: No Symptoms Endocrine: reports: No Symptoms Hematology/Lymphatic: reports: No Symptoms Psychiatric: reports: No Symptoms Vital Signs: Vital Signs Temperature 98.2 F 04/19/20 08:44 Pulse Rate 95 H 04/19/20 08:44 Respiratory Rate 18 04/19/20 08:44 Blood Pressure 72/51 L 04/19/20 08:44 O2 Sat by Pulse Oximetry (%) 100 04/19/20 08:44 Constitutional: Yes: Well Nourished, No Distress, Calm Eyes: Yes: WNL, Conjunctiva Clear, EOM Intact HENT: Yes: WNL, Atraumatic, Normocephalic Neck: Yes: WNL, Supple, Trachea Midline Respiratory: Yes: WNL, Regular, CTA Bilaterally Gastrointestinal: Yes: WNL, Normal Bowel Sounds Renal/: Yes: WNL Cardiovascular: Yes: WNL, Regular Rate and Rhythm Musculoskeletal: Yes: WNL Edema: Yes Integumentary: Yes: WNL Neurological: Yes: WNL, Alert, Oriented ...Motor Strength: WNL Psychiatric: Yes: WNL, Alert, Oriented - Other Data Labs, Other Data: CBC, BMP 04/19/20 00:52 04/19/20 00:52 INR, PTT INR 1.72 (0.83-1.09) H 04/19/20 00:34 Troponin, BNP 04/19/20 04/19/20 00:52 00:52 Troponin I 0.17 H B-Natriuretic Peptide 3091.3 H Troponin, BNP 04/19/20 04/19/20 00:52 00:52 Troponin I 0.17 H B-Natriuretic Peptide 3091.3 H Imaging - Results Chest X-ray: Image Reviewed (cm ICD) EKG: Image Reviewed (sr bifascicular block) Problem List - Problems (1) Anterior epistaxis Code(s): R04.0 - EPISTAXIS (2) Chest pain Code(s): R07.9 - CHEST PAIN, UNSPECIFIED Qualifiers: Chest pain type: unspecified Qualified Code(s): R07.9 - Chest pain, unspecified (3) Chronic systolic CHF (congestive heart failure) Code(s): I50.22 - CHRONIC SYSTOLIC (CONGESTIVE) HEART FAILURE (4) Elevated troponin Code(s): R79.89 - OTHER SPECIFIED ABNORMAL FINDINGS OF BLOOD CHEMISTRY (5) Shortness of breath Code(s): R06.02 - SHORTNESS OF BREATH (6) ZEINA (acute kidney injury) Code(s): N17.9 - ACUTE KIDNEY FAILURE, UNSPECIFIED (7) Abdominal muscle strain Code(s): S39.011A - STRAIN OF MUSCLE, FASCIA AND TENDON OF ABDOMEN, INIT ENCNTR (8) Abdominal pain Code(s): R10.9 - UNSPECIFIED ABDOMINAL PAIN (9) Acute on chronic systolic heart failure Code(s): I50.23 - ACUTE ON CHRONIC SYSTOLIC (CONGESTIVE) HEART FAILURE (10) Anemia Code(s): D64.9 - ANEMIA, UNSPECIFIED (11) Aortic stenosis Code(s): I35.0 - NONRHEUMATIC AORTIC (VALVE) STENOSIS (12) Asthma Code(s): J45.909 - UNSPECIFIED ASTHMA, UNCOMPLICATED (13) Atrial fibrillation Code(s): I48.91 - UNSPECIFIED ATRIAL FIBRILLATION (14) Back pain Code(s): M54.9 - DORSALGIA, UNSPECIFIED (15) Breast pain Code(s): N64.4 - MASTODYNIA (16) CAD (coronary artery disease) Code(s): I25.10 - ATHSCL HEART DISEASE OF [place] CORONARY ARTERY W/O ANG PCTRS (17) CHF exacerbation Code(s): I50.9 - HEART FAILURE, UNSPECIFIED Qualifiers: Heart failure type: unspecified Qualified Code(s): I50.9 - Heart failure, unspecified (18) Chronic back pain Code(s): M54.9 - DORSALGIA, UNSPECIFIED; G89.29 - OTHER CHRONIC PAIN (19) Cocaine abuse Code(s): F14.10 - COCAINE ABUSE, UNCOMPLICATED (20) Constipation Code(s): K59.00 - CONSTIPATION, UNSPECIFIED (21) Diarrhea Code(s): R19.7 - DIARRHEA, UNSPECIFIED Qualifiers: Diarrhea type: unspecified type Qualified Code(s): R19.7 - Diarrhea, unspecified (22) Elevated LFTs Code(s): R94.5 - ABNORMAL RESULTS OF LIVER FUNCTION STUDIES (23) Exposure to blood or body fluid Code(s): Z77.21 - CONTACT W AND EXPOSURE TO POTENTIALLY HAZARDOUS BODY FLUIDS (24) GERD (gastroesophageal reflux disease) Code(s): K21.9 - GASTRO-ESOPHAGEAL REFLUX DISEASE WITHOUT ESOPHAGITIS (25) HLD (hyperlipidemia) Code(s): E78.5 - HYPERLIPIDEMIA, UNSPECIFIED (26) HTN (hypertension) Code(s): I10 - ESSENTIAL (PRIMARY) HYPERTENSION (27) Hypotension Code(s): I95.9 - HYPOTENSION, UNSPECIFIED (28) Menometrorrhagia Code(s): N92.1 - EXCESSIVE AND FREQUENT MENSTRUATION WITH IRREGULAR CYCLE (29) Moderate aortic stenosis Code(s): I35.0 - NONRHEUMATIC AORTIC (VALVE) STENOSIS (30) Morbid obesity Code(s): E66.01 - MORBID (SEVERE) OBESITY DUE TO EXCESS CALORIES (31) Multiple thyroid nodules Code(s): E04.2 - NONTOXIC MULTINODULAR GOITER (32) Myocardial infarction Code(s): I21.3 - ST ELEVATION (STEMI) MYOCARDIAL INFARCTION OF [facility] (33) Near syncope Code(s): R55 - SYNCOPE AND COLLAPSE (34) Nonischemic cardiomyopathy Code(s): I42.8 - OTHER CARDIOMYOPATHIES (35) Obesity Code(s): E66.9 - OBESITY, UNSPECIFIED (36) Paroxysmal A-fib Code(s): I48.0 - PAROXYSMAL ATRIAL FIBRILLATION (37) Positive blood culture Code(s): R78.81 - BACTEREMIA (38) RBBB Code(s): I45.10 - UNSPECIFIED RIGHT BUNDLE-BRANCH BLOCK (39) S/P hysterectomy Code(s): Z90.710 - ACQUIRED ABSENCE OF BOTH CERVIX AND UTERUS (40) Sprain of wrist, left Code(s): S63.502A - UNSPECIFIED SPRAIN OF LEFT WRIST, INITIAL ENCOUNTER (41) Strain of mid-back Code(s): S29.012A - STRAIN OF MUSCLE AND TENDON OF BACK WALL OF THORAX, INIT (42) URI (upper respiratory infection) Code(s): J06.9 - ACUTE UPPER RESPIRATORY INFECTION, UNSPECIFIED Assessment/Plan The patient is a 48 year old black woman, with a significant past medical history of asthma, CAD ([place] 2015; pt reports having coronary angiogram during that admission that showed "only 30% block"), HLD, HTN, severe systolic CHF (2 admissions in the last 20 days for CHF; ECHO 07/21/2019 showed severely reduced LVEF; moderate MR; moderate ), paroxysmal afib, and anemia, cigarette smoking, substance abuse (including cocaine), asthma, anemia, hyperlipidemia, CAD, PA, chf, ,overweight, recent defibillator placed on 03/31/20 currently pn eliquis c/o nose bleeding for 30 mins prior to arrival. AICD interrogation showed possible lead misplacement ( threshold increased by [employer] episodes of A flutter no sdhocks. Plan; Lasix Telemetry ENT evaluation May need EP evaluation at [facility]
[2020-04-19] MEDS ORDERED: ALBUTEROL SO4 HFA INHALER IH PRN (11:55)
[2020-04-19] MEDS ORDERED: ACETAMINOPHEN 325 MG TABLET (FP) PO ONE (21:00)
[2020-04-19] MEDS: APIXABAN 5 MG TABLET PO SCH (21:43)
[2020-04-19] MEDS: CARVEDILOL 3.125 MG TABLET (FP) PO SCH ×2 (21:43→21:46)
[2020-04-19] MEDS: ATORVASTATIN CA 20 MG TABLET (FP) PO SCH (21:44)
--- NOTE | 2020-04-19 23:06 | HP ---
Admitting History and Physical - Past Medical History Cardiovascular: Yes: CHF, HTN, Hyperlipdemia, [place] Pulmonary: Yes: Asthma Gastrointestinal: Yes: GERD ...LMP: 04/19/20 ...: No Heme/Onc: No: Anemia Psych: Yes: Other (addictions) Rheumatology: Yes: Sarcoidosis - Past Surgical History Past Surgical History: Yes: Hysterectomy - Smoking History Smoking history: Never smoked Have you smoked in the past 12 months: No Aproximately how many cigarettes per day: 4 If you are a former smoker, when did you quit?: 03/19/2020 - Alcohol/Substance Use Hx Alcohol Use: No History of Substance Use: reports: Cocaine - Social History History of Recent Travel: No Home Medications - Allergies Allergies/Adverse Reactions: Allergies Allergy/AdvReac Type Severity Reaction Status Date / Time No Known Drug Allergies Allergy Verified 08/09/19 11:58 - Home Medications Home Medications: Ambulatory Orders Omeprazole 20 mg PO BID 04/06/19 Albuterol Sulfate Inhaler - [Ventolin HFA Inhaler -] 1 puff IH Q6H PRN #1 inhaler 05/18/19 Aspirin 81 mg PO DAILY 05/23/19 Furosemide [Lasix -] 40 mg PO DAILY 07/21/19 Atorvastatin Calcium [Lipitor] 20 mg PO HS 08/09/19 Magnesium Oxide [Mag-Ox -] 400 mg PO DAILY 08/09/19 Apixaban [Eliquis -] 5 mg PO BID tablet 08/13/19 Ferrous Sulfate [Feosol] 325 mg PO DAILY #30 ud 08/13/19 Metoprolol Succinate 25 mg PO DAILY 04/19/20 Physical Examination Vital Signs: Vital Signs Temperature 98.6 F 04/19/20 22:00 Pulse Rate 95 H 04/19/20 22:00 Respiratory Rate 18 04/19/20 22:00 Blood Pressure 91/61 04/19/20 22:00 O2 Sat by Pulse Oximetry (%) 100 04/19/20 22:00 Labs: CBC, BMP 04/19/20 00:52 04/19/20 00:52
[2020-04-20 06:23] LABS: POTASSIUM 3.6 mmol/L (3.5-5.1)
[2020-04-20 06:28] LABS: ALBUMIN 2.4 g/dl (3.4-5.0); BLOOD UREA NITROGEN 11.8 mg/dL (7-18); CALCIUM 9.1 mg/dL (8.5-10.1)
[2020-04-20 06:31] LABS: CREATININE 0.6 mg/dL (0.55-1.3)
[2020-04-20 06:33] LABS: BILIRUBIN,TOTAL 1.7 mg/dL (0.2-1); TOT PROT 7.6 g/dl (6.4-8.2)
[2020-04-20 06:43] LABS: BASO % 0.7 % (0-2.0); EOS % 3.8 % (0-4.5); HEMATOCRIT 33.7 % (32.4-45.2); HEMOGLOBIN 10.8 GM/dL (10.7-15.3); LYMPH % 36.5 % (8-40); MCH 30.1 pg (25.7-33.7); MEAN CELL VOLUME 94.1 fl (80-96); MEAN PLT VOLUME 9.6 fl (7.5-11.1); MONO % 15.1 % (3.8-10.2); NEUT % 43.9 % (42.8-82.8); PLATELET COUNT 141 K/MM3 (134-434); RBC 3.58 M/mm3 (3.60-5.2); RDW 17.2 % (11.6-15.6); WHITE BLOOD COUNT 4.3 K/mm3 (4.0-10.0)
[2020-04-20] MEDS: ACETAMINOPHEN 325 MG TABLET (FP) PO PRN ×2 (07:56→18:33)
[2020-04-20] MEDS: APIXABAN 5 MG TABLET PO SCH ×2 (09:50→22:00)
[2020-04-20] MEDS: CARVEDILOL 3.125 MG TABLET (FP) PO SCH ×2 (09:50→22:00)
[2020-04-20] MEDS: FERROUS SO4 325 MG TABLET (FP) PO SCH (09:50)
--- NOTE | 2020-04-20 21:53 | PN ---
Progress Note, Physician - Current Medication List Current Medications: Active Medications Acetaminophen (Tylenol -) 650 mg PO Q6H PRN PRN Reason: PAIN 1-7 Last Admin: 04/20/20 18:33 Dose: 650 mg Documented by: Albuterol Sulfate (Ventolin Hfa Inhaler -) 1 puff IH Q6H PRN PRN Reason: ASTHMA Apixaban (Eliquis -) 5 mg PO BID [facility] Last Admin: 04/20/20 09:50 Dose: 5 mg Documented by: Atorvastatin Calcium (Lipitor -) 20 mg PO HS [facility] Last Admin: 04/19/20 21:44 Dose: 20 mg Documented by: Carvedilol (Coreg -) 3.125 mg PO BID [facility] Last Admin: 04/20/20 09:50 Dose: Not Given Documented by: Ferrous Sulfate (Feosol -) 325 mg PO DAILY [facility] Last Admin: 04/20/20 09:50 Dose: 325 mg Documented by: - Objective Vital Signs: Vital Signs Temperature 98.1 F 04/20/20 14:00 Pulse Rate 87 04/20/20 18:29 Respiratory Rate 18 04/20/20 18:29 Blood Pressure 100/63 04/20/20 18:29 O2 Sat by Pulse Oximetry (%) 100 04/20/20 18:29 Labs: CBC, BMP 04/20/20 05:50 04/20/20 05:50 INR, PTT INR 1.72 (0.83-1.09) H 04/19/20 00:34
[2020-04-20] MEDS: ATORVASTATIN CA 20 MG TABLET (FP) PO SCH (22:00)
--- NOTE | 2020-04-21 06:25 | PN ---
Progress Note, Physician Chief Complaint: Pt A&Ox3; no dyspnea; mild tenderness on palpation of ICD site. History of Present Illness: Ms. Walton is a 48 year old black woman with a significant past medical history of CAD ([place] 2015; pt reports having coronary angiogram during that admission that showed "only 30% block"), chronic TNI elevation, severe systolic CHF (ECHO 07/21/2019 showed severely reduced LVEF; moderate MR; moderate ),s/p ICD 03/31/2020, PAF (now on carvedilol and apixaban), HTN, HLD,anemia, former cigarette smoker (quit this year), substance abuse (including cocaine ? months ago), "asthma", overweight, now c/o copious nose bleeding for 30 mins prior to arrival. 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 PMD: Dr. Sarath Leon Tuck Pointer: Dr. Mandy Boyd - Current Medication List Current Medications: Active Medications Acetaminophen (Tylenol -) 650 mg PO Q6H PRN PRN Reason: PAIN 1-7 Last Admin: 04/20/20 18:33 Dose: 650 mg Documented by: Albuterol Sulfate (Ventolin Hfa Inhaler -) 1 puff IH Q6H PRN PRN Reason: ASTHMA Apixaban (Eliquis -) 5 mg PO BID [facility] Last Admin: 04/20/20 22:00 Dose: 5 mg Documented by: Atorvastatin Calcium (Lipitor -) 20 mg PO HS [facility] Last Admin: 04/20/20 22:00 Dose: 20 mg Documented by: Carvedilol (Coreg -) 3.125 mg PO BID [facility] Last Admin: 04/20/20 22:00 Dose: Not Given Documented by: Ferrous Sulfate (Feosol -) 325 mg PO DAILY [facility] Last Admin: 04/20/20 09:50 Dose: 325 mg Documented by: - Objective Vital Signs: Vital Signs Temperature 98.4 F 04/21/20 02:00 Pulse Rate 90 04/21/20 02:00 Respiratory Rate 18 04/21/20 02:00 Blood Pressure 105/88 04/21/20 02:00 O2 Sat by Pulse Oximetry (%) 100 04/21/20 01:01 Constitutional: Yes: Calm Eyes: Yes: WNL HENT: Yes: WNL Neck: Yes: WNL Cardiovascular: Yes: Murmur (2/6 systolic murmur, LSB-->apex), S1, S2 (split) Respiratory: Yes: Regular Gastrointestinal: Yes: Soft, Abdomen, Obese ...Rectal Exam: Yes: Deferred Genitourinary: Yes: Anuria Breast(s): Yes: WNL Musculoskeletal: Yes: Muscle Weakness Extremities: Yes: Cool Edema: No Peripheral Pulses WNL: Yes Integumentary: Yes: Other (left chest ICD site mildly swollen, mildly tender on palpation) Wound/Incision: Yes: Open to air, Other Neurological: Yes: Alert, Oriented Psychiatric: Yes: WNL Labs: CBC, BMP 04/20/20 05:50 04/20/20 05:50 INR, PTT INR 1.72 (0.83-1.09) H 04/19/20 00:34 Abnormal Lab Results 04/20/20 04/20/20 05:50 12:28 RBC 3.58 L RDW 17.2 H Monocytes % 15.1 H Troponin I 0.15 H - ....Imaging Chest X-ray: Image Reviewed EKG: Image Reviewed Assessment/Plan Ms. Walton is a 48 year old black woman with a significant past medical history of CAD ([place] 2015; pt reports having coronary angiogram during that admission that showed "only 30% block"), chronic TNI elevation, severe systolic CHF (ECHO 07/21/2019 showed severely reduced LVEF; moderate MR; moderate ),s/p ICD 03/31/2020, PAF (now on carvedilol and apixaban), HTN, HLD,anemia, former cigarette smoker (quit this year), substance abuse (including cocaine ? months ago), "asthma", overweight, now c/o copious nose bleeding for 30 mins prior to arrival. Nosebleed: Hb stable; no further reported bleed Severe systolic CHF (appears euvolemic presently) CAD; s/p [place] 2016 with ?nonobstructive CAD on coronary cath; stress ECHO 2017: ?results. Cardiac valvulopathy (e.g., "moderate" may be underestimated due to poor LVEF). Chronic TNI elevation Plan: COVID negative. Add Entresto if covered by her insurance; otherwise, start lisinopril. Plan on adding spironolactone. (On carvedilol for HR, CHF. Pt states she no longer uses cocaine; otherwise, beta blockers would be contraindicated). Hb 10.6-->10.8. On iron. Consider ENT consult. ICD interrogation: elevated RV threshold-->modification by interrogator; f/u planned at [facility] Records regarding CAD workup done ?at [facility]. Consider cardiac rehabilitation as outpt. CC time spent 40 minutes.
[2020-04-21] MEDS ORDERED: PT OWN MED DRAWER 7, Y5N ONE (09:37)
--- NOTE | 2020-04-21 09:41 | PN ---
Progress Note, Physician History of Present Illness: The patient is a 48 year old black woman, with a significant past medical history of asthma, CAD (ME 2016; pt reports having coronary angiogram during that admission that showed "only 30% block"), HLD, HTN, severe systolic CHF (2 admissions in the last 20 days for CHF; ECHO 07/21/2019 showed severely reduced LVEF; moderate MR; moderate ), paroxysmal afib, and anemia, cigarette smoking, substance abuse (including cocaine), asthma, anemia, hyperlipidemia, CAD, ME, chf, ,overweight, recent defibillator placed on 03/31/20 currently pn eliquis c/o nose bleeding for 30 mins prior to arrival. - Current Medication List Current Medications: Active Medications Acetaminophen (Tylenol -) 650 mg PO Q6H PRN PRN Reason: PAIN 1-7 Last Admin: 04/20/20 18:33 Dose: 650 mg Documented by: Albuterol Sulfate (Ventolin Hfa Inhaler -) 1 puff IH Q6H PRN PRN Reason: ASTHMA Apixaban (Eliquis -) 5 mg PO BID [facility] Last Admin: 04/20/20 22:00 Dose: 5 mg Documented by: Atorvastatin Calcium (Lipitor -) 20 mg PO HS [facility] Last Admin: 04/20/20 22:00 Dose: 20 mg Documented by: Carvedilol (Coreg -) 3.125 mg PO BID [facility] Last Admin: 04/20/20 22:00 Dose: Not Given Documented by: Ferrous Sulfate (Feosol -) 325 mg PO DAILY [facility] Last Admin: 04/20/20 09:50 Dose: 325 mg Documented by: Sacubitril/Valsartan (Entresto 24 Mg-26 Mg Tablet) 1 tab PO BID [facility] - Objective Vital Signs: Vital Signs Temperature 98.3 F 04/21/20 08:00 Pulse Rate 88 04/21/20 08:00 Respiratory Rate 18 04/21/20 09:00 Blood Pressure 85/58 L 04/21/20 08:00 O2 Sat by Pulse Oximetry (%) 100 04/21/20 09:00 Eyes: Yes: WNL, Conjunctiva Clear, EOM Intact HENT: Yes: WNL, Atraumatic, Normocephalic Neck: Yes: WNL, Supple, Trachea Midline Cardiovascular: Yes: WNL, Regular Rate and Rhythm Respiratory: Yes: WNL, Regular, CTA Bilaterally Gastrointestinal: Yes: WNL, Normal Bowel Sounds Genitourinary: Yes: WNL Musculoskeletal: Yes: WNL Extremities: Yes: WNL Edema: No Integumentary: Yes: WNL Neurological: Yes: WNL, Alert, Oriented ...Motor Strength: WNL Psychiatric: Yes: WNL Labs: CBC, BMP 04/20/20 05:50 04/20/20 05:50 INR, PTT INR 1.72 (0.83-1.09) H 04/19/20 00:34 Problem List - Problems (1) Anterior epistaxis Code(s): R04.0 - EPISTAXIS (2) Chest pain Code(s): R07.9 - CHEST PAIN, UNSPECIFIED Qualifiers: Chest pain type: unspecified Qualified Code(s): R07.9 - Chest pain, unspecified (3) Chronic systolic CHF (congestive heart failure) Code(s): I50.22 - CHRONIC SYSTOLIC (CONGESTIVE) HEART FAILURE (4) Elevated troponin Code(s): R79.89 - OTHER SPECIFIED ABNORMAL FINDINGS OF BLOOD CHEMISTRY (5) Shortness of breath Code(s): R06.02 - SHORTNESS OF BREATH (6) ZEINA (acute kidney injury) Code(s): N17.9 - ACUTE KIDNEY FAILURE, UNSPECIFIED (7) Abdominal muscle strain Code(s): S39.011A - STRAIN OF MUSCLE, FASCIA AND TENDON OF ABDOMEN, INIT ENCNTR (8) Abdominal pain Code(s): R10.9 - UNSPECIFIED ABDOMINAL PAIN (9) Acute on chronic systolic heart failure Code(s): I50.23 - ACUTE ON CHRONIC SYSTOLIC (CONGESTIVE) HEART FAILURE (10) Anemia Code(s): D64.9 - ANEMIA, UNSPECIFIED (11) Aortic stenosis Code(s): I35.0 - NONRHEUMATIC AORTIC (VALVE) STENOSIS (12) Asthma Code(s): J45.909 - UNSPECIFIED ASTHMA, UNCOMPLICATED (13) Atrial fibrillation Code(s): I48.91 - UNSPECIFIED ATRIAL FIBRILLATION (14) Back pain Code(s): M54.9 - DORSALGIA, UNSPECIFIED (15) Breast pain Code(s): N64.4 - MASTODYNIA (16) CAD (coronary artery disease) Code(s): I25.10 - ATHSCL HEART DISEASE OF [place] CORONARY ARTERY W/O ANG PCTRS (17) CHF exacerbation Code(s): I50.9 - HEART FAILURE, UNSPECIFIED Qualifiers: Heart failure type: unspecified Qualified Code(s): I50.9 - Heart failure, unspecified (18) Chronic back pain Code(s): M54.9 - DORSALGIA, UNSPECIFIED; G89.29 - OTHER CHRONIC PAIN (19) Cocaine abuse Code(s): F14.10 - COCAINE ABUSE, UNCOMPLICATED (20) Constipation Code(s): K59.00 - CONSTIPATION, UNSPECIFIED (21) Diarrhea Code(s): R19.7 - DIARRHEA, UNSPECIFIED Qualifiers: Diarrhea type: unspecified type Qualified Code(s): R19.7 - Diarrhea, unspecified (22) Elevated LFTs Code(s): R94.5 - ABNORMAL RESULTS OF LIVER FUNCTION STUDIES (23) Exposure to blood or body fluid Code(s): Z77.21 - CONTACT W AND EXPOSURE TO POTENTIALLY HAZARDOUS BODY FLUIDS (24) GERD (gastroesophageal reflux disease) Code(s): K21.9 - GASTRO-ESOPHAGEAL REFLUX DISEASE WITHOUT ESOPHAGITIS (25) HLD (hyperlipidemia) Code(s): E78.5 - HYPERLIPIDEMIA, UNSPECIFIED (26) HTN (hypertension) Code(s): I10 - ESSENTIAL (PRIMARY) HYPERTENSION (27) Hypotension Code(s): I95.9 - HYPOTENSION, UNSPECIFIED (28) Menometrorrhagia Code(s): N92.1 - EXCESSIVE AND FREQUENT MENSTRUATION WITH IRREGULAR CYCLE (29) Moderate aortic stenosis Code(s): I35.0 - NONRHEUMATIC AORTIC (VALVE) STENOSIS (30) Morbid obesity Code(s): E66.01 - MORBID (SEVERE) OBESITY DUE TO EXCESS CALORIES (31) Multiple thyroid nodules Code(s): E04.2 - NONTOXIC MULTINODULAR GOITER (32) Myocardial infarction Code(s): I21.3 - ST ELEVATION (STEMI) MYOCARDIAL INFARCTION OF [facility] SITE (33) Near syncope Code(s): R55 - SYNCOPE AND COLLAPSE (34) Nonischemic cardiomyopathy Code(s): I42.8 - OTHER CARDIOMYOPATHIES (35) Obesity Code(s): E66.9 - OBESITY, UNSPECIFIED (36) Paroxysmal A-fib Code(s): I48.0 - PAROXYSMAL ATRIAL FIBRILLATION (37) Positive blood culture Code(s): R78.81 - BACTEREMIA (38) RBBB Code(s): I45.10 - UNSPECIFIED RIGHT BUNDLE-BRANCH BLOCK (39) S/P hysterectomy Code(s): Z90.710 - ACQUIRED ABSENCE OF BOTH CERVIX AND UTERUS (40) Sprain of wrist, left Code(s): S63.502A - UNSPECIFIED SPRAIN OF LEFT WRIST, INITIAL ENCOUNTER (41) Strain of mid-back Code(s): S29.012A - STRAIN OF MUSCLE AND TENDON OF BACK WALL OF THORAX, INIT (42) URI (upper respiratory infection) Code(s): J06.9 - ACUTE UPPER RESPIRATORY INFECTION, UNSPECIFIED Assessment/Plan Ms. Walton is a 48 year old black woman with a significant past medical history of CAD (ME 2016; pt reports having coronary angiogram during that admission that showed "only 30% block"), chronic TNI elevation, severe systolic CHF (ECHO 07/21/2019 showed severely reduced LVEF; moderate MR; moderate ),s/p ICD 03/31/2020, PAF (now on carvedilol and apixaban), HTN, HLD,anemia, former cigarette smoker (quit this year), substance abuse (including cocaine ? months ago), "asthma", overweight, now c/o copious nose bleeding for 30 mins prior to arrival. Nosebleed: Hb stable; no further reported bleed Severe systolic CHF (appears euvolemic presently) CAD; s/p ME 2016 with ?nonobstructive CAD on coronary cath; stress ECHO 2017: ?results. Cardiac valvulopathy (e.g., "moderate" may be underestimated due to poor LVEF). Chronic TNI elevation Plan: COVID negative. Add Entresto if covered by her insurance; otherwise, start lisinopril. Plan on adding spironolactone. (On carvedilol for HR, CHF. Pt states she no longer uses cocaine; otherwise, beta blockers would be contraindicated). Hb 10.6-->10.8. On iron. Consider ENT consult. ICD interrogation: elevated RV threshold-->modification by interrogator; f/u planned at [facility] Will transfer to [facility] for further evaluation of the AICD CC time spent 36 minutes.
[2020-04-21] MEDS: APIXABAN 5 MG TABLET PO SCH (09:45)
[2020-04-21] MEDS: CARVEDILOL 3.125 MG TABLET (FP) PO SCH (09:46)
[2020-04-21] MEDS: FERROUS SO4 325 MG TABLET (FP) PO SCH (09:46)
[2020-04-21] MEDS ORDERED: SACUBITRIL/VALSARTAN 24 MG-26 MG TABLET PO SCH (10:00)
[2020-04-21] MEDS: ACETAMINOPHEN 325 MG TABLET (FP) PO PRN (11:07)
[2020-04-21] MEDS ORDERED: ASPIRIN 81 MG CHEWABLE TABLETS PO SCH (12:15)
[2020-04-21] MEDS ORDERED: FUROSEMIDE 40 MG TABLET (FP) PO SCH (12:15)
[2020-04-21] MEDS ORDERED: metoPROLOL SUCCINATE 25 MG TAB.SR.24H (FP) PO SCH (12:15)
[2020-04-21 12:43] VITALS: BMI 28.8
[2020-04-21] MEDS ORDERED: DOCUSATE SODIUM 100 MG CAPSULE (FP) PO SCH (14:00)
[2020-04-21 14:05] VITALS: BP 95/55; PULSE 83; TEMP 98
--- NOTE | 2020-04-21 14:25 | PN ---
Progress Note, Physician - Current Medication List Current Medications: Active Medications Acetaminophen (Tylenol -) 650 mg PO Q6H PRN PRN Reason: PAIN 1-7 Last Admin: 04/21/20 11:07 Dose: 650 mg Documented by: Albuterol Sulfate (Ventolin Hfa Inhaler -) 1 puff IH Q6H PRN PRN Reason: ASTHMA Apixaban (Eliquis -) 5 mg PO BID [facility] Last Admin: 04/21/20 09:45 Dose: 5 mg Documented by: Aspirin (Asa -) 81 mg PO DAILY [facility] Last Admin: 04/21/20 12:17 Dose: 81 mg Documented by: Atorvastatin Calcium (Lipitor -) 20 mg PO HS [facility] Last Admin: 04/20/20 22:00 Dose: 20 mg Documented by: Carvedilol (Coreg -) 3.125 mg PO BID [facility] Docusate Sodium (Colace -) 100 mg PO TID [facility] Ferrous Sulfate (Feosol -) 325 mg PO DAILY [facility] Last Admin: 04/21/20 09:46 Dose: 325 mg Documented by: Furosemide (Lasix -) 40 mg PO DAILY [facility] Last Admin: 04/21/20 12:18 Dose: 40 mg Documented by: Metoprolol Succinate (Toprol Xl -) 25 mg PO DAILY [facility] Last Admin: 04/21/20 12:18 Dose: 25 mg Documented by: Sacubitril/Valsartan (Entresto 24 Mg-26 Mg Tablet) 1 tab PO BID [facility] Last Admin: 04/21/20 09:46 Dose: 1 tab Documented by: - Objective Vital Signs: Vital Signs Temperature 98.0 F 04/21/20 14:00 Pulse Rate 83 04/21/20 14:00 Respiratory Rate 19 04/21/20 14:00 Blood Pressure 95/55 L 04/21/20 14:00 O2 Sat by Pulse Oximetry (%) 100 04/21/20 14:00 Labs: CBC, BMP 04/20/20 05:50 04/20/20 05:50 INR, PTT INR 1.72 (0.83-1.09) H 04/19/20 00:34 Problem List - Problems (1) Anterior epistaxis Code(s): R04.0 - EPISTAXIS (2) Chronic systolic CHF (congestive heart failure) Code(s): I50.22 - CHRONIC SYSTOLIC (CONGESTIVE) HEART FAILURE (3) Elevated troponin Code(s): R79.89 - OTHER SPECIFIED ABNORMAL FINDINGS OF BLOOD CHEMISTRY (4) ZEINA (acute kidney injury) Code(s): N17.9 - ACUTE KIDNEY FAILURE, UNSPECIFIED (5) Atrial fibrillation Code(s): I48.91 - UNSPECIFIED ATRIAL FIBRILLATION (6) GERD (gastroesophageal reflux disease) Code(s): K21.9 - GASTRO-ESOPHAGEAL REFLUX DISEASE WITHOUT ESOPHAGITIS (7) HLD (hyperlipidemia) Code(s): E78.5 - HYPERLIPIDEMIA, UNSPECIFIED (8) HTN (hypertension) Code(s): I10 - ESSENTIAL (PRIMARY) HYPERTENSION
[2020-04-21] MEDS ORDERED: CARVEDILOL 3.125 MG TABLET (FP) PO SCH (22:00)
--- NOTE | 2020-04-22 10:12 | EKG ---
Test Reason : Blood Pressure : / mmHG Vent. Rate : 089 BPM Atrial Rate : 089 BPM P-R Int : 226 ms QRS Dur : 170 ms QT Int : 430 ms P-R-T Axes : 000 -56 -71 degrees QTc Int : 523 ms SINUS RHYTHM WITH 1ST DEGREE A-V BLOCK WITH FREQUENT PREMATURE VENTRICULAR COMPLEXES AND PREMATURE ATRIAL COMPLEXES RIGHT BUNDLE BRANCH BLOCK LEFT ANTERIOR FASCICULAR BLOCK BIFASCICULAR BLOCK POSSIBLE LATERAL INFARCT (CITED ON OR BEFORE 19-APR-2020) T WAVE ABNORMALITY, CONSIDER INFERIOR ISCHEMIA ABNORMAL ECG Confirmed by Calvin Hernandes MD ([id number]) on 04/22/2020 10:11:43 AM Referred By: Confirmed By:Calvin Hernandes MD
--- NOTE | 2020-04-22 10:12 | EKG ---
Test Reason : Blood Pressure : / mmHG Vent. Rate : 091 BPM Atrial Rate : 091 BPM P-R Int : 170 ms QRS Dur : 164 ms QT Int : 450 ms P-R-T Axes : 069 -58 036 degrees QTc Int : 553 ms SINUS RHYTHM WITH PREMATURE ATRIAL COMPLEXES RIGHT BUNDLE BRANCH BLOCK LEFT ANTERIOR FASCICULAR BLOCK BIFASCICULAR BLOCK ABNORMAL ECG Confirmed by Calvin Hernandes MD ([id number]) on 04/22/2020 10:11:38 AM Referred By: Confirmed By:Calvin Hernandes MD
== END 2020-04-21 14:59 | disposition short-term general hospital (02) | DRG 194 ==
LOC: JER 23:44 → JERBED 04-19 02:25 → JICU 04-19 15:18
PROVIDERS: ADMIT Internal Medicine; ATTEND Internal Medicine
DX: I11.0 Hypertensive heart disease with heart failure (principal); R07.89 Other chest pain; I25.10 Atherosclerotic heart disease of native coronary artery without angina pectoris; I25.2 Old myocardial infarction; I08.0 Rheumatic disorders of both mitral and aortic valves; E78.5 Hyperlipidemia, unspecified; D64.9 Anemia, unspecified; E66.3 Overweight; Z68.28 Body mass index [BMI] 28.0-28.9, adult; R04.0 Epistaxis; J45.909 Unspecified asthma, uncomplicated; I48.0 Paroxysmal atrial fibrillation; I45.2 Bifascicular block; K21.9 Gastro-esophageal reflux disease without esophagitis; F14.10 Cocaine abuse, uncomplicated; D86.9 Sarcoidosis, unspecified; I50.22 Chronic systolic (congestive) heart failure; Z87.891 Personal history of nicotine dependence; Z95.810 Presence of automatic (implantable) cardiac defibrillator
CPT/HCPCS: 36415; 71046-TC-FY; 80053; 82550; 82553; 83735; 83880; 84484; 85025; 85610; 85730; 93005; 93010; 99285-25; C9803; U0003